=== PATIENT | female | born 1955 | race Caucasian/White ===

== ENCOUNTER 2021-11-01 14:48 | Inpatient (IN) | payer MEDICARE, BC ==
[~2021-11-01] VITALS: Ht 154.9 cm; Wt 55.4 kg
[~2021-11-01 14:48] MED LIST: CALCIUM CHLORIDE 1,000 MG/10 ML DISP.SYRIN ONE; EPINEPHrine SYRINGE 1 MG/10 ML SYRINGE. ONE; SODIUM BICARB ADULT 8.4% 50 MEQ/50 ML DISP.SYRIN. ONE
[2021-11-01] MEDS ORDERED: IV NORMAL SALINE 1000ML BAG 1,000 ML IV ONE ×2 (15:15→17:45)
[2021-11-01 15:17] LABS: BASO % 0 % (0-3); EOS % 0 % (0-3); HEMATOCRIT 44.9 % (36.0-47.0); HEMOGLOBIN 14.2 g/dL (12.0-15.5); LYMPH # 0.3 x10^3/uL (1.0-4.8); LYMPH % 2 % (24-48); MEAN CORPUSCULAR HEMOGLOBIN 31 pg (25-35); MEAN CORPUSCULAR HGB CONC 32 g/dL (31-37); MEAN CORPUSCULAR VOLUME 99 fL (79-100); MONO # 0.5 x10^3/uL (0.0-1.1); MONO % 4 % (0-9); NEUT % 95 % (31-73); PLATELET COUNT 89 x10^3/uL (140-400); RED BLOOD COUNT 4.55 x10^6/uL (3.50-5.40); WHITE BLOOD COUNT 14.8 x10^3/uL (4.0-11.0)
[2021-11-01 15:28] LABS: PROTHROMBIN TIME PATIENT 14.8 SEC (11.7-14.0)
--- NOTE | 2021-11-01 15:29 | PHYS DOC ---
Past Medical History Additional Past Medical Histor: unable to obtain full history from patient Past Surgical History: Other Additional Past Surgical Histo: unable to obtain Adult General Chief Complaint Chief Complaint: SHORTNESS OF BREATH HPI HPI Patient is a 66 year old female presenting to the emergency department for evaluation of a fall that occurred 2 days ago and has been laying on the floor since that time and is now weak confused and unable to function. She is very thin and mottled with cold and pale extremities. Patient says that she hurts everywhere and one place does not hurt more than another. She is alert to person and place but does not know the date. She appears ill but nontoxic. Review of Systems Review of Systems Constitutional: Denies fever or chills [] Eyes: Denies change in visual acuity, redness, or eye pain [] HENT: Denies nasal congestion or sore throat [] Respiratory: Positive shortness of breath Cardiovascular: Positive chest GI: Positive abdominal pain. No nausea, vomiting, bloody stools or diarrhea [] : Denies dysuria or hematuria [] Musculoskeletal: Positive back and diffuse joint pain Integument: Denies rash or skin lesions [] Neurologic: Positive headache All other systems were reviewed and found to be within normal limits, except as documented in this note. Current Medications Current Medications Current Medications Medications (Trade) Dose Ordered Sig/[facility] Start Time Stop Time Status Last Admin Dose Admin Calcium Gluconate (Calcium Gluconate) 1,000 mg 1X ONCE 11/01/21 16:00 11/01/21 16:01 DC 11/01/21 16:35 1,000 MG Dextrose (Dextrose 50%-Water Syringe) 25 gm 1X ONCE 11/01/21 16:00 11/01/21 16:01 DC 11/01/21 16:50 25 GM Insulin Human Regular (HumuLIN R VIAL) 10 unit 1X ONCE 11/01/21 16:00 11/01/21 16:01 DC 11/01/21 16:40 10 UNIT Morphine Sulfate (Morphine Sulfate) 2 mg PRN Q2HR PRN 11/01/21 16:45 11/02/21 16:44 Ondansetron HCl (Zofran) 4 mg PRN Q8HRS PRN 11/01/21 16:45 11/02/21 16:44 Piperacillin Sod/ Tazobactam Sod 2.25 gm/Sodium Chloride 50 ml @ 100 mls/hr 1X ONCE 11/01/21 17:00 11/01/21 17:29 11/01/21 16:58 100 MLS/HR Piperacillin Sod/ Tazobactam Sod 3.375 gm/Sodium Chloride 50 ml @ 100 mls/hr 1X ONCE 11/01/21 16:45 11/01/21 17:14 UNV Sodium Bicarbonate (Sodium Bicarb Adult 8.4% Syr) 50 meq 1X ONCE 11/01/21 16:00 11/01/21 16:01 DC 11/01/21 16:35 50 MEQ Sodium Chloride 1,000 ml @ 1,000 mls/hr Q1H 11/01/21 16:00 11/01/21 16:59 DC 11/01/21 16:50 1,000 MLS/HR Allergies Allergies Allergies Coded Allergies Type Severity Reaction Last Updated Verified No Known Drug Allergies 11/01/21 No Physical Exam Physical Exam Constitutional: Ill and frail appearing female HENT: Normocephalic, atraumatic, bilateral external ears normal, oropharynx moist, no oral exudates, nose normal. [] Eyes: PERRLA, EOMI, conjunctiva normal, no discharge. [] Neck: Normal range of motion, no tenderness, supple, no stridor. [] Cardiovascular:Heart rate regular rhythm, no murmur [] Lungs & Thorax: Bilateral breath sounds clear to auscultation [] Abdomen: Positive diffuse abdominal tenderness to palpation with no rebound or guarding Skin: Cold and mottled extremities Back: No tenderness, no CVA tenderness. [] Extremities: Cyanosis to extremities Neurologic: Alert and oriented X 2, will follow commands and move all extremities Current Patient Data Vital Signs Vital Signs Date Time Temp Pulse Resp B/P (MAP) Pulse Ox O2 Delivery O2 Flow Rate FiO2 11/01/21 16:10 90 15 114/58 (76) 97 Room Air 11/01/21 14:48 96.6 96.6 Lab Values Laboratory Tests Test 11/01/21 15:00 11/01/21 15:45 White Blood Count 14.8 x10^3/uL (4.0-11.0) H Red Blood Count 4.55 x10^6/uL (3.50-5.40) Hemoglobin 14.2 g/dL (12.0-15.5) Hematocrit 44.9 % (36.0-47.0) Mean Corpuscular Volume 99 fL (79-100) Mean Corpuscular Hemoglobin 31 pg (25-35) Mean Corpuscular Hemoglobin Concent 32 g/dL (31-37) Red Cell Distribution Width 21.0 % (11.5-14.5) H Platelet Count 89 x10^3/uL (140-400) L Neutrophils (%) (Auto) 95 % (31-73) H Lymphocytes (%) (Auto) 2 % (24-48) L Monocytes (%) (Auto) 4 % (0-9) Eosinophils (%) (Auto) 0 % (0-3) Basophils (%) (Auto) 0 % (0-3) Neutrophils # (Auto) 14.0 x10^3/uL (1.8-7.7) H Lymphocytes # (Auto) 0.3 x10^3/uL (1.0-4.8) L Monocytes # (Auto) 0.5 x10^3/uL (0.0-1.1) Eosinophils # (Auto) 0.0 x10^3/uL (0.0-0.7) Basophils # (Auto) 0.0 x10^3/uL (0.0-0.2) Segmented Neutrophils % 62 % (35-66) Band Neutrophils % 28 % (0-9) H Lymphocytes % 4 % (24-48) L Monocytes % 5 % (0-10) Metamyelocytes % 1 % (0-0) H Platelet Estimate Decreased (ADEQUATE) Anisocytosis Mod Ac Cells Many Prothrombin Time 14.8 SEC (11.7-14.0) H Prothrombin Time INR 1.2 (0.8-1.1) H Activated Partial Thromboplast Time 23 SEC (24-38) L Sodium Level 139 mmol/L (136-145) Potassium Level 6.2 mmol/L (3.5-5.1) *H Chloride Level 103 mmol/L (98-107) Carbon Dioxide Level 14 mmol/L (21-32) L Anion Gap 22 (6-14) H Blood Urea Nitrogen 87 mg/dL (7-20) H Creatinine 2.5 mg/dL (0.6-1.0) H Estimated GFR (Cockcroft-Gault) 19.3 BUN/Creatinine Ratio 35 (6-20) H Glucose Level 106 mg/dL (70-99) H Lactic Acid Level 3.2 mmol/L (0.4-2.0) H Calcium Level 9.1 mg/dL (8.5-10.1) Total Bilirubin 3.1 mg/dL (0.2-1.0) H Aspartate Amino Transferase (AST) 45 U/L (15-37) H Alanine Aminotransferase (ALT) 49 U/L (14-59) Alkaline Phosphatase 265 U/L (46-116) H Ammonia < 10 mcmol/L (11-34) L Creatine Kinase 59 U/L (26-192) Troponin I High Sensitivity 110 ng/L (4-50) H VN-Fdf-L-Type Natriuretic Peptide > 91714 pg/mL (0-124) H Total Protein 5.7 g/dL (6.4-8.2) L Albumin 2.3 g/dL (3.4-5.0) L Albumin/Globulin Ratio 0.7 (1.0-1.7) L Lipase 255 U/L (73-393) Thyroid Stimulating Hormone (TSH) 4.552 uIU/mL (0.358-3.74) H Salicylates Level 7.0 mg/dL (2.8-20.0) Salicylate Last Dose Date Unknown Salicylate Last Dose Time Unknown Acetaminophen Level 7.3 mcg/ml (10-30) L Acetaminophen Last Dose Date Unknown Acetaminophen Last Dose Time Unknown Ethyl Alcohol Level < 10 mg/dL (0-10) Urine Collection Type U cath Urine Color (Auto) Dark yellow Urine Turbidity Hazy Urine pH (Auto) 5.0 (<5.0-8.0) Urine Specific [place] 1.027 (1.000-1.030) Urine Protein (Auto) 50 mg/dL (Negative) Urine Glucose (Auto)(UA) Negative mg/dL (Negative) Urine Ketones (Auto) Negative mg/dL (Negative) Urine Blood (Auto) Small (Negative) Urine Nitrite Negative (Negative) Urine Bilirubin (Auto) Small (Negative) Urine Urobilinogen (Auto) 4 mg/dL (Normal) Urine Leukocyte Esterase (Auto) Small (Negative) Urine RBC Occ /HPF (0-2) Urine WBC 1-4 /HPF (0-4) Urine Squamous Epithelial Cells Occ /LPF Urine Amorphous Sediment Present /HPF Urine Bacteria Few /HPF (0-FEW) Urine Hyaline Casts Few /HPF Urine Mucus Slight /LPF Urine Opiates Screen Pos (NEG) Urine Methadone Screen Neg (NEG) Urine Barbiturates Neg (NEG) Urine Phencyclidine Screen Neg (NEG) Urine Amphetamine/Methamphetamine Neg (NEG) Urine Benzodiazepines Screen Pos (NEG) Urine Cocaine Screen Neg (NEG) Urine Cannabinoids Screen Neg (NEG) Urine Ethyl Alcohol Neg (NEG) Influenza Type A Antigen Negative (NEGATIVE) Influenza Type B Antigen Negative (NEGATIVE) SARS-CoV-2 Antigen (Rapid) Negative (NEGATIVE) Laboratory Tests 11/01/21 15:00 Laboratory Tests 11/01/21 15:00 EKG EKG Sinus rhythm at 97 bpm with wandering baseline and large QRS complexes with peak T waves in V3. No ST elevation or depression. Radiology/Procedures Radiology/Procedures [] Course & Med Decision Making Course & Med Decision Making Patient is ill and will require full work-up and admission for further observation and treatment. Patient is in new onset renal failure from I presume with increased BUN and creatinine and she has hyperkalemic and has peaked T waves but her QRS is normal at this time. She is being given the hyperkalemia protocol. On CT imaging there is suspicion that she may have perforated viscus so I spoke to the general surgeon Dr. Cummings and he agreed to consult on patient. Antibiotics have been started. Patient's blood pressure is 90/60 with a MAP above 65 I will hold off on pressors at this time but she does have mottled cold extremities and will r equire intense resuscitation. Nephrology will be consulted. Any further blood thinners will be held at this time. She will be admitted to the ICU in critical condition. Dragon Disclaimer Dragon Disclaimer This electronic medical record was generated, in whole or in part, using a voice recognition dictation system. Departure Departure Impression: Primary Impression: Hyperkalemia Additional Impressions: Lactic acidosis Renal insufficiency Perforated viscus Leukocytosis Elevated bilirubin Disposition: ADMITTED INPATIENT Admitting Physician: RITA Condition: CRITICAL Problem Qualifiers CHLOÉ FREDERICK DO Nov 01, 2021 15:29
[2021-11-01 15:35] LABS: ACETAMIN 7.3 mcg/ml (10-30); ETHANOL < 10 mg/dL (0-10)
[2021-11-01 15:37] LABS: ALBUMIN 2.3 g/dL (3.4-5.0); ALBUMIN/GLOBULIN RATIO 0.7 (1.0-1.7); CALCIUM 9.1 mg/dL (8.5-10.1); CREATININE 2.5 mg/dL (0.6-1.0); GFR 19.3; TOTAL BILIRUBIN 3.1 mg/dL (0.2-1.0); TOTAL PROTEIN 5.7 g/dL (6.4-8.2)
[2021-11-01 15:43] LABS: POTASSIUM 6.2 mmol/L (3.5-5.1)
[2021-11-01] MEDS ORDERED: CALCIUM GLUCONATE 1,000 MG/10 ML VIAL. IVP ONE (16:00)
[2021-11-01] MEDS ORDERED: INSULIN REGULAR 100 UNIT/ML 3ML VIAL. IV ONE (16:00)
[2021-11-01] MEDS ORDERED: SODIUM BICARB ADULT 8.4% 50 MEQ/50 ML DISP.SYRIN. IV ONE ×3 (16:00→22:00)
[2021-11-01] MEDS ORDERED: DEXTROSE 50% 25 GM / 50ML DISP.SYRIN. IV ONE (16:00)
[2021-11-01] MEDS ORDERED: IV NORMAL SALINE 1000ML BAG 1,000 ML IV SCH (16:00)
[2021-11-01 16:07] LABS: BARBITURATES NEG (NEG); BENZODIAZEPINES POS (NEG); CANNABINOIDS NEG (NEG); COCAINE NEG (NEG); METHADONE NEG (NEG); OPIATES POS (NEG); PHENCYCLIDINE NEG (NEG)
[2021-11-01 16:10] LABS: AMPHETAMINE/METHAMPHETAMINE NEG (NEG)
--- NOTE | 2021-11-01 16:18 | RAD ---
Exam: CT head and cervical spine INDICATION: Fall, altered mental status TECHNIQUE: Sequential axial images through the head and cervical spine were obtained without the admi nistration of IV contrast. Exposure: One or more of the following in the visualized dose reduction techniques were utilized for this examination: 1. Automated exposure control 2. Adjustment of the MA and/or KV according to patient size 3. Use of iterative of reconstructive technique Comparisons: None FINDINGS: Head: No focal parenchymal lesion or hemorrhage is identified. There is no midline shift or sulcal effaceme nt. Mild patchy hypodensity in the periventricular white matter. No acute vascular territory infarction i s identified. Reagan-white distinction is preserved. The ventricular system is within normal limits without compression hydrocephalus. The basal cisterns are well maintained. The visualized portions of the paranasal sinuses and mastoid air cells are well-pneumatized. No acute fractures. Cervical spine: Reversal of normal cervical lordosis which may positional. Grade 1 anterolisthesis of C2 on C3 and C4 on C5. Fracture to the cervical spine is not identified. Multilevel spondylotic change in cervical spine with degenerative disc disease greatest at C3-C4, C5- C6 and C6-C7. Visualized paraspinal soft tissues are unremarkable. IMPRESSION: 1. No traumatic acute intracranial abnormality. Mild small vessel ischemic change, technically age i ndeterminate without recent prior imaging. 2. Negative CT C-spine for acute traumatic injury. Electronically signed by: Salvador Parks MD (11/01/2021 4:15 PM) [facility]
[2021-11-01 16:32] LABS: INFLUENZA A PATIENT NEGATIVE (NEGATIVE); INFLUENZA B PATIENT NEGATIVE (NEGATIVE)
[2021-11-01] MEDS ORDERED: MORPHINE SULFATE 2 MG/ML INJ. IVP PRN ×3 (16:45→18:00)
[2021-11-01] MEDS ORDERED: ONDANSETRON PF 4 MG/2 ML VIAL. IVP PRN (16:45)
[2021-11-01] MEDS ORDERED: PIPERACILLIN/TAZOBACTAM 3.375 GM in IV NORMAL SALINE 50ML 50 ML IV ONE (16:45)
[2021-11-01 16:46] LABS: % BANDS 28 % (0-9); % LYMPHS 4 % (24-48); % METAS 1 % (0-0); % MONOS 5 % (0-10); % SEGS 62 % (35-66); ANISOCYTOSIS MOD; BURR CELLS MANY; PLT ESTIMATE DECREASED (ADEQUATE)
[2021-11-01 16:51] LABS: AMORPHOUS SEDIMENT,UR PRESENT /HPF; BACTERIA,URINE FEW /HPF (0-FEW); RBC,URINE OCC /HPF (0-2)
[2021-11-01 16:52] LABS: HYALINE CASTS, URINE FEW /HPF
--- NOTE | 2021-11-01 16:59 | RAD ---
Exam: CT of chest, abdomen and pelvis without contrast INDICATION: Pain, altered mental status TECHNIQUE: Sequential axial images through the chest, abdomen and pelvis obtained without IV contrast . Sagittal and coronal reformatted images were reconstructed from the axial data and reviewed. Exposure: One or more of the following in the visualized dose reduction techniques were utilized for this examination: 1. Automated exposure control 2. Adjustment of the MA and/or KV according to patient size 3. Use of iterative of reconstructive technique Comparisons: None FINDINGS: Visualized portions of the thyroid are unremarkable. No enlarged mediastinal lymph nodes are identifi ed. Heart size is normal. No pericardial effusion. Moderate coronary calcifications. Thoracic aorta has a normal course and caliber. Pulmonary artery is not enlarged. Airways are patent. No consolidation or pneumothorax. 4 mm nodule left lower lobe series 2 image 33. No pleural effusion or thickening. Evaluation of solid organs is limited secondary to noncontrast technique. Liver, spleen, and adrenals are unremarkable. Gallbladder surgically absent. There is fluid surrounding the pancreas with a small amount of adjacent free air. No perinephric inflammation or hydronephrosis. No renal or ureteral calculi are identified. Bladder is decompressed not well evaluated. Uterus not enlarged. No abnormal adnexal mass. There is mild wall thickening at the transverse colon. Small amount of free fluid noted throughout th e abdomen particularly in the lesser sac. No obstruction. Abdominal aorta has normal course and caliber. No enlarged intra-abdominal lymph nodes are identified. No suspicious osseous lesions. Bilateral sacral insufficiency fractures are noted. [id number] IMPRESSION: 1. Free fluid and free air noted in the abdomen predominantly surrounding the pancreas and in the le sser sac. Differential diagnosis includes perforation. A definite perforation site is not identified however given distribution of findings suspect stomach or less likely at the splenic flexure of the c olon. Other differential considerations include a pancreatic process such as necrotizing pancreatitis or an infected peripancreatic fluid collection. Correlate with appropriate laboratory values. 2. Bilateral sacral insufficiency fractures. FOR INTERNAL CODING PURPOSES Critical result: Findings discussed with CHLOÉ FREDERICK DO at 11/01/2021 4:30 PM. RESULT CODE: (C) Electronically signed by: Salvador Parks MD (11/01/2021 4:56 PM) [facility]
[2021-11-01] MEDS ORDERED: PIPERACILLIN/TAZOBACTAM 2.25 GM in IV NORMAL SALINE 50ML 50 ML IV ONE (17:00)
[2021-11-01] MEDS ORDERED: ROCURONIUM 100 MG/10 ML VIAL. ONE (17:54)
[2021-11-01] MEDS ORDERED: fentaNYL PF VIAL 250 MCG/5 ML VIAL ONE (17:55)
[2021-11-01] MEDS ORDERED: ETOMIDATE 20 MG/10 ML VIAL. IV ONE (17:55)
[2021-11-01] MEDS ORDERED: PHENYLEPHRINE in 0.9% NACL PF 1 MG/10 ML SYRINGE. IV ONE ×2 (17:56→19:53)
[2021-11-01] MEDS ORDERED: IV DEXTROSE 5% 250 ML BAG. IV PRN (18:00)
[2021-11-01] MEDS ORDERED: DEXTROSE 50% 25 GM / 50ML DISP.SYRIN. IV PRN (18:00)
[2021-11-01] MEDS ORDERED: IV RINGERS,LACTATED 1000ML 1,000 ML IV SCH ×2 (18:00)
[2021-11-01] MEDS ORDERED: PROCHLORPERAZINE 10 MG/2 ML VIAL. IVP PRN ×2 (18:00)
[2021-11-01] MEDS ORDERED: HYDROmorphone 2 MG/ML INJ. IVP PRN ×2 (18:00)
[2021-11-01] MEDS ORDERED: fentaNYL PF VIAL 100 MCG/2 ML VIAL IVP PRN ×4 (18:00)
--- NOTE | 2021-11-01 18:02 | PDOC2 ---
CONSULT Date of Consult Date of Consult DATE: 11/01/21 TIME: 17:55 History of Present Illness Reason for Visit: The patient is a 66 year old female who was reportedly taken to the ER by ambulance. She states she fell at home and was unable to get up. She is a poor historian and has difficulty communicating. She does report having some abdominal pain, but is unable to provide further details. Past Medical History Past Medical History RA, tobacco use, remainder is unknown Past Surgical History Past Surgical History she states she had "surgery for RA" but is unable to provide details Social History 1 pack per day Lives: Alone Current Problem List Problem List Problems Medical Problems: (1) Elevated bilirubin Status: Acute (2) Hyperkalemia Status: Acute (3) Lactic acidosis Status: Acute (4) Leukocytosis Status: Acute (5) Perforated viscus Status: Acute (6) Renal insufficiency Status: Acute Current Medications Current Medications Current Medications Sodium Chloride 1,000 ml @ 1,000 mls/hr 1X ONCE IV Last administered on 11/01/21at 15:30; Start 11/01/21 at 15:15; Stop 11/01/21 at 16:14; Status DC Calcium Gluconate (Calcium Gluconate) 1,000 mg 1X ONCE IVP Last administered on 11/01/21at 16:35; Start 11/01/21 at 16:00; Stop 11/01/21 at 16:01; Status DC Sodium Bicarbonate (Sodium Bicarb Adult 8.4% Syr) 50 meq 1X ONCE IV Last administered on 11/01/21at 16:35; Start 11/01/21 at 16:00; Stop 11/01/21 at 16:01; Status DC Dextrose (Dextrose 50%-Water Syringe) 25 gm 1X ONCE IV Last administered on 11/01/21at 16:50; Start 11/01/21 at 16:00; Stop 11/01/21 at 16:01; Status DC Insulin Human Regular (HumuLIN R VIAL) 10 unit 1X ONCE IV Last administered on 11/01/21at 16:40; Start 11/01/21 at 16:00; Stop 11/01/21 at 16:01; Status DC Sodium Chloride 1,000 ml @ 1,000 mls/hr Q1H IV Last administered on 11/01/21at 16:50; Start 11/01/21 at 16:00; Stop 11/01/21 at 16:59; Status DC Piperacillin Sod/ Tazobactam Sod 3.375 gm/Sodium Chloride 50 ml @ 100 mls/hr 1X ONCE IV ; Start 11/01/21 at 16:45; Stop 11/01/21 at 17:14; Status UNV Piperacillin Sod/ Tazobactam Sod 2.25 gm/Sodium Chloride 50 ml @ 100 mls/hr 1X ONCE IV Last administered on 11/01/21at 16:58; Start 11/01/21 at 17:00; Stop 11/01/21 at 17:29; Status DC Ondansetron HCl (Zofran) 4 mg PRN Q8HRS PRN IVP NAUSEA/VOMITING; Start 11/01/21 at 16:45; Stop 11/02/21 at 16:44 Morphine Sulfate (Morphine Sulfate) 2 mg PRN Q2HR PRN IVP PAIN; Start 11/01/21 at 16:45; Stop 11/02/21 at 16:44 Sodium Chloride 1,000 ml @ 1,000 mls/hr 1X ONCE IV Last administered on 11/01/21at 17:48; Start 11/01/21 at 17:45; Stop 11/01/21 at 18:44 Allergies Allergies: Coded Allergies: No Known Drug Allergies (Unverified , 11/01/21) ROS Review of System poor historian, unable to obtain ROS Physical Exam General: Alert (lethargic, some confusion), Other (cachectic) HEENT: Atraumatic Lungs: Clear to auscultation Heart: Regular rate Abdomen: Soft (tender with palpation diffusely, peritoneal signs present) Extremities: Other (chronic changes of RA, marked ecchymosis both extremities) Vitals VITALS Vital Signs Date Time Temp Pulse Resp B/P (MAP) Pulse Ox O2 Delivery O2 Flow Rate FiO2 11/01/21 17:53 90 15 118/67 (84) 98 Room Air 11/01/21 14:48 96.6 96.6 Labs Labs Laboratory Tests Test 11/01/21 15:00 11/01/21 15:45 White Blood Count 14.8 x10^3/uL (4.0-11.0) Red Blood Count 4.55 x10^6/uL (3.50-5.40) Hemoglobin 14.2 g/dL (12.0-15.5) Hematocrit 44.9 % (36.0-47.0) Mean Corpuscular Volume 99 fL (79-100) Mean Corpuscular Hemoglobin 31 pg (25-35) Mean Corpuscular Hemoglobin Concent 32 g/dL (31-37) Red Cell Distribution Width 21.0 % (11.5-14.5) Platelet Count 89 x10^3/uL (140-400) Neutrophils (%) (Auto) 95 % (31-73) Lymphocytes (%) (Auto) 2 % (24-48) Monocytes (%) (Auto) 4 % (0-9) Eosinophils (%) (Auto) 0 % (0-3) Basophils (%) (Auto) 0 % (0-3) Neutrophils # (Auto) 14.0 x10^3/uL (1.8-7.7) Lymphocytes # (Auto) 0.3 x10^3/uL (1.0-4.8) Monocytes # (Auto) 0.5 x10^3/uL (0.0-1.1) Eosinophils # (Auto) 0.0 x10^3/uL (0.0-0.7) Basophils # (Auto) 0.0 x10^3/uL (0.0-0.2) Segmented Neutrophils % 62 % (35-66) Band Neutrophils % 28 % (0-9) Lymphocytes % 4 % (24-48) Monocytes % 5 % (0-10) Metamyelocytes % 1 % (0-0) Platelet Estimate Decreased (ADEQUATE) Anisocytosis Mod [place] Cells Many Prothrombin Time 14.8 SEC (11.7-14.0) Prothromb Time International Ratio 1.2 (0.8-1.1) Activated Partial Thromboplast Time 23 SEC (24-38) Sodium Level 139 mmol/L (136-145) Potassium Level 6.2 mmol/L (3.5-5.1) Chloride Level 103 mmol/L (98-107) Carbon Dioxide Level 14 mmol/L (21-32) Anion Gap 22 (6-14) Blood Urea Nitrogen 87 mg/dL (7-20) Creatinine 2.5 mg/dL (0.6-1.0) Estimated GFR (Cockcroft-Gault) 19.3 BUN/Creatinine Ratio 35 (6-20) Glucose Level 106 mg/dL (70-99) Lactic Acid Level 3.2 mmol/L (0.4-2.0) Calcium Level 9.1 mg/dL (8.5-10.1) Total Bilirubin 3.1 mg/dL (0.2-1.0) Aspartate Amino Transf (AST/SGOT) 45 U/L (15-37) Alanine Aminotransferase (ALT/SGPT) 49 U/L (14-59) Alkaline Phosphatase 265 U/L (46-116) Ammonia < 10 mcmol/L (11-34) Creatine Kinase 59 U/L (26-192) Troponin I High Sensitivity 110 ng/L (4-50) VU-Unv-B-Type Natriuretic Peptide > 17657 pg/mL (0-124) Total Protein 5.7 g/dL (6.4-8.2) Albumin 2.3 g/dL (3.4-5.0) Albumin/Globulin Ratio 0.7 (1.0-1.7) Lipase 255 U/L (73-393) Thyroid Stimulating Hormone (TSH) 4.552 uIU/mL (0.358-3.74) Salicylates Level 7.0 mg/dL (2.8-20.0) Salicylate Last Dose Date Unknown Salicylate Last Dose Time Unknown Acetaminophen Level 7.3 mcg/ml (10-30) Acetaminophen Last Dose Date Unknown Acetaminophen Last Dose Time Unknown Ethyl Alcohol Level < 10 mg/dL (0-10) Urine Collection Type U cath Urine Color (Auto) Dark yellow Urine Turbidity Hazy Urine pH (Auto) 5.0 (<5.0-8.0) Urine Specific [place] 1.027 (1.000-1.030) Urine Protein (Auto) 50 mg/dL (Negative) Urine Glucose (Auto)(UA) Negative mg/dL (Negative) Urine Ketones (Auto) Negative mg/dL (Negative) Urine Blood (Auto) Small (Negative) Urine Nitrite Negative (Negative) Urine Bilirubin (Auto) Small (Negative) Urine Urobilinogen (Auto) 4 mg/dL (Normal) Urine Leukocyte Esterase (Auto) Small (Negative) Urine RBC Occ /HPF (0-2) Urine WBC 1-4 /HPF (0-4) Urine Squamous Epithelial Cells Occ /LPF Urine Amorphous Sediment Present /HPF Urine Bacteria Few /HPF (0-FEW) Urine Hyaline Casts Few /HPF Urine Mucus Slight /LPF Urine Opiates Screen Pos (NEG) Urine Methadone Screen Neg (NEG) Urine Barbiturates Neg (NEG) Urine Phencyclidine Screen Neg (NEG) Urine Amphetamine/Methamphetamine Neg (NEG) Urine Benzodiazepines Screen Pos (NEG) Urine Cocaine Screen Neg (NEG) Urine Cannabinoids Screen Neg (NEG) Urine Ethyl Alcohol Neg (NEG) Influenza Type A Antigen Negative (NEGATIVE) Influenza Type B Antigen Negative (NEGATIVE) SARS-CoV-2 Antigen (Rapid) Negative (NEGATIVE) Laboratory Tests Test 11/01/21 15:00 11/01/21 15:45 White Blood Count 14.8 x10^3/uL (4.0-11.0) Red Blood Count 4.55 x10^6/uL (3.50-5.40) Hemoglobin 14.2 g/dL (12.0-15.5) Hematocrit 44.9 % (36.0-47.0) Mean Corpuscular Volume 99 fL (79-100) Mean Corpuscular Hemoglobin 31 pg (25-35) Mean Corpuscular Hemoglobin Concent 32 g/dL (31-37) Red Cell Distribution Width 21.0 % (11.5-14.5) Platelet Count 89 x10^3/uL (140-400) Neutrophils (%) (Auto) 95 % (31-73) Lymphocytes (%) (Auto) 2 % (24-48) Monocytes (%) (Auto) 4 % (0-9) Eosinophils (%) (Auto) 0 % (0-3) Basophils (%) (Auto) 0 % (0-3) Neutrophils # (Auto) 14.0 x10^3/uL (1.8-7.7) Lymphocytes # (Auto) 0.3 x10^3/uL (1.0-4.8) Monocytes # (Auto) 0.5 x10^3/uL (0.0-1.1) Eosinophils # (Auto) 0.0 x10^3/uL (0.0-0.7) Basophils # (Auto) 0.0 x10^3/uL (0.0-0.2) Segmented Neutrophils % 62 % (35-66) Band Neutrophils % 28 % (0-9) Lymphocytes % 4 % (24-48) Monocytes % 5 % (0-10) Metamyelocytes % 1 % (0-0) Platelet Estimate Decreased (ADEQUATE) Anisocytosis Mod Ac Cells Many Prothrombin Time 14.8 SEC (11.7-14.0) Prothromb Time International Ratio 1.2 (0.8-1.1) Activated Partial Thromboplast Time 23 SEC (24-38) Sodium Level 139 mmol/L (136-145) Potassium Level 6.2 mmol/L (3.5-5.1) Chloride Level 103 mmol/L (98-107) Carbon Dioxide Level 14 mmol/L (21-32) Anion Gap 22 (6-14) Blood Urea Nitrogen 87 mg/dL (7-20) Creatinine 2.5 mg/dL (0.6-1.0) Estimated GFR (Cockcroft-Gault) 19.3 BUN/Creatinine Ratio 35 (6-20) Glucose Level 106 mg/dL (70-99) Lactic Acid Level 3.2 mmol/L (0.4-2.0) Calcium Level 9.1 mg/dL (8.5-10.1) Total Bilirubin 3.1 mg/dL (0.2-1.0) Aspartate Amino Transf (AST/SGOT) 45 U/L (15-37) Alanine Aminotransferase (ALT/SGPT) 49 U/L (14-59) Alkaline Phosphatase 265 U/L (46-116) Ammonia < 10 mcmol/L (11-34) Creatine Kinase 59 U/L (26-192) Troponin I High Sensitivity 110 ng/L (4-50) ZU-Inq-I-Type Natriuretic Peptide > 49476 pg/mL (0-124) Total Protein 5.7 g/dL (6.4-8.2) Albumin 2.3 g/dL (3.4-5.0) Albumin/Globulin Ratio 0.7 (1.0-1.7) Lipase 255 U/L (73-393) Thyroid Stimulating Hormone (TSH) 4.552 uIU/mL (0.358-3.74) Salicylates Level 7.0 mg/dL (2.8-20.0) Salicylate Last Dose Date Unknown Salicylate Last Dose Time Unknown Acetaminophen Level 7.3 mcg/ml (10-30) Acetaminophen Last Dose Date Unknown Acetaminophen Last Dose Time Unknown Ethyl Alcohol Level < 10 mg/dL (0-10) Urine Collection Type U cath Urine Color (Auto) Dark yellow Urine Turbidity Hazy Urine pH (Auto) 5.0 (<5.0-8.0) Urine Specific [place] 1.027 (1.000-1.030) Urine Protein (Auto) 50 mg/dL (Negative) Urine Glucose (Auto)(UA) Negative mg/dL (Negative) Urine Ketones (Auto) Negative mg/dL (Negative) Urine Blood (Auto) Small (Negative) Urine Nitrite Negative (Negative) Urine Bilirubin (Auto) Small (Negative) Urine Urobilinogen (Auto) 4 mg/dL (Normal) Urine Leukocyte Esterase (Auto) Small (Negative) Urine RBC Occ /HPF (0-2) Urine WBC 1-4 /HPF (0-4) Urine Squamous Epithelial Cells Occ /LPF Urine Amorphous Sediment Present /HPF Urine Bacteria Few /HPF (0-FEW) Urine Hyaline Casts Few /HPF Urine Mucus Slight /LPF Urine Opiates Screen Pos (NEG) Urine Methadone Screen Neg (NEG) Urine Barbiturates Neg (NEG) Urine Phencyclidine Screen Neg (NEG) Urine Amphetamine/Methamphetamine Neg (NEG) Urine Benzodiazepines Screen Pos (NEG) Urine Cocaine Screen Neg (NEG) Urine Cannabinoids Screen Neg (NEG) Urine Ethyl Alcohol Neg (NEG) Influenza Type A Antigen Negative (NEGATIVE) Influenza Type B Antigen Negative (NEGATIVE) SARS-CoV-2 Antigen (Rapid) Negative (NEGATIVE) Assessment/Plan Assessment/Plan 66 year old female with abdominal pain, acute abdomen, marked metabolic abnormalities, cachectic; unfortunately the patient is a very poor operative candidate but appears to have an acute surgical abdomen. Case discussed with Ra hernandez, favor gastric perforation. Plan for X laparoscopy tonight to evaluate/treat. Prognosis is very poor with high chances of periopertive morbidity and mortality. MATTHEW VICK MD Nov 01, 2021 18:02
[2021-11-01] MEDS ORDERED: PIP/TAZO PER PHARMACY MC PRN (18:15)
[2021-11-01] MEDS ORDERED: ALBUMIN HUMAN 5% 500 ML IV ONE ×3 (18:20→20:00)
[2021-11-01] MEDS ORDERED: BUPIVACAINE-EPI 0.5% 30 ML VIAL KIT. ONE (18:25)
[2021-11-01 19:47] LABS: POTASSIUM 4.3 mmol/L (3.5-5.1)
[2021-11-01] MEDS ORDERED: SEVOFLURANE > 120 MINUTES. IH ONE (19:58)
--- NOTE | 2021-11-01 20:24 | PDOC4 ---
Operative Note Operative Note Operative Note: Preoperative Diagnosis: Perforated viscus with acute abdomen Postoperative Diagnosis: Perforated posterior gastric ulcer with abdominal sepsis Procedure: Exploratory laparoscopy, exploratory laparotomy, repair of posterior gastric ulcer, drainage of abdominal sepsis Surgeon: Emiliano Skip Loader: Ferdinand KEENE Anesthesia: General EBL: 50 mL Specimen: Cultures microbiology Findings: Suspected posterior gastric perforation, walled off with eroded segment of transverse mesocolon and widespread abdominal sepsis Drains: 19 Polish BRANDON drain to lesser sac Complications: None Indication: The patient is a 66-year-old female presented to the emergency department critically ill. Her evaluation included a CT scan which showed free air and fluid consistent with perforated viscus. Most likely source seems to be a posterior gastric ulcer. The plan is to proceed to the operating room for evaluation and treatment. The risks of surgery were discussed with patient which include bleeding, infection, pain, anesthetic risk, visceral injury, wound healing problems, potential need for additional surgery procedure. In addition the patient is very sick with multiple comorbidities and she represents a very high surgical risk. She understands and would like to proceed. Description: The patient was taken the operating room and placed supine on the operating table. General anesthesia was performed. The abdomen is prepped with ChloraPrep and draped in a standard surgical manner. A small infraumbilical incision was made the skin through which a Veress needle was inserted and a pneumoperitoneum was created. A visualized 5 mm trocar was inserted and the laparoscope introduced. Initial inspection showed marked abdominal sepsis with turbid fluid consistent with perforated viscus. There was a significant amount around the stomach and duodenum. Two additional 5 mm ports were inserted. We began suctioning some of the turbid fluid in the area of the stomach. Apart from some generalized inflammation we did not see a definite perforation site in the anterior stomach or duodenum. We elected to proceed with an open approach for further evaluation. A vertical midline incision was made in the skin which was carried below the umbilicus. Cautery dissection was carried down to the fascia. The fascia and peritoneum were then divided. The Omni retractor was used for the case to facilitate exposure. Along the inferior aspect of the omentum there was a marked amount of purulent fluid which was suctioned. In addition there appeared to be a hole in the proximal portion of the mesocolon extending toward the lesser sac. The lesser sac was opened using a LigaSure device. There was marked inflammatory lesions which were revealing an apparent abscess collection. Further inspection showed a focal area of darkening of a small portion of the posterior wall of the stomach. This corresponded to the eroded portion of the proximal mesocolon previous identified. The findings seem to suggest a perforation that had walled off of the posterior stomach. The contamination however had resulted in persistent abdominal sepsis. The focal area of the suspected ulcer was oversewn with 2-0 Vicryl stitches. An omental buttress was also performed with 2-0 Vicryl. The entire abdominal cavity was then irrigated with several liters of sterile saline. Inspection showed normal-appearing small and large bowel with apart from secondary inflammatory changes. A 19 Polish BRANDON drain was left in the lesser sac with an exit site in the left lateral port incision. This was secured to the skin with 2-0 silk. The fascia was then approximated with 1 PDS. A Debbie drain was left in subcutaneous space which exited inferiorly. The skin was then closed over the drain with 4-0 Monocryl. A sterile dressing was then applied. The patient was then sent to the intensive care unit in critical condition. At the end of the case all counts were correct. MATTHEW VICK MD Nov 01, 2021 20:23
[2021-11-01] MEDS ORDERED: IV DEXTROSE 5 %-0.45 % NACL 1,000 ML IV SCH (20:30)
[2021-11-01] MEDS ORDERED: PANTOPRAZOLE SODIUM IV DRIP 80 MG in IV NORMAL SALINE 100ML 100 ML IV ONE (20:30)
--- NOTE | 2021-11-01 20:40 | PDOC1 ---
History and Physical Date of Admission Date of Admission DATE: 11/01/21 TIME: 20:23 Source Source: Chart review, Patient History of Present Illness History of Present Illness Ms. Alvarado is a 66 year old female admit for acute abdomen, she came to the emergency department tonight, found down after a fall ,and now weak confused and unable to function. She is very frail and thin and mottled with extensive brusiing to her arms and legs. She was cold and pale in the ER,. Patient did say to me that "she hurts everywhere" but then falls back asleep in a few seconds. pain 8;10 she is oriented 3/3 when able to stay awake. She appears ill Past Medical History Cardiovascular: No pertinent hx Pulmonary: No pertinent hx GI: No pertinent hx Rheumatologic: No pertinent hx Past Surgical History Past Surgical History: No pertinent history Social History Smoke: 1 pack per day Drugs: None Current Problem List Problem List Problems Medical Problems: (1) Elevated bilirubin Status: Acute (2) Hyperkalemia Status: Acute (3) Lactic acidosis Status: Acute (4) Leukocytosis Status: Acute (5) Perforated viscus Status: Acute (6) Renal insufficiency Status: Acute Current Medications Current Medications Current Medications Sodium Chloride 1,000 ml @ 1,000 mls/hr 1X ONCE IV Last administered on 11/01/21at 15:30; Start 11/01/21 at 15:15; Stop 11/01/21 at 16:14; Status DC Calcium Gluconate (Calcium Gluconate) 1,000 mg 1X ONCE IVP Last administered on 11/01/21at 16:35; Start 11/01/21 at 16:00; Stop 11/01/21 at 16:01; Status DC Sodium Bicarbonate (Sodium Bicarb Adult 8.4% Syr) 50 meq 1X ONCE IV Last administered on 11/01/21at 16:35; Start 11/01/21 at 16:00; Stop 11/01/21 at 16:01; Status DC Dextrose (Dextrose 50%-Water Syringe) 25 gm 1X ONCE IV Last administered on 11/01/21at 16:50; Start 11/01/21 at 16:00; Stop 11/01/21 at 16:01; Status DC Insulin Human Regular (HumuLIN R VIAL) 10 unit 1X ONCE IV Last administered on 11/01/21at 16:40; Start 11/01/21 at 16:00; Stop 11/01/21 at 16:01; Status DC Sodium Chloride 1,000 ml @ 1,000 mls/hr Q1H IV Last administered on 11/01/21at 16:50; Start 11/01/21 at 16:00; Stop 11/01/21 at 16:59; Status DC Piperacillin Sod/ Tazobactam Sod 3.375 gm/Sodium Chloride 50 ml @ 100 mls/hr 1X ONCE IV ; Start 11/01/21 at 16:45; Stop 11/01/21 at 17:14; Status UNV Piperacillin Sod/ Tazobactam Sod 2.25 gm/Sodium Chloride 50 ml @ 100 mls/hr 1X ONCE IV Last administered on 11/01/21at 16:58; Start 11/01/21 at 17:00; Stop 11/01/21 at 17:29; Status DC Ondansetron HCl (Zofran) 4 mg PRN Q8HRS PRN IVP NAUSEA/VOMITING; Start 11/01/21 at 16:45; Stop 11/02/21 at 16:44 Morphine Sulfate (Morphine Sulfate) 2 mg PRN Q2HR PRN IVP PAIN; Start 11/01/21 at 16:45; Stop 11/02/21 at 16:44 Sodium Chloride 1,000 ml @ 1,000 mls/hr 1X ONCE IV Last administered on 11/01/21at 17:48; Start 11/01/21 at 17:45; Stop 11/01/21 at 18:44; Status DC Rocuronium [place] (Zemuron) 100 mg STK-MED ONCE .ROUTE ; Start 11/01/21 at 17:54; Stop 11/01/21 at 17:55; Status DC Fentanyl Citrate (Fentanyl 5ml Vial) 250 mcg STK-MED ONCE .ROUTE ; Start 11/01/21 at 17:55; Stop 11/01/21 at 17:55; Status DC Etomidate (Amidate) 20 mg STK-MED ONCE IV ; Start 11/01/21 at 17:55; Stop 11/01/21 at 17:56; Status DC Phenylephrine HCl (PHENYLEPHRINE in 0.9% NACL PF) 1 mg STK-MED ONCE IV ; Start 11/01/21 at 17:56; Stop 11/01/21 at 17:56; Status DC Fentanyl Citrate (Fentanyl 2ml Vial) 25 mcg PRN Q5MIN PRN IVP MILD PAIN 1-3; Start 11/01/21 at 18:00; Stop 11/02/21 at 17:59 Fentanyl Citrate (Fentanyl 2ml Vial) 50 mcg PRN Q5MIN PRN IVP MODERATE PAIN 4- 6; Start 11/01/21 at 18:00; Stop 11/02/21 at 17:59 Morphine Sulfate (Morphine Sulfate) 1 mg PRN Q10MIN PRN IVP SEVERE PAIN 7-10; Start 11/01/21 at 18:00; Stop 11/02/21 at 17:59 Ringer's Solution 1,000 ml @ 30 mls/hr Q24H IV ; Start 11/01/21 at 18:00; Stop 11/02/21 at 05:59 Hydromorphone HCl (Dilaudid) 0.5 mg PRN Q10MIN PRN IVP SEVERE PAIN 7-10, 2nd CHOICE; Start 11/01/21 at 18:00; Stop 11/02/21 at 17:59 Prochlorperazine Edisylate (Compazine) 5 mg PACU PRN PRN IVP NAUSEA, MRX1; Start 11/01/21 at 18:00; Stop 11/02/21 at 17:59 Fentanyl Citrate (Fentanyl 2ml Vial) 25 mcg PRN Q5MIN PRN IVP MILD PAIN 1-3; S tart 11/01/21 at 18:00; Stop 11/02/21 at 17:59; Status UNV Fentanyl Citrate (Fentanyl 2ml Vial) 50 mcg PRN Q5MIN PRN IVP MODERATE PAIN 4- 6; Start 11/01/21 at 18:00; Stop 11/02/21 at 17:59; Status UNV Morphine Sulfate (Morphine Sulfate) 1 mg PRN Q10MIN PRN IVP SEVERE PAIN 7-10; Start 11/01/21 at 18:00; Stop 11/02/21 at 17:59; Status UNV Ringer's Solution 1,000 ml @ 30 mls/hr Q24H IV ; Start 11/01/21 at 18:00; Stop 11/02/21 at 05:59; Status UNV Hydromorphone HCl (Dilaudid) 0.5 mg PRN Q10MIN PRN IVP SEVERE PAIN 7-10, 2nd CHOICE; Start 11/01/21 at 18:00; Stop 11/02/21 at 17:59; Status UNV Prochlorperazine Edisylate (Compazine) 5 mg PACU PRN PRN IVP NAUSEA, MRX1; Start 11/01/21 at 18:00; Stop 11/02/21 at 17:59; Status UNV Insulin Human Lispro (HumaLOG) 0-5 UNITS TIDWMEALS SQ ; Start 11/02/21 at 08:00 Dextrose (Dextrose 50%-Water Syringe) 12.5 gm PRN Q15MIN PRN IV SEE COMMENTS; Start 11/01/21 at 18:00 Dextrose (Iv Dextrose 5%) 250 ml PRN Q15MIN PRN IV SEE COMMENTS; Start 11/01/21 at 18:00 Piperacillin Sod/ Tazobactam Sod (Zosyn Per Pharmacy) 1 each PRN DAILY PRN MC SEE COMMENTS; Start 11/01/21 at 18:15 Piperacillin Sod/ Tazobactam Sod 2.25 gm/Sodium Chloride 50 ml @ 100 mls/hr Q8HRS IV ; Start 11/01/21 at 22:00 Albumin Human 500 ml @ As Directed STK-MED ONCE IV ; Start 11/01/21 at 18:20; Stop 11/01/21 at 18:21; Status DC Bupivacaine HCl/ Epinephrine Bitart (Sensorcain-Epi 0.5% Kit) 30 ml STK-MED ONCE .ROUTE ; Start 11/01/21 at 18:25; Stop 11/01/21 at 18:26; Status DC Albumin Human 500 ml @ As Directed STK-MED ONCE IV ; Start 11/01/21 at 18:30; Stop 11/01/21 at 18:31; Status DC Phenylephrine HCl (PHENYLEPHRINE in 0.9% NACL PF) 1 mg STK-MED ONCE IV ; Start 11/01/21 at 19:53; Stop 11/01/21 at 19:53; Status DC Sevoflurane (Ultane) 90 ml STK-MED ONCE IH ; Start 11/01/21 at 19:58; Stop 11/01/21 at 19:58; Status DC Albumin Human 500 ml @ As Directed STK-MED ONCE IV ; Start 11/01/21 at 20:00; Stop 11/01/21 at 20:00; Status DC Allergies Allergies: Coded Allergies: No Known Drug Allergies (Unverified , 11/01/21) ROS Review of System distress, and lethargy PSYCHOLOGICAL ROS: YES: Anxiety Physical Exam General: Alert, Cooperative, moderate distress, Other HEENT: PERRLA Lungs: Clear to auscultation Heart: S1S2, no gallops, no murmurs Abdomen: Normal bowel sounds, Soft Extremities: No cyanosis, No edema, Normal pulses Skin: No rashes Neuro: Normal speech, Normal tone Psych/Mental Status: Mood NL, Other Vitals Vitals Vital Signs Date Time Temp Pulse Resp B/P (MAP) Pulse Ox O2 Delivery O2 Flow Rate FiO2 11/01/21 17:53 90 15 118/67 (84) 98 Room Air 11/01/21 14:48 96.6 96.6 Labs Labs Laboratory Tests Test 11/01/21 15:00 11/01/21 15:45 11/01/21 19:30 White Blood Count 14.8 x10^3/uL (4.0-11.0) Red Blood Count 4.55 x10^6/uL (3.50-5.40) Hemoglobin 14.2 g/dL (12.0-15.5) Hematocrit 44.9 % (36.0-47.0) Mean Corpuscular Volume 99 fL (79-100) Mean Corpuscular Hemoglobin 31 pg (25-35) Mean Corpuscular Hemoglobin Concent 32 g/dL (31-37) Red Cell Distribution Width 21.0 % (11.5-14.5) Platelet Count 89 x10^3/uL (140-400) Neutrophils (%) (Auto) 95 % (31-73) Lymphocytes (%) (Auto) 2 % (24-48) Monocytes (%) (Auto) 4 % (0-9) Eosinophils (%) (Auto) 0 % (0-3) Basophils (%) (Auto) 0 % (0-3) Neutrophils # (Auto) 14.0 x10^3/uL (1.8-7.7) Lymphocytes # (Auto) 0.3 x10^3/uL (1.0-4.8) Monocytes # (Auto) 0.5 x10^3/uL (0.0-1.1) Eosinophils # (Auto) 0.0 x10^3/uL (0.0-0.7) Basophils # (Auto) 0.0 x10^3/uL (0.0-0.2) Segmented Neutrophils % 62 % (35-66) Band Neutrophils % 28 % (0-9) Lymphocytes % 4 % (24-48) Monocytes % 5 % (0-10) Metamyelocytes % 1 % (0-0) Platelet Estimate Decreased (ADEQUATE) Anisocytosis Mod Ac Cells Many Prothrombin Time 14.8 SEC (11.7-14.0) Prothromb Time International Ratio 1.2 (0.8-1.1) Activated Partial Thromboplast Time 23 SEC (24-38) Sodium Level 139 mmol/L (136-145) 143 mmol/L (136-145) Potassium Level 6.2 mmol/L (3.5-5.1) 4.3 mmol/L (3.5-5.1) Chloride Level 103 mmol/L (98-107) 112 mmol/L (98-107) Carbon Dioxide Level 14 mmol/L (21-32) 16 mmol/L (21-32) Anion Gap 22 (6-14) 15 (6-14) Blood Urea Nitrogen 87 mg/dL (7-20) 73 mg/dL (7-20) Creatinine 2.5 mg/dL (0.6-1.0) 2.0 mg/dL (0.6-1.0) Estimated GFR (Cockcroft-Gault) 19.3 25.0 BUN/Creatinine Ratio 35 (6-20) Glucose Level 106 mg/dL (70-99) 85 mg/dL (70-99) Lactic Acid Level 3.2 mmol/L (0.4-2.0) Calcium Level 9.1 mg/dL (8.5-10.1) 7.0 mg/dL (8.5-10.1) Total Bilirubin 3.1 mg/dL (0.2-1.0) Aspartate Amino Transf (AST/SGOT) 45 U/L (15-37) Alanine Aminotransferase (ALT/SGPT) 49 U/L (14-59) Alkaline Phosphatase 265 U/L (46-116) Ammonia < 10 mcmol/L (11-34) Creatine Kinase 59 U/L (26-192) Troponin I High Sensitivity 110 ng/L (4-50) RP-Mkk-L-Type Natriuretic Peptide > 85598 pg/mL (0-124) Total Protein 5.7 g/dL (6.4-8.2) Albumin 2.3 g/dL (3.4-5.0) Albumin/Globulin Ratio 0.7 (1.0-1.7) Lipase 255 U/L (73-393) Thyroid Stimulating Hormone (TSH) 4.552 uIU/mL (0.358-3.74) Salicylates Level 7.0 mg/dL (2.8-20.0) Salicylate Last Dose Date Unknown Salicylate Last Dose Time Unknown Acetaminophen Level 7.3 mcg/ml (10-30) Acetaminophen Last Dose Date Unknown Acetaminophen Last Dose Time Unknown Ethyl Alcohol Level < 10 mg/dL (0-10) Urine Collection Type U cath Urine Color (Auto) Dark yellow Urine Turbidity Hazy Urine pH (Auto) 5.0 (<5.0-8.0) Urine Specific [place] 1.027 (1.000-1.030) Urine Protein (Auto) 50 mg/dL (Negative) Urine Glucose (Auto)(UA) Negative mg/dL (Negative) Urine Ketones (Auto) Negative mg/dL (Negative) Urine Blood (Auto) Small (Negative) Urine Nitrite Negative (Negative) Urine Bilirubin (Auto) Small (Negative) Urine Urobilinogen (Auto) 4 mg/dL (Normal) Urine Leukocyte Esterase (Auto) Small (Negative) Urine RBC Occ /HPF (0-2) Urine WBC 1-4 /HPF (0-4) Urine Squamous Epithelial Cells Occ /LPF Urine Amorphous Sediment Present /HPF Urine Bacteria Few /HPF (0-FEW) Urine Hyaline Casts Few /HPF Urine Mucus Slight /LPF Urine Opiates Screen Pos (NEG) Urine Methadone Screen Neg (NEG) Urine Barbiturates Neg (NEG) Urine Phencyclidine Screen Neg (NEG) Urine Amphetamine/Methamphetamine Neg (NEG) Urine Benzodiazepines Screen Pos (NEG) Urine Cocaine Screen Neg (NEG) Urine Cannabinoids Screen Neg (NEG) Urine Ethyl Alcohol Neg (NEG) Influenza Type A Antigen Negative (NEGATIVE) Influenza Type B Antigen Negative (NEGATIVE) SARS-CoV-2 Antigen (Rapid) Negative (NEGATIVE) Laboratory Tests Test 11/01/21 15:00 11/01/21 15:45 11/01/21 19:30 White Blood Count 14.8 x10^3/uL (4.0-11.0) Red Blood Count 4.55 x10^6/uL (3.50-5.40) Hemoglobin 14.2 g/dL (12.0-15.5) Hematocrit 44.9 % (36.0-47.0) Mean Corpuscular Volume 99 fL (79-100) Mean Corpuscular Hemoglobin 31 pg (25-35) Mean Corpuscular Hemoglobin Concent 32 g/dL (31-37) Red Cell Distribution Width 21.0 % (11.5-14.5) Platelet Count 89 x10^3/uL (140-400) Neutrophils (%) (Auto) 95 % (31-73) Lymphocytes (%) (Auto) 2 % (24-48) Monocytes (%) (Auto) 4 % (0-9) Eosinophils (%) (Auto) 0 % (0-3) Basophils (%) (Auto) 0 % (0-3) Neutrophils # (Auto) 14.0 x10^3/uL (1.8-7.7) Lymphocytes # (Auto) 0.3 x10^3/uL (1.0-4.8) Monocytes # (Auto) 0.5 x10^3/uL (0.0-1.1) Eosinophils # (Auto) 0.0 x10^3/uL (0.0-0.7) Basophils # (Auto) 0.0 x10^3/uL (0.0-0.2) Segmented Neutrophils % 62 % (35-66) Band Neutrophils % 28 % (0-9) Lymphocytes % 4 % (24-48) Monocytes % 5 % (0-10) Metamyelocytes % 1 % (0-0) Platelet Estimate Decreased (ADEQUATE) Anisocytosis Mod [place] Cells Many Prothrombin Time 14.8 SEC (11.7-14.0) Prothromb Time International Ratio 1.2 (0.8-1.1) Activated Partial Thromboplast Time 23 SEC (24-38) Sodium Level 139 mmol/L (136-145) 143 mmol/L (136-145) Potassium Level 6.2 mmol/L (3.5-5.1) 4.3 mmol/L (3.5-5.1) Chloride Level 103 mmol/L (98-107) 112 mmol/L (98-107) Carbon Dioxide Level 14 mmol/L (21-32) 16 mmol/L (21-32) Anion Gap 22 (6-14) 15 (6-14) Blood Urea Nitrogen 87 mg/dL (7-20) 73 mg/dL (7-20) Creatinine 2.5 mg/dL (0.6-1.0) 2.0 mg/dL (0.6-1.0) Estimated GFR (Cockcroft-Gault) 19.3 25.0 BUN/Creatinine Ratio 35 (6-20) Glucose Level 106 mg/dL (70-99) 85 mg/dL (70-99) Lactic Acid Level 3.2 mmol/L (0.4-2.0) Calcium Level 9.1 mg/dL (8.5-10.1) 7.0 mg/dL (8.5-10.1) Total Bilirubin 3.1 mg/dL (0.2-1.0) Aspartate Amino Transf (AST/SGOT) 45 U/L (15-37) Alanine Aminotransferase (ALT/SGPT) 49 U/L (14-59) Alkaline Phosphatase 265 U/L (46-116) Ammonia < 10 mcmol/L (11-34) Creatine Kinase 59 U/L (26-192) Troponin I High Sensitivity 110 ng/L (4-50) ZH-Xsa-H-Type Natriuretic Peptide > 13421 pg/mL (0-124) Total Protein 5.7 g/dL (6.4-8.2) Albumin 2.3 g/dL (3.4-5.0) Albumin/Globulin Ratio 0.7 (1.0-1.7) Lipase 255 U/L (73-393) Thyroid Stimulating Hormone (TSH) 4.552 uIU/mL (0.358-3.74) Salicylates Level 7.0 mg/dL (2.8-20.0) Salicylate Last Dose Date Unknown Salicylate Last Dose Time Unknown Acetaminophen Level 7.3 mcg/ml (10-30) Acetaminophen Last Dose Date Unknown Acetaminophen Last Dose Time Unknown Ethyl Alcohol Level < 10 mg/dL (0-10) Urine Collection Type U cath Urine Color (Auto) Dark yellow Urine Turbidity Hazy Urine pH (Auto) 5.0 (<5.0-8.0) Urine Specific [place] 1.027 (1.000-1.030) Urine Protein (Auto) 50 mg/dL (Negative) Urine Glucose (Auto)(UA) Negative mg/dL (Negative) Urine Ketones (Auto) Negative mg/dL (Negative) Urine Blood (Auto) Small (Negative) Urine Nitrite Negative (Negative) Urine Bilirubin (Auto) Small (Negative) Urine Urobilinogen (Auto) 4 mg/dL (Normal) Urine Leukocyte Esterase (Auto) Small (Negative) Urine RBC Occ /HPF (0-2) Urine WBC 1-4 /HPF (0-4) Urine Squamous Epithelial Cells Occ /LPF Urine Amorphous Sediment Present /HPF Urine Bacteria Few /HPF (0-FEW) Urine Hyaline Casts Few /HPF Urine Mucus Slight /LPF Urine Opiates Screen Pos (NEG) Urine Methadone Screen Neg (NEG) Urine Barbiturates Neg (NEG) Urine Phencyclidine Screen Neg (NEG) Urine Amphetamine/Methamphetamine Neg (NEG) Urine Benzodiazepines Screen Pos (NEG) Urine Cocaine Screen Neg (NEG) Urine Cannabinoids Screen Neg (NEG) Urine Ethyl Alcohol Neg (NEG) Influenza Type A Antigen Negative (NEGATIVE) Influenza Type B Antigen Negative (NEGATIVE) SARS-CoV-2 Antigen (Rapid) Negative (NEGATIVE) VTE Prophylaxis Ordered VTE Prophylaxis Devices: No VTE Pharmacological Prophylaxi: Yes Assessment/Plan Assessment/Plan sepsis, severe sepsis with organ dysfunciton, acute metabolic encephalopathy acute abd pain perforated viscous, acute surgical abdomen, GEn surg to take to OR, Dr. Cummings, discussed risks pre-op acute renal failure, vasomotor nephropathy with uremia causing acute metabolic acidosis, hyperkelemia, severe malnutrition tobaccoism Zosyn, IV PPI, to ICU on vent pt seen pre-op in ER, post op in ICU, 41 min critical Justifications for Admission Other Justification LUIS KUMAR MD Nov 01, 2021 20:40
[2021-11-01 20:45] VITALS: BP 124/65
[2021-11-01 21:00] VITALS: BP 124/70
[2021-11-01] MEDS ORDERED: HEPARIN for SUB-Q USE 5,000 UNIT/ML VIAL. SQ SCH (21:00)
--- NOTE | 2021-11-01 21:14 | RAD ---
Exam: Chest one view. Abdomen one view INDICATION: Central line placement, NG tube placement TECHNIQUE: Frontal view chest and abdomen Comparisons: None FINDINGS: Right IJ catheter with tip at the SVC. Enteric tube traverses below the diaphragm with tip in left up per quadrant likely in the stomach. The cardiomediastinal silhouette and pulmonary vessels are within normal limits. Patchy bilateral airspace disease. No pleural effusion. Visualized upper abdomen is unremarkable. IMPRESSION: 1. Lines and tubes described above. 2. Hazy bibasilar airspace disease may relate to pulmonary edema Electronically signed by: Salvador Parks MD (11/01/2021 9:12 PM) [facility]
[2021-11-01 21:15] VITALS: BP 122/66
[2021-11-01 21:20] LABS: BASE EXCESS ABG -16 mmol/L (-3-3); HCO3 ABG 13 mmol/L (21-28); PCO2 ABG 43 mmHg (35-46); PO2 ABG 476 mmHg (65-108); SAT O2 ABG 99 % (92-99)
[2021-11-01 21:22] LABS: CORRECTED PCO2 ABG 35 mmHg; CORRECTED PH ABG 7.16; CORRECTED PO2 ABG 446 mmHg
[2021-11-01 21:24] LABS: FIO2 ABG 100
[2021-11-01 21:30] VITALS: BP 126/66
[2021-11-01 22:00] VITALS: BP 118/64
[2021-11-01] MEDS: IV RINGERS,LACTATED 1000ML 1,000 ML IV SCH (22:17)
[2021-11-01] MEDS: PIPERACILLIN/TAZOBACTAM 2.25 GM in IV NORMAL SALINE 50ML 50 ML IV SCH (22:46)
[2021-11-01 23:00] VITALS: BP 112/62
[2021-11-01] MEDS ORDERED: SODIUM BICARBONATE IV SCH (23:00)
[2021-11-01] MEDS ORDERED: DEXTROSE 5% IV SCH (23:00)
--- NOTE | 2021-11-01 23:00 | NUR ---
Patient admitted to ICU from OR. Placed on ICU monitors, CVP and arterial line hooked up by anesthesia-lines recalibrated and zeroed. OPERATIONS INTERN present. RT placed patient on vent. Noted to only have about 15cc of tea colored urine. Albumin running into patient, no fluids or sedation running upon admission. Patient is unresponsive. I spoke with son regarding medical history, completed admission to best of my ability. As of now he will be main contact Joni: [phone] Juany Louis about consult and low UO- orders received for LR at [address] Tipton regarding critical ABG and consult, new vent settings, and bicarb orders received. He agrees with both LR gtt and bicarb gtt running for patient.
[2021-11-02] VITALS (38 sets, daily range): BP systolic 80–117; BP diastolic 46–66
[2021-11-02] MEDS ORDERED: POLYVINYL ALCOHOL 1.4% OPHTH SOLUTION 15ML BOTTLE. OU PRN (03:00)
[2021-11-02] MEDS ORDERED: DEXMEDETOMIDINE 400 MCG in IV NORMAL SALINE 100ML 96 ML IV PRN (03:00)
[2021-11-02] MEDS ORDERED: IV NORMAL SALINE 500ML BAG 500 ML IV PRN (03:00)
[2021-11-02] MEDS ORDERED: ATROPINE 0.5 MG/5 ML DISP.SYRINGE. IV PRN (03:00)
[2021-11-02] MEDS ORDERED: MIDAZOLAM 100mg/100ml NS BAG 100 ML IV PRN (03:00)
[2021-11-02] MEDS ORDERED: PROPOFOL 100 ML IV PRN (03:00)
--- NOTE | 2021-11-02 04:19 | NUR ---
Upon 0400 assessment, patient now has cough/gag, opens eyes to pain, and is overbreathing vent. Light sedation started.
[2021-11-02] MEDS: NOREPINEPHRINE VIAL 8 MG in IV DEXTROSE 5% 250 ML IV PRN ×2 (05:23→21:35)
[2021-11-02 05:37] LABS: BASO % 0 % (0-3); EOS # 0.1 x10^3/uL (0.0-0.7); EOS % 1 % (0-3); HEMATOCRIT 32.5 % (36.0-47.0); HEMOGLOBIN 10.3 g/dL (12.0-15.5); LYMPH # 0.4 x10^3/uL (1.0-4.8); LYMPH % 3 % (24-48); MEAN CORPUSCULAR HEMOGLOBIN 31 pg (25-35); MEAN CORPUSCULAR HGB CONC 32 g/dL (31-37); MEAN CORPUSCULAR VOLUME 98 fL (79-100); MONO # 0.1 x10^3/uL (0.0-1.1); MONO % 1 % (0-9); NEUT # 10.6 x10^3/uL (1.8-7.7); NEUT % 96 % (31-73); PLATELET COUNT 75 x10^3/uL (140-400); RED BLOOD COUNT 3.31 x10^6/uL (3.50-5.40); RED CELL DISTRIBUTION WIDTH 20.3 % (11.5-14.5); WHITE BLOOD COUNT 11.1 x10^3/uL (4.0-11.0)
[2021-11-02 05:40] LABS: ALBUMIN 2.4 g/dL (3.4-5.0); ALBUMIN/GLOBULIN RATIO 1.3 (1.0-1.7); CALCIUM 7.2 mg/dL (8.5-10.1); POTASSIUM 3.8 mmol/L (3.5-5.1); TOTAL BILIRUBIN 2.3 mg/dL (0.2-1.0); TOTAL PROTEIN 4.3 g/dL (6.4-8.2)
[2021-11-02] MEDS: PIPERACILLIN/TAZOBACTAM 2.25 GM in IV NORMAL SALINE 50ML 50 ML IV SCH ×3 (05:53→21:34)
[2021-11-02] MEDS: IV RINGERS,LACTATED 1000ML 1,000 ML IV SCH (05:53)
--- NOTE | 2021-11-02 07:00 | NUR ---
Received patient without SCD sleeves for rest. 0900h-resumed SCDs.
--- NOTE | 2021-11-02 07:20 | NUR ---
Patient unstable, requiring rapid titration of levophed d/t sustained MAP <65 beginning at 0700. Starting rate at 0.14 mcg/kg/min and patient stabilized at 0720 with MAP 75 with levophed gtt currently infusing at 0.35 mcg/kg/min; the max rate during this time was 0.35 mcg/kg/min of medication administered during charting block which ended at [address] rhythm, HR 115, Spo2 100%
[2021-11-02 07:53] LABS: BASE EXCESS ABG -2 mmol/L (-3-3); HCO3 ABG 21 mmol/L (21-28); PCO2 ABG 28 mmHg (35-46); PO2 ABG 149 mmHg (65-108); SAT O2 ABG 99 % (92-99)
[2021-11-02] MEDS: INSULIN LISPRO 300 UNITS/3 ML VIAL. SQ SCH ×3 (08:00→17:00)
[2021-11-02 08:02] LABS: FIO2 ABG 50% VENT
[2021-11-02] MEDS ORDERED: IV RINGERS,LACTATED 500ML 500 ML IV ONE (09:00)
[2021-11-02] MEDS: HEPARIN for SUB-Q USE 5,000 UNIT/ML VIAL. SQ SCH ×2 (09:25→20:42)
[2021-11-02] MEDS ORDERED: TPN PER PHARMACY MC SCH (09:30)
[2021-11-02] MEDS ORDERED: RINGERS LACTATED IV ONE (09:30)
--- NOTE | 2021-11-02 09:46 | CONS ---
DATE OF CONSULTATION: 11/02/2021 PULMONAY CONSULTATION ATTENDING PHYSICIAN: Dr. Jackson. REASON FOR CONSULTATION: Respiratory failure, bowel perforation, severe metabolic acidosis. HISTORY OF PRESENT ILLNESS: The patient is a 66-year-old female who presented to the hospital with complaint of abdominal pain. She was very weak and fell and was confused. She was hurting all over her body. She underwent imaging study and I have reviewed the patient's CT chest. There was no parenchymal abnormalities. There was no pneumothorax. There was a 4 mm nodule in the left lower lobe. No pleural effusion seen. Her CT of the abdomen revealed free fluid and free air in the abdomen. It was surrounding the pancreas and in the lesser sac. Bowel perforation was suspected. Necrotizing pancreatitis was also suspected as well. The patient was seen by Dr. Cummings. General Surgery. She was taken to the operating room and underwent exploratory laparotomy with repair of posterior gastric ulcer and drainage of the abdominal sepsis. She was transferred to the ICU last night, I was called about a consultation with an abnormal arterial blood gases. The patient's pH was 7.10, pCO2 of 43, a pO2 of 476 on 100% FiO2, tidal volume of 400 and assist control of 12. I had increased the rate to 16 and increased tidal volume to 450. I have also given 2 amps of bicarb and placed her on a bicarb drip. This morning, arterial blood gases reveal a pH of 7.48, pCO2 of 28 and a pO2 of 149. The patient's serum chemistries reveal a bicarb up to 20. She has a BUN of 70 and a creatinine of 2.0. She is not making enough urine. The patient's calcium is 7.2. Albumin level is 2.4. Consultation is requested for further evaluation and management. She is hemodynamically stable and not requiring any pressors. Her chest x-ray post-intubation revealed hazy opacities, but no definite CHF. There is a skin fold on the left side and unlikely pneumothorax. PAST MEDICAL HISTORY: Essentially unremarkable without any chronic medical problems reported. PAST SURGICAL HISTORY: No prior surgery. SOCIAL HISTORY: Smoker, 1 pack per day. details not known. ALLERGIES: None to any medications. MEDICATIONS: Reviewed as listed in the [facility] including bicarb drip, Zosyn. SYSTEM REVIEW : Unable to obtain from the patient. PHYSICAL EXAMINATION: VITAL SIGNS: Reviewed. She is afebrile, blood pressure 93 systolic. Pulse ox is 100%. NECK: Supple. LUNGS: With diminished breath sounds bilaterally. CARDIOVASCULAR: With a regular rate and mild sinus tachycardia. ABDOMEN : Strapped and it is tender. EXTREMITIES: Cold, but no livedo reticularis. LABORATORY DATA: Reviewed. BUN 70, creatinine 2.0. Sodium 148, it is up from 143. INR is 1.2. White cell count 11.1, hemoglobin 10.3 and platelets are 75,000. IMPRESSION: 1. Acute respiratory failure secondary to perforated bowel from gastric ulcer perforation. She also has severe metabolic acidosis. 2. Perforated viscus. The source was gastric ulcer perforation. She also had evidence of abdominal sepsis/peritonitis. She is status post exploratory laparotomy and repair of the posterior gastric ulcer. 3. Severe metabolic acidosis secondary to perforation, currently improved with a bicarb drip. 4. Acute kidney injury. Likely secondary to hypovolemic shock. 5. Metabolic acidosis. Currently on bicarb drip. Sodium is slowly going up. Bicarb is improving. We will reduce the rate of the drip. 6. Thrombocytopenia, likely secondary to sepsis. We will monitor closely while on subcu heparin. 7. Abdominal sepsis/suspected peritonitis. Continue on broad-spectrum antibiotics. 8. Severe protein-calorie malnutrition. 9. Lactic acidosis secondary to bowel perforation. RECOMMENDATIONS: 1. Continue present assist control mode. I have reduced the rate, and tidal volume as well as the FiO2. 2. Follow ABGs and make necessary adjustments. 3. Continue to monitor platelet count closely. 4. Continue broad-spectrum antibiotics. 5. Start TPN. 6. Give another fluid resuscitation due to her decreasing urine output. We will give another liter of fluid bolus. 7. Reduce the bicarb drip to 50 mL an hour and monitor sodium closely. 8. Start TPN. 9. Discussed with RN and chart reviewed, imaging studies reviewed. Total critical care time 40 minutes. DUSTIN/JAKE DR: Milagros TID: [id number]
[2021-11-02] MEDS ORDERED: SODIUM BICARB ADULT 8.4% 50 MEQ/50 ML DISP.SYRIN. IV ONE (10:00)
[2021-11-02 10:08] LABS: MAGNESIUM 1.5 mg/dL (1.8-2.4); PHOSPHORUS 4.5 mg/dL (2.6-4.7)
--- NOTE | 2021-11-02 10:37 | PDOC2 ---
CONSULT Date of Consult Date of Consult DATE: 11/02/21 TIME: 10:35 Reason for Consult Reason for Consult: Renal insufficiency, hyperkalemia Referring Physician Referring Physician: Sherri Identification/Chief Complaint Chief Complaint Found down Source Source: Chart review History of Present Illness Reason for Visit: Patient is a 66-year-old female with past medical history as outlined below which includes history of a mitral clip, rheumatoid arthritis but no known history of chronic renal insufficiency according to her [id number] who was at bedside. It appears that she has had an extensive heart history and has been rehabilitating from the same after a stent at rehab facility and is currently getting home health care. She has been battling a stomach bug for the last few days and has had poor p.o. intake as a result of the same. She was found somewhat confused at presentation and had been complaining of hurting all over her body. She underwent CT scan of her abdomen pelvis on arrival here and was noted to have free air in the abdomen and is now status post exploratory laparotomy for the same. Preop differentials included bowel perforation and/or necrotizing pancreatitis. She has undergone repair of her posterior gastric ulcer with drainage of abdominal sepsis. And was transferred to the ICU last night postop. Her urine output was minimal and we were asked to direct IV fluids for her. ABGs were addressed by the critical care, underwriting account representative auto adjudication specialist. Past Medical History Past Medical History Longstanding history of rheumatoid arthritis treated with Remicade and steroids Cardiac arrhythmias which had initially merited " vest" order Mitral valve clip Possible COPD Coronary artery disease with stenting x2 Hypothyroidism Hypertension GERD Anxiety Cardiovascular: No pertinent hx Pulmonary: No pertinent hx GI: No pertinent hx Rheumatologic: No pertinent hx Past Surgical History Past Surgical History: No pertinent history Social History 1 pack per day Drugs: None Lives: Alone Current Problem List Problem List Problems Medical Problems: (1) Elevated bilirubin Status: Acute (2) Hyperkalemia Status: Acute (3) Lactic acidosis Status: Acute (4) Leukocytosis Status: Acute (5) Perforated viscus Status: Acute (6) Renal insufficiency Status: Acute Current Medications Current Medications Current Medications Sodium Chloride 1,000 ml @ 1,000 mls/hr 1X ONCE IV Last administered on 11/01/21at 15:30; Start 11/01/21 at 15:15; Stop 11/01/21 at 16:14; Status DC Calcium Gluconate (Calcium Gluconate) 1,000 mg 1X ONCE IVP Last administered on 11/01/21at 16:35; Start 11/01/21 at 16:00; Stop 11/01/21 at 16:01; Status DC Sodium Bicarbonate (Sodium Bicarb Adult 8.4% Syr) 50 meq 1X ONCE IV Last administered on 11/01/21at 16:35; Start 11/01/21 at 16:00; Stop 11/02/21 at 09:36; Status DC Dextrose (Dextrose 50%-Water Syringe) 25 gm 1X ONCE IV Last administered on 11/01/21at 16:50; Start 11/01/21 at 16:00; Stop 11/01/21 at 16:01; Status DC Insulin Human Regular (HumuLIN R VIAL) 10 unit 1X ONCE IV Last administered on 11/01/21at 16:40; Start 11/01/21 at 16:00; Stop 11/01/21 at 16:01; Status DC Sodium Chloride 1,000 ml @ 1,000 mls/hr Q1H IV Last administered on 11/01/21at 16:50; Start 11/01/21 at 16:00; Stop 11/01/21 at 16:59; Status DC Piperacillin Sod/ Tazobactam Sod 3.375 gm/Sodium Chloride 50 ml @ 100 mls/hr 1X ONCE IV ; Start 11/01/21 at 16:45; Stop 11/01/21 at 17:14; Status UNV Piperacillin Sod/ Tazobactam Sod 2.25 gm/Sodium Chloride 50 ml @ 100 mls/hr 1X ONCE IV Last administered on 11/01/21at 16:58; Start 11/01/21 at 17:00; Stop 11/01/21 at 17:29; Status DC Ondansetron HCl (Zofran) 4 mg PRN Q8HRS PRN IVP NAUSEA/VOMITING; Start 11/01/21 at 16:45; Stop 11/02/21 at 16:44 Morphine Sulfate (Morphine Sulfate) 2 mg PRN Q2HR PRN IVP PAIN; Start 11/01/21 at 16:45; Stop 11/02/21 at 03:15; Status DC Sodium Chloride 1,000 ml @ 1,000 mls/hr 1X ONCE IV Last administered on 11/01/21at 17:48; Start 11/01/21 at 17:45; Stop 11/01/21 at 18:44; Status DC Rocuronium [place] (Zemuron) 100 mg STK-MED ONCE .ROUTE ; Start 11/01/21 at 17:54; Stop 11/01/21 at 17:55; Status DC Fentanyl Citrate (Fentanyl 5ml Vial) 250 mcg STK-MED ONCE .ROUTE ; Start 11/01/21 at 17:55; Stop 11/01/21 at 17:55; Status DC Etomidate (Amidate) 20 mg STK-MED ONCE IV ; Start 11/01/21 at 17:55; Stop 11/01/21 at 17:56; Status DC Phenylephrine HCl (PHENYLEPHRINE in 0.9% NACL PF) 1 mg STK-MED ONCE IV ; Start 11/01/21 at 17:56; Stop 11/01/21 at 17:56; Status DC Fentanyl Citrate (Fentanyl 2ml Vial) 25 mcg PRN Q5MIN PRN IVP MILD PAIN 1-3; Start 11/01/21 at 18:00; Stop 11/02/21 at 03:15; Status DC Fentanyl Citrate (Fentanyl 2ml Vial) 50 mcg PRN Q5MIN PRN IVP MODERATE PAIN 4- 6; Start 11/01/21 at 18:00; Stop 11/02/21 at 03:15; Status DC Morphine Sulfate (Morphine Sulfate) 1 mg PRN Q10MIN PRN IVP SEVERE PAIN 7-10; Start 11/01/21 at 18:00; Stop 11/02/21 at 03:15; Status DC Ringer's Solution 1,000 ml @ 30 mls/hr Q24H IV ; Start 11/01/21 at 18:00; Stop 11/02/21 at 05:59; Status DC Hydromorphone HCl (Dilaudid) 0.5 mg PRN Q10MIN PRN IVP SEVERE PAIN 7-10, 2nd CHOICE; Start 11/01/21 at 18:00; Stop 11/02/21 at 03:15; Status DC Prochlorperazine Edisylate (Compazine) 5 mg PACU PRN PRN IVP NAUSEA, MRX1; Start 11/01/21 at 18:00; Stop 11/02/21 at 17:59 Fentanyl Citrate (Fentanyl 2ml Vial) 25 mcg PRN Q5MIN PRN IVP MILD PAIN 1-3; Start 11/01/21 at 18:00; Stop 11/02/21 at 17:59; Status UNV Fentanyl Citrate (Fentanyl 2ml Vial) 50 mcg PRN Q5MIN PRN IVP MODERATE PAIN 4- 6; Start 11/01/21 at 18:00; Stop 11/02/21 at 17:59; Status UNV Morphine Sulfate (Morphine Sulfate) 1 mg PRN Q10MIN PRN IVP SEVERE PAIN 7-10; Start 11/01/21 at 18:00; Stop 11/02/21 at 17:59; Status UNV Ringer's Solution 1,000 ml @ 30 mls/hr Q24H IV ; Start 11/01/21 at 18:00; Stop 11/02/21 at 05:59; Status UNV Hydromorphone HCl (Dilaudid) 0.5 mg PRN Q10MIN PRN IVP SEVERE PAIN 7-10, 2nd CHOICE; Start 11/01/21 at 18:00; Stop 11/02/21 at 17:59; Status UNV Prochlorperazine Edisylate (Compazine) 5 mg PACU PRN PRN IVP NAUSEA, MRX1; Start 11/01/21 at 18:00; Stop 11/02/21 at 17:59; Status UNV Insulin Human Lispro (HumaLOG) 0-5 UNITS TIDWMEALS SQ ; Start 11/02/21 at 08:00 Dextrose (Dextrose 50%-Water Syringe) 12.5 gm PRN Q15MIN PRN IV SEE COMMENTS; Start 11/01/21 at 18:00 Dextrose (Iv Dextrose 5%) 250 ml PRN Q15MIN PRN IV SEE COMMENTS; Start 11/01/21 at 18:00 Piperacillin Sod/ Tazobactam Sod (Zosyn Per Pharmacy) 1 each PRN DAILY PRN MC SEE COMMENTS; Start 11/01/21 at 18:15 Piperacillin Sod/ Tazobactam Sod 2.25 gm/Sodium Chloride 50 ml @ 100 mls/hr Q8HRS IV Last administered on 11/02/21at 05:53; Start 11/01/21 at 22:00 Albumin Human 500 ml @ As Directed STK-MED ONCE IV ; Start 11/01/21 at 18:20; Stop 11/01/21 at 18:21; Status DC Bupivacaine HCl/ Epinephrine Bitart (Sensorcain-Epi 0.5% Kit) 30 ml STK-MED ONCE .ROUTE ; Start 11/01/21 at 18:25; Stop 11/01/21 at 18:26; Status DC Albumin Human 500 ml @ As Directed STK-MED ONCE IV ; Start 11/01/21 at 18:30; Stop 11/01/21 at 18:31; Status DC Phenylephrine HCl (PHENYLEPHRINE in 0.9% NACL PF) 1 mg STK-MED ONCE IV ; Start 11/01/21 at 19:53; Stop 11/01/21 at 19:53; Status DC Sevoflurane (Ultane) 90 ml STK-MED ONCE IH ; Start 11/01/21 at 19:58; Stop 11/01/21 at 19:58; Status DC Albumin Human 500 ml @ As Directed STK-MED ONCE IV ; Start 11/01/21 at 20:00; Stop 11/01/21 at 20:00; Status DC Pantoprazole Sodium 80 mg/ Sodium Chloride 100 ml @ 10 mls/hr 1X ONCE IV Last administered on 11/01/21at 22:32; Start 11/01/21 at 20:30; Stop 11/02/21 at 06:29; Status DC Heparin Sodium (Porcine) (Heparin Sodium) 5,000 unit Q12HR SQ ; Start 11/01/21 at 21:00; Stop 11/01/21 at 20:40; Status DC Dextrose/Sodium Chloride 1,000 ml @ 100 mls/hr Q10H IV ; Start 11/01/21 at 20:30; Stop 11/02/21 at 05:51; Status DC Heparin Sodium (Porcine) (Heparin Sodium) 5,000 unit Q12HR SQ Last administered on 11/02/21at 09:25; Start 11/02/21 at 09:00 Ringer's Solution 1,000 ml @ 125 mls/hr Q8H IV Last administered on 11/02/21at 05:53; Start 11/01/21 at 21:15 Sodium Bicarbonate (Sodium Bicarb Adult 8.4% Syr) 50 meq 1X ONCE IV Last administered on 11/01/21at 22:18; Start 11/01/21 at 22:00; Stop 11/02/21 at 09:36; Status DC Sodium Bicarbonate (Sodium Bicarb Adult 8.4% Syr) 50 meq 1X ONCE IV Last administered on 11/01/21at 22:18; Start 11/01/21 at 22:00; Stop 11/02/21 at 09:36; Status DC Sodium Bicarbonate 150 meq/Dextrose 1,150 ml @ 50 mls/hr Q23H IV Last administered on 11/01/21at 22:19; Start 11/01/21 at 23:00 Fentanyl Citrate 30 ml @ 2.5 mls/hr CONT PRN IV SEE PROTOCOL Last administered on 11/02/21at 03:31; Start 11/02/21 at 03:00 Midazolam HCl 100 ml @ 1 mls/hr CONT PRN IV SEE PROTOCOL; Start 11/02/21 at 03:00 Propofol 100 ml @ 1.461 mls/ hr CONT PRN IV PER PROTOCOL; Start 11/02/21 at 03:00 Glycerin/ Hypromellose/ Polyethylene (Artificial Tears) 1 drop PRN Q1HR PRN OU DRY EYE; Start 11/02/21 at 03:00 Dexmedetomidine HCl 400 mcg/ Sodium Chloride 100 ml @ 2.435 mls/ hr CONT PRN IV PER PROTOCOL; Start 11/02/21 at 03:00 Sodium Chloride 500 ml @ 500 mls/hr 1X PRN PRN IV SEE COMMENTS; Start 11/02/21 at 03:00 Atropine Sulfate (ATROPINE 0.5mg SYRINGE) 0.5 mg PRN Q5MIN PRN IV SEE COMMENTS; Start 11/02/21 at 03:00 Norepinephrine Bitartrate 8 mg/ Dextrose 258 ml @ 9.423 mls/ hr CONT PRN IV PER PROTOCOL Last administered on 11/02/21at 05:23; Start 11/02/21 at 05:15 Ringer's Solution 500 ml @ 500 mls/hr 1X ONCE IV ; Start 11/02/21 at 09:00; Stop 11/02/21 at 09:21; Status DC Ringer's Solution 980 ml @ 980 mls/hr 1X ONCE IV Last administered on 11/02/21at 09:25; Start 11/02/21 at 09:30; Stop 11/02/21 at 10:29; Status DC Info (Tpn Per Pharmacy) 1 each CONT MC ; Start 11/02/21 at 09:30; Stop 11/02/21 at 09:45; Status DC Sodium Bicarbonate (Sodium Bicarb Adult 8.4% Syr) 150 meq 1X ONCE IV ; Start 11/02/21 at 10:00; Stop 11/02/21 at 10:01; Status Cancel Info (Tpn Per Pharmacy) 1 each PRN DAILY PRN MC SEE COMMENTS; Start 11/02/21 at 09:45 Allergies Allergies: Coded Allergies: adhesive tape (Verified Allergy, Intermediate, 11/02/21) ROS Review of System Unable to be obtained from the patient at this time due to sedated intubated state on the ventilator Physical Exam Physical Exam General Appearance: Sedated intubated on the ventilator in no visible distress at this time Eyes: Sclera anicteric conjunctiva Normal EN: No EN Drainage Mucous Memb. Moist, orally intubated Neck: no JVD no JVP Supple no palpable thyromegaly CVS: S1 S2 possible murmur No Gallop No Rub trace edema Resp: Few basal Rales no rhonchi no Acc. Muscle use GI: BS -ve NO Bruit Non Tender Non Distended : No palpable CVA tenderness; no suprapubic suprapubic Tenderness SKIN: Few visible bruises Breast Exam deferred Mu.Sk: Adequate passive ROM significant muscle Atrophy Heme: Unable to palpate Obvious LAD no palpable splenomegaly NEURO: Unable to assess while sedated intubated on the ventilator Psych: Unable to assess while sedated intubated on the ventilator but does have a history of anxiety Vital Signs Vital Signs Date Time Temp Pulse Resp B/P (MAP) Pulse Ox O2 Delivery O2 Flow Rate FiO2 11/02/21 10:00 113 18 101/57 100 Ventilator 11/02/21 08:00 97.7 97.7 Assessment & Plan Acute kidney injury: Baseline not known. Patient presented with a creatinine of 2.5 and is down to 2.0 today but not much in terms of urine output per se. Fluid boluses are being administered. Current FLuid and E-lyte status does not necessitate emergent need for Dialysis. Will re-evaluate for Dialysis in am. No obvious obstructive uropathy reported on CT scan of the abdomen Known history of CAD and mitral valve repair with a mitral clip: we will need an echocardiogram to guide fluid management. Hyperkalemia presentation now corrected Hypernatremia: Hypotonic IV fluids will be started Wide anion gap metabolic acidosis with mildly elevated lactate levels. IV fluids as ordered we will add bicarbonate Hypomagnesemia: Replace as ordered Possible sepsis from intra-abdominal source cannot be ruled out Perforated viscus status post posterior gastric ulcer repair Respiratory failure currently on the ventilator Discussed Plan of Care and prognosis etc. at length with family ([id number] at bedside). Labs Labs Laboratory Tests Test 11/01/21 15:00 11/01/21 15:45 11/01/21 19:30 11/01/21 21:19 White Blood Count 14.8 x10^3/uL (4.0-11.0) Red Blood Count 4.55 x10^6/uL (3.50-5.40) Hemoglobin 14.2 g/dL (12.0-15.5) Hematocrit 44.9 % (36.0-47.0) Mean Corpuscular Volume 99 fL (79-100) Mean Corpuscular Hemoglobin 31 pg (25-35) Mean Corpuscular Hemoglobin Concent 32 g/dL (31-37) Red Cell Distribution Width 21.0 % (11.5-14.5) Platelet Count 89 x10^3/uL (140-400) Neutrophils (%) (Auto) 95 % (31-73) Lymphocytes (%) (Auto) 2 % (24-48) Monocytes (%) (Auto) 4 % (0-9) Eosinophils (%) (Auto) 0 % (0-3) Basophils (%) (Auto) 0 % (0-3) Neutrophils # (Auto) 14.0 x10^3/uL (1.8-7.7) Lymphocytes # (Auto) 0.3 x10^3/uL (1.0-4.8) Monocytes # (Auto) 0.5 x10^3/uL (0.0-1.1) Eosinophils # (Auto) 0.0 x10^3/uL (0.0-0.7) Basophils # (Auto) 0.0 x10^3/uL (0.0-0.2) Segmented Neutrophils % 62 % (35-66) Band Neutrophils % 28 % (0-9) Lymphocytes % 4 % (24-48) Monocytes % 5 % (0-10) Metamyelocytes % 1 % (0-0) Platelet Estimate Decreased (ADEQUATE) Anisocytosis Mod [place] Cells Many Prothrombin Time 14.8 SEC (11.7-14.0) Prothromb Time International Ratio 1.2 (0.8-1.1) Activated Partial Thromboplast Time 23 SEC (24-38) Sodium Level 139 mmol/L (136-145) 143 mmol/L (136-145) Potassium Level 6.2 mmol/L (3.5-5.1) 4.3 mmol/L (3.5-5.1) Chloride Level 103 mmol/L (98-107) 112 mmol/L (98-107) Carbon Dioxide Level 14 mmol/L (21-32) 16 mmol/L (21-32) Anion Gap 22 (6-14) 15 (6-14) Blood Urea Nitrogen 87 mg/dL (7-20) 73 mg/dL (7-20) Creatinine 2.5 mg/dL (0.6-1.0) 2.0 mg/dL (0.6-1.0) Estimated GFR (Cockcroft-Gault) 19.3 25.0 BUN/Creatinine Ratio 35 (6-20) Glucose Level 106 mg/dL (70-99) 85 mg/dL (70-99) Lactic Acid Level 3.2 mmol/L (0.4-2.0) Calcium Level 9.1 mg/dL (8.5-10.1) 7.0 mg/dL (8.5-10.1) Total Bilirubin 3.1 mg/dL (0.2-1.0) Aspartate Amino Transf (AST/SGOT) 45 U/L (15-37) Alanine Aminotransferase (ALT/SGPT) 49 U/L (14-59) Alkaline Phosphatase 265 U/L (46-116) Ammonia < 10 mcmol/L (11-34) Creatine Kinase 59 U/L (26-192) Troponin I High Sensitivity 110 ng/L (4-50) OG-Zmo-P-Type Natriuretic Peptide > 23751 pg/mL (0-124) Total Protein 5.7 g/dL (6.4-8.2) Albumin 2.3 g/dL (3.4-5.0) Albumin/Globulin Ratio 0.7 (1.0-1.7) Lipase 255 U/L (73-393) Thyroid Stimulating Hormone (TSH) 4.552 uIU/mL (0.358-3.74) Salicylates Level 7.0 mg/dL (2.8-20.0) Salicylate Last Dose Date Unknown Salicylate Last Dose Time Unknown Acetaminophen Level 7.3 mcg/ml (10-30) Acetaminophen Last Dose Date Unknown Acetaminophen Last Dose Time Unknown Ethyl Alcohol Level < 10 mg/dL (0-10) Urine Collection Type U cath Urine Color (Auto) Dark yellow Urine Turbidity Hazy Urine pH (Auto) 5.0 (<5.0-8.0) Urine Specific [place] 1.027 (1.000-1.030) Urine Protein (Auto) 50 mg/dL (Negative) Urine Glucose (Auto)(UA) Negative mg/dL (Negative) Urine Ketones (Auto) Negative mg/dL (Negative) Urine Blood (Auto) Small (Negative) Urine Nitrite Negative (Negative) Urine Bilirubin (Auto) Small (Negative) Urine Urobilinogen (Auto) 4 mg/dL (Normal) Urine Leukocyte Esterase (Auto) Small (Negative) Urine RBC Occ /HPF (0-2) Urine WBC 1-4 /HPF (0-4) Urine Squamous Epithelial Cells Occ /LPF Urine Amorphous Sediment Present /HPF Urine Bacteria Few /HPF (0-FEW) Urine Hyaline Casts Few /HPF Urine Mucus Slight /LPF Urine Opiates Screen Pos (NEG) Urine Methadone Screen Neg (NEG) Urine Barbiturates Neg (NEG) Urine Phencyclidine Screen Neg (NEG) Urine Amphetamine/Methamphetamine Neg (NEG) Urine Benzodiazepines Screen Pos (NEG) Urine Cocaine Screen Neg (NEG) Urine Cannabinoids Screen Neg (NEG) Urine Ethyl Alcohol Neg (NEG) Influenza Type A Antigen Negative (NEGATIVE) Influenza Type B Antigen Negative (NEGATIVE) SARS-CoV-2 Antigen (Rapid) Negative (NEGATIVE) O2 Saturation 99 % (92-99) Arterial Blood pH 7.10 (7.35-7.45) Arterial Blood pH (Temp corrected) 7.16 Arterial Blood pCO2 at Patient Temp 43 mmHg (35-46) Arterial Blood pCO2 (Temp correct) 35 mmHg Arterial Blood pO2 at Patient Temp 476 mmHg (65-108) Arterial Blood pO2 (Temp corrected) 446 mmHg Arterial Blood HCO3 13 mmol/L (21-28) Arterial Blood Base Excess -16 mmol/L (-3-3) FiO2 100 Test 11/02/21 05:00 11/02/21 07:52 11/02/21 08:02 White Blood Count 11.1 x10^3/uL (4.0-11.0) Red Blood Count 3.31 x10^6/uL (3.50-5.40) Hemoglobin 10.3 g/dL (12.0-15.5) Hematocrit 32.5 % (36.0-47.0) Mean Corpuscular Volume 98 fL (79-100) Mean Corpuscular Hemoglobin 31 pg (25-35) Mean Corpuscular Hemoglobin Concent 32 g/dL (31-37) Red Cell Distribution Width 20.3 % (11.5-14.5) Platelet Count 75 x10^3/uL (140-400) Neutrophils (%) (Auto) 96 % (31-73) Lymphocytes (%) (Auto) 3 % (24-48) Monocytes (%) (Auto) 1 % (0-9) Eosinophils (%) (Auto) 1 % (0-3) Basophils (%) (Auto) 0 % (0-3) Neutrophils # (Auto) 10.6 x10^3/uL (1.8-7.7) Lymphocytes # (Auto) 0.4 x10^3/uL (1.0-4.8) Monocytes # (Auto) 0.1 x10^3/uL (0.0-1.1) Eosinophils # (Auto) 0.1 x10^3/uL (0.0-0.7) Basophils # (Auto) 0.0 x10^3/uL (0.0-0.2) Sodium Level 148 mmol/L (136-145) Potassium Level 3.8 mmol/L (3.5-5.1) Chloride Level 113 mmol/L (98-107) Carbon Dioxide Level 20 mmol/L (21-32) Anion Gap 15 (6-14) Blood Urea Nitrogen 70 mg/dL (7-20) Creatinine 2.0 mg/dL (0.6-1.0) Estimated GFR (Cockcroft-Gault) 25.0 BUN/Creatinine Ratio 35 (6-20) Glucose Level 93 mg/dL (70-99) Lactic Acid Level 4.1 mmol/L (0.4-2.0) Calcium Level 7.2 mg/dL (8.5-10.1) Phosphorus Level 4.5 mg/dL (2.6-4.7) Magnesium Level 1.5 mg/dL (1.8-2.4) Total Bilirubin 2.3 mg/dL (0.2-1.0) Aspartate Amino Transf (AST/SGOT) 58 U/L (15-37) Alanine Aminotransferase (ALT/SGPT) 28 U/L (14-59) Alkaline Phosphatase 167 U/L (46-116) Total Protein 4.3 g/dL (6.4-8.2) Albumin 2.4 g/dL (3.4-5.0) Albumin/Globulin Ratio 1.3 (1.0-1.7) O2 Saturation 99 % (92-99) Arterial Blood pH 7.48 (7.35-7.45) Arterial Blood pCO2 at Patient Temp 28 mmHg (35-46) Arterial Blood pO2 at Patient Temp 149 mmHg (65-108) Arterial Blood HCO3 21 mmol/L (21-28) Arterial Blood Base Excess -2 mmol/L (-3-3) FiO2 50% vent Glucose (Fingerstick) 100 mg/dL (70-99) Laboratory Tests Test 11/01/21 15:00 11/01/21 15:45 11/01/21 19:30 11/01/21 21:19 White Blood Count 14.8 x10^3/uL (4.0-11.0) Red Blood Count 4.55 x10^6/uL (3.50-5.40) Hemoglobin 14.2 g/dL (12.0-15.5) Hematocrit 44.9 % (36.0-47.0) Mean Corpuscular Volume 99 fL (79-100) Mean Corpuscular Hemoglobin 31 pg (25-35) Mean Corpuscular Hemoglobin Concent 32 g/dL (31-37) Red Cell Distribution Width 21.0 % (11.5-14.5) Platelet Count 89 x10^3/uL (140-400) Neutrophils (%) (Auto) 95 % (31-73) Lymphocytes (%) (Auto) 2 % (24-48) Monocytes (%) (Auto) 4 % (0-9) Eosinophils (%) (Auto) 0 % (0-3) Basophils (%) (Auto) 0 % (0-3) Neutrophils # (Auto) 14.0 x10^3/uL (1.8-7.7) Lymphocytes # (Auto) 0.3 x10^3/uL (1.0-4.8) Monocytes # (Auto) 0.5 x10^3/uL (0.0-1.1) Eosinophils # (Auto) 0.0 x10^3/uL (0.0-0.7) Basophils # (Auto) 0.0 x10^3/uL (0.0-0.2) Segmented Neutrophils % 62 % (35-66) Band Neutrophils % 28 % (0-9) Lymphocytes % 4 % (24-48) Monocytes % 5 % (0-10) Metamyelocytes % 1 % (0-0) Platelet Estimate Decreased (ADEQUATE) Anisocytosis Mod [place] Cells Many Prothrombin Time 14.8 SEC (11.7-14.0) Prothromb Time International Ratio 1.2 (0.8-1.1) Activated Partial Thromboplast Time 23 SEC (24-38) Sodium Level 139 mmol/L (136-145) 143 mmol/L (136-145) Potassium Level 6.2 mmol/L (3.5-5.1) 4.3 mmol/L (3.5-5.1) Chloride Level 103 mmol/L (98-107) 112 mmol/L (98-107) Carbon Dioxide Level 14 mmol/L (21-32) 16 mmol/L (21-32) Anion Gap 22 (6-14) 15 (6-14) Blood Urea Nitrogen 87 mg/dL (7-20) 73 mg/dL (7-20) Creatinine 2.5 mg/dL (0.6-1.0) 2.0 mg/dL (0.6-1.0) Estimated GFR (Cockcroft-Gault) 19.3 25.0 BUN/Creatinine Ratio 35 (6-20) Glucose Level 106 mg/dL (70-99) 85 mg/dL (70-99) Lactic Acid Level 3.2 mmol/L (0.4-2.0) Calcium Level 9.1 mg/dL (8.5-10.1) 7.0 mg/dL (8.5-10.1) Total Bilirubin 3.1 mg/dL (0.2-1.0) Aspartate Amino Transf (AST/SGOT) 45 U/L (15-37) Alanine Aminotransferase (ALT/SGPT) 49 U/L (14-59) Alkaline Phosphatase 265 U/L (46-116) Ammonia < 10 mcmol/L (11-34) Creatine Kinase 59 U/L (26-192) Troponin I High Sensitivity 110 ng/L (4-50) OD-Ian-L-Type Natriuretic Peptide > 59735 pg/mL (0-124) Total Protein 5.7 g/dL (6.4-8.2) Albumin 2.3 g/dL (3.4-5.0) Albumin/Globulin Ratio 0.7 (1.0-1.7) Lipase 255 U/L (73-393) Thyroid Stimulating Hormone (TSH) 4.552 uIU/mL (0.358-3.74) Salicylates Level 7.0 mg/dL (2.8-20.0) Salicylate Last Dose Date Unknown Salicylate Last Dose Time Unknown Acetaminophen Level 7.3 mcg/ml (10-30) Acetaminophen Last Dose Date Unknown Acetaminophen Last Dose Time Unknown Ethyl Alcohol Level < 10 mg/dL (0-10) Urine Collection Type U cath Urine Color (Auto) Dark yellow Urine Turbidity Hazy Urine pH (Auto) 5.0 (<5.0-8.0) Urine Specific [place] 1.027 (1.000-1.030) Urine Protein (Auto) 50 mg/dL (Negative) Urine Glucose (Auto)(UA) Negative mg/dL (Negative) Urine Ketones (Auto) Negative mg/dL (Negative) Urine Blood (Auto) Small (Negative) Urine Nitrite Negative (Negative) Urine Bilirubin (Auto) Small (Negative) Urine Urobilinogen (Auto) 4 mg/dL (Normal) Urine Leukocyte Esterase (Auto) Small (Negative) Urine RBC Occ /HPF (0-2) Urine WBC 1-4 /HPF (0-4) Urine Squamous Epithelial Cells Occ /LPF Urine Amorphous Sediment Present /HPF Urine Bacteria Few /HPF (0-FEW) Urine Hyaline Casts Few /HPF Urine Mucus Slight /LPF Urine Opiates Screen Pos (NEG) Urine Methadone Screen Neg (NEG) Urine Barbiturates Neg (NEG) Urine Phencyclidine Screen Neg (NEG) Urine Amphetamine/Methamphetamine Neg (NEG) Urine Benzodiazepines Screen Pos (NEG) Urine Cocaine Screen Neg (NEG) Urine Cannabinoids Screen Neg (NEG) Urine Ethyl Alcohol Neg (NEG) Influenza Type A Antigen Negative (NEGATIVE) Influenza Type B Antigen Negative (NEGATIVE) SARS-CoV-2 Antigen (Rapid) Negative (NEGATIVE) O2 Saturation 99 % (92-99) Arterial Blood pH 7.10 (7.35-7.45) Arterial Blood pH (Temp corrected) 7.16 Arterial Blood pCO2 at Patient Temp 43 mmHg (35-46) Arterial Blood pCO2 (Temp correct) 35 mmHg Arterial Blood pO2 at Patient Temp 476 mmHg (65-108) Arterial Blood pO2 (Temp corrected) 446 mmHg Arterial Blood HCO3 13 mmol/L (21-28) Arterial Blood Base Excess -16 mmol/L (-3-3) FiO2 100 Test 11/02/21 05:00 11/02/21 07:52 11/02/21 08:02 White Blood Count 11.1 x10^3/uL (4.0-11.0) Red Blood Count 3.31 x10^6/uL (3.50-5.40) Hemoglobin 10.3 g/dL (12.0-15.5) Hematocrit 32.5 % (36.0-47.0) Mean Corpuscular Volume 98 fL (79-100) Mean Corpuscular Hemoglobin 31 pg (25-35) Mean Corpuscular Hemoglobin Concent 32 g/dL (31-37) Red Cell Distribution Width 20.3 % (11.5-14.5) Platelet Count 75 x10^3/uL (140-400) Neutrophils (%) (Auto) 96 % (31-73) Lymphocytes (%) (Auto) 3 % (24-48) Monocytes (%) (Auto) 1 % (0-9) Eosinophils (%) (Auto) 1 % (0-3) Basophils (%) (Auto) 0 % (0-3) Neutrophils # (Auto) 10.6 x10^3/uL (1.8-7.7) Lymphocytes # (Auto) 0.4 x10^3/uL (1.0-4.8) Monocytes # (Auto) 0.1 x10^3/uL (0.0-1.1) Eosinophils # (Auto) 0.1 x10^3/uL (0.0-0.7) Basophils # (Auto) 0.0 x10^3/uL (0.0-0.2) Sodium Level 148 mmol/L (136-145) Potassium Level 3.8 mmol/L (3.5-5.1) Chloride Level 113 mmol/L (98-107) Carbon Dioxide Level 20 mmol/L (21-32) Anion Gap 15 (6-14) Blood Urea Nitrogen 70 mg/dL (7-20) Creatinine 2.0 mg/dL (0.6-1.0) Estimated GFR (Cockcroft-Gault) 25.0 BUN/Creatinine Ratio 35 (6-20) Glucose Level 93 mg/dL (70-99) Lactic Acid Level 4.1 mmol/L (0.4-2.0) Calcium Level 7.2 mg/dL (8.5-10.1) Phosphorus Level 4.5 mg/dL (2.6-4.7) Magnesium Level 1.5 mg/dL (1.8-2.4) Total Bilirubin 2.3 mg/dL (0.2-1.0) Aspartate Amino Transf (AST/SGOT) 58 U/L (15-37) Alanine Aminotransferase (ALT/SGPT) 28 U/L (14-59) Alkaline Phosphatase 167 U/L (46-116) Total Protein 4.3 g/dL (6.4-8.2) Albumin 2.4 g/dL (3.4-5.0) Albumin/Globulin Ratio 1.3 (1.0-1.7) O2 Saturation 99 % (92-99) Arterial Blood pH 7.48 (7.35-7.45) Arterial Blood pCO2 at Patient Temp 28 mmHg (35-46) Arterial Blood pO2 at Patient Temp 149 mmHg (65-108) Arterial Blood HCO3 21 mmol/L (21-28) Arterial Blood Base Excess -2 mmol/L (-3-3) FiO2 50% vent Glucose (Fingerstick) 100 mg/dL (70-99) Review All relevant outside records, renal labs, imaging studies, telemetry/EKG's were reviewed. Images Images CT scan of the abdomen No perinephric inflammation or hydronephrosis. No renal or ureteral calculi are identified. Bladder is decompressed not well evaluated. Uterus not enlarged. No abnormal adnexal mass. There is mild wall thickening at the transverse colon. Small amount of free fluid noted throughout the abdomen particularly in the lesser sac. No obstruction. Abdominal aorta has normal course and caliber. No enlarged intra-abdominal lymph nodes are identified. No suspicious osseous lesions. Bilateral sacral insufficiency fractures are noted. [id number] IMPRESSION: 1. Free fluid and free air noted in the abdomen predominantly surrounding the pancreas and in the lesser sac. Differential diagnosis includes perforation. A definite perforation site is not identified however given distribution of findings suspect stomach or less likely at the splenic flexure of the colon. Other differential considerations include a pancreatic process such as necrotizing pancreatitis or an infected peripancreatic fluid collection. Correlate with appropriate laboratory values. 2. Bilateral sacral insufficiency fractures. JOYA MOISE MD Nov 02, 2021 10:37
[2021-11-02] MEDS ORDERED: MAGNESIUM SULFATE 2GM 50 ML IV PRN (11:00)
--- NOTE | 2021-11-02 11:26 | PDOC ---
PROGRESS NOTES Date of Service DATE: 11/02/21 TIME: 11:25 Subjective Subjective intubated Objective Objective Vital Signs Date Time Temp Pulse Resp B/P (MAP) Pulse Ox O2 Delivery O2 Flow Rate FiO2 11/02/21 10:00 113 18 101/57 100 Ventilator 11/02/21 08:00 97.7 97.7 Intake and Output 11/02/21 07:00 Intake Total 5146 ml Output Total 455 ml Balance 4691 ml Intake IV Total 5146 ml Output Urine Total 170 ml Drainage Total 235 ml Estimated Blood Loss 50 ml Physical Exam Abdomen: Soft (BRANDON serous) Assessment Assessment Problems Medical Problems: (1) Elevated bilirubin Status: Acute (2) Hyperkalemia Status: Acute (3) Lactic acidosis Status: Acute (4) Leukocytosis Status: Acute (5) Perforated viscus Status: Acute (6) Renal insufficiency Status: Acute Plan Plan of Care supportive care, agree with starting TPN Comment Review of Relevant I have reviewed the following items tresa (where applicable) has been applied. Labs Laboratory Tests Test 11/01/21 15:00 11/01/21 15:45 11/01/21 19:30 11/01/21 21:19 White Blood Count 14.8 x10^3/uL (4.0-11.0) Red Blood Count 4.55 x10^6/uL (3.50-5.40) Hemoglobin 14.2 g/dL (12.0-15.5) Hematocrit 44.9 % (36.0-47.0) Mean Corpuscular Volume 99 fL (79-100) Mean Corpuscular Hemoglobin 31 pg (25-35) Mean Corpuscular Hemoglobin Concent 32 g/dL (31-37) Red Cell Distribution Width 21.0 % (11.5-14.5) Platelet Count 89 x10^3/uL (140-400) Neutrophils (%) (Auto) 95 % (31-73) Lymphocytes (%) (Auto) 2 % (24-48) Monocytes (%) (Auto) 4 % (0-9) Eosinophils (%) (Auto) 0 % (0-3) Basophils (%) (Auto) 0 % (0-3) Neutrophils # (Auto) 14.0 x10^3/uL (1.8-7.7) Lymphocytes # (Auto) 0.3 x10^3/uL (1.0-4.8) Monocytes # (Auto) 0.5 x10^3/uL (0.0-1.1) Eosinophils # (Auto) 0.0 x10^3/uL (0.0-0.7) Basophils # (Auto) 0.0 x10^3/uL (0.0-0.2) Segmented Neutrophils % 62 % (35-66) Band Neutrophils % 28 % (0-9) Lymphocytes % 4 % (24-48) Monocytes % 5 % (0-10) Metamyelocytes % 1 % (0-0) Platelet Estimate Decreased (ADEQUATE) Anisocytosis Mod [place] Cells Many Prothrombin Time 14.8 SEC (11.7-14.0) Prothromb Time International Ratio 1.2 (0.8-1.1) Activated Partial Thromboplast Time 23 SEC (24-38) Sodium Level 139 mmol/L (136-145) 143 mmol/L (136-145) Potassium Level 6.2 mmol/L (3.5-5.1) 4.3 mmol/L (3.5-5.1) Chloride Level 103 mmol/L (98-107) 112 mmol/L (98-107) Carbon Dioxide Level 14 mmol/L (21-32) 16 mmol/L (21-32) Anion Gap 22 (6-14) 15 (6-14) Blood Urea Nitrogen 87 mg/dL (7-20) 73 mg/dL (7-20) Creatinine 2.5 mg/dL (0.6-1.0) 2.0 mg/dL (0.6-1.0) Estimated GFR (Cockcroft-Gault) 19.3 25.0 BUN/Creatinine Ratio 35 (6-20) Glucose Level 106 mg/dL (70-99) 85 mg/dL (70-99) Lactic Acid Level 3.2 mmol/L (0.4-2.0) Calcium Level 9.1 mg/dL (8.5-10.1) 7.0 mg/dL (8.5-10.1) Total Bilirubin 3.1 mg/dL (0.2-1.0) Aspartate Amino Transf (AST/SGOT) 45 U/L (15-37) Alanine Aminotransferase (ALT/SGPT) 49 U/L (14-59) Alkaline Phosphatase 265 U/L (46-116) Ammonia < 10 mcmol/L (11-34) Creatine Kinase 59 U/L (26-192) Troponin I High Sensitivity 110 ng/L (4-50) DA-Hjw-X-Type Natriuretic Peptide > 23821 pg/mL (0-124) Total Protein 5.7 g/dL (6.4-8.2) Albumin 2.3 g/dL (3.4-5.0) Albumin/Globulin Ratio 0.7 (1.0-1.7) Lipase 255 U/L (73-393) Thyroid Stimulating Hormone (TSH) 4.552 uIU/mL (0.358-3.74) Salicylates Level 7.0 mg/dL (2.8-20.0) Salicylate Last Dose Date Unknown Salicylate Last Dose Time Unknown Acetaminophen Level 7.3 mcg/ml (10-30) Acetaminophen Last Dose Date Unknown Acetaminophen Last Dose Time Unknown Ethyl Alcohol Level < 10 mg/dL (0-10) Urine Collection Type U cath Urine Color (Auto) Dark yellow Urine Turbidity Hazy Urine pH (Auto) 5.0 (<5.0-8.0) Urine Specific [place] 1.027 (1.000-1.030) Urine Protein (Auto) 50 mg/dL (Negative) Urine Glucose (Auto)(UA) Negative mg/dL (Negative) Urine Ketones (Auto) Negative mg/dL (Negative) Urine Blood (Auto) Small (Negative) Urine Nitrite Negative (Negative) Urine Bilirubin (Auto) Small (Negative) Urine Urobilinogen (Auto) 4 mg/dL (Normal) Urine Leukocyte Esterase (Auto) Small (Negative) Urine RBC Occ /HPF (0-2) Urine WBC 1-4 /HPF (0-4) Urine Squamous Epithelial Cells Occ /LPF Urine Amorphous Sediment Present /HPF Urine Bacteria Few /HPF (0-FEW) Urine Hyaline Casts Few /HPF Urine Mucus Slight /LPF Urine Opiates Screen Pos (NEG) Urine Methadone Screen Neg (NEG) Urine Barbiturates Neg (NEG) Urine Phencyclidine Screen Neg (NEG) Urine Amphetamine/Methamphetamine Neg (NEG) Urine Benzodiazepines Screen Pos (NEG) Urine Cocaine Screen Neg (NEG) Urine Cannabinoids Screen Neg (NEG) Urine Ethyl Alcohol Neg (NEG) Influenza Type A Antigen Negative (NEGATIVE) Influenza Type B Antigen Negative (NEGATIVE) SARS-CoV-2 Antigen (Rapid) Negative (NEGATIVE) O2 Saturation 99 % (92-99) Arterial Blood pH 7.10 (7.35-7.45) Arterial Blood pH (Temp corrected) 7.16 Arterial Blood pCO2 at Patient Temp 43 mmHg (35-46) Arterial Blood pCO2 (Temp correct) 35 mmHg Arterial Blood pO2 at Patient Temp 476 mmHg (65-108) Arterial Blood pO2 (Temp corrected) 446 mmHg Arterial Blood HCO3 13 mmol/L (21-28) Arterial Blood Base Excess -16 mmol/L (-3-3) FiO2 100 Test 11/02/21 05:00 11/02/21 07:52 11/02/21 08:02 White Blood Count 11.1 x10^3/uL (4.0-11.0) Red Blood Count 3.31 x10^6/uL (3.50-5.40) Hemoglobin 10.3 g/dL (12.0-15.5) Hematocrit 32.5 % (36.0-47.0) Mean Corpuscular Volume 98 fL (79-100) Mean Corpuscular Hemoglobin 31 pg (25-35) Mean Corpuscular Hemoglobin Concent 32 g/dL (31-37) Red Cell Distribution Width 20.3 % (11.5-14.5) Platelet Count 75 x10^3/uL (140-400) Neutrophils (%) (Auto) 96 % (31-73) Lymphocytes (%) (Auto) 3 % (24-48) Monocytes (%) (Auto) 1 % (0-9) Eosinophils (%) (Auto) 1 % (0-3) Basophils (%) (Auto) 0 % (0-3) Neutrophils # (Auto) 10.6 x10^3/uL (1.8-7.7) Lymphocytes # (Auto) 0.4 x10^3/uL (1.0-4.8) Monocytes # (Auto) 0.1 x10^3/uL (0.0-1.1) Eosinophils # (Auto) 0.1 x10^3/uL (0.0-0.7) Basophils # (Auto) 0.0 x10^3/uL (0.0-0.2) Sodium Level 148 mmol/L (136-145) Potassium Level 3.8 mmol/L (3.5-5.1) Chloride Level 113 mmol/L (98-107) Carbon Dioxide Level 20 mmol/L (21-32) Anion Gap 15 (6-14) Blood Urea Nitrogen 70 mg/dL (7-20) Creatinine 2.0 mg/dL (0.6-1.0) Estimated GFR (Cockcroft-Gault) 25.0 BUN/Creatinine Ratio 35 (6-20) Glucose Level 93 mg/dL (70-99) Lactic Acid Level 4.1 mmol/L (0.4-2.0) Calcium Level 7.2 mg/dL (8.5-10.1) Phosphorus Level 4.5 mg/dL (2.6-4.7) Magnesium Level 1.5 mg/dL (1.8-2.4) Total Bilirubin 2.3 mg/dL (0.2-1.0) Aspartate Amino Transf (AST/SGOT) 58 U/L (15-37) Alanine Aminotransferase (ALT/SGPT) 28 U/L (14-59) Alkaline Phosphatase 167 U/L (46-116) Total Protein 4.3 g/dL (6.4-8.2) Albumin 2.4 g/dL (3.4-5.0) Albumin/Globulin Ratio 1.3 (1.0-1.7) O2 Saturation 99 % (92-99) Arterial Blood pH 7.48 (7.35-7.45) Arterial Blood pCO2 at Patient Temp 28 mmHg (35-46) Arterial Blood pO2 at Patient Temp 149 mmHg (65-108) Arterial Blood HCO3 21 mmol/L (21-28) Arterial Blood Base Excess -2 mmol/L (-3-3) FiO2 50% vent Glucose (Fingerstick) 100 mg/dL (70-99) Laboratory Tests Test 11/01/21 15:00 11/01/21 15:45 11/01/21 19:30 11/01/21 21:19 White Blood Count 14.8 x10^3/uL (4.0-11.0) Red Blood Count 4.55 x10^6/uL (3.50-5.40) Hemoglobin 14.2 g/dL (12.0-15.5) Hematocrit 44.9 % (36.0-47.0) Mean Corpuscular Volume 99 fL (79-100) Mean Corpuscular Hemoglobin 31 pg (25-35) Mean Corpuscular Hemoglobin Concent 32 g/dL (31-37) Red Cell Distribution Width 21.0 % (11.5-14.5) Platelet Count 89 x10^3/uL (140-400) Neutrophils (%) (Auto) 95 % (31-73) Lymphocytes (%) (Auto) 2 % (24-48) Monocytes (%) (Auto) 4 % (0-9) Eosinophils (%) (Auto) 0 % (0-3) Basophils (%) (Auto) 0 % (0-3) Neutrophils # (Auto) 14.0 x10^3/uL (1.8-7.7) Lymphocytes # (Auto) 0.3 x10^3/uL (1.0-4.8) Monocytes # (Auto) 0.5 x10^3/uL (0.0-1.1) Eosinophils # (Auto) 0.0 x10^3/uL (0.0-0.7) Basophils # (Auto) 0.0 x10^3/uL (0.0-0.2) Segmented Neutrophils % 62 % (35-66) Band Neutrophils % 28 % (0-9) Lymphocytes % 4 % (24-48) Monocytes % 5 % (0-10) Metamyelocytes % 1 % (0-0) Platelet Estimate Decreased (ADEQUATE) Anisocytosis Mod Ac Cells Many Prothrombin Time 14.8 SEC (11.7-14.0) Prothromb Time International Ratio 1.2 (0.8-1.1) Activated Partial Thromboplast Time 23 SEC (24-38) Sodium Level 139 mmol/L (136-145) 143 mmol/L (136-145) Potassium Level 6.2 mmol/L (3.5-5.1) 4.3 mmol/L (3.5-5.1) Chloride Level 103 mmol/L (98-107) 112 mmol/L (98-107) Carbon Dioxide Level 14 mmol/L (21-32) 16 mmol/L (21-32) Anion Gap 22 (6-14) 15 (6-14) Blood Urea Nitrogen 87 mg/dL (7-20) 73 mg/dL (7-20) Creatinine 2.5 mg/dL (0.6-1.0) 2.0 mg/dL (0.6-1.0) Estimated GFR (Cockcroft-Gault) 19.3 25.0 BUN/Creatinine Ratio 35 (6-20) Glucose Level 106 mg/dL (70-99) 85 mg/dL (70-99) Lactic Acid Level 3.2 mmol/L (0.4-2.0) Calcium Level 9.1 mg/dL (8.5-10.1) 7.0 mg/dL (8.5-10.1) Total Bilirubin 3.1 mg/dL (0.2-1.0) Aspartate Amino Transf (AST/SGOT) 45 U/L (15-37) Alanine Aminotransferase (ALT/SGPT) 49 U/L (14-59) Alkaline Phosphatase 265 U/L (46-116) Ammonia < 10 mcmol/L (11-34) Creatine Kinase 59 U/L (26-192) Troponin I High Sensitivity 110 ng/L (4-50) ON-Hkl-X-Type Natriuretic Peptide > 55381 pg/mL (0-124) Total Protein 5.7 g/dL (6.4-8.2) Albumin 2.3 g/dL (3.4-5.0) Albumin/Globulin Ratio 0.7 (1.0-1.7) Lipase 255 U/L (73-393) Thyroid Stimulating Hormone (TSH) 4.552 uIU/mL (0.358-3.74) Salicylates Level 7.0 mg/dL (2.8-20.0) Salicylate Last Dose Date Unknown Salicylate Last Dose Time Unknown Acetaminophen Level 7.3 mcg/ml (10-30) Acetaminophen Last Dose Date Unknown Acetaminophen Last Dose Time Unknown Ethyl Alcohol Level < 10 mg/dL (0-10) Urine Collection Type U cath Urine Color (Auto) Dark yellow Urine Turbidity Hazy Urine pH (Auto) 5.0 (<5.0-8.0) Urine Specific [place] 1.027 (1.000-1.030) Urine Protein (Auto) 50 mg/dL (Negative) Urine Glucose (Auto)(UA) Negative mg/dL (Negative) Urine Ketones (Auto) Negative mg/dL (Negative) Urine Blood (Auto) Small (Negative) Urine Nitrite Negative (Negative) Urine Bilirubin (Auto) Small (Negative) Urine Urobilinogen (Auto) 4 mg/dL (Normal) Urine Leukocyte Esterase (Auto) Small (Negative) Urine RBC Occ /HPF (0-2) Urine WBC 1-4 /HPF (0-4) Urine Squamous Epithelial Cells Occ /LPF Urine Amorphous Sediment Present /HPF Urine Bacteria Few /HPF (0-FEW) Urine Hyaline Casts Few /HPF Urine Mucus Slight /LPF Urine Opiates Screen Pos (NEG) Urine Methadone Screen Neg (NEG) Urine Barbiturates Neg (NEG) Urine Phencyclidine Screen Neg (NEG) Urine Amphetamine/Methamphetamine Neg (NEG) Urine Benzodiazepines Screen Pos (NEG) Urine Cocaine Screen Neg (NEG) Urine Cannabinoids Screen Neg (NEG) Urine Ethyl Alcohol Neg (NEG) Influenza Type A Antigen Negative (NEGATIVE) Influenza Type B Antigen Negative (NEGATIVE) SARS-CoV-2 Antigen (Rapid) Negative (NEGATIVE) O2 Saturation 99 % (92-99) Arterial Blood pH 7.10 (7.35-7.45) Arterial Blood pH (Temp corrected) 7.16 Arterial Blood pCO2 at Patient Temp 43 mmHg (35-46) Arterial Blood pCO2 (Temp correct) 35 mmHg Arterial Blood pO2 at Patient Temp 476 mmHg (65-108) Arterial Blood pO2 (Temp corrected) 446 mmHg Arterial Blood HCO3 13 mmol/L (21-28) Arterial Blood Base Excess -16 mmol/L (-3-3) FiO2 100 Test 11/02/21 05:00 11/02/21 07:52 11/02/21 08:02 White Blood Count 11.1 x10^3/uL (4.0-11.0) Red Blood Count 3.31 x10^6/uL (3.50-5.40) Hemoglobin 10.3 g/dL (12.0-15.5) Hematocrit 32.5 % (36.0-47.0) Mean Corpuscular Volume 98 fL (79-100) Mean Corpuscular Hemoglobin 31 pg (25-35) Mean Corpuscular Hemoglobin Concent 32 g/dL (31-37) Red Cell Distribution Width 20.3 % (11.5-14.5) Platelet Count 75 x10^3/uL (140-400) Neutrophils (%) (Auto) 96 % (31-73) Lymphocytes (%) (Auto) 3 % (24-48) Monocytes (%) (Auto) 1 % (0-9) Eosinophils (%) (Auto) 1 % (0-3) Basophils (%) (Auto) 0 % (0-3) Neutrophils # (Auto) 10.6 x10^3/uL (1.8-7.7) Lymphocytes # (Auto) 0.4 x10^3/uL (1.0-4.8) Monocytes # (Auto) 0.1 x10^3/uL (0.0-1.1) Eosinophils # (Auto) 0.1 x10^3/uL (0.0-0.7) Basophils # (Auto) 0.0 x10^3/uL (0.0-0.2) Sodium Level 148 mmol/L (136-145) Potassium Level 3.8 mmol/L (3.5-5.1) Chloride Level 113 mmol/L (98-107) Carbon Dioxide Level 20 mmol/L (21-32) Anion Gap 15 (6-14) Blood Urea Nitrogen 70 mg/dL (7-20) Creatinine 2.0 mg/dL (0.6-1.0) Estimated GFR (Cockcroft-Gault) 25.0 BUN/Creatinine Ratio 35 (6-20) Glucose Level 93 mg/dL (70-99) Lactic Acid Level 4.1 mmol/L (0.4-2.0) Calcium Level 7.2 mg/dL (8.5-10.1) Phosphorus Level 4.5 mg/dL (2.6-4.7) Magnesium Level 1.5 mg/dL (1.8-2.4) Total Bilirubin 2.3 mg/dL (0.2-1.0) Aspartate Amino Transf (AST/SGOT) 58 U/L (15-37) Alanine Aminotransferase (ALT/SGPT) 28 U/L (14-59) Alkaline Phosphatase 167 U/L (46-116) Total Protein 4.3 g/dL (6.4-8.2) Albumin 2.4 g/dL (3.4-5.0) Albumin/Globulin Ratio 1.3 (1.0-1.7) O2 Saturation 99 % (92-99) Arterial Blood pH 7.48 (7.35-7.45) Arterial Blood pCO2 at Patient Temp 28 mmHg (35-46) Arterial Blood pO2 at Patient Temp 149 mmHg (65-108) Arterial Blood HCO3 21 mmol/L (21-28) Arterial Blood Base Excess -2 mmol/L (-3-3) FiO2 50% vent Glucose (Fingerstick) 100 mg/dL (70-99) Medications Current Medications Sodium Chloride 1,000 ml @ 1,000 mls/hr 1X ONCE IV Last administered on 11/01/21at 15:30; Start 11/01/21 at 15:15; Stop 11/01/21 at 16:14; Status DC Calcium Gluconate (Calcium Gluconate) 1,000 mg 1X ONCE IVP Last administered on 11/01/21at 16:35; Start 11/01/21 at 16:00; Stop 11/01/21 at 16:01; Status DC Sodium Bicarbonate (Sodium Bicarb Adult 8.4% Syr) 50 meq 1X ONCE IV Last administered on 11/01/21at 16:35; Start 11/01/21 at 16:00; Stop 11/02/21 at 09:36; Status DC Dextrose (Dextrose 50%-Water Syringe) 25 gm 1X ONCE IV Last administered on 11/01/21at 16:50; Start 11/01/21 at 16:00; Stop 11/01/21 at 16:01; Status DC Insulin Human Regular (HumuLIN R VIAL) 10 unit 1X ONCE IV Last administered on 11/01/21at 16:40; Start 11/01/21 at 16:00; Stop 11/01/21 at 16:01; Status DC Sodium Chloride 1,000 ml @ 1,000 mls/hr Q1H IV Last administered on 11/01/21at 16:50; Start 11/01/21 at 16:00; Stop 11/01/21 at 16:59; Status DC Piperacillin Sod/ Tazobactam Sod 3.375 gm/Sodium Chloride 50 ml @ 100 mls/hr 1X ONCE IV ; Start 11/01/21 at 16:45; Stop 11/01/21 at 17:14; Status UNV Piperacillin Sod/ Tazobactam Sod 2.25 gm/Sodium Chloride 50 ml @ 100 mls/hr 1X ONCE IV Last administered on 11/01/21at 16:58; Start 11/01/21 at 17:00; Stop 11/01/21 at 17:29; Status DC Ondansetron HCl (Zofran) 4 mg PRN Q8HRS PRN IVP NAUSEA/VOMITING; Start 11/01/21 at 16:45; Stop 11/02/21 at 16:44 Morphine Sulfate (Morphine Sulfate) 2 mg PRN Q2HR PRN IVP PAIN; Start 11/01/21 at 16:45; Stop 11/02/21 at 03:15; Status DC Sodium Chloride 1,000 ml @ 1,000 mls/hr 1X ONCE IV Last administered on 11/01/21at 17:48; Start 11/01/21 at 17:45; Stop 11/01/21 at 18:44; Status DC Rocuronium [place] (Zemuron) 100 mg STK-MED ONCE .ROUTE ; Start 11/01/21 at 17:54; Stop 11/01/21 at 17:55; Status DC Fentanyl Citrate (Fentanyl 5ml Vial) 250 mcg STK-MED ONCE .ROUTE ; Start 11/01/21 at 17:55; Stop 11/01/21 at 17:55; Status DC Etomidate (Amidate) 20 mg STK-MED ONCE IV ; Start 11/01/21 at 17:55; Stop 11/01/21 at 17:56; Status DC Phenylephrine HCl (PHENYLEPHRINE in 0.9% NACL PF) 1 mg STK-MED ONCE IV ; Start 11/01/21 at 17:56; Stop 11/01/21 at 17:56; Status DC Fentanyl Citrate (Fentanyl 2ml Vial) 25 mcg PRN Q5MIN PRN IVP MILD PAIN 1-3; Start 11/01/21 at 18:00; Stop 11/02/21 at 03:15; Status DC Fentanyl Citrate (Fentanyl 2ml Vial) 50 mcg PRN Q5MIN PRN IVP MODERATE PAIN 4- 6; Start 11/01/21 at 18:00; Stop 11/02/21 at 03:15; Status DC Morphine Sulfate (Morphine Sulfate) 1 mg PRN Q10MIN PRN IVP SEVERE PAIN 7-10; Start 11/01/21 at 18:00; Stop 11/02/21 at 03:15; Status DC Ringer's Solution 1,000 ml @ 30 mls/hr Q24H IV ; Start 11/01/21 at 18:00; Stop 11/02/21 at 05:59; Status DC Hydromorphone HCl (Dilaudid) 0.5 mg PRN Q10MIN PRN IVP SEVERE PAIN 7-10, 2nd CHOICE; Start 11/01/21 at 18:00; Stop 11/02/21 at 03:15; Status DC Prochlorperazine Edisylate (Compazine) 5 mg PACU PRN PRN IVP NAUSEA, MRX1; Start 11/01/21 at 18:00; Stop 11/02/21 at 17:59 Fentanyl Citrate (Fentanyl 2ml Vial) 25 mcg PRN Q5MIN PRN IVP MILD PAIN 1-3; Start 11/01/21 at 18:00; Stop 11/02/21 at 17:59; Status UNV Fentanyl Citrate (Fentanyl 2ml Vial) 50 mcg PRN Q5MIN PRN IVP MODERATE PAIN 4- 6; Start 11/01/21 at 18:00; Stop 11/02/21 at 17:59; Status UNV Morphine Sulfate (Morphine Sulfate) 1 mg PRN Q10MIN PRN IVP SEVERE PAIN 7-10; Start 11/01/21 at 18:00; Stop 11/02/21 at 17:59; Status UNV Ringer's Solution 1,000 ml @ 30 mls/hr Q24H IV ; Start 11/01/21 at 18:00; Stop 11/02/21 at 05:59; Status UNV Hydromorphone HCl (Dilaudid) 0.5 mg PRN Q10MIN PRN IVP SEVERE PAIN 7-10, 2nd CHOICE; Start 11/01/21 at 18:00; Stop 11/02/21 at 17:59; Status UNV Prochlorperazine Edisylate (Compazine) 5 mg PACU PRN PRN IVP NAUSEA, MRX1; Start 11/01/21 at 18:00; Stop 11/02/21 at 17:59; Status UNV Insulin Human Lispro (HumaLOG) 0-5 UNITS TIDWMEALS SQ ; Start 11/02/21 at 08:00 Dextrose (Dextrose 50%-Water Syringe) 12.5 gm PRN Q15MIN PRN IV SEE COMMENTS; Start 11/01/21 at 18:00 Dextrose (Iv Dextrose 5%) 250 ml PRN Q15MIN PRN IV SEE COMMENTS; Start 11/01/21 at 18:00 Piperacillin Sod/ Tazobactam Sod (Zosyn Per Pharmacy) 1 each PRN DAILY PRN MC SEE COMMENTS; Start 11/01/21 at 18:15 Piperacillin Sod/ Tazobactam Sod 2.25 gm/Sodium Chloride 50 ml @ 100 mls/hr Q8HRS IV Last administered on 11/02/21at 05:53; Start 11/01/21 at 22:00 Albumin Human 500 ml @ As Directed STK-MED ONCE IV ; Start 11/01/21 at 18:20; Stop 11/01/21 at 18:21; Status DC Bupivacaine HCl/ Epinephrine Bitart (Sensorcain-Epi 0.5% Kit) 30 ml STK-MED ONCE .ROUTE ; Start 11/01/21 at 18:25; Stop 11/01/21 at 18:26; Status DC Albumin Human 500 ml @ As Directed STK-MED ONCE IV ; Start 11/01/21 at 18:30; Stop 11/01/21 at 18:31; Status DC Phenylephrine HCl (PHENYLEPHRINE in 0.9% NACL PF) 1 mg STK-MED ONCE IV ; Start 11/01/21 at 19:53; Stop 11/01/21 at 19:53; Status DC Sevoflurane (Ultane) 90 ml STK-MED ONCE IH ; Start 11/01/21 at 19:58; Stop 11/01/21 at 19:58; Status DC Albumin Human 500 ml @ As Directed STK-MED ONCE IV ; Start 11/01/21 at 20:00; Stop 11/01/21 at 20:00; Status DC Pantoprazole Sodium 80 mg/ Sodium Chloride 100 ml @ 10 mls/hr 1X ONCE IV Last administered on 11/01/21at 22:32; Start 11/01/21 at 20:30; Stop 11/02/21 at 06:29; Status DC Heparin Sodium (Porcine) (Heparin Sodium) 5,000 unit Q12HR SQ ; Start 11/01/21 at 21:00; Stop 11/01/21 at 20:40; Status DC Dextrose/Sodium Chloride 1,000 ml @ 100 mls/hr Q10H IV ; Start 11/01/21 at 20:30; Stop 11/02/21 at 05:51; Status DC Heparin Sodium (Porcine) (Heparin Sodium) 5,000 unit Q12HR SQ Last administered on 11/02/21at 09:25; Start 11/02/21 at 09:00 Ringer's Solution 1,000 ml @ 125 mls/hr Q8H IV Last administered on 11/02/21at 05:53; Start 11/01/21 at 21:15; Stop 11/02/21 at 10:57; Status DC Sodium Bicarbonate (Sodium Bicarb Adult 8.4% Syr) 50 meq 1X ONCE IV Last administered on 11/01/21at 22:18; Start 11/01/21 at 22:00; Stop 11/02/21 at 09:36; Status DC Sodium Bicarbonate (Sodium Bicarb Adult 8.4% Syr) 50 meq 1X ONCE IV Last administered on 11/01/21at 22:18; Start 11/01/21 at 22:00; Stop 11/02/21 at 09:36; Status DC Sodium Bicarbonate 150 meq/Dextrose 1,150 ml @ 50 mls/hr Q23H IV Last administered on 11/01/21at 22:19; Start 11/01/21 at 23:00; Stop 11/02/21 at 10:57; Status DC Fentanyl Citrate 30 ml @ 2.5 mls/hr CONT PRN IV SEE PROTOCOL Last administered on 11/02/21at 03:31; Start 11/02/21 at 03:00 Midazolam HCl 100 ml @ 1 mls/hr CONT PRN IV SEE PROTOCOL; Start 11/02/21 at 03:00 Propofol 100 ml @ 1.461 mls/ hr CONT PRN IV PER PROTOCOL; Start 11/02/21 at 03:00 Glycerin/ Hypromellose/ Polyethylene (Artificial Tears) 1 drop PRN Q1HR PRN OU DRY EYE; Start 11/02/21 at 03:00 Dexmedetomidine HCl 400 mcg/ Sodium Chloride 100 ml @ 2.435 mls/ hr CONT PRN IV PER PROTOCOL; Start 11/02/21 at 03:00 Sodium Chloride 500 ml @ 500 mls/hr 1X PRN PRN IV SEE COMMENTS; Start 11/02/21 at 03:00 Atropine Sulfate (ATROPINE 0.5mg SYRINGE) 0.5 mg PRN Q5MIN PRN IV SEE COMMENTS; Start 11/02/21 at 03:00 Norepinephrine Bitartrate 8 mg/ Dextrose 258 ml @ 9.423 mls/ hr CONT PRN IV PER PROTOCOL Last administered on 11/02/21at 05:23; Start 11/02/21 at 05:15 Ringer's Solution 500 ml @ 500 mls/hr 1X ONCE IV ; Start 11/02/21 at 09:00; Stop 11/02/21 at 09:21; Status DC Ringer's Solution 980 ml @ 980 mls/hr 1X ONCE IV Last administered on 11/02/21at 09:25; Start 11/02/21 at 09:30; Stop 11/02/21 at 10:29; Status DC Info (Tpn Per Pharmacy) 1 each CONT MC ; Start 11/02/21 at 09:30; Stop 11/02/21 at 09:45; Status DC Sodium Bicarbonate (Sodium Bicarb Adult 8.4% Syr) 150 meq 1X ONCE IV ; Start 11/02/21 at 10:00; Stop 11/02/21 at 10:01; Status Cancel Info (Tpn Per Pharmacy) 1 each PRN DAILY PRN MC SEE COMMENTS; Start 11/02/21 at 09:45 Sodium Bicarbonate 75 meq/Dextrose 1,075 ml @ 100 mls/hr [id number] IV ; Start 11/02/21 at 11:00 Magnesium Sulfate 50 ml @ 25 mls/hr PRN DAILY PRN IV for Mag < 1.7 on am labs; Start 11/02/21 at 11:00 Vitals/I & O Vital Sign - Last 24 Hours 11/01/21 11/01/21 11/01/21 11/01/21 14:48 16:10 17:53 20:33 Temp 96.6 96.6 Pulse 96 90 90 Resp 17 15 15 B/P (MAP) 102/56 (71) 114/58 (76) 118/67 (84) Pulse Ox 97 97 98 O2 Delivery Room Air Room Air Room Air Mechanical Ventilator 11/01/21 11/01/21 11/01/21 11/01/21 20:33 20:35 20:45 20:45 Temp 92.0 92.0 90.0 92.0 92.0 90.0 Pulse 93 90 88 Resp 12 12 14 B/P (MAP) 119/65 125/71 124/65 (84) 102/62 110/64 Pulse Ox 100 100 100 O2 Delivery Ventilator Ventilator Ventilator Ventilator 11/01/21 11/01/21 11/01/21 11/01/21 21:00 21:00 21:00 21:00 Temp 93.0 93.0 Pulse 91 Resp 12 B/P (MAP) 124/70 112/72 Pulse Ox 100 O2 Delivery Ventilator Mechanical Ventilator Mechanical Ventilator 11/01/21 11/01/21 11/01/21 11/01/21 21:00 21:15 21:30 22:00 Temp 94.8 94.8 Pulse 90 96 98 104 Resp 14 14 16 16 B/P (MAP) 124/70 (88) 122/66 (84) 126/66 (86) 118/64 (82) Pulse Ox 100 100 100 100 O2 Delivery Ventilator Ventilator Ventilator Ventilator 11/01/21 11/01/21 11/02/21 11/02/21 22:00 23:00 00:00 00:00 Temp 99.0 99.0 Pulse 114 112 Resp 16 16 B/P (MAP) 112/62 (79) 107/63 (78) Pulse Ox 100 100 100 O2 Delivery Ventilator Ventilator Ventilator Mechanical Ventilator 11/02/21 11/02/21 11/02/21 11/02/21 00:00 00:00 01:00 01:58 Pulse 110 B/P (MAP) 106/60 (75) Pulse Ox 100 100 100 O2 Delivery Ventilator Ventilator Ventilator 11/02/21 11/02/21 11/02/21 11/02/21 02:00 03:00 04:00 04:00 Temp 98.8 98.8 Pulse 105 106 109 Resp 16 16 16 B/P (MAP) 98/60 (73) 94/58 (70) 92/62 Pulse Ox 97 97 100 O2 Delivery Ventilator Ventilator Ventilator Mechanical Ventilator 11/02/21 11/02/21 11/02/21 11/02/21 04:00 05:00 05:00 05:30 Pulse 114 115 Resp 16 19 B/P (MAP) 89/60 84/58 Pulse Ox 96 97 100 O2 Delivery Ventilator Ventilator Ventilator 11/02/21 11/02/21 11/02/21 11/02/21 05:45 06:00 06:15 06:30 Pulse 116 114 Resp 20 20 B/P (MAP) 90/61 84/58 86/58 86/52 Pulse Ox 100 100 O2 Delivery Ventilator Ventilator 11/02/21 11/02/21 11/02/21 11/02/21 06:45 07:00 07:15 07:47 B/P (MAP) 89/49 80/50 96/59 Pulse Ox 97 O2 Delivery Ventilator 11/02/21 11/02/21 11/02/21 11/02/21 08:00 08:00 08:00 09:00 Temp 97.7 97.7 Pulse 115 115 114 Resp 21 19 B/P (MAP) 93/57 93/57 (69) 98/55 Pulse Ox 100 100 O2 Delivery Mechanical Ventilator Ventilator Ventilator 11/02/21 11/02/21 09:28 10:00 Pulse 113 Resp 18 B/P (MAP) 101/57 Pulse Ox 97 100 O2 Delivery Ventilator Ventilator Intake and Output 11/01/21 11/01/21 11/02/21 15:00 23:00 07:00 Intake Total 3500 ml 1646 ml Output Total 235 ml 220 ml Balance 3265 ml 1426 ml Justifications for Admission Other Justification MATTHEW VICK MD Nov 02, 2021 11:26
--- NOTE | 2021-11-02 11:28 | PDOC ---
[employer] PROGRESS NOTE Date of Service DOS: DATE: 11/02/21 TIME: 11:24 Chief Complaint Chief Complaint acute abdomen, severe sepsis, septic shock perforated gastric ulcer with peritoniti POD #1, gastric surg severe malnutrition Longstanding history of rheumatoid arthritis treated with Remicade and steroids Cardiac arrhythmias Hx s/p Mitral valve clip tobacco abuse disorder, Coronary artery disease with stenting x2 Hypothyroidism Hypertension GERD Anxiety History of Present Illness History of Present Illness cont care in ICU discussed with family, [id number] here today Dr. ridley following, surg wetn well yesterday, now will need TPN, try to restart Plavix, low dose steroid to go 3x for now Vitals/I&O Vitals/I&O: Vital Signs Date Time Temp Pulse Resp B/P (MAP) Pulse Ox O2 Delivery O2 Flow Rate FiO2 11/02/21 10:00 113 18 101/57 100 Ventilator 11/02/21 08:00 97.7 97.7 I & O 11/01/21 11/01/21 11/02/21 15:00 23:00 07:00 Intake Total 3500 ml 1646 ml Output Total 235 ml 220 ml Balance 3265 ml 1426 ml Physical Exam General: Alert, Cooperative, moderate distress, Other Heart: Regular rate Lungs: Other (vent, end wheeze, no rhonchi) Abdomen: Normal bowel sounds, Soft Extremities: No cyanosis, No edema, Normal pulses Skin: No rashes Labs Labs: Laboratory Tests Test 11/01/21 15:00 11/01/21 15:45 11/01/21 19:30 11/01/21 21:19 White Blood Count 14.8 x10^3/uL (4.0-11.0) Red Blood Count 4.55 x10^6/uL (3.50-5.40) Hemoglobin 14.2 g/dL (12.0-15.5) Hematocrit 44.9 % (36.0-47.0) Mean Corpuscular Volume 99 fL (79-100) Mean Corpuscular Hemoglobin 31 pg (25-35) Mean Corpuscular Hemoglobin Concent 32 g/dL (31-37) Red Cell Distribution Width 21.0 % (11.5-14.5) Platelet Count 89 x10^3/uL (140-400) Neutrophils (%) (Auto) 95 % (31-73) Lymphocytes (%) (Auto) 2 % (24-48) Monocytes (%) (Auto) 4 % (0-9) Eosinophils (%) (Auto) 0 % (0-3) Basophils (%) (Auto) 0 % (0-3) Neutrophils # (Auto) 14.0 x10^3/uL (1.8-7.7) Lymphocytes # (Auto) 0.3 x10^3/uL (1.0-4.8) Monocytes # (Auto) 0.5 x10^3/uL (0.0-1.1) Eosinophils # (Auto) 0.0 x10^3/uL (0.0-0.7) Basophils # (Auto) 0.0 x10^3/uL (0.0-0.2) Segmented Neutrophils % 62 % (35-66) Band Neutrophils % 28 % (0-9) Lymphocytes % 4 % (24-48) Monocytes % 5 % (0-10) Metamyelocytes % 1 % (0-0) Platelet Estimate Decreased (ADEQUATE) Anisocytosis Mod Safety [place] Cells Many Prothrombin Time 14.8 SEC (11.7-14.0) Prothromb Time International Ratio 1.2 (0.8-1.1) Activated Partial Thromboplast Time 23 SEC (24-38) Sodium Level 139 mmol/L (136-145) 143 mmol/L (136-145) Potassium Level 6.2 mmol/L (3.5-5.1) 4.3 mmol/L (3.5-5.1) Chloride Level 103 mmol/L (98-107) 112 mmol/L (98-107) Carbon Dioxide Level 14 mmol/L (21-32) 16 mmol/L (21-32) Anion Gap 22 (6-14) 15 (6-14) Blood Urea Nitrogen 87 mg/dL (7-20) 73 mg/dL (7-20) Creatinine 2.5 mg/dL (0.6-1.0) 2.0 mg/dL (0.6-1.0) Estimated GFR (Cockcroft-Gault) 19.3 25.0 BUN/Creatinine Ratio 35 (6-20) Glucose Level 106 mg/dL (70-99) 85 mg/dL (70-99) Lactic Acid Level 3.2 mmol/L (0.4-2.0) Calcium Level 9.1 mg/dL (8.5-10.1) 7.0 mg/dL (8.5-10.1) Total Bilirubin 3.1 mg/dL (0.2-1.0) Aspartate Amino Transf (AST/SGOT) 45 U/L (15-37) Alanine Aminotransferase (ALT/SGPT) 49 U/L (14-59) Alkaline Phosphatase 265 U/L (46-116) Ammonia < 10 mcmol/L (11-34) Creatine Kinase 59 U/L (26-192) Troponin I High Sensitivity 110 ng/L (4-50) LK-Fha-G-Type Natriuretic Peptide > 48709 pg/mL (0-124) Total Protein 5.7 g/dL (6.4-8.2) Albumin 2.3 g/dL (3.4-5.0) Albumin/Globulin Ratio 0.7 (1.0-1.7) Lipase 255 U/L (73-393) Thyroid Stimulating Hormone (TSH) 4.552 uIU/mL (0.358-3.74) Salicylates Level 7.0 mg/dL (2.8-20.0) Salicylate Last Dose Date Unknown Salicylate Last Dose Time Unknown Acetaminophen Level 7.3 mcg/ml (10-30) Acetaminophen Last Dose Date Unknown Acetaminophen Last Dose Time Unknown Ethyl Alcohol Level < 10 mg/dL (0-10) Urine Collection Type U cath Urine Color (Auto) Dark yellow Urine Turbidity Hazy Urine pH (Auto) 5.0 (<5.0-8.0) Urine Specific [place] 1.027 (1.000-1.030) Urine Protein (Auto) 50 mg/dL (Negative) Urine Glucose (Auto)(UA) Negative mg/dL (Negative) Urine Ketones (Auto) Negative mg/dL (Negative) Urine Blood (Auto) Small (Negative) Urine Nitrite Negative (Negative) Urine Bilirubin (Auto) Small (Negative) Urine Urobilinogen (Auto) 4 mg/dL (Normal) Urine Leukocyte Esterase (Auto) Small (Negative) Urine RBC Occ /HPF (0-2) Urine WBC 1-4 /HPF (0-4) Urine Squamous Epithelial Cells Occ /LPF Urine Amorphous Sediment Present /HPF Urine Bacteria Few /HPF (0-FEW) Urine Hyaline Casts Few /HPF Urine Mucus Slight /LPF Urine Opiates Screen Pos (NEG) Urine Methadone Screen Neg (NEG) Urine Barbiturates Neg (NEG) Urine Phencyclidine Screen Neg (NEG) Urine Amphetamine/Methamphetamine Neg (NEG) Urine Benzodiazepines Screen Pos (NEG) Urine Cocaine Screen Neg (NEG) Urine Cannabinoids Screen Neg (NEG) Urine Ethyl Alcohol Neg (NEG) Influenza Type A Antigen Negative (NEGATIVE) Influenza Type B Antigen Negative (NEGATIVE) SARS-CoV-2 Antigen (Rapid) Negative (NEGATIVE) O2 Saturation 99 % (92-99) Arterial Blood pH 7.10 (7.35-7.45) Arterial Blood pH (Temp corrected) 7.16 Arterial Blood pCO2 at Patient Temp 43 mmHg (35-46) Arterial Blood pCO2 (Temp correct) 35 mmHg Arterial Blood pO2 at Patient Temp 476 mmHg (65-108) Arterial Blood pO2 (Temp corrected) 446 mmHg Arterial Blood HCO3 13 mmol/L (21-28) Arterial Blood Base Excess -16 mmol/L (-3-3) FiO2 100 Test 11/02/21 05:00 11/02/21 07:52 11/02/21 08:02 White Blood Count 11.1 x10^3/uL (4.0-11.0) Red Blood Count 3.31 x10^6/uL (3.50-5.40) Hemoglobin 10.3 g/dL (12.0-15.5) Hematocrit 32.5 % (36.0-47.0) Mean Corpuscular Volume 98 fL (79-100) Mean Corpuscular Hemoglobin 31 pg (25-35) Mean Corpuscular Hemoglobin Concent 32 g/dL (31-37) Red Cell Distribution Width 20.3 % (11.5-14.5) Platelet Count 75 x10^3/uL (140-400) Neutrophils (%) (Auto) 96 % (31-73) Lymphocytes (%) (Auto) 3 % (24-48) Monocytes (%) (Auto) 1 % (0-9) Eosinophils (%) (Auto) 1 % (0-3) Basophils (%) (Auto) 0 % (0-3) Neutrophils # (Auto) 10.6 x10^3/uL (1.8-7.7) Lymphocytes # (Auto) 0.4 x10^3/uL (1.0-4.8) Monocytes # (Auto) 0.1 x10^3/uL (0.0-1.1) Eosinophils # (Auto) 0.1 x10^3/uL (0.0-0.7) Basophils # (Auto) 0.0 x10^3/uL (0.0-0.2) Sodium Level 148 mmol/L (136-145) Potassium Level 3.8 mmol/L (3.5-5.1) Chloride Level 113 mmol/L (98-107) Carbon Dioxide Level 20 mmol/L (21-32) Anion Gap 15 (6-14) Blood Urea Nitrogen 70 mg/dL (7-20) Creatinine 2.0 mg/dL (0.6-1.0) Estimated GFR (Cockcroft-Gault) 25.0 BUN/Creatinine Ratio 35 (6-20) Glucose Level 93 mg/dL (70-99) Lactic Acid Level 4.1 mmol/L (0.4-2.0) Calcium Level 7.2 mg/dL (8.5-10.1) Phosphorus Level 4.5 mg/dL (2.6-4.7) Magnesium Level 1.5 mg/dL (1.8-2.4) Total Bilirubin 2.3 mg/dL (0.2-1.0) Aspartate Amino Transf (AST/SGOT) 58 U/L (15-37) Alanine Aminotransferase (ALT/SGPT) 28 U/L (14-59) Alkaline Phosphatase 167 U/L (46-116) Total Protein 4.3 g/dL (6.4-8.2) Albumin 2.4 g/dL (3.4-5.0) Albumin/Globulin Ratio 1.3 (1.0-1.7) O2 Saturation 99 % (92-99) Arterial Blood pH 7.48 (7.35-7.45) Arterial Blood pCO2 at Patient Temp 28 mmHg (35-46) Arterial Blood pO2 at Patient Temp 149 mmHg (65-108) Arterial Blood HCO3 21 mmol/L (21-28) Arterial Blood Base Excess -2 mmol/L (-3-3) FiO2 50% vent Glucose (Fingerstick) 100 mg/dL (70-99) Assessment and Plan Assessmemt and Plan Problems Medical Problems: (1) Elevated bilirubin Status: Acute (2) Hyperkalemia Status: Acute (3) Lactic acidosis Status: Acute (4) Leukocytosis Status: Acute (5) Perforated viscus Status: Acute (6) Renal insufficiency Status: Acute Comment Review of Relevant I have reviewed the following items tresa (where applicable) has been applied. Medications: Current Medications Medications (Trade) Dose Ordered Sig/Tiarra Route PRN Reason Start Time Stop Time Status Last Admin Dose Admin Sodium Chloride 1,000 ml @ 1,000 mls/hr 1X ONCE IV 11/01/21 15:15 11/01/21 16:14 DC 11/01/21 15:30 Calcium Gluconate (Calcium Gluconate) 1,000 mg 1X ONCE IVP 11/01/21 16:00 11/01/21 16:01 DC 11/01/21 16:35 Sodium Bicarbonate (Sodium Bicarb Adult 8.4% Syr) 50 meq 1X ONCE IV 11/01/21 16:00 11/02/21 09:36 DC 11/01/21 16:35 Dextrose (Dextrose 50%-Water Syringe) 25 gm 1X ONCE IV 11/01/21 16:00 11/01/21 16:01 DC 11/01/21 16:50 Insulin Human Regular (HumuLIN R VIAL) 10 unit 1X ONCE IV 11/01/21 16:00 11/01/21 16:01 DC 11/01/21 16:40 Sodium Chloride 1,000 ml @ 1,000 mls/hr Q1H IV 11/01/21 16:00 11/01/21 16:59 DC 11/01/21 16:50 Piperacillin Sod/ Tazobactam Sod 2.25 gm/Sodium Chloride 50 ml @ 100 mls/hr 1X ONCE IV 11/01/21 17:00 11/01/21 17:29 DC 11/01/21 16:58 Sodium Chloride 1,000 ml @ 1,000 mls/hr 1X ONCE IV 11/01/21 17:45 11/01/21 18:44 DC 11/01/21 17:48 Piperacillin Sod/ Tazobactam Sod 2.25 gm/Sodium Chloride 50 ml @ 100 mls/hr Q8HRS IV 11/01/21 22:00 11/02/21 05:53 Pantoprazole Sodium 80 mg/ Sodium Chloride 100 ml @ 10 mls/hr 1X ONCE IV 11/01/21 20:30 11/02/21 06:29 DC 11/01/21 22:32 Heparin Sodium (Porcine) (Heparin Sodium) 5,000 unit Q12HR SQ 11/02/21 09:00 11/02/21 09:25 Ringer's Solution 1,000 ml @ 125 mls/hr Q8H IV 11/01/21 21:15 11/02/21 10:57 DC 11/02/21 05:53 Sodium Bicarbonate (Sodium Bicarb Adult 8.4% Syr) 50 meq 1X ONCE IV 11/01/21 22:00 11/02/21 09:36 DC 11/01/21 22:18 Sodium Bicarbonate (Sodium Bicarb Adult 8.4% Syr) 50 meq 1X ONCE IV 11/01/21 22:00 11/02/21 09:36 DC 11/01/21 22:18 Sodium Bicarbonate 150 meq/Dextrose 1,150 ml @ 50 mls/hr Q23H IV 11/01/21 23:00 11/02/21 10:57 DC 11/01/21 22:19 Fentanyl Citrate 30 ml @ 2.5 mls/hr CONT PRN IV SEE PROTOCOL 11/02/21 03:00 11/02/21 03:31 Norepinephrine Bitartrate 8 mg/ Dextrose 258 ml @ 9.423 mls/ hr CONT PRN IV PER PROTOCOL 11/02/21 05:15 11/02/21 05:23 Ringer's Solution 980 ml @ 980 mls/hr 1X ONCE IV 11/02/21 09:30 11/02/21 10:29 DC 11/02/21 09:25 Justifications for Admission Other Justification LUIS KUMAR MD Nov 02, 2021 11:28
[2021-11-02] MEDS: SODIUM BICARBONATE IV SCH ×2 (11:33→22:14)
[2021-11-02] MEDS: DEXTROSE 5% IV SCH ×2 (11:33→22:14)
[2021-11-02] MEDS: TPN PER PHARMACY MC PRN (11:42)
[2021-11-02] MEDS ORDERED: HYDROCORTISONE SOD SUCC/PF 100 MG/2 ML VIAL. IVP ONE (12:00)
[2021-11-02] MEDS ORDERED: CYANOCOBALAMIN (VITAMIN B-12) 1,000 MCG/ML VIAL. IM ONE (13:00)
[2021-11-02] MEDS: CLOPIDOGREL BISULFATE 75 MG TABLET PO SCH (13:00)
[2021-11-02] MEDS ORDERED: MAGNESIUM SULFATE 1GM 100 ML IV ONE (13:00)
[2021-11-02] MEDS ORDERED: TRAM50TA PO (14:00)
[2021-11-02] MEDS ORDERED: METO-239 PO (14:00)
[2021-11-02] MEDS ORDERED: FURO-68 PO (14:00)
[2021-11-02] MEDS ORDERED: PANT20TA2 PO (14:00)
[2021-11-02] MEDS ORDERED: HYDR-2763 PO (14:00)
[2021-11-02] MEDS ORDERED: LEVO125T5 PO (14:00)
[2021-11-02] MEDS ORDERED: PRED20TA PO (14:00)
[2021-11-02] MEDS ORDERED: SERT50TA PO (14:00)
[2021-11-02] MEDS ORDERED: FLUC100T6 PO (14:00)
[2021-11-02] MEDS ORDERED: SPIR25TA5 PO (14:00)
[2021-11-02] MEDS ORDERED: MELO15TA23 PO (14:00)
[2021-11-02] MEDS ORDERED: CLOP75TA PO (14:00)
[2021-11-02] MEDS ORDERED: POTA10TA12 PO (14:00)
--- NOTE | 2021-11-02 14:20 | CONS ---
DATE OF CONSULTATION: 11/02/2021 REASON FOR CONSULTATION: Hypotension within the setting of cardiovascular comorbidities. HISTORY OF PRESENT ILLNESS: The patient is a 66-year-old woman who comes into the hospital in the setting of an acute abdomen. She had a perforated mesocolon and she was emergently taken to the operating room and underwent high risk surgery. She is currently recovering in the ICU on multiple medications including vasopressors. The patient's history actually dates back to 03/2021 when she underwent PCI for an ST-elevation NH to the right coronary artery. She also had an occluded circumflex. She had 2 stents placed to the RCA at that time. On echocardiogram, she was found to have severe mitral regurgitation and due to decompensation, worsening cardiogenic shock, she ultimately was transferred to [facility] where she underwent MitraClip placement. Her followup echo revealed a [id number] residual mitral regurgitation and she was noted to have further ischemic cardiomyopathy with an ejection fraction of 45%. As expected, she has some incidental atrial fibrillation and was on amiodarone therapy. She was discharged with clopidogrel and developed a GI bleed and readmitted in April. Ultimately anticoagulation was discontinued, but she was remained on Plavix and aspirin. She also had anemia recently and received IV iron. She established care in the Clinic with Dr. Joseph in June and due to concerns for residual mitral regurgitation, she underwent a repeat echocardiogram. Her EF was noted to be 35% with well-seated clips and there was severe residual regurgitation from both orifices. The mean gradient across the lesions were 5 mmHg. There was also a large PFO present with left to right shunting. She had mild to moderate tricuspid regurgitation with a pulmonary artery systolic pressure of 55. She was then referred to the [facility] in 08/2021 for further evaluation and treatment. At that time, after initial evaluation, she was felt to be relatively asymptomatic with very high risk for complications with surgery; therefore, it was felt that she would be best treated with conservative management. Because she was frail and unable to tolerate surgery, she was felt to be best treated with medical therapy and nutritional stabilization prior to considering mitral valve replacement in the future. PAST MEDICAL HISTORY: 1. Hypertension. 2. Coronary artery disease, status post PCI to the RCA. 3. Dyslipidemia. 4. Rheumatoid arthritis. 5. Hypothyroidism. SOCIAL HISTORY: The patient has a long-term tobacco abuse history. REVIEW OF SYSTEMS: Unable to be obtained at this time due to the patient's ventilated status. PRIOR CARDIOVASCULAR MEDICATIONS: As follows: 1. Aspirin 81 mg daily. 2. Plavix 75 mg daily. 3. Atorvastatin 40 mg daily. 4. Lasix 20 mg daily. 5. Toprol-XL 25 mg daily. 6. Potassium 10 mEq daily. 7. Spironolactone 25 mg daily. PHYSICAL EXAMINATION: VITAL SIGNS: Afebrile, heart rate 118, blood pressure 102/58, 100% on ventilation. GENERAL: She is sedated, but minimally responsive to verbal stimuli. HEAD AND NECK: Unremarkable. SKIN: Demonstrates multiple bruising on her upper extremities: HEART: Demonstrates a normal rate and rhythm with 3/6 systolic murmur consistent with mitral regurgitation. ABDOMEN: Soft, but unable to elicit any tenderness given the patient is sedated. NEUROLOGIC: No obvious focal deficits and the patient is moving all extremities. DIAGNOSTIC STUDIES: Creatinine 2.0. Lactate of 4.1. BNP greater than 35,000. IMPRESSION: 1. Acute septic shock in the setting of perforated colon. 2. History of ischemic cardiomyopathy, status post percutaneous coronary intervention to the right coronary artery and 2 MitraClips for severe mitral regurgitation with residual severe mitral regurgitation. 3. Hypertension. 4. Rheumatoid arthritis. 5. Dyslipidemia. RECOMMENDATIONS: 1. At this present time, we will continue supportive care from a cardiovascular status. She will continue her Levophed therapy. Await recovery of her septic shock. 2. The patient does have a large PFO with left to right shunting and this did not cause any significant hypoxia or other issues. She will be monitored for any further cardiovascular compromise. Poor candidate for any aggressive cardiovascular intervention at this time. Supportive care for now. 3. From an antiplatelet and anticoagulant standpoint if her hemoglobin is stable, we will continue her home Plavix regimen and monitor if this is okay per the surgical service. Of note, her platelets are 75 and we will keep a close eye on this over the next 24 hours. Thank you for this consultation. Critical care time greater than 35 minutes. DEEPALI/LILI DR: Elenita TID: [id number]
[2021-11-02] MEDS: HYDROCORTISONE SOD SUCC/PF 100 MG/2 ML VIAL. IVP SCH (20:41)
[2021-11-02] MEDS ORDERED: TOTAL PARENTERAL NUTRITION IV SCH (22:00)
[2021-11-02] MEDS ORDERED: DEXTROSE 70% IV SCH (22:00)
[2021-11-02] MEDS ORDERED: AMINO ACID IV SCH (22:00)
[2021-11-02] MEDS ORDERED: [UNRECOGNIZED DRUG - OTHER] IV SCH (22:00)
[2021-11-03] VITALS (32 sets, daily range): BP systolic 93–119; BP diastolic 53–68
[2021-11-03] MEDS: INSULIN LISPRO 300 UNITS/3 ML VIAL. SQ SCH ×4 (00:03→23:50)
[2021-11-03 05:49] LABS: ALBUMIN 1.5 g/dL (3.4-5.0); CALCIUM 7.2 mg/dL (8.5-10.1); CREATININE 1.7 mg/dL (0.6-1.0); GFR 30.2; MAGNESIUM 1.7 mg/dL (1.8-2.4); PHOSPHORUS 3.1 mg/dL (2.6-4.7); POTASSIUM 3.1 mmol/L (3.5-5.1)
[2021-11-03] MEDS: PIPERACILLIN/TAZOBACTAM 2.25 GM in IV NORMAL SALINE 50ML 50 ML IV SCH ×3 (06:05→22:14)
[2021-11-03 07:33] LABS: BASE EXCESS ABG 2 mmol/L (-3-3); HCO3 ABG 25 mmol/L (21-28); PCO2 ABG 37 mmHg (35-46); PO2 ABG 147 mmHg (65-108); SAT O2 ABG 98 % (92-99)
[2021-11-03 07:36] LABS: FIO2 ABG 40% VENT
--- NOTE | 2021-11-03 09:00 | NUR ---
Received patient without SCD sleeves for rest. 0920h-resumed SCDs.
--- NOTE | 2021-11-03 09:31 | PDOC ---
PULMONARY PROGRESS NOTES DATE: 11/03/21 TIME: 09:29 Subjective INTUBATED/SEDATED FOLLOWS SOME COMMANDS Vitals Vital Signs Date Time Temp Pulse Resp B/P (MAP) Pulse Ox O2 Delivery O2 Flow Rate FiO2 11/03/21 09:24 100 Ventilator 11/03/21 08:00 87 93/53 (66) 11/03/21 08:00 98.1 19 98.1 General: No acute distress Lungs: Clear, Other (vent, end wheeze, no rhonchi) Cardiovascular: S1 Abdomen: Soft, Other (tender) Extremities: Other (mild edema, toes purple, warm) Skin: Warm Labs Laboratory Tests Test 11/01/21 15:00 11/01/21 15:45 11/01/21 19:30 11/01/21 21:19 White Blood Count 14.8 x10^3/uL (4.0-11.0) Red Blood Count 4.55 x10^6/uL (3.50-5.40) Hemoglobin 14.2 g/dL (12.0-15.5) Hematocrit 44.9 % (36.0-47.0) Mean Corpuscular Volume 99 fL (79-100) Mean Corpuscular Hemoglobin 31 pg (25-35) Mean Corpuscular Hemoglobin Concent 32 g/dL (31-37) Red Cell Distribution Width 21.0 % (11.5-14.5) Platelet Count 89 x10^3/uL (140-400) Neutrophils (%) (Auto) 95 % (31-73) Lymphocytes (%) (Auto) 2 % (24-48) Monocytes (%) (Auto) 4 % (0-9) Eosinophils (%) (Auto) 0 % (0-3) Basophils (%) (Auto) 0 % (0-3) Neutrophils # (Auto) 14.0 x10^3/uL (1.8-7.7) Lymphocytes # (Auto) 0.3 x10^3/uL (1.0-4.8) Monocytes # (Auto) 0.5 x10^3/uL (0.0-1.1) Eosinophils # (Auto) 0.0 x10^3/uL (0.0-0.7) Basophils # (Auto) 0.0 x10^3/uL (0.0-0.2) Segmented Neutrophils % 62 % (35-66) Band Neutrophils % 28 % (0-9) Lymphocytes % 4 % (24-48) Monocytes % 5 % (0-10) Metamyelocytes % 1 % (0-0) Platelet Estimate Decreased (ADEQUATE) Anisocytosis Mod Buchanan Cells Many Prothrombin Time 14.8 SEC (11.7-14.0) Prothromb Time International Ratio 1.2 (0.8-1.1) Activated Partial Thromboplast Time 23 SEC (24-38) Sodium Level 139 mmol/L (136-145) 143 mmol/L (136-145) Potassium Level 6.2 mmol/L (3.5-5.1) 4.3 mmol/L (3.5-5.1) Chloride Level 103 mmol/L (98-107) 112 mmol/L (98-107) Carbon Dioxide Level 14 mmol/L (21-32) 16 mmol/L (21-32) Anion Gap 22 (6-14) 15 (6-14) Blood Urea Nitrogen 87 mg/dL (7-20) 73 mg/dL (7-20) Creatinine 2.5 mg/dL (0.6-1.0) 2.0 mg/dL (0.6-1.0) Estimated GFR (Cockcroft-Gault) 19.3 25.0 BUN/Creatinine Ratio 35 (6-20) Glucose Level 106 mg/dL (70-99) 85 mg/dL (70-99) Lactic Acid Level 3.2 mmol/L (0.4-2.0) Calcium Level 9.1 mg/dL (8.5-10.1) 7.0 mg/dL (8.5-10.1) Total Bilirubin 3.1 mg/dL (0.2-1.0) Aspartate Amino Transf (AST/SGOT) 45 U/L (15-37) Alanine Aminotransferase (ALT/SGPT) 49 U/L (14-59) Alkaline Phosphatase 265 U/L (46-116) Ammonia < 10 mcmol/L (11-34) Creatine Kinase 59 U/L (26-192) Troponin I High Sensitivity 110 ng/L (4-50) OH-Dsl-A-Type Natriuretic Peptide > 27781 pg/mL (0-124) Total Protein 5.7 g/dL (6.4-8.2) Albumin 2.3 g/dL (3.4-5.0) Albumin/Globulin Ratio 0.7 (1.0-1.7) Lipase 255 U/L (73-393) Thyroid Stimulating Hormone (TSH) 4.552 uIU/mL (0.358-3.74) Salicylates Level 7.0 mg/dL (2.8-20.0) Salicylate Last Dose Date Unknown Salicylate Last Dose Time Unknown Acetaminophen Level 7.3 mcg/ml (10-30) Acetaminophen Last Dose Date Unknown Acetaminophen Last Dose Time Unknown Ethyl Alcohol Level < 10 mg/dL (0-10) Urine Collection Type U cath Urine Color (Auto) Dark yellow Urine Turbidity Hazy Urine pH (Auto) 5.0 (<5.0-8.0) Urine Specific [place] 1.027 (1.000-1.030) Urine Protein (Auto) 50 mg/dL (Negative) Urine Glucose (Auto)(UA) Negative mg/dL (Negative) Urine Ketones (Auto) Negative mg/dL (Negative) Urine Blood (Auto) Small (Negative) Urine Nitrite Negative (Negative) Urine Bilirubin (Auto) Small (Negative) Urine Urobilinogen (Auto) 4 mg/dL (Normal) Urine Leukocyte Esterase (Auto) Small (Negative) Urine RBC Occ /HPF (0-2) Urine WBC 1-4 /HPF (0-4) Urine Squamous Epithelial Cells Occ /LPF Urine Amorphous Sediment Present /HPF Urine Bacteria Few /HPF (0-FEW) Urine Hyaline Casts Few /HPF Urine Mucus Slight /LPF Urine Opiates Screen Pos (NEG) Urine Methadone Screen Neg (NEG) Urine Barbiturates Neg (NEG) Urine Phencyclidine Screen Neg (NEG) Urine Amphetamine/Methamphetamine Neg (NEG) Urine Benzodiazepines Screen Pos (NEG) Urine Cocaine Screen Neg (NEG) Urine Cannabinoids Screen Neg (NEG) Urine Ethyl Alcohol Neg (NEG) Coronavirus (COVID-19)(PCR) Not detected (NOT DETECTD) Influenza Type A Antigen Negative (NEGATIVE) Influenza Type B Antigen Negative (NEGATIVE) SARS-CoV-2 Antigen (Rapid) Negative (NEGATIVE) O2 Saturation 99 % (92-99) Arterial Blood pH 7.10 (7.35-7.45) Arterial Blood pH (Temp corrected) 7.16 Arterial Blood pCO2 at Patient Temp 43 mmHg (35-46) Arterial Blood pCO2 (Temp correct) 35 mmHg Arterial Blood pO2 at Patient Temp 476 mmHg (65-108) Arterial Blood pO2 (Temp corrected) 446 mmHg Arterial Blood HCO3 13 mmol/L (21-28) Arterial Blood Base Excess -16 mmol/L (-3-3) FiO2 100 Test 11/02/21 05:00 11/02/21 07:52 11/02/21 08:02 11/02/21 12:07 White Blood Count 11.1 x10^3/uL (4.0-11.0) Red Blood Count 3.31 x10^6/uL (3.50-5.40) Hemoglobin 10.3 g/dL (12.0-15.5) Hematocrit 32.5 % (36.0-47.0) Mean Corpuscular Volume 98 fL (79-100) Mean Corpuscular Hemoglobin 31 pg (25-35) Mean Corpuscular Hemoglobin Concent 32 g/dL (31-37) Red Cell Distribution Width 20.3 % (11.5-14.5) Platelet Count 75 x10^3/uL (140-400) Neutrophils (%) (Auto) 96 % (31-73) Lymphocytes (%) (Auto) 3 % (24-48) Monocytes (%) (Auto) 1 % (0-9) Eosinophils (%) (Auto) 1 % (0-3) Basophils (%) (Auto) 0 % (0-3) Neutrophils # (Auto) 10.6 x10^3/uL (1.8-7.7) Lymphocytes # (Auto) 0.4 x10^3/uL (1.0-4.8) Monocytes # (Auto) 0.1 x10^3/uL (0.0-1.1) Eosinophils # (Auto) 0.1 x10^3/uL (0.0-0.7) Basophils # (Auto) 0.0 x10^3/uL (0.0-0.2) Sodium Level 148 mmol/L (136-145) Potassium Level 3.8 mmol/L (3.5-5.1) Chloride Level 113 mmol/L (98-107) Carbon Dioxide Level 20 mmol/L (21-32) Anion Gap 15 (6-14) Blood Urea Nitrogen 70 mg/dL (7-20) Creatinine 2.0 mg/dL (0.6-1.0) Estimated GFR (Cockcroft-Gault) 25.0 BUN/Creatinine Ratio 35 (6-20) Glucose Level 93 mg/dL (70-99) Lactic Acid Level 4.1 mmol/L (0.4-2.0) Calcium Level 7.2 mg/dL (8.5-10.1) Phosphorus Level 4.5 mg/dL (2.6-4.7) Magnesium Level 1.5 mg/dL (1.8-2.4) Total Bilirubin 2.3 mg/dL (0.2-1.0) Aspartate Amino Transf (AST/SGOT) 58 U/L (15-37) Alanine Aminotransferase (ALT/SGPT) 28 U/L (14-59) Alkaline Phosphatase 167 U/L (46-116) Total Protein 4.3 g/dL (6.4-8.2) Albumin 2.4 g/dL (3.4-5.0) Albumin/Globulin Ratio 1.3 (1.0-1.7) O2 Saturation 99 % (92-99) Arterial Blood pH 7.48 (7.35-7.45) Arterial Blood pCO2 at Patient Temp 28 mmHg (35-46) Arterial Blood pO2 at Patient Temp 149 mmHg (65-108) Arterial Blood HCO3 21 mmol/L (21-28) Arterial Blood Base Excess -2 mmol/L (-3-3) FiO2 50% vent Glucose (Fingerstick) 100 mg/dL (70-99) 102 mg/dL (70-99) Test 11/02/21 17:19 11/03/21 00:00 11/03/21 05:20 11/03/21 07:32 Glucose (Fingerstick) 176 mg/dL (70-99) 303 mg/dL (70-99) Hemoglobin 9.3 g/dL (12.0-15.5) Sodium Level 139 mmol/L (136-145) Potassium Level 3.1 mmol/L (3.5-5.1) Chloride Level 104 mmol/L (98-107) Carbon Dioxide Level 23 mmol/L (21-32) Anion Gap 12 (6-14) Blood Urea Nitrogen 56 mg/dL (7-20) Creatinine 1.7 mg/dL (0.6-1.0) Estimated GFR (Cockcroft-Gault) 30.2 Glucose Level 385 mg/dL (70-99) Calcium Level 7.2 mg/dL (8.5-10.1) Phosphorus Level 3.1 mg/dL (2.6-4.7) Magnesium Level 1.7 mg/dL (1.8-2.4) Albumin 1.5 g/dL (3.4-5.0) Triglycerides Level 148 mg/dL (0-150) O2 Saturation 98 % (92-99) Arterial Blood pH 7.45 (7.35-7.45) Arterial Blood pCO2 at Patient Temp 37 mmHg (35-46) Arterial Blood pO2 at Patient Temp 147 mmHg (65-108) Arterial Blood HCO3 25 mmol/L (21-28) Arterial Blood Base Excess 2 mmol/L (-3-3) FiO2 40% vent Laboratory Tests Test 11/02/21 12:07 11/02/21 17:19 11/03/21 00:00 11/03/21 05:20 Glucose (Fingerstick) 102 mg/dL (70-99) 176 mg/dL (70-99) 303 mg/dL (70-99) Hemoglobin 9.3 g/dL (12.0-15.5) Sodium Level 139 mmol/L (136-145) Potassium Level 3.1 mmol/L (3.5-5.1) Chloride Level 104 mmol/L (98-107) Carbon Dioxide Level 23 mmol/L (21-32) Anion Gap 12 (6-14) Blood Urea Nitrogen 56 mg/dL (7-20) Creatinine 1.7 mg/dL (0.6-1.0) Estimated GFR (Cockcroft-Gault) 30.2 Glucose Level 385 mg/dL (70-99) Calcium Level 7.2 mg/dL (8.5-10.1) Phosphorus Level 3.1 mg/dL (2.6-4.7) Magnesium Level 1.7 mg/dL (1.8-2.4) Albumin 1.5 g/dL (3.4-5.0) Triglycerides Level 148 mg/dL (0-150) Test 11/03/21 07:32 O2 Saturation 98 % (92-99) Arterial Blood pH 7.45 (7.35-7.45) Arterial Blood pCO2 at Patient Temp 37 mmHg (35-46) Arterial Blood pO2 at Patient Temp 147 mmHg (65-108) Arterial Blood HCO3 25 mmol/L (21-28) Arterial Blood Base Excess 2 mmol/L (-3-3) FiO2 40% vent Medications Active Scripts Medications Dose Route/Sig Max Daily Dose Days Date Category Spironolactone 25 Mg Tablet 0.5 Tab PO [id number] 11/02/21 Reported Metoprolol Succinate ( Xl ) (Metoprolol Succinate) 25 Mg Tab.er.24h 0.5 Tab PO DAILY 11/02/21 Reported Zoloft (Sertraline Hcl) 50 Mg Tablet 50 Mg PO DAILY 11/02/21 Reported Levothyroxine Sodium 125 Mcg Tablet 125 Mcg PO DAILYAC 11/02/21 Reported Prednisone 20 Mg Tablet 20 Mg PO DAILY 11/02/21 Reported Protonix (Pantoprazole Sodium) 20 Mg Tablet.dr 40 Mg PO DAILY 11/02/21 Reported Lasix (Furosemide) 40 Mg Tablet 40 Mg PO DAILY 11/02/21 Reported Clopidogrel (Clopidogrel Bisulfate) 75 Mg Tablet 75 Mg PO DAILY 11/02/21 Reported Tramadol Hcl 50 Mg Tablet 50 Mg PO Q6HRS PRN 11/02/21 Reported Fluconazole 100 Mg Tablet 100 Mg PO DAILY 11/02/21 Reported Klor-Con 10 (Potassium Chloride) 10 Meq Tablet.er 10 Meq PO DAILY 11/02/21 Reported Hydrocodone-Acetamin 7.5-325 (Hydrocodone/Acetaminophen) 1 Each Tablet 1 Each PO Q6HRS PRN 11/02/21 Reported Meloxicam 15 Mg Tablet 15 Mg PO DAILY 11/02/21 Reported Impression . 1. Acute respiratory failure secondary to perforated bowel from gastric ulcer perforation. She also has severe metabolic acidosis. 2. Perforated viscus. The source was gastric ulcer perforation. She also had evidence of abdominal sepsis/peritonitis. She is status post exploratory laparotomy and repair of the posterior gastric ulcer. 3. Severe metabolic acidosis secondary to perforation, currently improved with a bicarb drip. 4. Acute kidney injury. Likely secondary to hypovolemic shock. 5. Metabolic acidosis. Currently on bicarb drip. Sodium is slowly going up. Bicarb is improving. We will reduce the rate of the drip. 6. Thrombocytopenia, likely secondary to sepsis. We will monitor closely while on subcu heparin. 7. Abdominal sepsis/suspected peritonitis. Continue on broad-spectrum antibiotics. 8. Severe protein-calorie malnutrition. 9. Lactic acidosis secondary to bowel perforation. 10. purple toes, warm Plan . 1. Continue present assist control mode. dc sedation. once awake, CPAP trial 2. Follow ABGs and make necessary adjustments. 3. Continue to monitor platelet count closely. 4. Continue broad-spectrum antibiotics. 5. TPN. 6. vascular surgery consult 7. dc bicarb drip 8. prn fentanyl 9. Discussed with TANJA thomas later today KOMAL TUCKER MD Nov 03, 2021 09:31
--- NOTE | 2021-11-03 09:36 | PDOC ---
CARDIOLOGY PROGRESS NOTE SUBJECTIVE: No acute events overnight. Patient is now off pressors. She is responding to verbal stimuli and painful stimuli. Moving all extremities. OBJECTIVE: Vital Signs/I&O: Vital Signs Date Time Temp Pulse Resp B/P (MAP) Pulse Ox O2 Delivery O2 Flow Rate FiO2 11/03/21 09:24 100 Ventilator 11/03/21 08:00 87 93/53 (66) 11/03/21 08:00 98.1 19 98.1 I & O 11/02/21 11/02/21 11/03/21 15:00 23:00 07:00 Intake Total 1800 ml 2899.2 ml 2125 ml Output Total 180 ml 745 ml 740 ml Balance 1620 ml 2154.2 ml 1385 ml Objective: GEN.: No apparent distress. Easily woken up. HEENT: Head is normocephalic, atraumatic NECK: Supple. LUNGS: Clear to auscultation. HEART: Irr irr. Soft 3/6 systolic murmur consistent with MR. ABDOMEN: Mildly rigid. No rebound. EXTREMITIES: Without any cyanosis. She has bluish discoloration of the left greater than right toes. NEUROLOGIC: Sedated. PSYCHIATRIC: Sedated. SKIN: Multiple bruising. CURRENT MEDICATIONS: Clopidogrel DIAGNOSTIC TESTING: Labs pending this morning. Labs: Laboratory Tests 11/03/21 05:20 Laboratory Tests Test 11/02/21 12:07 11/02/21 17:19 11/03/21 00:00 11/03/21 05:20 Glucose (Fingerstick) 102 mg/dL (70-99) H 176 mg/dL (70-99) H 303 mg/dL (70-99) H Hemoglobin 9.3 g/dL (12.0-15.5) L Sodium Level 139 mmol/L (136-145) Potassium Level 3.1 mmol/L (3.5-5.1) L Chloride Level 104 mmol/L (98-107) Carbon Dioxide Level 23 mmol/L (21-32) Anion Gap 12 (6-14) Blood Urea Nitrogen 56 mg/dL (7-20) H Creatinine 1.7 mg/dL (0.6-1.0) H Estimated GFR (Cockcroft-Gault) 30.2 Glucose Level 385 mg/dL (70-99) H Calcium Level 7.2 mg/dL (8.5-10.1) L Phosphorus Level 3.1 mg/dL (2.6-4.7) Albumin 1.5 g/dL (3.4-5.0) L Test 11/03/21 07:32 O2 Saturation 98 % (92-99) Arterial Blood pH 7.45 (7.35-7.45) Arterial Blood pCO2 at Patient Temp 37 mmHg (35-46) Arterial Blood pO2 at Patient Temp 147 mmHg (65-108) H Arterial Blood HCO3 25 mmol/L (21-28) Arterial Blood Base Excess 2 mmol/L (-3-3) FiO2 40% vent ASSESSMENT: 1. Acute septic shock related to colonic perforation - improving. Off pressors. 2. 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 3. Hx of severe MR and prior mitraclip placement 4. Hx of HTN 5. Hx of RA 6. SEBAS due to above. 7. PFO with left to right shunting. 8. Hypoxic resp failure due to above. PLAN: 1. Currently patient is off pressors. This is reassuring. We will continue to monitor for any cardiovascular compromise. Will consider medication changes for HF based on recovery over the next 24 hours. 2. Check bilateral arterial doppler studies - suspect this is related to vasopressor use but will rule out occult arterial insufficiency. 3. May consider heparin or argatroban depending on status of surgical wound/plts and arterial doppler studies. Rooke boots to both feet. Consider vascular surger y consultation. 4. We will repeat an echocardiogram to rule out any cardiac source. Supportive care. Justicifation of Admission Dx: Justifications for Admission: Justification of Admission Dx: N/A LUIS GRISSOM MD Nov 03, 2021 09:36
[2021-11-03] MEDS: TPN PER PHARMACY MC PRN (09:38)
--- NOTE | 2021-11-03 09:39 | NUR ---
Pharmacy TPN Dosing Note S: SHELLY FIGUEROA is a 66 year old F Currently receiving Central Continuous TPN started 11/02/21 B:Pertinent PMH: bowel perforation Height: 5 feet, 1 inches Weight: 50.6 kg Current diet: LABS: Sodium: 139 Potassium: 3.1 Chloride: 104 Calcium: 7.2 Corrected Calcium: 9.20 Magnesium: 1.7 CO2: 23 SCr: 1.7 Glucose: 385 Albumin: 1.5 AST: 58 ALT: 28 TPN FORMULA: TPN TYPE: Central Continuous AMINO ACIDS: 60 gm DEXTROSE: 195 gm LIPIDS: 20 gm SODIUM CHLORIDE: 60 mEq SODIUM ACETATE: mEq SODIUM PHOSPHATE: mmol POTASSIUM CHLORIDE: mEq POTASSIUM ACETATE: 50 mEq POTASSIUM PHOSPHATE: 13.6 mmol MAGNESIUM: 15 mEq CALCIUM: mEq INSULIN: units MULTIPLE VITAMIN: 10 ml TRACE ELEMENTS: 1ml ml(s) TPN PLAN: Increase K, Nacl, Mg. R: Continue TPN as ordered Will monitor electrolytes, glucose, and tolerance to TPN. MORRO SLOAN, [facility], 11/03/21 [id number]
[2021-11-03] MEDS: HEPARIN for SUB-Q USE 5,000 UNIT/ML VIAL. SQ SCH ×2 (09:45→20:45)
[2021-11-03] MEDS: CLOPIDOGREL BISULFATE 75 MG TABLET PO SCH (09:46)
[2021-11-03] MEDS: HYDROCORTISONE SOD SUCC/PF 100 MG/2 ML VIAL. IVP SCH ×2 (09:46→20:43)
[2021-11-03] MEDS: POTASSIUM CHLORIDE 20MEQ 100 ML IV SCH ×2 (10:03→11:36)
[2021-11-03 11:38] LABS: BASE EXCESS ABG 3 mmol/L (-3-3); HCO3 ABG 27 mmol/L (21-28); PCO2 ABG 37 mmHg (35-46); PO2 ABG 149 mmHg (65-108); SAT O2 ABG 98 % (92-99)
[2021-11-03 11:41] LABS: FIO2 ABG 40%
[2021-11-03] MEDS ORDERED: INSULIN LISPRO 300 UNITS/3 ML VIAL. SQ ONE (12:15)
[2021-11-03] MEDS ORDERED: DEXTROSE 50% 25 GM / 50ML DISP.SYRIN. IV PRN (12:15)
[2021-11-03] MEDS ORDERED: IV DEXTROSE 5% 250 ML BAG. IV PRN (12:15)
[2021-11-03] MEDS: INSULIN GLARGINE SYRINGE. SQ SCH (12:30)
--- NOTE | 2021-11-03 12:33 | PDOC ---
DATE OF SERVICE: DOS: DATE: 11/03/21 TIME: 12:28 SUBJECTIVE ROS Follow-up for acute kidney injury Patient remains sedated intubated on the ventilator, weaning trials ongoing at this time OBJECTIVE Vital Signs Vital Signs Date Time Temp Pulse Resp B/P (MAP) Pulse Ox O2 Delivery O2 Flow Rate FiO2 11/03/21 11:50 Mechanical Ventilator 11/03/21 11:31 100 11/03/21 11:00 89 17 106/62 11/03/21 08:00 98.1 98.1 I & 0 Intake and Output 11/03/21 07:00 Intake Total 6824.2 ml Output Total 1665 ml Balance 5159.2 ml Intake IV Total 6824.2 ml Output Urine Total 1290 ml Gastric Drainage Total 300 ml Drainage Total 75 ml PHYSICAL EXAM Physical Exam General Appearance: Sedated intubated on the ventilator in no visible distress at this time Eyes: Sclera anicteric conjunctiva Normal EN: No EN Drainage Mucous Memb. Moist, orally intubated Neck: no JVD + JVP Supple no palpable thyromegaly CVS: S1 S2 possible murmur No Gallop No Rub trace edema Resp: Few basal Rales no rhonchi no Acc. Muscle use GI: BS -ve NO Bruit + Tender + Distended, tympanic : No palpable CVA tenderness; no suprapubic suprapubic Tenderness SKIN: Few visible bruises Breast Exam deferred Mu.Sk: Adequate passive ROM significant muscle Atrophy Heme: Unable to palpate Obvious LAD no palpable splenomegaly NEURO: Unable to assess while sedated intubated on the ventilator Psych: Unable to assess while sedated intubated on the ventilator but does have a history of anxiety Assessment & Plan Acute kidney injury: Baseline not known. Creatinine better with fluid resuscitation. Urine output has picked up also Known history of CAD and mitral valve repair with a mitral clip: Echocardiogram currently being done. Cardiology on board Hypernatremia: Proved with hypotonic IV fluids, watch for recurrence on TPN Wide anion gap metabolic acidosis: Now resolved Hypomagnesemia: Replace as ordered Severe hypoalbuminemia: Patient currently on TPN. Phosphorus is adequate. IV albumin can be ordered Low potassium: Replace as ordered Possible sepsis from intra-abdominal source cannot be ruled out Perforated viscus status post posterior gastric ulcer repair Respiratory failure currently on the ventilator Discussed Plan of Care and prognosis etc. at length with family ([id number] at bedside). COMMENT/RELEVANT DATA Meds Current Medications Medications (Trade) Dose Ordered Sig/Tiarra Start Time Stop Time Status Last Admin Dose Admin Albumin Human 500 ml @ As Directed STK-MED ONCE 11/01/21 20:00 11/01/21 20:00 DC Atropine Sulfate (ATROPINE 0.5mg SYRINGE) 0.5 mg PRN Q5MIN PRN 11/02/21 03:00 Bupivacaine HCl/ Epinephrine Bitart (Sensorcain-Epi 0.5% Kit) 30 ml STK-MED ONCE 11/01/21 18:25 11/01/21 18:26 DC Calcium Gluconate (Calcium Gluconate) 1,000 mg 1X ONCE 11/01/21 16:00 11/01/21 16:01 DC 11/01/21 16:35 1,000 MG Clopidogrel Bisulfate (Plavix) 75 mg DAILYWBKFT 11/02/21 13:00 11/03/21 09:46 75 MG Cyanocobalamin (Vitamin B-12 Inj) 1,000 mcg 1X ONCE 11/02/21 13:00 11/02/21 13:01 DC 11/02/21 13:14 1,000 MCG Dexmedetomidine HCl 400 mcg/ Sodium Chloride 100 ml @ 2.435 mls/ hr CONT PRN 11/02/21 03:00 Dextrose (Dextrose 50%-Water Syringe) 12.5 gm PRN Q15MIN PRN 11/03/21 12:15 Dextrose (Iv Dextrose 5%) 250 ml PRN Q15MIN PRN 11/03/21 12:15 Dextrose/Sodium Chloride 1,000 ml @ 100 mls/hr Q10H 11/01/21 20:30 11/02/21 05:51 DC Etomidate (Amidate) 20 mg STK-MED ONCE 11/01/21 17:55 11/01/21 17:56 DC Fentanyl Citrate 30 ml @ 2.5 mls/hr CONT PRN 11/02/21 03:00 11/03/21 00:03 1.25 MLS/HR Fentanyl Citrate (Fentanyl 2ml Vial) 50 mcg PRN Q5MIN PRN 11/01/21 18:00 11/02/21 17:59 UNV Fentanyl Citrate (Fentanyl 5ml Vial) 250 mcg STK-MED ONCE 11/01/21 17:55 11/01/21 17:55 DC Glycerin/ Hypromellose/ Polyethylene (Artificial Tears) 1 drop PRN Q1HR PRN 11/02/21 03:00 Heparin Sodium (Porcine) (Heparin Sodium) 5,000 unit Q12HR 11/02/21 09:00 11/03/21 09:45 5,000 UNIT Hydrocortisone Sodium Succinate (Solu-CORTEF) 100 mg 1X ONCE 11/02/21 12:00 11/02/21 12:01 DC 11/02/21 12:05 100 MG Hydromorphone HCl (Dilaudid) 0.5 mg PRN Q10MIN PRN 11/01/21 18:00 11/02/21 17:59 UNV Info (Tpn Per Pharmacy) 1 each PRN DAILY PRN 11/02/21 09:45 11/03/21 09:38 1 EACH Insulin Glargine (Lantus Syringe) 12 unit DAILY 11/03/21 12:15 Insulin Human Lispro (HumaLOG) 8 units 1X ONCE 11/03/21 12:15 11/03/21 12:16 DC Insulin Human Regular (HumuLIN R VIAL) 10 unit 1X ONCE 11/01/21 16:00 11/01/21 16:01 DC 11/01/21 16:40 10 UNIT Magnesium Sulfate 50 ml @ 25 mls/hr PRN DAILY PRN 11/02/21 11:00 Magnesium Sulfate/ Dextrose 100 ml @ 100 mls/hr 1X ONCE 11/02/21 13:00 11/02/21 13:59 DC 11/02/21 13:14 100 MLS/HR Midazolam HCl 100 ml @ 1 mls/hr CONT PRN 11/02/21 03:00 Morphine Sulfate (Morphine Sulfate) 1 mg PRN Q10MIN PRN 11/01/21 18:00 11/02/21 17:59 UNV Norepinephrine Bitartrate 8 mg/ Dextrose 258 ml @ 9.423 mls/ hr CONT PRN 11/02/21 05:15 11/02/21 21:35 21.674 MLS/HR Ondansetron HCl (Zofran) 4 mg PRN Q8HRS PRN 11/01/21 16:45 11/02/21 16:44 DC Pantoprazole Sodium 80 mg/ Sodium Chloride 100 ml @ 10 mls/hr 1X ONCE 11/01/21 20:30 11/02/21 06:29 DC 11/01/21 22:32 10 MLS/HR Phenylephrine HCl (PHENYLEPHRINE in 0.9% NACL PF) 1 mg STK-MED ONCE 11/01/21 19:53 11/01/21 19:53 DC Piperacillin Sod/ Tazobactam Sod (Zosyn Per Pharmacy) 1 each PRN DAILY PRN 11/01/21 18:15 Piperacillin Sod/ Tazobactam Sod 2.25 gm/Sodium Chloride 50 ml @ 100 mls/hr Q8HRS 11/01/21 22:00 11/03/21 06:05 100 MLS/HR Piperacillin Sod/ Tazobactam Sod 3.375 gm/Sodium Chloride 50 ml @ 100 mls/hr 1X ONCE 11/01/21 16:45 11/01/21 17:14 UNV Potassium Chloride/Water 100 ml @ 100 mls/hr Q1H 11/03/21 10:00 11/03/21 11:59 DC 11/03/21 11:36 100 MLS/HR Potassium Acetate 40 meq/Magnesium Sulfate 10 meq/ Multivitamins 10 ml/Zinc/Copper/ Manganese/ Selenium 1 ml/ Total Parenteral Nutrition/Amino Acids/Dextrose/ Fat Emulsion Intravenous 1,512 ml @ 63 mls/hr TPN CONT 11/02/21 22:00 11/03/21 21:59 11/02/21 21:34 63 MLS/HR Prochlorperazine Edisylate (Compazine) 5 mg PACU PRN PRN 11/01/21 18:00 11/02/21 17:59 UNV Propofol 100 ml @ 1.461 mls/ hr CONT PRN 11/02/21 03:00 Ringer's Solution 980 ml @ 980 mls/hr 1X ONCE 11/02/21 09:30 11/02/21 10:29 DC 11/02/21 09:25 980 MLS/HR Rocuronium [place] (Zemuron) 100 mg STK-MED ONCE 11/01/21 17:54 11/01/21 17:55 DC Sevoflurane (Ultane) 90 ml STK-MED ONCE 11/01/21 19:58 11/01/21 19:58 DC Sodium Bicarbonate 150 meq/Dextrose 1,150 ml @ 50 mls/hr Q23H 11/01/21 23:00 11/02/21 10:57 DC 11/01/21 22:19 100 MLS/HR Sodium Bicarbonate 75 meq/Dextrose 1,075 ml @ 100 mls/hr [id number] 11/02/21 11:00 11/03/21 09:35 DC 11/02/21 22:14 100 MLS/HR Sodium Bicarbonate (Sodium Bicarb Adult 8.4% Syr) 150 meq 1X ONCE 11/02/21 10:00 11/02/21 10:01 Cancel Sodium Chloride 60 meq/Potassium Acetate 50 meq/ Potassium Phosphate 13.6 mmol/Magnesium Sulfate 15 meq/ Multivitamins 10 ml/Zinc/Copper/ Manganese/ Selenium 1 ml/ Total Parenteral Nutrition/Amino Acids/Dextrose/ Fat Emulsion Intravenous 1,512 ml @ 63 mls/hr TPN CONT 11/03/21 22:00 11/04/21 21:59 Lab Laboratory Tests Test 11/02/21 17:19 11/03/21 00:00 11/03/21 05:20 11/03/21 07:32 Glucose (Fingerstick) 176 mg/dL (70-99) 303 mg/dL (70-99) Hemoglobin 9.3 g/dL (12.0-15.5) Sodium Level 139 mmol/L (136-145) Potassium Level 3.1 mmol/L (3.5-5.1) Chloride Level 104 mmol/L (98-107) Carbon Dioxide Level 23 mmol/L (21-32) Anion Gap 12 (6-14) Blood Urea Nitrogen 56 mg/dL (7-20) Creatinine 1.7 mg/dL (0.6-1.0) Estimated GFR (Cockcroft-Gault) 30.2 Glucose Level 385 mg/dL (70-99) Calcium Level 7.2 mg/dL (8.5-10.1) Phosphorus Level 3.1 mg/dL (2.6-4.7) Magnesium Level 1.7 mg/dL (1.8-2.4) Albumin 1.5 g/dL (3.4-5.0) Triglycerides Level 148 mg/dL (0-150) O2 Saturation 98 % (92-99) Arterial Blood pH 7.45 (7.35-7.45) Arterial Blood pCO2 at Patient Temp 37 mmHg (35-46) Arterial Blood pO2 at Patient Temp 147 mmHg (65-108) Arterial Blood HCO3 25 mmol/L (21-28) Arterial Blood Base Excess 2 mmol/L (-3-3) FiO2 40% vent Test 11/03/21 11:37 11/03/21 11:39 O2 Saturation 98 % (92-99) Arterial Blood pH 7.48 (7.35-7.45) Arterial Blood pCO2 at Patient Temp 37 mmHg (35-46) Arterial Blood pO2 at Patient Temp 149 mmHg (65-108) Arterial Blood HCO3 27 mmol/L (21-28) Arterial Blood Base Excess 3 mmol/L (-3-3) FiO2 40% Glucose (Fingerstick) 372 mg/dL (70-99) Results All relevant outside records, renal labs, imaging studies, telemetry/EKG's were reviewed. Justicifation of Admission Dx: Justifications for Admission: Justification of Admission Dx: N/A JOYA MOISE MD Nov 03, 2021 12:33
[2021-11-03] MEDS ORDERED: POTASSIUM CHLORIDE 20MEQ 100 ML IV PRN (12:45)
--- NOTE | 2021-11-03 12:58 | NUR ---
1100h- patient awake, follows command, nods head. CPAP trial started by RT, son at bedside. US of both lower extremities being done. Dr. Dinh Mata informed of consult, told to update her of the US result once in. 1140h- patient still tolerating CPAP trial, US still at bedside. ABG done by RT on duty 1200h- Dr. Tipton informed of ABG result by RT, Dr. Tipton called and ordered to extubate patient, O2 support nasal cannula to maintain O2 >96%. Rt informed. 1230h- son Eleno informed thru phone sofia will go ahead with extubation which he agreed, and to call him back 30mins prior extubation. Echocardiogram being done from 1225h.
[2021-11-03] MEDS ORDERED: MAGNESIUM SULFATE 1GM 100 ML IV ONE (13:00)
--- NOTE | 2021-11-03 13:11 | PDOC ---
PROGRESS NOTES Date of Service DATE: 11/03/21 TIME: 13:10 Subjective Subjective remains intubated, working toward extubation Objective Objective Vital Signs Date Time Temp Pulse Resp B/P (MAP) Pulse Ox O2 Delivery O2 Flow Rate FiO2 11/03/21 11:50 Mechanical Ventilator 11/03/21 11:31 100 11/03/21 11:00 89 17 106/62 11/03/21 08:00 98.1 98.1 l Intake and Output 11/03/21 07:00 Intake Total 6824.2 ml Output Total 1665 ml Balance 5159.2 ml Intake IV Total 6824.2 ml Output Urine Total 1290 ml Gastric Drainage Total 300 ml Drainage Total 75 ml Physical Exam Abdomen: Other (drain with serous output) Assessment Assessment Problems Medical Problems: (1) Elevated bilirubin Status: Acute (2) Hyperkalemia Status: Acute (3) Lactic acidosis Status: Acute (4) Leukocytosis Status: Acute (5) Perforated viscus Status: Acute (6) Renal insufficiency Status: Acute Plan Plan of Care supportive tx Comment Review of Relevant I have reviewed the following items tresa (where applicable) has been applied. Labs Laboratory Tests Test 11/01/21 15:00 11/01/21 15:45 11/01/21 19:30 11/01/21 21:19 White Blood Count 14.8 x10^3/uL (4.0-11.0) Red Blood Count 4.55 x10^6/uL (3.50-5.40) Hemoglobin 14.2 g/dL (12.0-15.5) Hematocrit 44.9 % (36.0-47.0) Mean Corpuscular Volume 99 fL (79-100) Mean Corpuscular Hemoglobin 31 pg (25-35) Mean Corpuscular Hemoglobin Concent 32 g/dL (31-37) Red Cell Distribution Width 21.0 % (11.5-14.5) Platelet Count 89 x10^3/uL (140-400) Neutrophils (%) (Auto) 95 % (31-73) Lymphocytes (%) (Auto) 2 % (24-48) Monocytes (%) (Auto) 4 % (0-9) Eosinophils (%) (Auto) 0 % (0-3) Basophils (%) (Auto) 0 % (0-3) Neutrophils # (Auto) 14.0 x10^3/uL (1.8-7.7) Lymphocytes # (Auto) 0.3 x10^3/uL (1.0-4.8) Monocytes # (Auto) 0.5 x10^3/uL (0.0-1.1) Eosinophils # (Auto) 0.0 x10^3/uL (0.0-0.7) Basophils # (Auto) 0.0 x10^3/uL (0.0-0.2) Segmented Neutrophils % 62 % (35-66) Band Neutrophils % 28 % (0-9) Lymphocytes % 4 % (24-48) Monocytes % 5 % (0-10) Metamyelocytes % 1 % (0-0) Platelet Estimate Decreased (ADEQUATE) Anisocytosis Mod [place] Cells Many Prothrombin Time 14.8 SEC (11.7-14.0) Prothromb Time International Ratio 1.2 (0.8-1.1) Activated Partial Thromboplast Time 23 SEC (24-38) Sodium Level 139 mmol/L (136-145) 143 mmol/L (136-145) Potassium Level 6.2 mmol/L (3.5-5.1) 4.3 mmol/L (3.5-5.1) Chloride Level 103 mmol/L (98-107) 112 mmol/L (98-107) Carbon Dioxide Level 14 mmol/L (21-32) 16 mmol/L (21-32) Anion Gap 22 (6-14) 15 (6-14) Blood Urea Nitrogen 87 mg/dL (7-20) 73 mg/dL (7-20) Creatinine 2.5 mg/dL (0.6-1.0) 2.0 mg/dL (0.6-1.0) Estimated GFR (Cockcroft-Gault) 19.3 25.0 BUN/Creatinine Ratio 35 (6-20) Glucose Level 106 mg/dL (70-99) 85 mg/dL (70-99) Lactic Acid Level 3.2 mmol/L (0.4-2.0) Calcium Level 9.1 mg/dL (8.5-10.1) 7.0 mg/dL (8.5-10.1) Total Bilirubin 3.1 mg/dL (0.2-1.0) Aspartate Amino Transf (AST/SGOT) 45 U/L (15-37) Alanine Aminotransferase (ALT/SGPT) 49 U/L (14-59) Alkaline Phosphatase 265 U/L (46-116) Ammonia < 10 mcmol/L (11-34) Creatine Kinase 59 U/L (26-192) Troponin I High Sensitivity 110 ng/L (4-50) LI-Dbe-V-Type Natriuretic Peptide > 81059 pg/mL (0-124) Total Protein 5.7 g/dL (6.4-8.2) Albumin 2.3 g/dL (3.4-5.0) Albumin/Globulin Ratio 0.7 (1.0-1.7) Lipase 255 U/L (73-393) Thyroid Stimulating Hormone (TSH) 4.552 uIU/mL (0.358-3.74) Salicylates Level 7.0 mg/dL (2.8-20.0) Salicylate Last Dose Date Unknown Salicylate Last Dose Time Unknown Acetaminophen Level 7.3 mcg/ml (10-30) Acetaminophen Last Dose Date Unknown Acetaminophen Last Dose Time Unknown Ethyl Alcohol Level < 10 mg/dL (0-10) Urine Collection Type U cath Urine Color (Auto) Dark yellow Urine Turbidity Hazy Urine pH (Auto) 5.0 (<5.0-8.0) Urine Specific [place] 1.027 (1.000-1.030) Urine Protein (Auto) 50 mg/dL (Negative) Urine Glucose (Auto)(UA) Negative mg/dL (Negative) Urine Ketones (Auto) Negative mg/dL (Negative) Urine Blood (Auto) Small (Negative) Urine Nitrite Negative (Negative) Urine Bilirubin (Auto) Small (Negative) Urine Urobilinogen (Auto) 4 mg/dL (Normal) Urine Leukocyte Esterase (Auto) Small (Negative) Urine RBC Occ /HPF (0-2) Urine WBC 1-4 /HPF (0-4) Urine Squamous Epithelial Cells Occ /LPF Urine Amorphous Sediment Present /HPF Urine Bacteria Few /HPF (0-FEW) Urine Hyaline Casts Few /HPF Urine Mucus Slight /LPF Urine Opiates Screen Pos (NEG) Urine Methadone Screen Neg (NEG) Urine Barbiturates Neg (NEG) Urine Phencyclidine Screen Neg (NEG) Urine Amphetamine/Methamphetamine Neg (NEG) Urine Benzodiazepines Screen Pos (NEG) Urine Cocaine Screen Neg (NEG) Urine Cannabinoids Screen Neg (NEG) Urine Ethyl Alcohol Neg (NEG) Coronavirus (COVID-19)(PCR) Not detected (NOT DETECTD) Influenza Type A Antigen Negative (NEGATIVE) Influenza Type B Antigen Negative (NEGATIVE) SARS-CoV-2 Antigen (Rapid) Negative (NEGATIVE) O2 Saturation 99 % (92-99) Arterial Blood pH 7.10 (7.35-7.45) Arterial Blood pH (Temp corrected) 7.16 Arterial Blood pCO2 at Patient Temp 43 mmHg (35-46) Arterial Blood pCO2 (Temp correct) 35 mmHg Arterial Blood pO2 at Patient Temp 476 mmHg (65-108) Arterial Blood pO2 (Temp corrected) 446 mmHg Arterial Blood HCO3 13 mmol/L (21-28) Arterial Blood Base Excess -16 mmol/L (-3-3) FiO2 100 Test 11/02/21 05:00 11/02/21 07:52 11/02/21 08:02 11/02/21 12:07 White Blood Count 11.1 x10^3/uL (4.0-11.0) Red Blood Count 3.31 x10^6/uL (3.50-5.40) Hemoglobin 10.3 g/dL (12.0-15.5) Hematocrit 32.5 % (36.0-47.0) Mean Corpuscular Volume 98 fL (79-100) Mean Corpuscular Hemoglobin 31 pg (25-35) Mean Corpuscular Hemoglobin Concent 32 g/dL (31-37) Red Cell Distribution Width 20.3 % (11.5-14.5) Platelet Count 75 x10^3/uL (140-400) Neutrophils (%) (Auto) 96 % (31-73) Lymphocytes (%) (Auto) 3 % (24-48) Monocytes (%) (Auto) 1 % (0-9) Eosinophils (%) (Auto) 1 % (0-3) Basophils (%) (Auto) 0 % (0-3) Neutrophils # (Auto) 10.6 x10^3/uL (1.8-7.7) Lymphocytes # (Auto) 0.4 x10^3/uL (1.0-4.8) Monocytes # (Auto) 0.1 x10^3/uL (0.0-1.1) Eosinophils # (Auto) 0.1 x10^3/uL (0.0-0.7) Basophils # (Auto) 0.0 x10^3/uL (0.0-0.2) Sodium Level 148 mmol/L (136-145) Potassium Level 3.8 mmol/L (3.5-5.1) Chloride Level 113 mmol/L (98-107) Carbon Dioxide Level 20 mmol/L (21-32) Anion Gap 15 (6-14) Blood Urea Nitrogen 70 mg/dL (7-20) Creatinine 2.0 mg/dL (0.6-1.0) Estimated GFR (Cockcroft-Gault) 25.0 BUN/Creatinine Ratio 35 (6-20) Glucose Level 93 mg/dL (70-99) Lactic Acid Level 4.1 mmol/L (0.4-2.0) Calcium Level 7.2 mg/dL (8.5-10.1) Phosphorus Level 4.5 mg/dL (2.6-4.7) Magnesium Level 1.5 mg/dL (1.8-2.4) Total Bilirubin 2.3 mg/dL (0.2-1.0) Aspartate Amino Transf (AST/SGOT) 58 U/L (15-37) Alanine Aminotransferase (ALT/SGPT) 28 U/L (14-59) Alkaline Phosphatase 167 U/L (46-116) Total Protein 4.3 g/dL (6.4-8.2) Albumin 2.4 g/dL (3.4-5.0) Albumin/Globulin Ratio 1.3 (1.0-1.7) O2 Saturation 99 % (92-99) Arterial Blood pH 7.48 (7.35-7.45) Arterial Blood pCO2 at Patient Temp 28 mmHg (35-46) Arterial Blood pO2 at Patient Temp 149 mmHg (65-108) Arterial Blood HCO3 21 mmol/L (21-28) Arterial Blood Base Excess -2 mmol/L (-3-3) FiO2 50% vent Glucose (Fingerstick) 100 mg/dL (70-99) 102 mg/dL (70-99) Test 11/02/21 17:19 11/03/21 00:00 11/03/21 05:20 11/03/21 07:32 Glucose (Fingerstick) 176 mg/dL (70-99) 303 mg/dL (70-99) Hemoglobin 9.3 g/dL (12.0-15.5) Sodium Level 139 mmol/L (136-145) Potassium Level 3.1 mmol/L (3.5-5.1) Chloride Level 104 mmol/L (98-107) Carbon Dioxide Level 23 mmol/L (21-32) Anion Gap 12 (6-14) Blood Urea Nitrogen 56 mg/dL (7-20) Creatinine 1.7 mg/dL (0.6-1.0) Estimated GFR (Cockcroft-Gault) 30.2 Glucose Level 385 mg/dL (70-99) Calcium Level 7.2 mg/dL (8.5-10.1) Phosphorus Level 3.1 mg/dL (2.6-4.7) Magnesium Level 1.7 mg/dL (1.8-2.4) Albumin 1.5 g/dL (3.4-5.0) Triglycerides Level 148 mg/dL (0-150) O2 Saturation 98 % (92-99) Arterial Blood pH 7.45 (7.35-7.45) Arterial Blood pCO2 at Patient Temp 37 mmHg (35-46) Arterial Blood pO2 at Patient Temp 147 mmHg (65-108) Arterial Blood HCO3 25 mmol/L (21-28) Arterial Blood Base Excess 2 mmol/L (-3-3) FiO2 40% vent Test 11/03/21 11:37 11/03/21 11:39 O2 Saturation 98 % (92-99) Arterial Blood pH 7.48 (7.35-7.45) Arterial Blood pCO2 at Patient Temp 37 mmHg (35-46) Arterial Blood pO2 at Patient Temp 149 mmHg (65-108) Arterial Blood HCO3 27 mmol/L (21-28) Arterial Blood Base Excess 3 mmol/L (-3-3) FiO2 40% Glucose (Fingerstick) 372 mg/dL (70-99) Laboratory Tests Test 11/02/21 17:19 11/03/21 00:00 11/03/21 05:20 11/03/21 07:32 Glucose (Fingerstick) 176 mg/dL (70-99) 303 mg/dL (70-99) Hemoglobin 9.3 g/dL (12.0-15.5) Sodium Level 139 mmol/L (136-145) Potassium Level 3.1 mmol/L (3.5-5.1) Chloride Level 104 mmol/L (98-107) Carbon Dioxide Level 23 mmol/L (21-32) Anion Gap 12 (6-14) Blood Urea Nitrogen 56 mg/dL (7-20) Creatinine 1.7 mg/dL (0.6-1.0) Estimated GFR (Cockcroft-Gault) 30.2 Glucose Level 385 mg/dL (70-99) Calcium Level 7.2 mg/dL (8.5-10.1) Phosphorus Level 3.1 mg/dL (2.6-4.7) Magnesium Level 1.7 mg/dL (1.8-2.4) Albumin 1.5 g/dL (3.4-5.0) Triglycerides Level 148 mg/dL (0-150) O2 Saturation 98 % (92-99) Arterial Blood pH 7.45 (7.35-7.45) Arterial Blood pCO2 at Patient Temp 37 mmHg (35-46) Arterial Blood pO2 at Patient Temp 147 mmHg (65-108) Arterial Blood HCO3 25 mmol/L (21-28) Arterial Blood Base Excess 2 mmol/L (-3-3) FiO2 40% vent Test 11/03/21 11:37 11/03/21 11:39 O2 Saturation 98 % (92-99) Arterial Blood pH 7.48 (7.35-7.45) Arterial Blood pCO2 at Patient Temp 37 mmHg (35-46) Arterial Blood pO2 at Patient Temp 149 mmHg (65-108) Arterial Blood HCO3 27 mmol/L (21-28) Arterial Blood Base Excess 3 mmol/L (-3-3) FiO2 40% Glucose (Fingerstick) 372 mg/dL (70-99) Microbiology 11/01/21 Gram Stain - Final, Resulted 11/01/21 Aerobic and Anaerobic Culture, Resulted Pending 11/01/21 Blood Culture - Preliminary, Resulted NO GROWTH AFTER 1 DAY Medications Current Medications Sodium Chloride 1,000 ml @ 1,000 mls/hr 1X ONCE IV Last administered on 11/01/21at 15:30; Start 11/01/21 at 15:15; Stop 11/01/21 at 16:14; Status DC Calcium Gluconate (Calcium Gluconate) 1,000 mg 1X ONCE IVP Last administered on 11/01/21at 16:35; Start 11/01/21 at 16:00; Stop 11/01/21 at 16:01; Status DC Sodium Bicarbonate (Sodium Bicarb Adult 8.4% Syr) 50 meq 1X ONCE IV Last ad ministered on 11/01/21at 16:35; Start 11/01/21 at 16:00; Stop 11/02/21 at 09:36; Status DC Dextrose (Dextrose 50%-Water Syringe) 25 gm 1X ONCE IV Last administered on 11/01/21at 16:50; Start 11/01/21 at 16:00; Stop 11/01/21 at 16:01; Status DC Insulin Human Regular (HumuLIN R VIAL) 10 unit 1X ONCE IV Last administered on 11/01/21at 16:40; Start 11/01/21 at 16:00; Stop 11/01/21 at 16:01; Status DC Sodium Chloride 1,000 ml @ 1,000 mls/hr Q1H IV Last administered on 11/01/21at 16:50; Start 11/01/21 at 16:00; Stop 11/01/21 at 16:59; Status DC Piperacillin Sod/ Tazobactam Sod 3.375 gm/Sodium Chloride 50 ml @ 100 mls/hr 1X ONCE IV ; Start 11/01/21 at 16:45; Stop 11/01/21 at 17:14; Status UNV Piperacillin Sod/ Tazobactam Sod 2.25 gm/Sodium Chloride 50 ml @ 100 mls/hr 1X ONCE IV Last administered on 11/01/21at 16:58; Start 11/01/21 at 17:00; Stop 11/01/21 at 17:29; Status DC Ondansetron HCl (Zofran) 4 mg PRN Q8HRS PRN IVP NAUSEA/VOMITING; Start 11/01/21 at 16:45; Stop 11/02/21 at 16:44; Status DC Morphine Sulfate (Morphine Sulfate) 2 mg PRN Q2HR PRN IVP PAIN; Start 11/01/21 at 16:45; Stop 11/02/21 at 03:15; Status DC Sodium Chloride 1,000 ml @ 1,000 mls/hr 1X ONCE IV Last administered on 11/01/21at 17:48; Start 11/01/21 at 17:45; Stop 11/01/21 at 18:44; Status DC Rocuronium Calcium (Zemuron) 100 mg STK-MED ONCE .ROUTE ; Start 11/01/21 at 17:54; Stop 11/01/21 at 17:55; Status DC Fentanyl Citrate (Fentanyl 5ml Vial) 250 mcg STK-MED ONCE .ROUTE ; Start 11/01/21 at 17:55; Stop 11/01/21 at 17:55; Status DC Etomidate (Amidate) 20 mg STK-MED ONCE IV ; Start 11/01/21 at 17:55; Stop 11/01/21 at 17:56; Status DC Phenylephrine HCl (PHENYLEPHRINE in 0.9% NACL PF) 1 mg STK-MED ONCE IV ; Start 11/01/21 at 17:56; Stop 11/01/21 at 17:56; Status DC Fentanyl Citrate (Fentanyl 2ml Vial) 25 mcg PRN Q5MIN PRN IVP MILD PAIN 1-3; Start 11/01/21 at 18:00; Stop 11/02/21 at 03:15; Status DC Fentanyl Citrate (Fentanyl 2ml Vial) 50 mcg PRN Q5MIN PRN IVP MODERATE PAIN 4- 6; Start 11/01/21 at 18:00; Stop 11/02/21 at 03:15; Status DC Morphine Sulfate (Morphine Sulfate) 1 mg PRN Q10MIN PRN IVP SEVERE PAIN 7-10; Start 11/01/21 at 18:00; Stop 11/02/21 at 03:15; Status DC Ringer's Solution 1,000 ml @ 30 mls/hr Q24H IV ; Start 11/01/21 at 18:00; Stop 11/02/21 at 05:59; Status DC Hydromorphone HCl (Dilaudid) 0.5 mg PRN Q10MIN PRN IVP SEVERE PAIN 7-10, 2nd CHOICE; Start 11/01/21 at 18:00; Stop 11/02/21 at 03:15; Status DC Prochlorperazine Edisylate (Compazine) 5 mg PACU PRN PRN IVP NAUSEA, MRX1; Start 11/01/21 at 18:00; Stop 11/02/21 at 17:59; Status DC Fentanyl Citrate (Fentanyl 2ml Vial) 25 mcg PRN Q5MIN PRN IVP MILD PAIN 1-3; Start 11/01/21 at 18:00; Stop 11/02/21 at 17:59; Status UNV Fentanyl Citrate (Fentanyl 2ml Vial) 50 mcg PRN Q5MIN PRN IVP MODERATE PAIN 4- 6; Start 11/01/21 at 18:00; Stop 11/02/21 at 17:59; Status UNV Morphine Sulfate (Morphine Sulfate) 1 mg PRN Q10MIN PRN IVP SEVERE PAIN 7-10; Start 11/01/21 at 18:00; Stop 11/02/21 at 17:59; Status UNV Ringer's Solution 1,000 ml @ 30 mls/hr Q24H IV ; Start 11/01/21 at 18:00; Stop 11/02/21 at 05:59; Status UNV Hydromorphone HCl (Dilaudid) 0.5 mg PRN Q10MIN PRN IVP SEVERE PAIN 7-10, 2nd C HOICE; Start 11/01/21 at 18:00; Stop 11/02/21 at 17:59; Status UNV Prochlorperazine Edisylate (Compazine) 5 mg PACU PRN PRN IVP NAUSEA, MRX1; Start 11/01/21 at 18:00; Stop 11/02/21 at 17:59; Status UNV Insulin Human Lispro (HumaLOG) 0-5 UNITS TIDWMEALS SQ ; Start 11/02/21 at 08:00; Stop 11/02/21 at 21:44; Status DC Dextrose (Dextrose 50%-Water Syringe) 12.5 gm PRN Q15MIN PRN IV SEE COMMENTS; Start 11/01/21 at 18:00 Dextrose (Iv Dextrose 5%) 250 ml PRN Q15MIN PRN IV SEE COMMENTS; Start 11/01/21 at 18:00 Piperacillin Sod/ Tazobactam Sod (Zosyn Per Pharmacy) 1 each PRN DAILY PRN MC SEE COMMENTS; Start 11/01/21 at 18:15 Piperacillin Sod/ Tazobactam Sod 2.25 gm/Sodium Chloride 50 ml @ 100 mls/hr Q8HRS IV Last administered on 11/03/21at 06:05; Start 11/01/21 at 22:00 Albumin Human 500 ml @ As Directed STK-MED ONCE IV ; Start 11/01/21 at 18:20; Stop 11/01/21 at 18:21; Status DC Bupivacaine HCl/ Epinephrine Bitart (Sensorcain-Epi 0.5% Kit) 30 ml STK-MED ONCE .ROUTE ; Start 11/01/21 at 18:25; Stop 11/01/21 at 18:26; Status DC Albumin Human 500 ml @ As Directed STK-MED ONCE IV ; Start 11/01/21 at 18:30; Stop 11/01/21 at 18:31; Status DC Phenylephrine HCl (PHENYLEPHRINE in 0.9% NACL PF) 1 mg STK-MED ONCE IV ; Start 11/01/21 at 19:53; Stop 11/01/21 at 19:53; Status DC Sevoflurane (Ultane) 90 ml STK-MED ONCE IH ; Start 11/01/21 at 19:58; Stop 11/01/21 at 19:58; Status DC Albumin Human 500 ml @ As Directed STK-MED ONCE IV ; Start 11/01/21 at 20:00; Stop 11/01/21 at 20:00; Status DC Pantoprazole Sodium 80 mg/ Sodium Chloride 100 ml @ 10 mls/hr 1X ONCE IV Last administered on 11/01/21at 22:32; Start 11/01/21 at 20:30; Stop 11/02/21 at 06:29; Status DC Heparin Sodium (Porcine) (Heparin Sodium) 5,000 unit Q12HR SQ ; Start 11/01/21 at 21:00; Stop 11/01/21 at 20:40; Status DC Dextrose/Sodium Chloride 1,000 ml @ 100 mls/hr Q10H IV ; Start 11/01/21 at 20:30; Stop 11/02/21 at 05:51; Status DC Heparin Sodium (Porcine) (Heparin Sodium) 5,000 unit Q12HR SQ Last administered on 11/03/21at 09:45; Start 11/02/21 at 09:00 Ringer's Solution 1,000 ml @ 125 mls/hr Q8H IV Last administered on 11/02/21at 05:53; Start 11/01/21 at 21:15; Stop 11/02/21 at 10:57; Status DC Sodium Bicarbonate (Sodium Bicarb Adult 8.4% Syr) 50 meq 1X ONCE IV Last administered on 11/01/21at 22:18; Start 11/01/21 at 22:00; Stop 11/02/21 at 09:36; Status DC Sodium Bicarbonate (Sodium Bicarb Adult 8.4% Syr) 50 meq 1X ONCE IV Last administered on 11/01/21at 22:18; Start 11/01/21 at 22:00; Stop 11/02/21 at 09:36; Status DC Sodium Bicarbonate 150 meq/Dextrose 1,150 ml @ 50 mls/hr Q23H IV Last administered on 11/01/21at 22:19; Start 11/01/21 at 23:00; Stop 11/02/21 at 10:57; Status DC Fentanyl Citrate 30 ml @ 2.5 mls/hr CONT PRN IV SEE PROTOCOL Last administered on 11/03/21at 00:03; Start 11/02/21 at 03:00 Midazolam HCl 100 ml @ 1 mls/hr CONT PRN IV SEE PROTOCOL; Start 11/02/21 at 03:00 Propofol 100 ml @ 1.461 mls/ hr CONT PRN IV PER PROTOCOL; Start 11/02/21 at 03:00 Glycerin/ Hypromellose/ Polyethylene (Artificial Tears) 1 drop PRN Q1HR PRN OU DRY EYE; Start 11/02/21 at 03:00 Dexmedetomidine HCl 400 mcg/ Sodium Chloride 100 ml @ 2.435 mls/ hr CONT PRN IV PER PROTOCOL; Start 11/02/21 at 03:00 Sodium Chloride 500 ml @ 500 mls/hr 1X PRN PRN IV SEE COMMENTS; Start 11/02/21 at 03:00 Atropine Sulfate (ATROPINE 0.5mg SYRINGE) 0.5 mg PRN Q5MIN PRN IV SEE COMMENTS; Start 11/02/21 at 03:00 Norepinephrine Bitartrate 8 mg/ Dextrose 258 ml @ 9.423 mls/ hr CONT PRN IV PER PROTOCOL Last administered on 11/02/21at 21:35; Start 11/02/21 at 05:15 Ringer's Solution 500 ml @ 500 mls/hr 1X ONCE IV ; Start 11/02/21 at 09:00; Stop 11/02/21 at 09:21; Status DC Ringer's Solution 980 ml @ 980 mls/hr 1X ONCE IV Last administered on 11/02/21at 09:25; Start 11/02/21 at 09:30; Stop 11/02/21 at 10:29; Status DC Info (Tpn Per Pharmacy) 1 each CONT MC ; Start 11/02/21 at 09:30; Stop 11/02/21 at 09:45; Status DC Sodium Bicarbonate (Sodium Bicarb Adult 8.4% Syr) 150 meq 1X ONCE IV ; Start 11/02/21 at 10:00; Stop 11/02/21 at 10:01; Status Cancel Info (Tpn Per Pharmacy) 1 each PRN DAILY PRN MC SEE COMMENTS Last administered on 11/03/21at 09:38; Start 11/02/21 at 09:45 Sodium Bicarbonate 75 meq/Dextrose 1,075 ml @ 100 mls/hr [id number] IV Last administered on 11/02/21at 22:14; Start 11/02/21 at 11:00; Stop 11/03/21 at 09:35; Status DC Magnesium Sulfate 50 ml @ 25 mls/hr PRN DAILY PRN IV for Mag < 1.7 on am labs; Start 11/02/21 at 11:00 Hydrocortisone Sodium Succinate (Solu-CORTEF) 100 mg Q12HR IVP Last administered on 11/03/21at 09:46; Start 11/02/21 at 21:00 Hydrocortisone Sodium Succinate (Solu-CORTEF) 100 mg 1X ONCE IVP Last administered on 11/02/21at 12:05; Start 11/02/21 at 12:00; Stop 11/02/21 at 12:01; Status DC Clopidogrel Bisulfate (Plavix) 75 mg DAILYWBKFT PO Last administered on 11/03/21at 09:46; Start 11/02/21 at 13:00 Cyanocobalamin (Vitamin B-12 Inj) 1,000 mcg 1X ONCE IM Last administered on 11/02/21at 13:14; Start 11/02/21 at 13:00; Stop 11/02/21 at 13:01; Status DC Magnesium Sulfate/ Dextrose 100 ml @ 100 mls/hr 1X ONCE IV Last administered on 11/02/21at 13:14; Start 11/02/21 at 13:00; Stop 11/02/21 at 13:59; Status DC Potassium Acetate 40 meq/Magnesium Sulfate 10 meq/ Multivitamins 10 ml/Zinc/Copper/ Manganese/ Selenium 1 ml/ Total Parenteral Nutrition/Amino Acids/Dextrose/ Fat Emulsion Intravenous 1,512 ml @ 63 mls/hr TPN CONT IV Last administered on 11/02/21at 21:34; Start 11/02/21 at 22:00; Stop 11/03/21 at 21:59 Insulin Human Lispro (HumaLOG) 0-5 UNITS Q6HRS SQ Last administered on 11/03/21at 06:06; Start 11/03/21 at 00:00; Stop 11/03/21 at 12:07; Status DC Sodium Chloride 60 meq/Potassium Acetate 50 meq/ Potassium Phosphate 13.6 mmol/Magnesium Sulfate 15 meq/ Multivitamins 10 ml/Zinc/Copper/ Manganese/ Selenium 1 ml/ Total Parenteral Nutrition/Amino Acids/Dextrose/ Fat Emulsion Intravenous 1,512 ml @ 63 mls/hr TPN CONT IV ; Start 11/03/21 at 22:00; Stop 11/04/21 at 21:59 Potassium Chloride/Water 100 ml @ 100 mls/hr Q1H IV Last administered on 11/03/21at 11:36; Start 11/03/21 at 10:00; Stop 11/03/21 at 11:59; Status DC Insulin Glargine (Lantus Syringe) 12 unit DAILY SQ Last administered on 11/03/21at 12:30; Start 11/03/21 at 12:15 Insulin Human Lispro (HumaLOG) 0-7 UNITS Q6HRS SQ ; Start 11/03/21 at 18:00 Dextrose (Dextrose 50%-Water Syringe) 12.5 gm PRN Q15MIN PRN IV SEE COMMENTS; Start 11/03/21 at 12:15 Dextrose (Iv Dextrose 5%) 250 ml PRN Q15MIN PRN IV SEE COMMENTS; Start 11/03/21 at 12:15 Insulin Human Lispro (HumaLOG) 8 units 1X ONCE SQ Last administered on 11/03/21at 12:29; Start 11/03/21 at 12:15; Stop 11/03/21 at 12:16; Status DC Albumin Human 100 ml @ 100 mls/hr TID IV ; Start 11/03/21 at 14:00; Stop 11/05/21 at 09:59 Potassium Chloride/Water 100 ml @ 50 mls/hr PRN Q6HRS PRN IV For K < 3.7; Start 11/03/21 at 12:45 Potassium Chloride/Water 100 ml @ 50 mls/hr PRN Q2HR PRN IV total of 40mEq for K < 3.5; Start 11/03/21 at 12:45 Magnesium Sulfate/ Dextrose 100 ml @ 100 mls/hr 1X ONCE IV ; Start 11/03/21 at 13:00; Stop 11/03/21 at 13:59 Sodium Chloride 1,000 ml @ 75 mls/hr [id number] IV ; Start 11/03/21 at 13:15; Status UNV Active Scripts Active Reported Spironolactone 25 Mg Tablet 0.5 Tab PO [id number] Metoprolol Succinate ( Xl ) (Metoprolol Succinate) 25 Mg Tab.er.24h 0.5 Tab PO DAILY Zoloft (Sertraline Hcl) 50 Mg Tablet 50 Mg PO DAILY Levothyroxine Sodium 125 Mcg Tablet 125 Mcg PO DAILYAC Prednisone 20 Mg Tablet 20 Mg PO DAILY Protonix (Pantoprazole Sodium) 20 Mg Tablet.dr 40 Mg PO DAILY Lasix (Furosemide) 40 Mg Tablet 40 Mg PO DAILY Clopidogrel (Clopidogrel Bisulfate) 75 Mg Tablet 75 Mg PO DAILY Tramadol Hcl 50 Mg Tablet 50 Mg PO Q6HRS PRN Fluconazole 100 Mg Tablet 100 Mg PO DAILY Klor-Con 10 (Potassium Chloride) 10 Meq Tablet.er 10 Meq PO DAILY Hydrocodone-Acetamin 7.5-325 (Hydrocodone/Acetaminophen) 1 Each Tablet 1 Each PO Q6HRS PRN Meloxicam 15 Mg Tablet 15 Mg PO DAILY Vitals/I & O Vital Sign - Last 24 Hours 11/02/21 11/02/21 11/02/21 11/02/21 13:36 14:00 15:00 15:41 Pulse 116 115 Resp 24 22 B/P (MAP) 99/60 100/58 Pulse Ox 97 100 100 100 O2 Delivery Ventilator Ventilator Ventilator Ventilator 11/02/21 11/02/21 11/02/21 11/02/21 16:00 16:00 16:00 17:00 Temp 97.8 97.8 Pulse 114 114 115 Resp 21 22 B/P (MAP) 97/58 97/57 (70) 106/64 Pulse Ox 100 100 O2 Delivery Mechanical Ventilator Ventilator Ventilator 11/02/21 11/02/21 11/02/21 11/02/21 18:00 19:00 19:30 19:45 Pulse 116 111 Resp 23 23 B/P (MAP) 108/64 102/62 110/66 Pulse Ox 100 98 O2 Delivery Ventilator Ventilator Mechanical Ventilator 3/2611/02/21 11/02/21 11/02/21 19:54 20:00 20:00 20:30 Temp 98.3 98.3 Pulse 110 Resp 21 B/P (MAP) 114/66 102/60 Pulse Ox 100 99 O2 Delivery Ventilator Ventilator 11/02/21 11/02/21 11/02/21 11/02/21 20:45 21:00 22:00 22:00 Pulse 110 106 Resp 23 20 B/P (MAP) 106/58 111/64 117/66 Pulse Ox 100 100 100 O2 Delivery Ventilator Ventilator Ventilator 11/02/21 11/02/21 11/02/21 11/02/21 22:30 22:45 22:45 23:00 Pulse 102 Resp 24 B/P (MAP) 106/58 116/64 112/62 110/62 Pulse Ox 100 O2 Delivery Ventilator 11/02/21 11/03/21 11/03/21 11/03/21 23:45 00:00 00:00 00:00 B/P (MAP) 110/58 Pulse Ox 100 O2 Delivery Mechanical Ventilator Ventilator 11/03/21 11/03/21 11/03/21 11/03/21 00:01 00:15 01:00 01:15 Temp 98.3 98.3 Pulse 91 98 Resp 20 23 B/P (MAP) 106/54 108/53 119/62 113/62 Pulse Ox 100 100 O2 Delivery Ventilator Ventilator 11/03/21 11/03/21 11/03/21 11/03/21 01:45 02:00 02:30 02:45 Pulse 92 Resp 23 B/P (MAP) 104/56 105/57 104/56 102/56 Pulse Ox 100 O2 Delivery Ventilator 11/03/21 11/03/21 11/03/21 11/03/21 03:00 03:30 03:42 04:00 Pulse 92 Resp 23 B/P (MAP) 105/57 Pulse Ox 100 100 O2 Delivery Ventilator Mechanical Ventilator Ventilator 11/03/21 11/03/21 11/03/21 11/03/21 04:00 05:00 05:00 05:15 Temp 98.8 98.8 Pulse 89 92 Resp 23 23 B/P (MAP) 101/59 102/58 100/58 Pulse Ox 100 100 100 O2 Delivery Ventilator Ventilator Ventilator 11/03/21 11/03/21 11/03/2122 06:00 07:00 07:28 08:00 Temp 98.1 98.1 Pulse 91 86 88 Resp 23 18 19 B/P (MAP) 96/57 94/54 95/54 Pulse Ox 100 100 100 100 O2 Delivery Ventilator Ventilator Ventilator Ventilator 11/03/21 11/03/21 11/03/21 11/03/21 08:00 08:44 09:00 09:20 Pulse 87 95 89 Resp 19 B/P (MAP) 93/53 (66) 101/56 103/58 Pulse Ox 100 O2 Delivery Mechanical Ventilator Ventilator 11/03/21 11/03/21 11/03/21 11/03/21 09:24 10:00 11:00 11:02 Pulse 89 89 Resp 18 17 B/P (MAP) 106/58 106/62 Pulse Ox 100 100 100 100 O2 Delivery Ventilator Ventilator Ventilator Ventilator 11/03/21 11/03/21 11/03/21 11/03/21 11:12 11:21 11:31 11:50 Pulse Ox 100 100 100 O2 Delivery Ventilator Ventilator Ventilator Mechanical Ventilator Intake and Output 11/02/21 11/02/21 11/03/21 15:00 23:00 07:00 Intake Total 1800 ml 2899.2 ml 2125 ml Output Total 180 ml 745 ml 740 ml Balance 1620 ml 2154.2 ml 1385 ml Justifications for Admission Other Justification MATTHEW VICK MD Nov 03, 2021 13:11
--- NOTE | 2021-11-03 13:14 | PDOC ---
[facility] [facility] PROGRESS NOTE Date of Service DOS: DATE: 11/03/21 TIME: 13:13 Chief Complaint Chief Complaint acute abdomen, severe sepsis, septic shock perforated gastric ulcer with peritoniti POD #2, gastric surg severe malnutrition Longstanding history of rheumatoid arthritis treated with Remicade and steroids Cardiac arrhythmias Hx s/p Mitral valve clip tobacco abuse disorder, Coronary artery disease with stenting x2 Hypothyroidism Hypertension GERD Anxiety History of Present Illness History of Present Illness 11/03, cont care in ICU discussed with family, son here todya consult ID to follow, peritonitis, PPI gtt Vitals/I&O Vitals/I&O: Vital Signs Date Time Temp Pulse Resp B/P (MAP) Pulse Ox O2 Delivery O2 Flow Rate FiO2 11/03/21 11:50 Mechanical Ventilator 11/03/21 11:31 100 11/03/21 11:00 89 17 106/62 11/03/21 08:00 98.1 98.1 I & O 11/02/21 11/02/21 11/03/21 15:00 23:00 07:00 Intake Total 1800 ml 2899.2 ml 2125 ml Output Total 180 ml 745 ml 740 ml Balance 1620 ml 2154.2 ml 1385 ml Physical Exam General: Alert, Cooperative, moderate distress, Other Heart: Regular rate Lungs: Clear, Other (vent, end wheeze, no rhonchi) Abdomen: Other (drain with serous output) Extremities: No cyanosis, No edema, Normal pulses Skin: No rashes Labs Labs: Laboratory Tests Test 11/02/21 17:19 11/03/21 00:00 11/03/21 05:20 11/03/21 07:32 Glucose (Fingerstick) 176 mg/dL (70-99) 303 mg/dL (70-99) Hemoglobin 9.3 g/dL (12.0-15.5) Sodium Level 139 mmol/L (136-145) Potassium Level 3.1 mmol/L (3.5-5.1) Chloride Level 104 mmol/L (98-107) Carbon Dioxide Level 23 mmol/L (21-32) Anion Gap 12 (6-14) Blood Urea Nitrogen 56 mg/dL (7-20) Creatinine 1.7 mg/dL (0.6-1.0) Estimated GFR (Cockcroft-Gault) 30.2 Glucose Level 385 mg/dL (70-99) Calcium Level 7.2 mg/dL (8.5-10.1) Phosphorus Level 3.1 mg/dL (2.6-4.7) Magnesium Level 1.7 mg/dL (1.8-2.4) Albumin 1.5 g/dL (3.4-5.0) Triglycerides Level 148 mg/dL (0-150) O2 Saturation 98 % (92-99) Arterial Blood pH 7.45 (7.35-7.45) Arterial Blood pCO2 at Patient Temp 37 mmHg (35-46) Arterial Blood pO2 at Patient Temp 147 mmHg (65-108) Arterial Blood HCO3 25 mmol/L (21-28) Arterial Blood Base Excess 2 mmol/L (-3-3) FiO2 40% vent Test 11/03/21 11:37 11/03/21 11:39 11/03/21 13:12 O2 Saturation 98 % (92-99) Arterial Blood pH 7.48 (7.35-7.45) Arterial Blood pCO2 at Patient Temp 37 mmHg (35-46) Arterial Blood pO2 at Patient Temp 149 mmHg (65-108) Arterial Blood HCO3 27 mmol/L (21-28) Arterial Blood Base Excess 3 mmol/L (-3-3) FiO2 40% Glucose (Fingerstick) 372 mg/dL (70-99) 354 mg/dL (70-99) Assessment and Plan Assessmemt and Plan Problems Medical Problems: (1) Elevated bilirubin Status: Acute (2) Hyperkalemia Status: Acute (3) Lactic acidosis Status: Acute (4) Leukocytosis Status: Acute (5) Perforated viscus Status: Acute (6) Renal insufficiency Status: Acute Comment Review of Relevant I have reviewed the following items tresa (where applicable) has been applied. Medications: Current Medications Medications (Trade) Dose Ordered Sig/Tiarra Route PRN Reason Start Time Stop Time Status Last Admin Dose Admin Hydrocortisone Sodium Succinate (Solu-CORTEF) 100 mg Q12HR IVP 11/02/21 21:00 11/03/21 09:46 Potassium Acetate 40 meq/Magnesium Sulfate 10 meq/ Multivitamins 10 ml/Zinc/Copper/ Manganese/ Selenium 1 ml/ Total Parenteral Nutrition/Amino Acids/Dextrose/ Fat Emulsion Intravenous 1,512 ml @ 63 mls/hr TPN CONT IV 11/02/21 22:00 11/03/21 21:59 11/02/21 21:34 Insulin Human Lispro (HumaLOG) 0-5 UNITS Q6HRS SQ 11/03/21 00:00 11/03/21 12:07 DC 11/03/21 06:06 Potassium Chloride/Water 100 ml @ 100 mls/hr Q1H IV 11/03/21 10:00 11/03/21 11:59 DC 11/03/21 11:36 Insulin Glargine (Lantus Syringe) 12 unit DAILY SQ 11/03/21 12:15 11/03/21 12:30 Insulin Human Lispro (HumaLOG) 8 units 1X ONCE SQ 11/03/21 12:15 11/03/21 12:16 DC 11/03/21 12:29 Justifications for Admission Other Justification LUIS KUMAR MD Nov 03, 2021 13:14
--- NOTE | 2021-11-03 13:20 | NUR ---
Called son Eleno at around 1300h reinformed that patient is for extubation, he agreed. RT Kari informed. GI and nephro doctors also aware for extubation. No objection. 1320h-Boosted patient, placed on high back rest, deep breathing exercise instructed. Kari,RT extubated patient hooked to nasal cannula at 3lpm, will watch out for desaturation/respiratory distress. 1350h- sons came saw patient extubated, updated of present status. Applied Rooke boots on both legs as ordered. 1500h Dr. Tao updated thru phone that according to Gloria complaints coordinator, she submitted the images to Cardio doctor (who ordered the extremity ultrasound) and told that it was not stat. It was also sent to radiologist but it's unlikely to be read until tomorrow according to her. Dr. Tao wants stat reading. Alistair RN (charge nurse) informed, will coordinate.
[2021-11-03] MEDS: IV NORMAL SALINE 1000ML BAG 1,000 ML IV SCH (13:27)
[2021-11-03] MEDS: PANTOPRAZOLE SODIUM IV DRIP 80 MG in IV NORMAL SALINE 100ML 100 ML IV SCH ×2 (14:09→22:43)
[2021-11-03] MEDS: ALBUMIN HUMAN 25% 100 ML IV SCH ×2 (14:15→20:43)
--- NOTE | 2021-11-03 15:36 | RAD ---
Bilateral lower extremity arterial Doppler dated 11/03/2021 COMPARISON: None INDICATION: Limb ischemia. FINDINGS: Grayscale, color-flow and spectral waveform analysis was performed. There is diffuse atherosclerotic plaquing. On the right, there is triphasic waveforms of the common femoral artery and superficial fem oral artery. There is also triphasic flow within the proximal posterior tibial artery and peroneal ar john with biphasic flow in the distal posterior tibial artery. Mild velocity elevation of the proxima l superficial femoral artery with peak systolic velocity of 197 cm/S. On the left, there is triphasic flow within the common femoral artery and superficial femoral artery and popliteal artery. Biphasic flow in the peroneal artery, anterior tibial artery and posterior tibi al artery. No focal velocity elevation to suggest stenosis. IMPRESSION: 1. Mild diffuse plaque with no evidence of hemodynamically significant stenosis. 2. There is mild velocity elevation of the proximal superficial femoral artery on the right which cou ld relate to a mild to moderate grade narrowing. Electronically signed by: Harvinder Marie MD (11/03/2021 3:34 PM) [id number]
--- NOTE | 2021-11-03 15:39 | CONS ---
DATE OF CONSULTATION: 11/03/2021 DATE OF CONSULTATION: 11/03/2021 REQUESTING PHYSICIAN: Dr. Jackson REASON FOR CONSULTATION: Perforated gastric ulcer. HISTORY OF PRESENT ILLNESS: This is a 66-year-old female who has multiple medical problems who was found down in her house as son is at the bedside. Son has talked to her 2 days before and she does have supposedly PT, OT and the wound care nurse visiting, but she was found down, had abdominal pain, very weak, confused. The patient was found to have a bowel perforation and she was taken to the OR and found to have a gastric perforation walled off with eroded segment of the transverse mesocolon and widespread abdominal sepsis. The patient had a repair of the gastric ulcer done and drainage of the abdominal sepsis. The patient since then is intubated on a ventilator. Her blood pressure was low that has improved now, the patient is able to nod appropriately. No nausea, vomiting, diarrhea noted, no fever noted. The patient had a 14,000 white count, elevated BUN and creatinine and is on Zosyn. PAST MEDICAL HISTORY: Positive for the patient had extensive recent history last year had a myocardial infarction with CODA rupture. The patient ended up with mitral valve clip. The patient was in the hospital and rehabbed for almost 2 to 2-1/2 months, sustained a large to sacrococcygeal decubitus, which she has had wound VAC for a long time and she was slowly getting better with that and wounds, one of them completely healed and another one is significantly improved. The patient also has severe rheumatoid arthritis. She is on prednisone. She had been on TNF blockers in the past before the myocardial infarction. Since then, she has not been on. The patient also has hypertension, hyperlipidemia, and hypothyroidism. SOCIAL HISTORY: Positive for smoking. No alcohol use or drug use. ALLERGIES: No known drug allergies. CURRENT MEDICATIONS: Reviewed. REVIEW OF SYSTEMS: As in HPI. All other systems reviewed are negative. PHYSICAL EXAMINATION: GENERAL: Arousable on the ventilator female, not in distress. VITAL SIGNS: Temperature 98.1, pulse 88, respirations 19, blood pressure 95/54. HEENT: Both pupils are round and reacting. No conjunctival lesion. Mouth cannot be visualized. Orally intubated. NECK: Supple, no JVP, no lymphadenopathy. LUNGS: Clear. HEART: S1, S2, regular. ABDOMEN: Post-surgical dressing not opened. No distention, no tenderness. EXTREMITIES: No edema, cyanosis. The patient has multiple areas of bruising all over and subcutaneous hemorrhage all over the body, upper and lower as well as she has necrotic cyanotic toes much more so on the left than right. Dorsalis pedis is weak palpable. Sacrococcygeal wound is much smaller and appears that it is healing well. NEUROLOGIC: The patient is sedated on ventilator, but does appear to follow the command. LABORATORY DATA: White count is down to 11,000, platelets are 75,000. BUN and creatinine is 56 and 1.7. Lactic acid was 4.1 when she came in, urinalysis unremarkable. COVID negative, influenza negative. Culture from the abdominal fluid is showing gram-positive cocci and gram-positive edith and gram-negative edith. DIAGNOSTIC DATA: Chest x-ray seen. Abdominal CT reviewed. IMPRESSION: 1. Perforated gastric ulcer, status post exploratory laparotomy and repair with abdominal sepsis, status post incision and drainage. 2. Sepsis with hypotension, lactic acidosis, which has improved. 3. Respiratory failure. 4. Rheumatoid arthritis. 5. Mitral valve clipping done a few months ago. 6. Sacrococcygeal decubitus. 7. Renal insufficiency. 8. Cyanotic toes, more so on the left than right, probably embolic in origin. RECOMMENDATIONS: Continue Zosyn. Continue supportive care. Discussed in detail with the patient's son. Thank you very much, Dr. Jackson, for giving me opportunity to participate in this patient's care. ERNA/CAT EARLY: ANNA/nadine TID: [id number]
--- NOTE | 2021-11-03 16:00 | NUR ---
Dr. Tao updated thru phone of extremity arterial study, ordered for Artur soto, told her she's on it already. She said she'll come see patient beatriz.
[2021-11-03] MEDS ORDERED: TOTAL PARENTERAL NUTRITION IV SCH (22:00)
[2021-11-03] MEDS ORDERED: DEXTROSE 70% IV SCH (22:00)
[2021-11-03] MEDS ORDERED: AMINO ACID IV SCH (22:00)
[2021-11-03] MEDS ORDERED: [UNRECOGNIZED DRUG - OTHER] IV SCH (22:00)
[2021-11-04] VITALS (22 sets, daily range): BP systolic 106–133; BP diastolic 62–78
[2021-11-04] MEDS: POTASSIUM CHLORIDE 20MEQ 100 ML IV PRN ×2 (01:49→03:57)
[2021-11-04] MEDS: IV NORMAL SALINE 1000ML BAG 1,000 ML IV SCH ×2 (02:35→20:53)
[2021-11-04] MEDS: fentaNYL PF VIAL 100 MCG/2 ML VIAL IVP PRN ×7 (05:17→23:09)
[2021-11-04] MEDS: PIPERACILLIN/TAZOBACTAM 2.25 GM in IV NORMAL SALINE 50ML 50 ML IV SCH ×3 (06:15→22:15)
[2021-11-04] MEDS: INSULIN LISPRO 300 UNITS/3 ML VIAL. SQ SCH ×3 (06:16→18:04)
[2021-11-04 06:39] LABS: ALBUMIN 2.2 g/dL (3.4-5.0); CALCIUM 8.3 mg/dL (8.5-10.1); CREATININE 1.1 mg/dL (0.6-1.0); GFR 49.8; PHOSPHORUS 2.1 mg/dL (2.6-4.7); POTASSIUM 5.4 mmol/L (3.5-5.1)
[2021-11-04] MEDS: CLOPIDOGREL BISULFATE 75 MG TABLET PO SCH (08:25)
[2021-11-04] MEDS: HYDROCORTISONE SOD SUCC/PF 100 MG/2 ML VIAL. IVP SCH ×2 (08:26→20:54)
[2021-11-04] MEDS: ALBUMIN HUMAN 25% 100 ML IV SCH ×3 (08:28→20:53)
[2021-11-04] MEDS: HEPARIN for SUB-Q USE 5,000 UNIT/ML VIAL. SQ SCH (08:29)
--- NOTE | 2021-11-04 09:03 | PDOC ---
SURGICAL PROGRESS NOTE DATE: 11/04/21 TIME: 09:02 Subjective extubated opens eyes Vital Signs Vital Signs Date Time Temp Pulse Resp B/P (MAP) Pulse Ox O2 Delivery O2 Flow Rate FiO2 11/04/21 08:27 92 High Flow Nasal Cannula 3.0 11/04/21 07:00 96 114/66 11/04/21 04:00 97.0 97.0 I&O Intake and Output 11/04/21 07:00 Intake Total 1816.5 ml Output Total 1128 ml Balance 688.5 ml Intake IV Total 1816.5 ml Output Urine Total 928 ml Gastric Drainage Total 125 ml Drainage Total 75 ml General: Cooperative Abdomen: Soft, Other (drain cloudy serous) Labs Laboratory Tests Test 11/02/21 12:07 11/02/21 17:19 11/03/21 00:00 11/03/21 05:20 Glucose (Fingerstick) 102 mg/dL (70-99) 176 mg/dL (70-99) 303 mg/dL (70-99) Hemoglobin 9.3 g/dL (12.0-15.5) Sodium Level 139 mmol/L (136-145) Potassium Level 3.1 mmol/L (3.5-5.1) Chloride Level 104 mmol/L (98-107) Carbon Dioxide Level 23 mmol/L (21-32) Anion Gap 12 (6-14) Blood Urea Nitrogen 56 mg/dL (7-20) Creatinine 1.7 mg/dL (0.6-1.0) Estimated GFR (Cockcroft-Gault) 30.2 Glucose Level 385 mg/dL (70-99) Calcium Level 7.2 mg/dL (8.5-10.1) Phosphorus Level 3.1 mg/dL (2.6-4.7) Magnesium Level 1.7 mg/dL (1.8-2.4) Albumin 1.5 g/dL (3.4-5.0) Triglycerides Level 148 mg/dL (0-150) Test 11/03/21 07:32 11/03/21 11:37 11/03/21 11:39 11/03/21 13:12 O2 Saturation 98 % (92-99) 98 % (92-99) Arterial Blood pH 7.45 (7.35-7.45) 7.48 (7.35-7.45) Arterial Blood pCO2 at Patient Temp 37 mmHg (35-46) 37 mmHg (35-46) Arterial Blood pO2 at Patient Temp 147 mmHg (65-108) 149 mmHg (65-108) Arterial Blood HCO3 25 mmol/L (21-28) 27 mmol/L (21-28) Arterial Blood Base Excess 2 mmol/L (-3-3) 3 mmol/L (-3-3) FiO2 40% vent 40% Glucose (Fingerstick) 372 mg/dL (70-99) 354 mg/dL (70-99) Test 11/03/21 18:05 11/03/21 18:12 11/03/21 23:48 11/04/21 01:00 Potassium Level 3.5 mmol/L (3.5-5.1) 3.3 mmol/L (3.5-5.1) Glucose (Fingerstick) 291 mg/dL (70-99) 238 mg/dL (70-99) Test 11/04/21 05:50 11/04/21 06:00 11/04/21 06:09 Sodium Level 137 mmol/L (136-145) Potassium Level 5.4 mmol/L (3.5-5.1) Chloride Level 106 mmol/L (98-107) Carbon Dioxide Level 22 mmol/L (21-32) Anion Gap 9 (6-14) Blood Urea Nitrogen 55 mg/dL (7-20) Creatinine 1.1 mg/dL (0.6-1.0) Estimated GFR (Cockcroft-Gault) 49.8 Glucose Level 216 mg/dL (70-99) Calcium Level 8.3 mg/dL (8.5-10.1) Phosphorus Level 2.1 mg/dL (2.6-4.7) Albumin 2.2 g/dL (3.4-5.0) Magnesium Level 2.3 mg/dL (1.8-2.4) Glucose (Fingerstick) 212 mg/dL (70-99) Laboratory Tests Test 11/03/21 11:37 11/03/21 11:39 11/03/21 13:12 11/03/21 18:05 O2 Saturation 98 % (92-99) Arterial Blood pH 7.48 (7.35-7.45) Arterial Blood pCO2 at Patient Temp 37 mmHg (35-46) Arterial Blood pO2 at Patient Temp 149 mmHg (65-108) Arterial Blood HCO3 27 mmol/L (21-28) Arterial Blood Base Excess 3 mmol/L (-3-3) FiO2 40% Glucose (Fingerstick) 372 mg/dL (70-99) 354 mg/dL (70-99) Potassium Level 3.5 mmol/L (3.5-5.1) Test 11/03/21 18:12 11/03/21 23:48 11/04/21 01:00 11/04/21 05:50 Glucose (Fingerstick) 291 mg/dL (70-99) 238 mg/dL (70-99) Potassium Level 3.3 mmol/L (3.5-5.1) 5.4 mmol/L (3.5-5.1) Sodium Level 137 mmol/L (136-145) Chloride Level 106 mmol/L (98-107) Carbon Dioxide Level 22 mmol/L (21-32) Anion Gap 9 (6-14) Blood Urea Nitrogen 55 mg/dL (7-20) Creatinine 1.1 mg/dL (0.6-1.0) Estimated GFR (Cockcroft-Gault) 49.8 Glucose Level 216 mg/dL (70-99) Calcium Level 8.3 mg/dL (8.5-10.1) Phosphorus Level 2.1 mg/dL (2.6-4.7) Albumin 2.2 g/dL (3.4-5.0) Test 11/04/21 06:00 11/04/21 06:09 Magnesium Level 2.3 mg/dL (1.8-2.4) Glucose (Fingerstick) 212 mg/dL (70-99) Problem List Problems Medical Problems: (1) Elevated bilirubin Status: Acute (2) Hyperkalemia Status: Acute (3) Lactic acidosis Status: Acute (4) Leukocytosis Status: Acute (5) Perforated viscus Status: Acute (6) Renal insufficiency Status: Acute Assessment/Plan supportive care Justicifation of Admission Dx: Justifications for Admission: Justification of Admission Dx: N/A ARTURO VALDES APRN Nov 04, 2021 09:03
[2021-11-04] MEDS: PANTOPRAZOLE SODIUM IV DRIP 80 MG in IV NORMAL SALINE 100ML 100 ML IV SCH ×2 (09:09→20:54)
[2021-11-04] MEDS: INSULIN GLARGINE SYRINGE. SQ SCH (09:18)
--- NOTE | 2021-11-04 10:11 | PDOC2 ---
CONSULT Date of Consult Date of Consult DATE: 11/04/21 TIME: 10:02 Reason for Consult Reason for Consult: Ischemic toes History of Present Illness Reason for Visit: The patient is a 66-year-old female who underwent explorative laparotomy with repair of a perforated gastric ulcer and drainage of an abdominal abscess by general surgery on November 01, 2021. She required high-dose pressor medication fo r hypotension with sepsis. Her blood pressure has improved and today she is off pressors. It was noted that her toes developed darkening worse on the left foot compared to the right foot. She underwent arterial duplex scan yesterday which showed atherosclerotic disease however no areas of significant stenosis or occlusion. She reports no significant pain in her legs or feet. She is a very frail lady with extensive bruising throughout her body. Past Medical History Cardiovascular: No pertinent hx Pulmonary: No pertinent hx GI: No pertinent hx Rheumatologic: No pertinent hx Past Surgical History Past Surgical History: No pertinent history Social History 1 pack per day Drugs: None Lives: Alone Current Problem List Problem List Problems Medical Problems: (1) Elevated bilirubin Status: Acute (2) Hyperkalemia Status: Acute (3) Lactic acidosis Status: Acute (4) Leukocytosis Status: Acute (5) Perforated viscus Status: Acute (6) Renal insufficiency Status: Acute Current Medications Current Medications Current Medications Sodium Chloride 1,000 ml @ 1,000 mls/hr 1X ONCE IV Last administered on 11/01/21at 15:30; Start 11/01/21 at 15:15; Stop 11/01/21 at 16:14; Status DC Calcium Gluconate (Calcium Gluconate) 1,000 mg 1X ONCE IVP Last administered on 11/01/21at 16:35; Start 11/01/21 at 16:00; Stop 11/01/21 at 16:01; Status DC Sodium Bicarbonate (Sodium Bicarb Adult 8.4% Syr) 50 meq 1X ONCE IV Last administered on 11/01/21at 16:35; Start 11/01/21 at 16:00; Stop 11/02/21 at 09:36; Status DC Dextrose (Dextrose 50%-Water Syringe) 25 gm 1X ONCE IV Last administered on 11/01/21at 16:50; Start 11/01/21 at 16:00; Stop 11/01/21 at 16:01; Status DC Insulin Human Regular (HumuLIN R VIAL) 10 unit 1X ONCE IV Last administered on 11/01/21at 16:40; Start 11/01/21 at 16:00; Stop 11/01/21 at 16:01; Status DC Sodium Chloride 1,000 ml @ 1,000 mls/hr Q1H IV Last administered on 11/01/21at 16:50; Start 11/01/21 at 16:00; Stop 11/01/21 at 16:59; Status DC Piperacillin Sod/ Tazobactam Sod 3.375 gm/Sodium Chloride 50 ml @ 100 mls/hr 1X ONCE IV ; Start 11/01/21 at 16:45; Stop 11/01/21 at 17:14; Status UNV Piperacillin Sod/ Tazobactam Sod 2.25 gm/Sodium Chloride 50 ml @ 100 mls/hr 1X ONCE IV Last administered on 11/01/21at 16:58; Start 11/01/21 at 17:00; Stop 11/01/21 at 17:29; Status DC Ondansetron HCl (Zofran) 4 mg PRN Q8HRS PRN IVP NAUSEA/VOMITING; Start 11/01/21 at 16:45; Stop 11/02/21 at 16:44; Status DC Morphine Sulfate (Morphine Sulfate) 2 mg PRN Q2HR PRN IVP PAIN; Start 11/01/21 at 16:45; Stop 11/02/21 at 03:15; Status DC Sodium Chloride 1,000 ml @ 1,000 mls/hr 1X ONCE IV Last administered on 11/01/21at 17:48; Start 11/01/21 at 17:45; Stop 11/01/21 at 18:44; Status DC Rocuronium [place] (Zemuron) 100 mg STK-MED ONCE .ROUTE ; Start 11/01/21 at 17:54; Stop 11/01/21 at 17:55; Status DC Fentanyl Citrate (Fentanyl 5ml Vial) 250 mcg STK-MED ONCE .ROUTE ; Start 11/01/21 at 17:55; Stop 11/01/21 at 17:55; Status DC Etomidate (Amidate) 20 mg STK-MED ONCE IV ; Start 11/01/21 at 17:55; Stop 11/01/21 at 17:56; Status DC Phenylephrine HCl (PHENYLEPHRINE in 0.9% NACL PF) 1 mg STK-MED ONCE IV ; Start 11/01/21 at 17:56; Stop 11/01/21 at 17:56; Status DC Fentanyl Citrate (Fentanyl 2ml Vial) 25 mcg PRN Q5MIN PRN IVP MILD PAIN 1-3; Start 11/01/21 at 18:00; Stop 11/02/21 at 03:15; Status DC Fentanyl Citrate (Fentanyl 2ml Vial) 50 mcg PRN Q5MIN PRN IVP MODERATE PAIN 4- 6; Start 11/01/21 at 18:00; Stop 11/02/21 at 03:15; Status DC Morphine Sulfate (Morphine Sulfate) 1 mg PRN Q10MIN PRN IVP SEVERE PAIN 7-10; Start 11/01/21 at 18:00; Stop 11/02/21 at 03:15; Status DC Ringer's Solution 1,000 ml @ 30 mls/hr Q24H IV ; Start 11/01/21 at 18:00; Stop 11/02/21 at 05:59; Status DC Hydromorphone HCl (Dilaudid) 0.5 mg PRN Q10MIN PRN IVP SEVERE PAIN 7-10, 2nd CHOICE; Start 11/01/21 at 18:00; Stop 11/02/21 at 03:15; Status DC Prochlorperazine Edisylate (Compazine) 5 mg PACU PRN PRN IVP NAUSEA, MRX1; Start 11/01/21 at 18:00; Stop 11/02/21 at 17:59; Status DC Fentanyl Citrate (Fentanyl 2ml Vial) 25 mcg PRN Q5MIN PRN IVP MILD PAIN 1-3; Start 11/01/21 at 18:00; Stop 11/02/21 at 17:59; Status UNV Fentanyl Citrate (Fentanyl 2ml Vial) 50 mcg PRN Q5MIN PRN IVP MODERATE PAIN 4- 6; Start 11/01/21 at 18:00; Stop 11/02/21 at 17:59; Status UNV Morphine Sulfate (Morphine Sulfate) 1 mg PRN Q10MIN PRN IVP SEVERE PAIN 7-10; Start 11/01/21 at 18:00; Stop 11/02/21 at 17:59; Status UNV Ringer's Solution 1,000 ml @ 30 mls/hr Q24H IV ; Start 11/01/21 at 18:00; Stop 11/02/21 at 05:59; Status UNV Hydromorphone HCl (Dilaudid) 0.5 mg PRN Q10MIN PRN IVP SEVERE PAIN 7-10, 2nd CHOICE; Start 11/01/21 at 18:00; Stop 11/02/21 at 17:59; Status UNV Prochlorperazine Edisylate (Compazine) 5 mg PACU PRN PRN IVP NAUSEA, MRX1; Start 11/01/21 at 18:00; Stop 11/02/21 at 17:59; Status UNV Insulin Human Lispro (HumaLOG) 0-5 UNITS TIDWMEALS SQ ; Start 11/02/21 at 08:00; Stop 11/02/21 at 21:44; Status DC Dextrose (Dextrose 50%-Water Syringe) 12.5 gm PRN Q15MIN PRN IV SEE COMMENTS; Start 11/01/21 at 18:00; Stop 11/03/21 at 14:24; Status DC Dextrose (Iv Dextrose 5%) 250 ml PRN Q15MIN PRN IV SEE COMMENTS; Start 11/01/21 at 18:00 Piperacillin Sod/ Tazobactam Sod (Zosyn Per Pharmacy) 1 each PRN DAILY PRN MC SEE COMMENTS; Start 11/01/21 at 18:15 Piperacillin Sod/ Tazobactam Sod 2.25 gm/Sodium Chloride 50 ml @ 100 mls/hr Q8HRS IV Last administered on 11/04/21at 06:15; Start 11/01/21 at 22:00 Albumin Human 500 ml @ As Directed STK-MED ONCE IV ; Start 11/01/21 at 18:20; Stop 11/01/21 at 18:21; Status DC Bupivacaine HCl/ Epinephrine Bitart (Sensorcain-Epi 0.5% Kit) 30 ml STK-MED ONCE .ROUTE ; Start 11/01/21 at 18:25; Stop 11/01/21 at 18:26; Status DC Albumin Human 500 ml @ As Directed STK-MED ONCE IV ; Start 11/01/21 at 18:30; Stop 11/01/21 at 18:31; Status DC Phenylephrine HCl (PHENYLEPHRINE in 0.9% NACL PF) 1 mg STK-MED ONCE IV ; Start 11/01/21 at 19:53; Stop 11/01/21 at 19:53; Status DC Sevoflurane (Ultane) 90 ml STK-MED ONCE IH ; Start 11/01/21 at 19:58; Stop 11/01/21 at 19:58; Status DC Albumin Human 500 ml @ As Directed STK-MED ONCE IV ; Start 11/01/21 at 20:00; Stop 11/01/21 at 20:00; Status DC Pantoprazole Sodium 80 mg/ Sodium Chloride 100 ml @ 10 mls/hr 1X ONCE IV Last administered on 11/01/21at 22:32; Start 11/01/21 at 20:30; Stop 11/02/21 at 06:29; Status DC Heparin Sodium (Porcine) (Heparin Sodium) 5,000 unit Q12HR SQ ; Start 11/01/21 at 21:00; Stop 11/01/21 at 20:40; Status DC Dextrose/Sodium Chloride 1,000 ml @ 100 mls/hr Q10H IV ; Start 11/01/21 at 20:30; Stop 11/02/21 at 05:51; Status DC Heparin Sodium (Porcine) (Heparin Sodium) 5,000 unit Q12HR SQ Last administered on 11/04/21at 08:29; Start 11/02/21 at 09:00 Ringer's Solution 1,000 ml @ 125 mls/hr Q8H IV Last administered on 11/02/21at 05:53; Start 11/01/21 at 21:15; Stop 11/02/21 at 10:57; Status DC Sodium Bicarbonate (Sodium Bicarb Adult 8.4% Syr) 50 meq 1X ONCE IV Last administered on 11/01/21at 22:18; Start 11/01/21 at 22:00; Stop 11/02/21 at 09:36; Status DC Sodium Bicarbonate (Sodium Bicarb Adult 8.4% Syr) 50 meq 1X ONCE IV Last administered on 11/01/21at 22:18; Start 11/01/21 at 22:00; Stop 11/02/21 at 09:36; Status DC Sodium Bicarbonate 150 meq/Dextrose 1,150 ml @ 50 mls/hr Q23H IV Last administered on 11/01/21at 22:19; Start 11/01/21 at 23:00; Stop 11/02/21 at 10:57; Status DC Fentanyl Citrate 30 ml @ 2.5 mls/hr CONT PRN IV SEE PROTOCOL Last administered on 11/03/21at 00:03; Start 11/02/21 at 03:00 Midazolam HCl 100 ml @ 1 mls/hr CONT PRN IV SEE PROTOCOL; Start 11/02/21 at 03:00 Propofol 100 ml @ 1.461 mls/ hr CONT PRN IV PER PROTOCOL; Start 11/02/21 at 03:00 Glycerin/ Hypromellose/ Polyethylene (Artificial Tears) 1 drop PRN Q1HR PRN OU DRY EYE; Start 11/02/21 at 03:00 Dexmedetomidine HCl 400 mcg/ Sodium Chloride 100 ml @ 2.435 mls/ hr CONT PRN IV PER PROTOCOL; Start 11/02/21 at 03:00 Sodium Chloride 500 ml @ 500 mls/hr 1X PRN PRN IV SEE COMMENTS; Start 11/02/21 at 03:00 Atropine Sulfate (ATROPINE 0.5mg SYRINGE) 0.5 mg PRN Q5MIN PRN IV SEE COMMENTS; Start 11/02/21 at 03:00 Norepinephrine Bitartrate 8 mg/ Dextrose 258 ml @ 9.423 mls/ hr CONT PRN IV PER PROTOCOL Last administered on 11/02/21at 21:35; Start 11/02/21 at 05:15 Ringer's Solution 500 ml @ 500 mls/hr 1X ONCE IV ; Start 11/02/21 at 09:00; Stop 11/02/21 at 09:21; Status DC Ringer's Solution 980 ml @ 980 mls/hr 1X ONCE IV Last administered on 11/02/21at 09:25; Start 11/02/21 at 09:30; Stop 11/02/21 at 10:29; Status DC Info (Tpn Per Pharmacy) 1 each CONT MC ; Start 11/02/21 at 09:30; Stop 11/02/21 at 09:45; Status DC Sodium Bicarbonate (Sodium Bicarb Adult 8.4% Syr) 150 meq 1X ONCE IV ; Start 11/02/21 at 10:00; Stop 11/02/21 at 10:01; Status Cancel Info (Tpn Per Pharmacy) 1 each PRN DAILY PRN MC SEE COMMENTS Last administered on 11/03/21at 09:38; Start 11/02/21 at 09:45 Sodium Bicarbonate 75 meq/Dextrose 1,075 ml @ 100 mls/hr [id number] IV Last administered on 11/02/21at 22:14; Start 11/02/21 at 11:00; Stop 11/03/21 at 09:35; Status DC Magnesium Sulfate 50 ml @ 25 mls/hr PRN DAILY PRN IV for Mag < 1.7 on am labs; Start 11/02/21 at 11:00 Hydrocortisone Sodium Succinate (Solu-CORTEF) 100 mg Q12HR IVP Last administered on 11/04/21at 08:26; Start 11/02/21 at 21:00 Hydrocortisone Sodium Succinate (Solu-CORTEF) 100 mg 1X ONCE IVP Last administered on 11/02/21at 12:05; Start 11/02/21 at 12:00; Stop 11/02/21 at 12:0 1; Status DC Clopidogrel Bisulfate (Plavix) 75 mg [id number] PO Last administered on 11/04/21at 08:25; Start 11/02/21 at 13:00 Cyanocobalamin (Vitamin B-12 Inj) 1,000 mcg 1X ONCE IM Last administered on 11/02/21at 13:14; Start 11/02/21 at 13:00; Stop 11/02/21 at 13:01; Status DC Magnesium Sulfate/ Dextrose 100 ml @ 100 mls/hr 1X ONCE IV Last administered on 11/02/21at 13:14; Start 11/02/21 at 13:00; Stop 11/02/21 at 13:59; Status DC Potassium Acetate 40 meq/Magnesium Sulfate 10 meq/ Multivitamins 10 m l/Zinc/Copper/ Manganese/ Selenium 1 ml/ Total Parenteral Nutrition/Amino Acids/Dextrose/ Fat Emulsion Intravenous 1,512 ml @ 63 mls/hr TPN CONT IV Last administered on 11/02/21at 21:34; Start 11/02/21 at 22:00; Stop 11/03/21 at 21:59; Status DC Insulin Human Lispro (HumaLOG) 0-5 UNITS Q6HRS SQ Last administered on 11/03/21at 06:06; Start 11/03/21 at 00:00; Stop 11/03/21 at 12:07; Status DC Sodium Chloride 60 meq/Potassium Acetate 50 meq/ Potassium Phosphate 13.6 mmol/Magnesium Sulfate 15 meq/ Multivitamins 10 ml/Zinc/Copper/ Manganese/ Selenium 1 ml/ Total Parenteral Nutrition/Amino Acids/Dextrose/ Fat Emulsion Intravenous 1,512 ml @ 63 mls/hr TPN CONT IV Last administered on 11/03/21at 22:14; Start 11/03/21 at 22:00; Stop 11/04/21 at 21:59 Potassium Chloride/Water 100 ml @ 100 mls/hr Q1H IV Last administered on 11/03/21at 11:36; Start 11/03/21 at 10:00; Stop 11/03/21 at 11:59; Status DC Insulin Glargine (Lantus Syringe) 12 unit DAILY SQ Last administered on 11/04/21at 09:18; Start 11/03/21 at 12:15 Insulin Human Lispro (HumaLOG) 0-7 UNITS Q6HRS SQ Last administered on 11/04/21at 06:16; Start 11/03/21 at 18:00 Dextrose (Dextrose 50%-Water Syringe) 12.5 gm PRN Q15MIN PRN IV SEE COMMENTS; Start 11/03/21 at 12:15 Dextrose (Iv Dextrose 5%) 250 ml PRN Q15MIN PRN IV SEE COMMENTS; Start 11/03/21 at 12:15 Insulin Human Lispro (HumaLOG) 8 units 1X ONCE SQ Last administered on at 12:29; Start 11/03/21 at 12:15; Stop 11/03/21 at 12:16; Status DC Albumin Human 100 ml @ 100 mls/hr TID IV Last administered on 11/04/21at 08:28; Start 11/03/21 at 14:00; Stop 11/05/21 at 09:59 Potassium Chloride/Water 100 ml @ 50 mls/hr PRN Q6HRS PRN IV For K < 3.7; Start 11/03/21 at 12:45 Potassium Chloride/Water 100 ml @ 50 mls/hr PRN Q2HR PRN IV total of 40mEq for K < 3.5 Last administered on 11/04/21at 03:57; Start 11/03/21 at 12:45 Magnesium Sulfate/ Dextrose 100 ml @ 100 mls/hr 1X ONCE IV Last administered on 11/03/21at 13:25; Start 11/03/21 at 13:00; Stop 11/03/21 at 13:59; Status DC Sodium Chloride 1,000 ml @ 75 mls/hr [id number] IV Last administered on 11/04/21at 02:35; Start 11/03/21 at 13:15 Pantoprazole Sodium 80 mg/ Sodium Chloride 100 ml @ 10 mls/hr Q10H IV Last administered on 11/04/21at 09:09; Start 11/03/21 at 14:00; Stop 11/06/21 at 13:59 Fentanyl Citrate (Fentanyl 2ml Vial) 25 mcg PRN Q2HR PRN IVP SEVERE PAIN 7-10 Last administered on 11/04/21at 08:27; Start 11/04/21 at 05:15 Active Scripts Active Reported Spironolactone 25 Mg Tablet 0.5 Tab PO [id number] Metoprolol Succinate ( Xl ) (Metoprolol Succinate) 25 Mg Tab.er.24h 0.5 Tab PO DAILY Zoloft (Sertraline Hcl) 50 Mg Tablet 50 Mg PO DAILY Levothyroxine Sodium 125 Mcg Tablet 125 Mcg PO DAILYAC Prednisone 20 Mg Tablet 20 Mg PO DAILY Protonix (Pantoprazole Sodium) 20 Mg Tablet.dr 40 Mg PO DAILY Lasix (Furosemide) 40 Mg Tablet 40 Mg PO DAILY Clopidogrel (Clopidogrel Bisulfate) 75 Mg Tablet 75 Mg PO DAILY Tramadol Hcl 50 Mg Tablet 50 Mg PO Q6HRS PRN Fluconazole 100 Mg Tablet 100 Mg PO DAILY Klor-Con 10 (Potassium Chloride) 10 Meq Tablet.er 10 Meq PO DAILY Hydrocodone-Acetamin 7.5-325 (Hydrocodone/Acetaminophen) 1 Each Tablet 1 Each PO Q6HRS PRN Meloxicam 15 Mg Tablet 15 Mg PO DAILY Allergies Allergies: Coded Allergies: adhesive tape (Verified Allergy, Intermediate, 11/02/21) Physical Exam Physical Exam Awake and alert, abdomen is soft, surgical scars and drains in place Bilateral lower extremities are warm, she is very thin and frail with extensive ecchymoses throughout her legs and arms. Her left foot has mild swelling, the left first, fourth and fifth toes have demarcating black early gangrenous changes. There is no erythema, no drainage and no other areas of tissue breakdown on her proximal foot. Her right foot is pink with very small petechial skin changes on the dorsal aspect of the second and third toes. No other areas of tissue breakdown on the proximal foot. She has intact motor and sensory function in her feet. On vascular examination she has strong dopplerable dorsalis pedis and posterior tibial signals in her right foot, her left foot has a palpable dorsalis pedis pulse with strong dopplerable flow at this location and no dopplerable flow at the posterior tibial location. Neurologic exam she is awake and alert, moving all 4 extremities with good strength, normal speech, no gross neurologic deficit Vitals VITALS Vital Signs Date Time Temp Pulse Resp B/P (MAP) Pulse Ox O2 Delivery O2 Flow Rate FiO2 11/04/21 08:57 20 90 High Flow Nasal Cannula 3.0 11/04/21 07:00 96 114/66 11/04/21 04:00 97.0 97.0 Labs Labs Laboratory Tests Test 11/02/21 12:07 11/02/21 17:19 11/03/21 00:00 11/03/21 05:20 Glucose (Fingerstick) 102 mg/dL (70-99) 176 mg/dL (70-99) 303 mg/dL (70-99) Hemoglobin 9.3 g/dL (12.0-15.5) Sodium Level 139 mmol/L (136-145) Potassium Level 3.1 mmol/L (3.5-5.1) Chloride Level 104 mmol/L (98-107) Carbon Dioxide Level 23 mmol/L (21-32) Anion Gap 12 (6-14) Blood Urea Nitrogen 56 mg/dL (7-20) Creatinine 1.7 mg/dL (0.6-1.0) Estimated GFR (Cockcroft-Gault) 30.2 Glucose Level 385 mg/dL (70-99) Calcium Level 7.2 mg/dL (8.5-10.1) Phosphorus Level 3.1 mg/dL (2.6-4.7) Magnesium Level 1.7 mg/dL (1.8-2.4) Albumin 1.5 g/dL (3.4-5.0) Triglycerides Level 148 mg/dL (0-150) Test 11/03/21 07:32 11/03/21 11:37 11/03/21 11:39 11/03/21 13:12 O2 Saturation 98 % (92-99) 98 % (92-99) Arterial Blood pH 7.45 (7.35-7.45) 7.48 (7.35-7.45) Arterial Blood pCO2 at Patient Temp 37 mmHg (35-46) 37 mmHg (35-46) Arterial Blood pO2 at Patient Temp 147 mmHg (65-108) 149 mmHg (65-108) Arterial Blood HCO3 25 mmol/L (21-28) 27 mmol/L (21-28) Arterial Blood Base Excess 2 mmol/L (-3-3) 3 mmol/L (-3-3) FiO2 40% vent 40% Glucose (Fingerstick) 372 mg/dL (70-99) 354 mg/dL (70-99) Test 11/03/21 18:05 11/03/21 18:12 11/03/21 23:48 11/04/21 01:00 Potassium Level 3.5 mmol/L (3.5-5.1) 3.3 mmol/L (3.5-5.1) Glucose (Fingerstick) 291 mg/dL (70-99) 238 mg/dL (70-99) Test 11/04/21 05:50 11/04/21 06:00 11/04/21 06:09 Sodium Level 137 mmol/L (136-145) Potassium Level 5.4 mmol/L (3.5-5.1) Chloride Level 106 mmol/L (98-107) Carbon Dioxide Level 22 mmol/L (21-32) Anion Gap 9 (6-14) Blood Urea Nitrogen 55 mg/dL (7-20) Creatinine 1.1 mg/dL (0.6-1.0) Estimated GFR (Cockcroft-Gault) 49.8 Glucose Level 216 mg/dL (70-99) Calcium Level 8.3 mg/dL (8.5-10.1) Phosphorus Level 2.1 mg/dL (2.6-4.7) Albumin 2.2 g/dL (3.4-5.0) Magnesium Level 2.3 mg/dL (1.8-2.4) Glucose (Fingerstick) 212 mg/dL (70-99) Laboratory Tests Test 11/03/21 11:37 11/03/21 11:39 11/03/21 13:12 11/03/21 18:05 O2 Saturation 98 % (92-99) Arterial Blood pH 7.48 (7.35-7.45) Arterial Blood pCO2 at Patient Temp 37 mmHg (35-46) Arterial Blood pO2 at Patient Temp 149 mmHg (65-108) Arterial Blood HCO3 27 mmol/L (21-28) Arterial Blood Base Excess 3 mmol/L (-3-3) FiO2 40% Glucose (Fingerstick) 372 mg/dL (70-99) 354 mg/dL (70-99) Potassium Level 3.5 mmol/L (3.5-5.1) Test 11/03/21 18:12 11/03/21 23:48 11/04/21 01:00 11/04/21 05:50 Glucose (Fingerstick) 291 mg/dL (70-99) 238 mg/dL (70-99) Potassium Level 3.3 mmol/L (3.5-5.1) 5.4 mmol/L (3.5-5.1) Sodium Level 137 mmol/L (136-145) Chloride Level 106 mmol/L (98-107) Carbon Dioxide Level 22 mmol/L (21-32) Anion Gap 9 (6-14) Blood Urea Nitrogen 55 mg/dL (7-20) Creatinine 1.1 mg/dL (0.6-1.0) Estimated GFR (Cockcroft-Gault) 49.8 Glucose Level 216 mg/dL (70-99) Calcium Level 8.3 mg/dL (8.5-10.1) Phosphorus Level 2.1 mg/dL (2.6-4.7) Albumin 2.2 g/dL (3.4-5.0) Test 11/04/21 06:00 11/04/21 06:09 Magnesium Level 2.3 mg/dL (1.8-2.4) Glucose (Fingerstick) 212 mg/dL (70-99) Assessment/Plan Assessment/Plan 66-year-old female who recently underwent explorative laparotomy with repair of a perforated gastric ulcer and drainage of an abdominal abscess. She was on high-dose pressor medication for hypotension related to sepsis. During this time she developed ischemic changes to her toes. She is now off pressor medication. Arterial duplex scan of the bilateral lower extremity shows atherosclerotic disease without significant stenosis or occlusion. She has good dopplerable flow within her right and left foot. She does have demarcating early gangrene of the left first, fourth and fifth toes and small petechial skin changes on the right second and third toe. No vascular intervention is needed for her circulation. She likely will need left foot toe amputations however I would let this fully demarcate to see which areas heal in which become full gangrene. We will continue to monitor. No need for full anticoagulation since this was related to pressor medication and she has no occlusive disease in her legs. Recommend Rooke boots to the right and left foot. MARINA FERMIN MD Nov 04, 2021 10:11
--- NOTE | 2021-11-04 10:38 | PDOC ---
DATE OF SERVICE DATE: 11/04/21 TIME: 10:30 SUBJECTIVE ROS c/o PAIN IN HER ABDOMEN - GS following OBJECTIVE Vital Signs Vital Signs Date Time Temp Pulse Resp B/P (MAP) Pulse Ox O2 Delivery O2 Flow Rate FiO2 11/04/21 08:57 20 90 High Flow Nasal Cannula 3.0 11/04/21 07:00 96 114/66 11/04/21 04:00 97.0 97.0 I & 0 Intake and Output 11/04/21 07:00 Intake Total 1816.5 ml Output Total 1128 ml Balance 688.5 ml Intake IV Total 1816.5 ml Output Urine Total 928 ml Gastric Drainage Total 125 ml Drainage Total 75 ml PHYSICAL EXAM Physical Exam General Appearance: Sedated intubated on the ventilator in no visible distress at this time Eyes: Sclera anicteric conjunctiva Normal EN: No EN Drainage Mucous Memb. Moist, orally intubated Neck: no JVD + JVP Supple no palpable thyromegaly CVS: S1 S2 possible murmur No Gallop No Rub trace edema Resp: Few basal Rales no rhonchi no Acc. Muscle use GI: BS -ve NO Bruit + Tender + Distended, tympanic : No palpable CVA tenderness; no suprapubic suprapubic Tenderness SKIN: Few visible bruises Breast Exam deferred Mu.Sk: Adequate passive ROM significant muscle Atrophy Heme: Unable to palpate Obvious LAD no palpable splenomegaly NEURO: Unable to assess while sedated intubated on the ventilator Psych: Unable to assess while sedated intubated on the ventilator but does have a history of anxiety DIAGNOSIS/ASSESSMENT Assessment & Plan Acute kidney injury: Baseline not known. Creatinine trending down with IVF , Non Oliguric. Supportive care, maintain Fluid balance, avoid nephrotoxins . Dw Nursing Known history of CAD and mitral valve repair with a mitral clip: Echocardiogram currently being done. Cardiology on board Hypernatremia:resolved hypotonic IV fluids, watch for recurrence on TPN HyperKalemia- Mild, Recd IV KCL 11/03for HypoKalemia . Adjust K in TPN . Monitor Anion gap metabolic acidosis: Now resolved Acute Resp Failure- Extubated now Hypomagnesemia: Normal today Severe hypoalbuminemia: Patient currently on TPN. Phosphorus is adequate. IV albumin can be ordered Perforated viscus underwent explorative laparotomy with repair of a perforated gastric ulcer and drainage of an abdominal abscess by general surgery on November 01, 2021. COMMENT/RELEVANT DATA Meds Current Medications Medications (Trade) Dose Ordered Sig/Tiarra Start Time Stop Time Status Last Admin Dose Admin Albumin Human 100 ml @ 100 mls/hr TID 11/03/21 14:00 11/05/21 09:59 11/04/21 08:28 100 MLS/HR Atropine Sulfate (ATROPINE 0.5mg SYRINGE) 0.5 mg PRN Q5MIN PRN 11/02/21 03:00 Bupivacaine HCl/ Epinephrine Bitart (Sensorcain-Epi 0.5% Kit) 30 ml STK-MED ONCE 11/01/21 18:25 11/01/21 18:26 DC Calcium Gluconate (Calcium Gluconate) 1,000 mg 1X ONCE 11/01/21 16:00 11/01/21 16:01 DC 11/01/21 16:35 1,000 MG Clopidogrel Bisulfate (Plavix) 75 mg DAILYWBKFT 11/02/21 13:00 11/04/21 08:25 75 MG Cyanocobalamin (Vitamin B-12 Inj) 1,000 mcg 1X ONCE 11/02/21 13:00 11/02/21 13:01 DC 11/02/21 13:14 1,000 MCG Dexmedetomidine HCl 400 mcg/ Sodium Chloride 100 ml @ 2.435 mls/ hr CONT PRN 11/02/21 03:00 Dextrose (Dextrose 50%-Water Syringe) 12.5 gm PRN Q15MIN PRN 11/03/21 12:15 Dextrose (Iv Dextrose 5%) 250 ml PRN Q15MIN PRN 11/03/21 12:15 Dextrose/Sodium Chloride 1,000 ml @ 100 mls/hr Q10H 11/01/21 20:30 11/02/21 05:51 DC Etomidate (Amidate) 20 mg STK-MED ONCE 11/01/21 17:55 11/01/21 17:56 DC Fentanyl Citrate (Fentanyl 2ml Vial) 25 mcg PRN Q2HR PRN 11/04/21 05:15 11/04/21 08:27 25 MCG Fentanyl Citrate (Fentanyl 5ml Vial) 250 mcg STK-MED ONCE 11/01/21 17:55 11/01/21 17:55 DC Glycerin/ Hypromellose/ Polyethylene (Artificial Tears) 1 drop PRN Q1HR PRN 11/02/21 03:00 Heparin Sodium (Porcine) (Heparin Sodium) 5,000 unit Q12HR 11/02/21 09:00 11/04/21 08:29 5,000 UNIT Hydrocortisone Sodium Succinate (Solu-CORTEF) 100 mg 1X ONCE 11/02/21 12:00 11/02/21 12:01 DC 11/02/21 12:05 100 MG Hydromorphone HCl (Dilaudid) 0.5 mg PRN Q10MIN PRN 11/01/21 18:00 11/02/21 17:59 UNV Info (Tpn Per Pharmacy) 1 each PRN DAILY PRN 11/02/21 09:45 11/03/21 09:38 1 EACH Insulin Glargine (Lantus Syringe) 12 unit DAILY 11/03/21 12:15 11/04/21 09:18 12 UNIT Insulin Human Lispro (HumaLOG) 8 units 1X ONCE 11/03/21 12:15 11/03/21 12:16 DC 11/03/21 12:29 8 UNITS Insulin Human Regular (HumuLIN R VIAL) 10 unit 1X ONCE 11/01/21 16:00 11/01/21 16:01 DC 11/01/21 16:40 10 UNIT Magnesium Sulfate 50 ml @ 25 mls/hr PRN DAILY PRN 11/02/21 11:00 Magnesium Sulfate/ Dextrose 100 ml @ 100 mls/hr 1X ONCE 11/03/21 13:00 11/03/21 13:59 DC 11/03/21 13:25 100 MLS/HR Midazolam HCl 100 ml @ 1 mls/hr CONT PRN 11/02/21 03:00 Morphine Sulfate (Morphine Sulfate) 1 mg PRN Q10MIN PRN 11/01/21 18:00 11/02/21 17:59 UNV Norepinephrine Bitartrate 8 mg/ Dextrose 258 ml @ 9.423 mls/ hr CONT PRN 11/02/21 05:15 11/02/21 21:35 21.674 MLS/HR Ondansetron HCl (Zofran) 4 mg PRN Q8HRS PRN 11/01/21 16:45 11/02/21 16:44 DC Pantoprazole Sodium 80 mg/ Sodium Chloride 100 ml @ 10 mls/hr Q10H 11/03/21 14:00 11/06/21 13:59 11/04/21 09:09 10 MLS/HR Phenylephrine HCl (PHENYLEPHRINE in 0.9% NACL PF) 1 mg STK-MED ONCE 11/01/21 19:53 11/01/21 19:53 DC Piperacillin Sod/ Tazobactam Sod (Zosyn Per Pharmacy) 1 each PRN DAILY PRN 11/01/21 18:15 Piperacillin Sod/ Tazobactam Sod 2.25 gm/Sodium Chloride 50 ml @ 100 mls/hr Q8HRS 11/01/21 22:00 11/04/21 06:15 100 MLS/HR Piperacillin Sod/ Tazobactam Sod 3.375 gm/Sodium Chloride 50 ml @ 100 mls/hr 1X ONCE 11/01/21 16:45 11/01/21 17:14 UNV Potassium Chloride/Water 100 ml @ 50 mls/hr PRN Q2HR PRN 11/03/21 12:45 11/04/21 03:57 50 MLS/HR Potassium Acetate 40 meq/Magnesium Sulfate 10 meq/ Multivitamins 10 ml/Zinc/Copper/ Manganese/ Selenium 1 ml/ Total Parenteral Nutrition/Amino Acids/Dextrose/ Fat Emulsion Intravenous 1,512 ml @ 63 mls/hr TPN CONT 11/02/21 22:00 11/03/21 21:59 DC 11/02/21 21:34 63 MLS/HR Prochlorperazine Edisylate (Compazine) 5 mg PACU PRN PRN 11/01/21 18:00 11/02/21 17:59 UNV Propofol 100 ml @ 1.461 mls/ hr CONT PRN 11/02/21 03:00 Ringer's Solution 980 ml @ 980 mls/hr 1X ONCE 11/02/21 09:30 11/02/21 10:29 DC 11/02/21 09:25 980 MLS/HR Rocuronium [place] (Zemuron) 100 mg STK-MED ONCE 11/01/21 17:54 11/01/21 17:55 DC Sevoflurane (Ultane) 90 ml STK-MED ONCE 11/01/21 19:58 11/01/21 19:58 DC Sodium Bicarbonate 150 meq/Dextrose 1,150 ml @ 50 mls/hr Q23H 11/01/21 23:00 11/02/21 10:57 DC 11/01/21 22:19 100 MLS/HR Sodium Bicarbonate 75 meq/Dextrose 1,075 ml @ 100 mls/hr [id number] 11/02/21 11:00 11/03/21 09:35 DC 11/02/21 22:14 100 MLS/HR Sodium Bicarbonate (Sodium Bicarb Adult 8.4% Syr) 150 meq 1X ONCE 11/02/21 10:00 11/02/21 10:01 Cancel Sodium Chloride 1,000 ml @ 75 mls/hr [id number] 11/03/21 13:15 11/04/21 02:35 75 MLS/HR Sodium Chloride 60 meq/Potassium Acetate 50 meq/ Potassium Phosphate 13.6 mmol/Magnesium Sulfate 15 meq/ Multivitamins 10 ml/Zinc/Copper/ Manganese/ Selenium 1 ml/ Total Parenteral Nutrition/Amino Acids/Dextrose/ Fat Emulsion Intravenous 1,512 ml @ 63 mls/hr TPN CONT 11/03/21 22:00 11/04/21 21:59 11/03/21 22:14 63 MLS/HR Lab Laboratory Tests Test 11/03/21 11:37 11/03/21 11:39 11/03/21 13:12 11/03/21 18:05 O2 Saturation 98 % (92-99) Arterial Blood pH 7.48 (7.35-7.45) Arterial Blood pCO2 at Patient Temp 37 mmHg (35-46) Arterial Blood pO2 at Patient Temp 149 mmHg (65-108) Arterial Blood HCO3 27 mmol/L (21-28) Arterial Blood Base Excess 3 mmol/L (-3-3) FiO2 40% Glucose (Fingerstick) 372 mg/dL (70-99) 354 mg/dL (70-99) Potassium Level 3.5 mmol/L (3.5-5.1) Test 11/03/21 18:12 11/03/21 23:48 11/04/21 01:00 11/04/21 05:50 Glucose (Fingerstick) 291 mg/dL (70-99) 238 mg/dL (70-99) Potassium Level 3.3 mmol/L (3.5-5.1) 5.4 mmol/L (3.5-5.1) Sodium Level 137 mmol/L (136-145) Chloride Level 106 mmol/L (98-107) Carbon Dioxide Level 22 mmol/L (21-32) Anion Gap 9 (6-14) Blood Urea Nitrogen 55 mg/dL (7-20) Creatinine 1.1 mg/dL (0.6-1.0) Estimated GFR (Cockcroft-Gault) 49.8 Glucose Level 216 mg/dL (70-99) Calcium Level 8.3 mg/dL (8.5-10.1) Phosphorus Level 2.1 mg/dL (2.6-4.7) Albumin 2.2 g/dL (3.4-5.0) Test 11/04/21 06:00 11/04/21 06:09 Magnesium Level 2.3 mg/dL (1.8-2.4) Glucose (Fingerstick) 212 mg/dL (70-99) Results All relevant outside records, renal labs, imaging studies, telemetry/EKG's were reviewed. Justicifation of Admission Dx: Justifications for Admission: Justification of Admission Dx: N/A MILAGROS AKBAR MD Nov 04, 2021 10:38
--- NOTE | 2021-11-04 10:55 | PDOC ---
ARYAN MORENO [facility] RO[facility] 11/04/21 1055: CARDIO Progress Notes Date and Time Date of Service 11/04/21 Time of Evaluation 1050 Subjective Subjective: No Chest Pain, No shortness of breath Vitals Vitals Vital Signs Date Time Temp Pulse Resp B/P (MAP) Pulse Ox O2 Delivery O2 Flow Rate FiO2 11/04/21 10:32 18 91 High Flow Nasal Cannula 3.0 11/04/21 07:00 96 114/66 11/04/21 04:00 97.0 97.0 Weight Weight [ ] Input and Output Intake and Output Intake and Output 11/04/21 07:00 Intake Total 1816.5 ml Output Total 1128 ml Balance 688.5 ml Intake IV Total 1816.5 ml Output Urine Total 928 ml Gastric Drainage Total 125 ml Drainage Total 75 ml Laboratory Labs Laboratory Tests Test 11/03/21 11:37 11/03/21 11:39 11/03/21 13:12 11/03/21 18:05 O2 Saturation 98 % (92-99) Arterial Blood pH 7.48 (7.35-7.45) Arterial Blood pCO2 at Patient Temp 37 mmHg (35-46) Arterial Blood pO2 at Patient Temp 149 mmHg (65-108) Arterial Blood HCO3 27 mmol/L (21-28) Arterial Blood Base Excess 3 mmol/L (-3-3) FiO2 40% Glucose (Fingerstick) 372 mg/dL (70-99) 354 mg/dL (70-99) Potassium Level 3.5 mmol/L (3.5-5.1) Test 11/03/21 18:12 11/03/21 23:48 11/04/21 01:00 11/04/21 05:50 Glucose (Fingerstick) 291 mg/dL (70-99) 238 mg/dL (70-99) Potassium Level 3.3 mmol/L (3.5-5.1) 5.4 mmol/L (3.5-5.1) Sodium Level 137 mmol/L (136-145) Chloride Level 106 mmol/L (98-107) Carbon Dioxide Level 22 mmol/L (21-32) Anion Gap 9 (6-14) Blood Urea Nitrogen 55 mg/dL (7-20) Creatinine 1.1 mg/dL (0.6-1.0) Estimated GFR (Cockcroft-Gault) 49.8 Glucose Level 216 mg/dL (70-99) Calcium Level 8.3 mg/dL (8.5-10.1) Phosphorus Level 2.1 mg/dL (2.6-4.7) Albumin 2.2 g/dL (3.4-5.0) Test 11/04/21 06:00 11/04/21 06:09 Magnesium Level 2.3 mg/dL (1.8-2.4) Glucose (Fingerstick) 212 mg/dL (70-99) Microbiology Micro Microbiology 11/01/21 Gram Stain - Final, Resulted 11/01/21 Aerobic and Anaerobic Culture - Preliminary, Resulted Escherichia Coli Enterococcus Faecalis 11/01/21 Urine Culture - Final, Complete Escherichia Coli Proteus Mirabilis 11/01/21 Blood Culture - Preliminary, Resulted NO GROWTH AFTER 2 DAYS Physical Exam HEENT: Neck Supple W Full Motion Chest: Symmetric LUNGS: Other (diminished bases) Heart: RRR Extremities: No Edema, Other (siffuse ecchymosis, bluish discoloration of the left first, fourth and fifth toes, bilateral LE warm to touch ) Neurology: alert, oriented, follow commands Assessment Assessment 1. Acute septic shock related to a perforated gastric ulcer; s/p repair and drainage of an abdominal abscess 11/01. improving. 2. 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 3. Hx of severe MR and prior mitraclip placement 4. Hx of HTN; off pressor support. BP adequate 5. Acute respiratory failure due to above; s/p extubation 6. SEBAS, hyperkalemia; Cr improved. remains with hyperkalemia 7. PFO with left to right shunting. 8. Thrombocytopenia 9. PAD; left foot toes with ischemic changes. Arterial duplex without evidence of hemodynamically significant stenosis 10. Hx of RA Recommendations Ongoing support Echo pending Monitor PLTs Resume HF optimization therapy when able Justicifation of Admission Dx: Justifications for Admission: Justification of Admission Dx: N/A LUIS GRISSOM MD 11/04/21 1639: CARDIO Progress Notes Plan Plan Patient seen and examined. Agree with above nurse practitioner note. Patient has been extubated. Case discussed with vascular surgery. Continue supportive care. ARYAN MORENO APRN Nov 04, 2021 10:55 LUIS GRISSOM MD Nov 04, 2021 16:39
--- NOTE | 2021-11-04 11:09 | PDOC ---
PULMONARY PROGRESS NOTES DATE: 11/04/21 TIME: 11:06 Subjective Patient extubated 11/03/2021. Currently on nasal cannula Denies any shortness of breath. Vitals Vital Signs Date Time Temp Pulse Resp B/P (MAP) Pulse Ox O2 Delivery O2 Flow Rate FiO2 11/04/21 10:32 18 91 High Flow Nasal Cannula 3.0 11/04/21 09:00 98 116/66 11/04/21 08:00 97.1 97.1 General: Alert, No acute distress Lungs: Clear Cardiovascular: S1 Abdomen: Soft, Other (tender) Extremities: Other (mild edema, toes purple, warm) Skin: Warm Labs Laboratory Tests Test 11/02/21 12:07 11/02/21 17:19 11/03/21 00:00 11/03/21 05:20 Glucose (Fingerstick) 102 mg/dL (70-99) 176 mg/dL (70-99) 303 mg/dL (70-99) Hemoglobin 9.3 g/dL (12.0-15.5) Sodium Level 139 mmol/L (136-145) Potassium Level 3.1 mmol/L (3.5-5.1) Chloride Level 104 mmol/L (98-107) Carbon Dioxide Level 23 mmol/L (21-32) Anion Gap 12 (6-14) Blood Urea Nitrogen 56 mg/dL (7-20) Creatinine 1.7 mg/dL (0.6-1.0) Estimated GFR (Cockcroft-Gault) 30.2 Glucose Level 385 mg/dL (70-99) Calcium Level 7.2 mg/dL (8.5-10.1) Phosphorus Level 3.1 mg/dL (2.6-4.7) Magnesium Level 1.7 mg/dL (1.8-2.4) Albumin 1.5 g/dL (3.4-5.0) Triglycerides Level 148 mg/dL (0-150) Test 11/03/21 07:32 11/03/21 11:37 11/03/21 11:39 11/03/21 13:12 O2 Saturation 98 % (92-99) 98 % (92-99) Arterial Blood pH 7.45 (7.35-7.45) 7.48 (7.35-7.45) Arterial Blood pCO2 at Patient Temp 37 mmHg (35-46) 37 mmHg (35-46) Arterial Blood pO2 at Patient Temp 147 mmHg (65-108) 149 mmHg (65-108) Arterial Blood HCO3 25 mmol/L (21-28) 27 mmol/L (21-28) Arterial Blood Base Excess 2 mmol/L (-3-3) 3 mmol/L (-3-3) FiO2 40% vent 40% Glucose (Fingerstick) 372 mg/dL (70-99) 354 mg/dL (70-99) Test 11/03/21 18:05 11/03/21 18:12 11/03/21 23:48 11/04/21 01:00 Potassium Level 3.5 mmol/L (3.5-5.1) 3.3 mmol/L (3.5-5.1) Glucose (Fingerstick) 291 mg/dL (70-99) 238 mg/dL (70-99) Test 11/04/21 05:50 11/04/21 06:00 11/04/21 06:09 Sodium Level 137 mmol/L (136-145) Potassium Level 5.4 mmol/L (3.5-5.1) Chloride Level 106 mmol/L (98-107) Carbon Dioxide Level 22 mmol/L (21-32) Anion Gap 9 (6-14) Blood Urea Nitrogen 55 mg/dL (7-20) Creatinine 1.1 mg/dL (0.6-1.0) Estimated GFR (Cockcroft-Gault) 49.8 Glucose Level 216 mg/dL (70-99) Calcium Level 8.3 mg/dL (8.5-10.1) Phosphorus Level 2.1 mg/dL (2.6-4.7) Albumin 2.2 g/dL (3.4-5.0) Magnesium Level 2.3 mg/dL (1.8-2.4) Glucose (Fingerstick) 212 mg/dL (70-99) Laboratory Tests Test 11/03/21 11:37 11/03/21 11:39 11/03/21 13:12 11/03/21 18:05 O2 Saturation 98 % (92-99) Arterial Blood pH 7.48 (7.35-7.45) Arterial Blood pCO2 at Patient Temp 37 mmHg (35-46) Arterial Blood pO2 at Patient Temp 149 mmHg (65-108) Arterial Blood HCO3 27 mmol/L (21-28) Arterial Blood Base Excess 3 mmol/L (-3-3) FiO2 40% Glucose (Fingerstick) 372 mg/dL (70-99) 354 mg/dL (70-99) Potassium Level 3.5 mmol/L (3.5-5.1) Test 11/03/21 18:12 11/03/21 23:48 11/04/21 01:00 11/04/21 05:50 Glucose (Fingerstick) 291 mg/dL (70-99) 238 mg/dL (70-99) Potassium Level 3.3 mmol/L (3.5-5.1) 5.4 mmol/L (3.5-5.1) Sodium Level 137 mmol/L (136-145) Chloride Level 106 mmol/L (98-107) Carbon Dioxide Level 22 mmol/L (21-32) Anion Gap 9 (6-14) Blood Urea Nitrogen 55 mg/dL (7-20) Creatinine 1.1 mg/dL (0.6-1.0) Estimated GFR (Cockcroft-Gault) 49.8 Glucose Level 216 mg/dL (70-99) Calcium Level 8.3 mg/dL (8.5-10.1) Phosphorus Level 2.1 mg/dL (2.6-4.7) Albumin 2.2 g/dL (3.4-5.0) Test 11/04/21 06:00 11/04/21 06:09 Magnesium Level 2.3 mg/dL (1.8-2.4) Glucose (Fingerstick) 212 mg/dL (70-99) Medications Active Scripts Medications Dose Route/Sig Max Daily Dose Days Date Category Spironolactone 25 Mg Tablet 0.5 Tab PO DAILYWBKFT 11/02/21 Reported Metoprolol Succinate ( Xl ) (Metoprolol Succinate) 25 Mg Tab.er.24h 0.5 Tab PO DAILY 11/02/21 Reported Zoloft (Sertraline Hcl) 50 Mg Tablet 50 Mg PO DAILY 11/02/21 Reported Levothyroxine Sodium 125 Mcg Tablet 125 Mcg PO DAILYAC 11/02/21 Reported Prednisone 20 Mg Tablet 20 Mg PO DAILY 11/02/21 Reported Protonix (Pantoprazole Sodium) 20 Mg Tablet.dr 40 Mg PO DAILY 11/02/21 Reported Lasix (Furosemide) 40 Mg Tablet 40 Mg PO DAILY 11/02/21 Reported Clopidogrel (Clopidogrel Bisulfate) 75 Mg Tablet 75 Mg PO DAILY 11/02/21 Reported Tramadol Hcl 50 Mg Tablet 50 Mg PO Q6HRS PRN 11/02/21 Reported Fluconazole 100 Mg Tablet 100 Mg PO DAILY 11/02/21 Reported Klor-Con 10 (Potassium Chloride) 10 Meq Tablet.er 10 Meq PO DAILY 11/02/21 Reported Hydrocodone-Acetamin 7.5-325 (Hydrocodone/Acetaminophen) 1 Each Tablet 1 Each PO Q6HRS PRN 11/02/21 Reported Meloxicam 15 Mg Tablet 15 Mg PO DAILY 11/02/21 Reported Impression . 1. Acute respiratory failure secondary to perforated bowel from gastric ulcer perforation. She also has severe metabolic acidosis. Currently extubated and clinically much improved. 2. Perforated viscus. The source was gastric ulcer perforation. She also had evidence of abdominal sepsis/peritonitis. She is status post exploratory laparotomy and repair of the posterior gastric ulcer. 3. Severe metabolic acidosis secondary to perforation, currently improved with a bicarb drip. Off the bicarb drip now. 4. Acute kidney injury. Likely secondary to hypovolemic shock. Improved with fluids 5. Metabolic acidosis. 6. Thrombocytopenia, likely secondary to sepsis. We will monitor closely while on subcu heparin. 7. Abdominal sepsis/suspected peritonitis. Continue on broad-spectrum antibiotics. 8. Severe protein-calorie malnutrition. 9. Lactic acidosis secondary to bowel perforation. 10. purple toes, warm. Seen by vascular surgery. Doppler negative for any stenosis. Plan . 1. Continue present nasal cannula. 2. Follow-up chest x-ray as needed. 3. Continue to monitor platelet count closely. 4. Continue broad-spectrum antibiotics. 5. TPN. 6. vascular surgery consult appreciated. Follow their recommendations. 7. Off the bicarb drip. Renal function improving along with improvement in metabolic acidosis. 8. prn fentanyl 9. Discussed with KOMAL LOPEZ MD Nov 04, 2021 11:09
--- NOTE | 2021-11-04 11:10 | PDOC ---
Infectious Disease Note Subjective Subjective pt is extubated, awake, says feeling better ROS ROS no n/v/d/sob/fever Vital Sign Vital Signs Vital Signs Date Time Temp Pulse Resp B/P (MAP) Pulse Ox O2 Delivery O2 Flow Rate FiO2 11/04/21 10:32 18 91 High Flow Nasal Cannula 3.0 11/04/21 09:00 98 116/66 11/04/21 08:00 97.1 97.1 Physical Exam PHYSICAL EXAM GENERAL: Arousable on the ventilator female, not in distress. VITAL SIGNS: stable HEENT: Both pupils are round and reacting. No conjunctival lesion. Mouth cannot be visualized. Orally intubated. NECK: Supple, no JVP, no lymphadenopathy. LUNGS: Clear. HEART: S1, S2, regular. ABDOMEN: Post-surgical dressing not opened. No distention, no tenderness. EXTREMITIES: No edema, cyanosis. The patient has multiple areas of bruising all over and subcutaneous hemorrhage all over the body, upper and lower as well as she has necrotic cyanotic toes much more so on the left than right. Dorsalis pedis is weak palpable. Sacrococcygeal wound is much smaller and appears that it is healing well. NEUROLOGIC: The patient is sedated on ventilator, but does appear to follow the command. Labs Lab Laboratory Tests Test 11/03/21 11:37 11/03/21 11:39 11/03/21 13:12 11/03/21 18:05 O2 Saturation 98 % (92-99) Arterial Blood pH 7.48 (7.35-7.45) Arterial Blood pCO2 at Patient Temp 37 mmHg (35-46) Arterial Blood pO2 at Patient Temp 149 mmHg (65-108) Arterial Blood HCO3 27 mmol/L (21-28) Arterial Blood Base Excess 3 mmol/L (-3-3) FiO2 40% Glucose (Fingerstick) 372 mg/dL (70-99) 354 mg/dL (70-99) Potassium Level 3.5 mmol/L (3.5-5.1) Test 11/03/21 18:12 11/03/21 23:48 11/04/21 01:00 11/04/21 05:50 Glucose (Fingerstick) 291 mg/dL (70-99) 238 mg/dL (70-99) Potassium Level 3.3 mmol/L (3.5-5.1) 5.4 mmol/L (3.5-5.1) Sodium Level 137 mmol/L (136-145) Chloride Level 106 mmol/L (98-107) Carbon Dioxide Level 22 mmol/L (21-32) Anion Gap 9 (6-14) Blood Urea Nitrogen 55 mg/dL (7-20) Creatinine 1.1 mg/dL (0.6-1.0) Estimated GFR (Cockcroft-Gault) 49.8 Glucose Level 216 mg/dL (70-99) Calcium Level 8.3 mg/dL (8.5-10.1) Phosphorus Level 2.1 mg/dL (2.6-4.7) Albumin 2.2 g/dL (3.4-5.0) Test 11/04/21 06:00 11/04/21 06:09 Magnesium Level 2.3 mg/dL (1.8-2.4) Glucose (Fingerstick) 212 mg/dL (70-99) Micro Microbiology 11/01/21 Gram Stain - Final, Resulted 11/01/21 Aerobic and Anaerobic Culture - Preliminary, Resulted Escherichia Coli Enterococcus Faecalis 11/01/21 Urine Culture - Final, Complete Escherichia Coli Proteus Mirabilis 11/01/21 Blood Culture - Preliminary, Resulted NO GROWTH AFTER 2 DAYS Objective Assessment IMPRESSION: 1. Perforated gastric ulcer, status post exploratory laparotomy and repair with abdominal sepsis, status post incision and drainage. 2. Sepsis with hypotension, lactic acidosis, which has improved. 3. Respiratory failure. 4. Rheumatoid arthritis. 5. Mitral valve clipping done a few months ago. 6. Sacrococcygeal decubitus. 7. Renal insufficiency. 8. Cyanotic toes, more so on the left than right, probably embolic in origin. Plan Plan of Care cont antibiotics cont supportive care ISIDORO MOISE MD Nov 04, 2021 11:10
[2021-11-04] MEDS: TPN PER PHARMACY MC PRN (11:33)
--- NOTE | 2021-11-04 11:43 | NUR ---
Pharmacy TPN Dosing Note S: SHELLY FIGUEROA is a 66 year old F Currently receiving Central Continuous TPN started 11/02/21 B:Pertinent PMH: bowel perforation Height: 5 feet, 1 inches Weight: 53.7 kg Current diet: NPO LABS: Sodium: 137 Potassium: 5.4 Chloride: 106 Calcium: 8.3 Corrected Calcium: 9.74 Magnesium: 2.3 CO2: 22 SCr: 1.1 Glucose: 212-372 Albumin: 2.2 AST: 58 (11/02/21) ALT: 28 (11/02/21) TPN FORMULA: TPN TYPE: Central Continuous AMINO ACIDS: 60 gm DEXTROSE: 195 gm LIPIDS: 20 gm SODIUM CHLORIDE: 60 mEq SODIUM ACETATE: - mEq SODIUM PHOSPHATE: 15 mmol POTASSIUM CHLORIDE: - mEq POTASSIUM ACETATE: - mEq POTASSIUM PHOSPHATE: - mmol MAGNESIUM: 10 mEq CALCIUM: - mEq INSULIN: - units MULTIPLE VITAMIN: 10 ml TRACE ELEMENTS: 1ml ml(s) TPN PLAN: -Continue macros per wrister recommendation -Potassium increased from 3.3 to 5.4. Nephrology aware. 40 mEq IV KCl given outside of TPN yesterday in addition to about 30 mEq increase of potassium in TPN. Additionally, TANJA Turner noted patient to have decreased UOP this AM. Will remove potassium acetate and change from KPhos to NaPhos in TPN at this time. -Phos decreased to 2.1. Will give 1x dose 15 mmol of NaPhos outside of TPN and will increase NaPhos slightly due to decrease in phos from 3.1 to 2.1. -Additionally, Mag increased from 1.7 to 2.3 so will decrease Mag slightly. -Phos, Renal Panel and Mag ordered for 11/05/21 R: Continue TPN with removal of potassium acetate and change from KPhos to NaPhos. Will slightly increase NaPhos and slightly decrease Mag in TPN as well at this time. Will monitor electrolytes, glucose, and tolerance to TPN. MANDA NERI, [facility], 11/04/21 [id number]
--- NOTE | 2021-11-04 13:11 | PDOC ---
[employer] PROGRESS NOTE Date of Service DOS: DATE: 11/04/21 TIME: 13:05 Chief Complaint Chief Complaint acute abdomen, severe sepsis, septic shock perforated gastric ulcer with peritoniti POD #2, gastric surg severe malnutrition Longstanding history of rheumatoid arthritis treated with Remicade and steroids Cardiac arrhythmias Hx s/p Mitral valve clip tobacco abuse disorder, Coronary artery disease with stenting x2 Hypothyroidism Hypertension GERD Anxiety History of Present Illness History of Present Illness 11/04: Patient seen in ICU. States she is resting comfortably, with no complaints of abdominal pain or bilateral feet pain. She continues on TPN, s/p perforated bowel. Answered son's questions regarding further ICU criteria. Currently off pressors. Potassium is elevated today. This should be addressed in TPN feeds, per nephrology's notes. Continue Protonix drip, continue Zosyn. 11/03, cont care in ICU discussed with family, son here marialuisa consult ID to follow, peritonitis, PPI gtt Vitals/I&O Vitals/I&O: Vital Signs Date Time Temp Pulse Resp B/P (MAP) Pulse Ox O2 Delivery O2 Flow Rate FiO2 11/04/21 12:35 16 92 High Flow Nasal Cannula 4.0 11/04/21 12:00 96.5 94 116/64 96.5 I & O0 11/03/21 11/03/21 11/04/21 15:00 23:00 07:00 Intake Total 606.9 ml 1209.6 ml Output Total 350 ml 400 ml 378 ml Balance 256.9 ml 809.6 ml -378 ml Physical Exam Physical Exam: GENERAL: Arousable on the ventilator female, not in distress. VITAL SIGNS: stable HEENT: Both pupils are round and reacting. No conjunctival lesion. Mouth cannot be visualized. Orally intubated. NECK: Supple, no JVP, no lymphadenopathy. LUNGS: Clear. HEART: S1, S2, regular. ABDOMEN: Post-surgical dressing not opened. No distention, no tenderness. EXTREMITIES: No edema, cyanosis. The patient has multiple areas of bruising all over and subcutaneous hemorrhage all over the body, upper and lower as well as she has necrotic cyanotic toes much more so on the left than right. Dorsalis pedis is weak palpable. Sacrococcygeal wound is much smaller and appears that it is healing well. NEUROLOGIC: The patient is sedated on ventilator, but does appear to follow the command. General: Alert, Cooperative Heart: Regular rate Lungs: Clear Abdomen: Soft, Other (drain cloudy serous) Extremities: No cyanosis, No edema, Normal pulses Skin: No rashes Labs Labs: Laboratory Tests Test 11/03/21 13:12 11/03/21 18:05 11/03/21 18:12 11/03/21 23:48 Glucose (Fingerstick) 354 mg/dL (70-99) 291 mg/dL (70-99) 238 mg/dL (70-99) Potassium Level 3.5 mmol/L (3.5-5.1) Test 11/04/21 01:00 11/04/21 05:50 11/04/21 06:00 11/04/21 06:09 Potassium Level 3.3 mmol/L (3.5-5.1) 5.4 mmol/L (3.5-5.1) Sodium Level 137 mmol/L (136-145) Chloride Level 106 mmol/L (98-107) Carbon Dioxide Level 22 mmol/L (21-32) Anion Gap 9 (6-14) Blood Urea Nitrogen 55 mg/dL (7-20) Creatinine 1.1 mg/dL (0.6-1.0) Estimated GFR (Cockcroft-Gault) 49.8 Glucose Level 216 mg/dL (70-99) Calcium Level 8.3 mg/dL (8.5-10.1) Phosphorus Level 2.1 mg/dL (2.6-4.7) Albumin 2.2 g/dL (3.4-5.0) Magnesium Level 2.3 mg/dL (1.8-2.4) Glucose (Fingerstick) 212 mg/dL (70-99) Test 11/04/21 12:15 Glucose (Fingerstick) 220 mg/dL (70-99) Assessment and Plan Assessmemt and Plan Problems Medical Problems: (1) Elevated bilirubin Status: Acute (2) Hyperkalemia Status: Acute (3) Lactic acidosis Status: Acute (4) Leukocytosis Status: Acute (5) Perforated viscus Status: Acute (6) Renal insufficiency Status: Acute Comment Review of Relevant I have reviewed the following items tresa (where applicable) has been applied. Medications: Current Medications Medications (Trade) Dose Ordered Sig/Tiarra Route PRN Reason Start Time Stop Time Status Last Admin Dose Admin Sodium Chloride 60 meq/Potassium Acetate 50 meq/ Potassium Phosphate 13.6 mmol/Magnesium Sulfate 15 meq/ Multivitamins 10 ml/Zinc/Copper/ Manganese/ Selenium 1 ml/ Total Parenteral Nutrition/Amino Acids/Dextrose/ Fat Emulsion Intravenous 1,512 ml @ 63 mls/hr TPN CONT IV 11/03/21 22:00 11/04/21 21:59 11/03/21 22:14 Insulin Human Lispro (HumaLOG) 0-7 UNITS Q6HRS SQ 11/03/21 18:00 11/04/21 12:32 Albumin Human 100 ml @ 100 mls/hr TID IV 11/03/21 14:00 11/05/21 09:59 11/04/21 08:28 Sodium Chloride 1,000 ml @ 75 mls/hr [id number] IV 11/03/21 13:15 11/04/21 02:35 Pantoprazole Sodium 80 mg/ Sodium Chloride 100 ml @ 10 mls/hr Q10H IV 11/03/21 14:00 11/06/21 13:59 11/04/21 09:09 Fentanyl Citrate (Fentanyl 2ml Vial) 25 mcg PRN Q2HR PRN IVP SEVERE PAIN 7-10 11/04/21 05:15 11/04/21 12:35 Justifications for Admission Other Justification CLARISSA HEMPHILL MD Nov 04, 2021 13:11
[2021-11-04] MEDS ORDERED: SODIUM PHOSPHATE 15 MMOL in IV NORMAL SALINE 100ML 100 ML IV ONE (14:00)
[2021-11-04 15:12] LABS: BASO % 0 % (0-3); EOS % 0 % (0-3); HEMATOCRIT 26.9 % (36.0-47.0); HEMOGLOBIN 8.6 g/dL (12.0-15.5); LYMPH # 0.4 x10^3/uL (1.0-4.8); LYMPH % 3 % (24-48); MEAN CORPUSCULAR HEMOGLOBIN 31 pg (25-35); MEAN CORPUSCULAR HGB CONC 32 g/dL (31-37); MEAN CORPUSCULAR VOLUME 97 fL (79-100); MONO # 0.4 x10^3/uL (0.0-1.1); MONO % 4 % (0-9); NEUT # 11.2 x10^3/uL (1.8-7.7); NEUT % 93 % (31-73); RED BLOOD COUNT 2.78 x10^6/uL (3.50-5.40); RED CELL DISTRIBUTION WIDTH 19.2 % (11.5-14.5)
[2021-11-04 15:36] LABS: PLATELET COUNT 15 x10^3/uL (140-400)
--- NOTE | 2021-11-04 16:27 | NUR ---
SS following for discharge planning. SS reviewed pt chart and discussed with pt RN. Pt is from home alone. Pt was extubated on 11/03/2021 and is currently requiring oxygen at four liters nasal canula. NPO. Pt on TPN and IV Zosyn. IV Fentanyl. PT/OT/ST when medically appropriate to participate. Pt's daughter requesting DPOA paperwork. Per RN, pt confused and not appropriate to discuss DPOA. Not ready. SS will continue to follow for discharge planning.
[2021-11-04] MEDS ORDERED: ARGATROBAN PER PHARMACY. MC PRN (19:15)
[2021-11-04] MEDS ORDERED: ARGATROBAN 50 MG in IV NORMAL SALINE 50ML 50 ML IV PRN (19:15)
[2021-11-04] MEDS ORDERED: TOTAL PARENTERAL NUTRITION IV SCH (22:00)
[2021-11-04] MEDS ORDERED: DEXTROSE 70% IV SCH (22:00)
[2021-11-04] MEDS ORDERED: AMINO ACID IV SCH (22:00)
[2021-11-04] MEDS ORDERED: [UNRECOGNIZED DRUG - OTHER] IV SCH (22:00)
[2021-11-04 23:13] LABS: D-DIMER 12.98 ug/mlFEU (0.00-0.50)
[2021-11-05] VITALS (9 sets, daily range): BP systolic 100–122; BP diastolic 64–74
[2021-11-05] MEDS: INSULIN LISPRO 300 UNITS/3 ML VIAL. SQ SCH ×4 (00:42→18:14)
[2021-11-05 01:09] LABS: HEMOGLOBIN A1C 5.2 % (4.8-5.6)
[2021-11-05] MEDS: PIPERACILLIN/TAZOBACTAM 2.25 GM in IV NORMAL SALINE 50ML 50 ML IV SCH (05:54)
[2021-11-05 06:00] LABS: BASO # 0.3 x10^3/uL (0.0-0.2); BASO % 2 % (0-3); EOS % 0 % (0-3); HEMATOCRIT 26.4 % (36.0-47.0); HEMOGLOBIN 8.3 g/dL (12.0-15.5); LYMPH # 0.6 x10^3/uL (1.0-4.8); LYMPH % 4 % (24-48); MEAN CORPUSCULAR HEMOGLOBIN 31 pg (25-35); MEAN CORPUSCULAR HGB CONC 32 g/dL (31-37); MEAN CORPUSCULAR VOLUME 99 fL (79-100); MONO # 0.5 x10^3/uL (0.0-1.1); MONO % 3 % (0-9); NEUT # 14.6 x10^3/uL (1.8-7.7); NEUT % 91 % (31-73); PLATELET COUNT 41 x10^3/uL (140-400); RED BLOOD COUNT 2.67 x10^6/uL (3.50-5.40); RED CELL DISTRIBUTION WIDTH 20.2 % (11.5-14.5); WHITE BLOOD COUNT 16.1 x10^3/uL (4.0-11.0)
[2021-11-05] MEDS: PANTOPRAZOLE SODIUM IV DRIP 80 MG in IV NORMAL SALINE 100ML 100 ML IV SCH (07:32)
[2021-11-05 08:44] LABS: BASE EXCESS ABG -4 mmol/L (-3-3); HCO3 ABG 20 mmol/L (21-28); PCO2 ABG 29 mmHg (35-46); PO2 ABG 93 mmHg (65-108); SAT O2 ABG 96 % (92-99)
[2021-11-05 08:47] LABS: FIO2 ABG 60
--- NOTE | 2021-11-05 08:52 | RAD ---
EXAMINATION: Chest radiograph. VIEWS: Single AP view the chest COMPARISON: Chest radiograph from 11/01/2021 INDICATION:66 years, Female, dyspnea. FINDINGS: Right IJ central venous line terminates within the SVC. Enteric tube terminates below the pelvic diap hragm with the tip and side-port are within the gastric body. Near complete obscuration of the cardiac silhouette. Lungs are mildly hypoinflated. There is developm ent of scattered and confluent bilateral opacities with near complete opacification of the left lung. There is slight deviation of the trachea to the left suggesting left lung volume loss. No pneumothor ax. No acute osseous finding. IMPRESSION: 1. Lines and tubes as above. 2. Development of scattered and confluent bilateral airspace disease. Left lung opacification may rep resent atelectasis with a component possibly representing infiltrate and/or moderate pleural effusion . Additional evaluation with bronchoscopy to evaluate for a mucous plug is recommended. Electronically signed by: Moises Lemus DO (11/05/2021 8:49 AM) [id number]
[2021-11-05] MEDS: ALBUMIN HUMAN 25% 100 ML IV SCH (09:08)
[2021-11-05] MEDS: HYDROCORTISONE SOD SUCC/PF 100 MG/2 ML VIAL. IVP SCH (09:08)
[2021-11-05] MEDS: INSULIN GLARGINE SYRINGE. SQ SCH (09:13)
[2021-11-05] MEDS ORDERED: SODIUM BICARB ADULT 8.4% 50 MEQ/50 ML DISP.SYRIN. IV ONE (09:30)
[2021-11-05 09:40] LABS: ALBUMIN 2.8 g/dL (3.4-5.0); CALCIUM 8.4 mg/dL (8.5-10.1); CREATININE 1.2 mg/dL (0.6-1.0); GFR 45.1; POTASSIUM 4.3 mmol/L (3.5-5.1)
--- NOTE | 2021-11-05 09:40 | PDOC ---
DATE OF SERVICE DATE: 11/05/21 TIME: 09:39 SUBJECTIVE ROS Patient extubated 11/03/2021. Developed hypoxia and tachypnea overnight and requiring BiPAP. OBJECTIVE Vital Signs Vital Signs Date Time Temp Pulse Resp B/P (MAP) Pulse Ox O2 Delivery O2 Flow Rate FiO2 11/05/21 08:29 100 BiPAP/CPAP 11/05/21 04:00 96.9 78 34 110/66 (81) 96.9 11/05/21 03:00 12.0 I & 0 Intake and Output 11/05/21 07:00 Intake Total 5689 ml Output Total 439 ml Balance 5250 ml Intake IV Total 5589 ml Blood Product 100 ml Other 0 ml Output Urine Total 269 ml Gastric Drainage Total 100 ml Drainage Total 70 ml PHYSICAL EXAM Physical Exam GENERAL: in Mild distress , lethargic VHEENT: Both pupils are round and reacting. No conjunctival lesion. NECK: Supple, no JVP, LUNGS: Decreased at bases HEART: S1, S2, regular. ABDOMEN: Post-surgical dressing No distention, EXTREMITIES: No edema, cyanosis. multiple areas of bruising all over and subcutaneous hemorrhage all over the body, upper and lower as well as she has necrotic cyanotic toes much more so on the left than right. NEUROLOGIC: Lethargic Retana + DIAGNOSIS/ASSESSMENT Assessment & Plan Acute kidney injury: Baseline not known. Creatinine trending down , Non Oliguric. Supportive care, maintain Fluid balance, avoid nephrotoxins . Dw Nursing Sepsis with hypotension, lactic acidosis, BCx positive Hypernatremia:resolved hypotonic IV fluids, watch for recurrence on TPN HyperKalemia- 2/2 IV KCL 11/03for HypoKalemia and K in TPN. Adjusted K in TPN , K normal today Anion gap metabolic acidosis: resolved; mildly low again today Acute Resp Failure- Extubated now; Worsening Overnight CxR REPORTED - Development of scattered and confluent bilateral airspace disease. Left lung opacification may represent atelectasis with a component possibly representing infiltrate and/or moderate pleural effusion. Additional evaluation with bronchoscopy to evaluate for a mucous plug is recommended. In Pulm's Opinion 2/2 Vol Overload (Pt not on any IVF only TPN) , Trial of Lasix x1 monitor UOP and renal function Hypomagnesemia: Normal today Severe hypoalbuminemia: Patient currently on TPN. Perforated viscus underwent explorative laparotomy with repair of a perforated gastric ulcer and drainage of an abdominal abscess by general surgery on November 01, 2021. Known history of CAD and mitral valve repair with a mitral clip: Echocardiogram currently being done. Cardiology on board COMMENT/RELEVANT DATA Meds Current Medications Medications (Trade) Dose Ordered Sig/Tiarra Start Time Stop Time Status Last Admin Dose Admin Albumin Human 100 ml @ 100 mls/hr TID 11/03/21 14:00 11/05/21 09:59 11/05/21 09:08 100 MLS/HR Argatroban (Argatroban Per Pharmacy) 1 each PRN DAILY PRN 11/04/21 19:15 11/04/21 19:23 1 EACH Argatroban 50 mg/ Sodium Chloride 50 ml @ 1.611 mls/ hr CONT PRN 11/04/21 19:15 11/04/21 20:57 1.611 MLS/HR Atropine Sulfate (ATROPINE 0.5mg SYRINGE) 0.5 mg PRN Q5MIN PRN 11/02/21 03:00 Bupivacaine HCl/ Epinephrine Bitart (Sensorcain-Epi 0.5% Kit) 30 ml STK-MED ONCE 11/01/21 18:25 11/01/21 18:26 DC Calcium Gluconate (Calcium Gluconate) 1,000 mg 1X ONCE 11/01/21 16:00 11/01/21 16:01 DC 11/01/21 16:35 1,000 MG Clopidogrel Bisulfate (Plavix) 75 mg [id number] 11/02/21 13:00 11/04/21 18:51 DC 11/04/21 08:25 75 MG Cyanocobalamin (Vitamin B-12 Inj) 1,000 mcg 1X ONCE 11/02/21 13:00 11/02/21 13:01 DC 11/02/21 13:14 1,000 MCG Dexmedetomidine HCl 400 mcg/ Sodium Chloride 100 ml @ 2.435 mls/ hr CONT PRN 11/02/21 03:00 Dextrose (Dextrose 50%-Water Syringe) 12.5 gm PRN Q15MIN PRN 11/03/21 12:15 Dextrose (Iv Dextrose 5%) 250 ml PRN Q15MIN PRN 11/03/21 12:15 Dextrose/Sodium Chloride 1,000 ml @ 100 mls/hr Q10H 11/01/21 20:30 11/02/21 05:51 DC Etomidate (Amidate) 20 mg STK-MED ONCE 11/01/21 17:55 11/01/21 17:56 DC Fentanyl Citrate (Fentanyl 2ml Vial) 25 mcg PRN Q2HR PRN 11/04/21 05:15 11/04/21 23:09 25 MCG Fentanyl Citrate (Fentanyl 5ml Vial) 250 mcg STK-MED ONCE 11/01/21 17:55 11/01/21 17:55 DC Glycerin/ Hypromellose/ Polyethylene (Artificial Tears) 1 drop PRN Q1HR PRN 11/02/21 03:00 Heparin Sodium (Porcine) (Heparin Sodium) 5,000 unit Q12HR 11/02/21 09:00 11/04/21 18:18 DC 11/04/21 08:29 5,000 UNIT Hydrocortisone Sodium Succinate (Solu-CORTEF) 100 mg 1X ONCE 11/02/21 12:00 11/02/21 12:01 DC 11/02/21 12:05 100 MG Hydromorphone HCl (Dilaudid) 0.5 mg PRN Q10MIN PRN 11/01/21 18:00 11/02/21 17:59 UNV Info (Tpn Per Pharmacy) 1 each PRN DAILY PRN 11/02/21 09:45 11/04/21 11:33 1 EACH Insulin Glargine (Lantus Syringe) 12 unit DAILY 11/03/21 12:15 11/05/21 09:13 12 UNIT Insulin Human Lispro (HumaLOG) 8 units 1X ONCE 11/03/21 12:15 11/03/21 12:16 DC 11/03/21 12:29 8 UNITS Insulin Human Regular (HumuLIN R VIAL) 10 unit 1X ONCE 11/01/21 16:00 11/01/21 16:01 DC 11/01/21 16:40 10 UNIT Magnesium Sulfate 50 ml @ 25 mls/hr PRN DAILY PRN 11/02/21 11:00 Magnesium Sulfate/ Dextrose 100 ml @ 100 mls/hr 1X ONCE 11/03/21 13:00 11/03/21 13:59 DC 11/03/21 13:25 100 MLS/HR Midazolam HCl 100 ml @ 1 mls/hr CONT PRN 11/02/21 03:00 Morphine Sulfate (Morphine Sulfate) 1 mg PRN Q10MIN PRN 11/01/21 18:00 11/02/21 17:59 UNV Norepinephrine Bitartrate 8 mg/ Dextrose 258 ml @ 9.423 mls/ hr CONT PRN 11/02/21 05:15 11/02/21 21:35 21.674 MLS/HR Ondansetron HCl (Zofran) 4 mg PRN Q8HRS PRN 11/01/21 16:45 11/02/21 16:44 DC Pantoprazole Sodium 80 mg/ Sodium Chloride 100 ml @ 10 mls/hr Q10H 11/03/21 14:00 11/06/21 13:59 11/05/21 07:32 10 MLS/HR Phenylephrine HCl (PHENYLEPHRINE in 0.9% NACL PF) 1 mg STK-MED ONCE 11/01/21 19:53 11/01/21 19:53 DC Piperacillin Sod/ Tazobactam Sod (Zosyn Per Pharmacy) 1 each PRN DAILY PRN 11/01/21 18:15 Piperacillin Sod/ Tazobactam Sod 2.25 gm/Sodium Chloride 50 ml @ 100 mls/hr Q8HRS 11/01/21 22:00 11/05/21 08:14 DC 11/05/21 05:54 100 MLS/HR Piperacillin Sod/ Tazobactam Sod 3.375 gm/Sodium Chloride 50 ml @ 100 mls/hr Q6HRS 11/05/21 12:00 Potassium Chloride/Water 100 ml @ 50 mls/hr PRN Q2HR PRN 11/03/21 12:45 11/04/21 03:57 50 MLS/HR Potassium Acetate 40 meq/Magnesium Sulfate 10 meq/ Multivitamins 10 ml/Zinc/Copper/ Manganese/ Selenium 1 ml/ Total Parenteral Nutrition/Amino Acids/Dextrose/ Fat Emulsion Intravenous 1,512 ml @ 63 mls/hr TPN CONT 11/02/21 22:00 11/03/21 21:59 DC 11/02/21 21:34 63 MLS/HR Prochlorperazine Edisylate (Compazine) 5 mg PACU PRN PRN 11/01/21 18:00 11/02/21 17:59 UNV Propofol 100 ml @ 1.461 mls/ hr CONT PRN 11/02/21 03:00 Ringer's Solution 980 ml @ 980 mls/hr 1X ONCE 11/02/21 09:30 11/02/21 10:29 DC 11/02/21 09:25 980 MLS/HR Rocuronium [place] (Zemuron) 100 mg STK-MED ONCE 11/01/21 17:54 11/01/21 17:55 DC Sevoflurane (Ultane) 90 ml STK-MED ONCE 11/01/21 19:58 11/01/21 19:58 DC Sodium Bicarbonate 150 meq/Dextrose 1,150 ml @ 50 mls/hr Q23H 11/01/21 23:00 11/02/21 10:57 DC 11/01/21 22:19 100 MLS/HR Sodium Bicarbonate 75 meq/Dextrose 1,075 ml @ 100 mls/hr [id number] 11/02/21 11:00 11/03/21 09:35 DC 11/02/21 22:14 100 MLS/HR Sodium Bicarbonate (Sodium Bicarb Adult 8.4% Syr) 50 meq 1X ONCE 11/05/21 09:30 11/05/21 09:31 DC Sodium Chloride 60 meq/Potassium Acetate 50 meq/ Potassium Phosphate 13.6 mmol/Magnesium Sulfate 15 meq/ Multivitamins 10 ml/Zinc/Copper/ Manganese/ Selenium 1 ml/ Total Parenteral Nutrition/Amino Acids/Dextrose/ Fat Emulsion Intravenous 1,512 ml @ 63 mls/hr TPN CONT 11/03/21 22:00 11/04/21 21:59 DC 11/03/21 22:14 63 MLS/HR Sodium Chloride 60 meq/Sodium Phosphate 15 mmol/ Magnesium Sulfate 10 meq/ Multivitamins 10 ml/Zinc/Copper/ Manganese/ Selenium 1 ml/ Total Parenteral Nutrition/Amino Acids/Dextrose/ Fat Emulsion Intravenous 1,512 ml @ 63 mls/hr TPN CONT 11/04/21 22:00 11/05/21 21:59 11/04/21 22:15 63 MLS/HR Sodium Phosphate 15 mmol/Sodium Chloride 105 ml @ 105 mls/hr 1X ONCE 11/04/21 14:00 11/04/21 14:59 DC 11/04/21 15:27 105 MLS/HR Lab Laboratory Tests Test 11/04/21 12:15 11/04/21 14:50 11/04/21 18:01 11/04/21 22:30 Glucose (Fingerstick) 220 mg/dL (70-99) 212 mg/dL (70-99) White Blood Count 12.0 x10^3/uL (4.0-11.0) Red Blood Count 2.78 x10^6/uL (3.50-5.40) Hemoglobin 8.6 g/dL (12.0-15.5) Hematocrit 26.9 % (36.0-47.0) Mean Corpuscular Volume 97 fL (79-100) Mean Corpuscular Hemoglobin 31 pg (25-35) Mean Corpuscular Hemoglobin Concent 32 g/dL (31-37) Red Cell Distribution Width 19.2 % (11.5-14.5) Platelet Count 15 x10^3/uL (140-400) Neutrophils (%) (Auto) 93 % (31-73) Lymphocytes (%) (Auto) 3 % (24-48) Monocytes (%) (Auto) 4 % (0-9) Eosinophils (%) (Auto) 0 % (0-3) Basophils (%) (Auto) 0 % (0-3) Neutrophils # (Auto) 11.2 x10^3/uL (1.8-7.7) Lymphocytes # (Auto) 0.4 x10^3/uL (1.0-4.8) Monocytes # (Auto) 0.4 x10^3/uL (0.0-1.1) Eosinophils # (Auto) 0.0 x10^3/uL (0.0-0.7) Basophils # (Auto) 0.0 x10^3/uL (0.0-0.2) Activated Partial Thromboplast Time 58 SEC (24-38) Fibrinogen 257 mg/dL (200-440) D-Dimer (Linda) 12.98 ug/mlFEU (0.00-0.50) Test 11/05/21 00:41 11/05/21 03:05 11/05/21 05:50 11/05/21 05:52 Glucose (Fingerstick) 205 mg/dL (70-99) 232 mg/dL (70-99) Activated Partial Thromboplast Time 83 SEC (24-38) White Blood Count 16.1 x10^3/uL (4.0-11.0) Red Blood Count 2.67 x10^6/uL (3.50-5.40) Hemoglobin 8.3 g/dL (12.0-15.5) Hematocrit 26.4 % (36.0-47.0) Mean Corpuscular Volume 99 fL (79-100) Mean Corpuscular Hemoglobin 31 pg (25-35) Mean Corpuscular Hemoglobin Concent 32 g/dL (31-37) Red Cell Distribution Width 20.2 % (11.5-14.5) Platelet Count 41 x10^3/uL (140-400) Neutrophils (%) (Auto) 91 % (31-73) Lymphocytes (%) (Auto) 4 % (24-48) Monocytes (%) (Auto) 3 % (0-9) Eosinophils (%) (Auto) 0 % (0-3) Basophils (%) (Auto) 2 % (0-3) Neutrophils # (Auto) 14.6 x10^3/uL (1.8-7.7) Lymphocytes # (Auto) 0.6 x10^3/uL (1.0-4.8) Monocytes # (Auto) 0.5 x10^3/uL (0.0-1.1) Eosinophils # (Auto) 0.0 x10^3/uL (0.0-0.7) Basophils # (Auto) 0.3 x10^3/uL (0.0-0.2) Magnesium Level 2.5 mg/dL (1.8-2.4) Test 11/05/21 08:00 11/05/21 09:00 O2 Saturation 96 % (92-99) Arterial Blood pH 7.45 (7.35-7.45) Arterial Blood pCO2 at Patient Temp 29 mmHg (35-46) Arterial Blood pO2 at Patient Temp 93 mmHg (65-108) Arterial Blood HCO3 20 mmol/L (21-28) Arterial Blood Base Excess -4 mmol/L (-3-3) FiO2 60 Activated Partial Thromboplast Time 84 SEC (24-38) Results All relevant outside records, renal labs, imaging studies, telemetry/EKG's were reviewed. Justicifation of Admission Dx: Justifications for Admission: Justification of Admission Dx: N/A MILAGROS AKBAR MD Nov 05, 2021 09:40
--- NOTE | 2021-11-05 09:57 | PDOC ---
PULMONARY PROGRESS NOTES DATE: 11/05/21 TIME: 09:50 Subjective Patient extubated 11/03/2021. Patient developed hypoxia and tachypnea overnight and requiring BiPAP. Chest x-ray is worsened with interstitial infiltrates on the right side and development of pleural effusion/atelectasis in the left lung. Remains weak and frail Vitals Vital Signs Date Time Temp Pulse Resp B/P (MAP) Pulse Ox O2 Delivery O2 Flow Rate FiO2 11/05/21 08:29 100 BiPAP/CPAP 11/05/21 04:00 96.9 78 34 110/66 (81) 96.9 11/05/21 03:00 12.0 General: Alert, Lethargic, Mild Distress Lungs: Clear Cardiovascular: S1 Abdomen: Soft, Other (tender) Extremities: Other (mild edema, toes purple, warm) Skin: Warm Labs Laboratory Tests Test 11/03/21 11:37 11/03/21 11:39 11/03/21 13:12 11/03/21 18:05 O2 Saturation 98 % (92-99) Arterial Blood pH 7.48 (7.35-7.45) Arterial Blood pCO2 at Patient Temp 37 mmHg (35-46) Arterial Blood pO2 at Patient Temp 149 mmHg (65-108) Arterial Blood HCO3 27 mmol/L (21-28) Arterial Blood Base Excess 3 mmol/L (-3-3) FiO2 40% Glucose (Fingerstick) 372 mg/dL (70-99) 354 mg/dL (70-99) Potassium Level 3.5 mmol/L (3.5-5.1) Test 11/03/21 18:12 11/03/21 23:48 11/04/21 01:00 11/04/21 05:50 Glucose (Fingerstick) 291 mg/dL (70-99) 238 mg/dL (70-99) Potassium Level 3.3 mmol/L (3.5-5.1) 5.4 mmol/L (3.5-5.1) Sodium Level 137 mmol/L (136-145) Chloride Level 106 mmol/L (98-107) Carbon Dioxide Level 22 mmol/L (21-32) Anion Gap 9 (6-14) Blood Urea Nitrogen 55 mg/dL (7-20) Creatinine 1.1 mg/dL (0.6-1.0) Estimated GFR (Cockcroft-Gault) 49.8 Glucose Level 216 mg/dL (70-99) Hemoglobin A1c 5.2 % (4.8-5.6) Calcium Level 8.3 mg/dL (8.5-10.1) Phosphorus Level 2.1 mg/dL (2.6-4.7) Albumin 2.2 g/dL (3.4-5.0) Test 11/04/21 06:00 11/04/21 06:09 11/04/21 12:15 11/04/21 14:50 Magnesium Level 2.3 mg/dL (1.8-2.4) Glucose (Fingerstick) 212 mg/dL (70-99) 220 mg/dL (70-99) White Blood Count 12.0 x10^3/uL (4.0-11.0) Red Blood Count 2.78 x10^6/uL (3.50-5.40) Hemoglobin 8.6 g/dL (12.0-15.5) Hematocrit 26.9 % (36.0-47.0) Mean Corpuscular Volume 97 fL (79-100) Mean Corpuscular Hemoglobin 31 pg (25-35) Mean Corpuscular Hemoglobin Concent 32 g/dL (31-37) Red Cell Distribution Width 19.2 % (11.5-14.5) Platelet Count 15 x10^3/uL (140-400) Neutrophils (%) (Auto) 93 % (31-73) Lymphocytes (%) (Auto) 3 % (24-48) Monocytes (%) (Auto) 4 % (0-9) Eosinophils (%) (Auto) 0 % (0-3) Basophils (%) (Auto) 0 % (0-3) Neutrophils # (Auto) 11.2 x10^3/uL (1.8-7.7) Lymphocytes # (Auto) 0.4 x10^3/uL (1.0-4.8) Monocytes # (Auto) 0.4 x10^3/uL (0.0-1.1) Eosinophils # (Auto) 0.0 x10^3/uL (0.0-0.7) Basophils # (Auto) 0.0 x10^3/uL (0.0-0.2) Test 11/04/21 18:01 11/04/21 22:30 11/05/21 00:41 11/05/21 03:05 Glucose (Fingerstick) 212 mg/dL (70-99) 205 mg/dL (70-99) Activated Partial Thromboplast Time 58 SEC (24-38) 83 SEC (24-38) Fibrinogen 257 mg/dL (200-440) D-Dimer (Linda) 12.98 ug/mlFEU (0.00-0.50) Test 11/05/21 05:50 11/05/21 05:52 11/05/21 08:00 11/05/21 09:00 White Blood Count 16.1 x10^3/uL (4.0-11.0) Red Blood Count 2.67 x10^6/uL (3.50-5.40) Hemoglobin 8.3 g/dL (12.0-15.5) Hematocrit 26.4 % (36.0-47.0) Mean Corpuscular Volume 99 fL (79-100) Mean Corpuscular Hemoglobin 31 pg (25-35) Mean Corpuscular Hemoglobin Concent 32 g/dL (31-37) Red Cell Distribution Width 20.2 % (11.5-14.5) Platelet Count 41 x10^3/uL (140-400) Neutrophils (%) (Auto) 91 % (31-73) Lymphocytes (%) (Auto) 4 % (24-48) Monocytes (%) (Auto) 3 % (0-9) Eosinophils (%) (Auto) 0 % (0-3) Basophils (%) (Auto) 2 % (0-3) Neutrophils # (Auto) 14.6 x10^3/uL (1.8-7.7) Lymphocytes # (Auto) 0.6 x10^3/uL (1.0-4.8) Monocytes # (Auto) 0.5 x10^3/uL (0.0-1.1) Eosinophils # (Auto) 0.0 x10^3/uL (0.0-0.7) Basophils # (Auto) 0.3 x10^3/uL (0.0-0.2) Magnesium Level 2.5 mg/dL (1.8-2.4) Glucose (Fingerstick) 232 mg/dL (70-99) O2 Saturation 96 % (92-99) Arterial Blood pH 7.45 (7.35-7.45) Arterial Blood pCO2 at Patient Temp 29 mmHg (35-46) Arterial Blood pO2 at Patient Temp 93 mmHg (65-108) Arterial Blood HCO3 20 mmol/L (21-28) Arterial Blood Base Excess -4 mmol/L (-3-3) FiO2 60 Activated Partial Thromboplast Time 84 SEC (24-38) Sodium Level 141 mmol/L (136-145) Potassium Level 4.3 mmol/L (3.5-5.1) Chloride Level 106 mmol/L (98-107) Carbon Dioxide Level 19 mmol/L (21-32) Anion Gap 16 (6-14) Blood Urea Nitrogen 68 mg/dL (7-20) Creatinine 1.2 mg/dL (0.6-1.0) Estimated GFR (Cockcroft-Gault) 45.1 Glucose Level 232 mg/dL (70-99) Calcium Level 8.4 mg/dL (8.5-10.1) Phosphorus Level 4.0 mg/dL (2.6-4.7) Albumin 2.8 g/dL (3.4-5.0) Laboratory Tests Test 11/04/21 12:15 11/04/21 14:50 11/04/21 18:01 11/04/21 22:30 Glucose (Fingerstick) 220 mg/dL (70-99) 212 mg/dL (70-99) White Blood Count 12.0 x10^3/uL (4.0-11.0) Red Blood Count 2.78 x10^6/uL (3.50-5.40) Hemoglobin 8.6 g/dL (12.0-15.5) Hematocrit 26.9 % (36.0-47.0) Mean Corpuscular Volume 97 fL (79-100) Mean Corpuscular Hemoglobin 31 pg (25-35) Mean Corpuscular Hemoglobin Concent 32 g/dL (31-37) Red Cell Distribution Width 19.2 % (11.5-14.5) Platelet Count 15 x10^3/uL (140-400) Neutrophils (%) (Auto) 93 % (31-73) Lymphocytes (%) (Auto) 3 % (24-48) Monocytes (%) (Auto) 4 % (0-9) Eosinophils (%) (Auto) 0 % (0-3) Basophils (%) (Auto) 0 % (0-3) Neutrophils # (Auto) 11.2 x10^3/uL (1.8-7.7) Lymphocytes # (Auto) 0.4 x10^3/uL (1.0-4.8) Monocytes # (Auto) 0.4 x10^3/uL (0.0-1.1) Eosinophils # (Auto) 0.0 x10^3/uL (0.0-0.7) Basophils # (Auto) 0.0 x10^3/uL (0.0-0.2) Activated Partial Thromboplast Time 58 SEC (24-38) Fibrinogen 257 mg/dL (200-440) D-Dimer (Linda) 12.98 ug/mlFEU (0.00-0.50) Test 11/05/21 00:41 11/05/21 03:05 11/05/21 05:50 11/05/21 05:52 Glucose (Fingerstick) 205 mg/dL (70-99) 232 mg/dL (70-99) Activated Partial Thromboplast Time 83 SEC (24-38) White Blood Count 16.1 x10^3/uL (4.0-11.0) Red Blood Count 2.67 x10^6/uL (3.50-5.40) Hemoglobin 8.3 g/dL (12.0-15.5) Hematocrit 26.4 % (36.0-47.0) Mean Corpuscular Volume 99 fL (79-100) Mean Corpuscular Hemoglobin 31 pg (25-35) Mean Corpuscular Hemoglobin Concent 32 g/dL (31-37) Red Cell Distribution Width 20.2 % (11.5-14.5) Platelet Count 41 x10^3/uL (140-400) Neutrophils (%) (Auto) 91 % (31-73) Lymphocytes (%) (Auto) 4 % (24-48) Monocytes (%) (Auto) 3 % (0-9) Eosinophils (%) (Auto) 0 % (0-3) Basophils (%) (Auto) 2 % (0-3) Neutrophils # (Auto) 14.6 x10^3/uL (1.8-7.7) Lymphocytes # (Auto) 0.6 x10^3/uL (1.0-4.8) Monocytes # (Auto) 0.5 x10^3/uL (0.0-1.1) Eosinophils # (Auto) 0.0 x10^3/uL (0.0-0.7) Basophils # (Auto) 0.3 x10^3/uL (0.0-0.2) Magnesium Level 2.5 mg/dL (1.8-2.4) Test 11/05/21 08:00 11/05/21 09:00 O2 Saturation 96 % (92-99) Arterial Blood pH 7.45 (7.35-7.45) Arterial Blood pCO2 at Patient Temp 29 mmHg (35-46) Arterial Blood pO2 at Patient Temp 93 mmHg (65-108) Arterial Blood HCO3 20 mmol/L (21-28) Arterial Blood Base Excess -4 mmol/L (-3-3) FiO2 60 Activated Partial Thromboplast Time 84 SEC (24-38) Sodium Level 141 mmol/L (136-145) Potassium Level 4.3 mmol/L (3.5-5.1) Chloride Level 106 mmol/L (98-107) Carbon Dioxide Level 19 mmol/L (21-32) Anion Gap 16 (6-14) Blood Urea Nitrogen 68 mg/dL (7-20) Creatinine 1.2 mg/dL (0.6-1.0) Estimated GFR (Cockcroft-Gault) 45.1 Glucose Level 232 mg/dL (70-99) Calcium Level 8.4 mg/dL (8.5-10.1) Phosphorus Level 4.0 mg/dL (2.6-4.7) Albumin 2.8 g/dL (3.4-5.0) Medications Active Scripts Medications Dose Route/Sig Max Daily Dose Days Date Category Spironolactone 25 Mg Tablet 0.5 Tab PO [id number] 11/02/21 Reported Metoprolol Succinate ( Xl ) (Metoprolol Succinate) 25 Mg Tab.er.24h 0.5 Tab PO DAILY 11/02/21 Reported Zoloft (Sertraline Hcl) 50 Mg Tablet 50 Mg PO DAILY 11/02/21 Reported Levothyroxine Sodium 125 Mcg Tablet 125 Mcg PO DAILYAC 11/02/21 Reported Prednisone 20 Mg Tablet 20 Mg PO DAILY 11/02/21 Reported Protonix (Pantoprazole Sodium) 20 Mg Tablet.dr 40 Mg PO DAILY 11/02/21 Reported Lasix (Furosemide) 40 Mg Tablet 40 Mg PO DAILY 11/02/21 Reported Clopidogrel (Clopidogrel Bisulfate) 75 Mg Tablet 75 Mg PO DAILY 11/02/21 Reported Tramadol Hcl 50 Mg Tablet 50 Mg PO Q6HRS PRN 11/02/21 Reported Fluconazole 100 Mg Tablet 100 Mg PO DAILY 11/02/21 Reported Klor-Con 10 (Potassium Chloride) 10 Meq Tablet.er 10 Meq PO DAILY 11/02/21 Reported Hydrocodone-Acetamin 7.5-325 (Hydrocodone/Acetaminophen) 1 Each Tablet 1 Each PO Q6HRS PRN 11/02/21 Reported Meloxicam 15 Mg Tablet 15 Mg PO DAILY 11/02/21 Reported Comments Chest x-ray reviewed 11/05/2021 New interstitial infiltrates in the right lung and moderate volume loss related to pleural effusion and atelectasis on the left lung Impression . 1. Acute respiratory failure secondary to perforated bowel from gastric ulcer perforation. She also had severe metabolic acidosis. Currently extubated . Back on BiPAP since last night. 2. Perforated viscus. The source was gastric ulcer perforation. She also had evidence of abdominal sepsis/peritonitis. She is status post exploratory laparotomy and repair of the posterior gastric ulcer. 3. Severe metabolic acidosis secondary to perforation, 4. Acute kidney injury. Likely secondary to hypovolemic shock. Improved with fluids. Now has pulmonary edema 5. Metabolic acidosis. 6. Thrombocytopenia, likely secondary to sepsis. We will monitor closely 7. Abdominal sepsis/suspected peritonitis. Continue on broad-spectrum antibiotics. 8. Severe protein-calorie malnutrition. 9. Lactic acidosis secondary to bowel perforation. 10. purple toes, warm. Seen by vascular surgery. Doppler negative for any stenosis. 11. Abnormal chest x-ray with development of interstitial edema and left-sided pleural effusion. Plan . 1. We will try off the BiPAP to see if she can tolerate nasal cannula. 2. Discussed with renal. Will give extra IV Lasix. Monitor renal function closely. 3. Continue to monitor platelet count closely. 4. Continue broad-spectrum antibiotics. 5. TPN. 6. vascular surgery consult appreciated. Follow their recommendations. 7. Once clinically improved, will do a noncontrast CT chest to better assess for effusion versus mucous plug on the left side. She may need thoracentesis. 8. prn fentanyl 9. Discussed with RN and renal. critical care time 30 minutes KOMAL TUCKER MD Nov 05, 2021 09:57
[2021-11-05] MEDS ORDERED: FUROSEMIDE 40 MG/4 ML VIAL. IVP ONE (10:00)
[2021-11-05 10:03] LABS: % BANDS 12 % (0-9); % EOS 1 % (0-5); % LYMPHS 5 % (24-48); % MONOS 1 % (0-10); % SEGS 81 % (35-66); NUCLEATED RBC 1
[2021-11-05 10:04] LABS: ANISOCYTOSIS SLIGHT; PLT ESTIMATE DECREASED (ADEQUATE)
--- NOTE | 2021-11-05 11:23 | PDOC ---
SURGICAL PROGRESS NOTE DATE: 11/05/21 TIME: 11:20 Subjective moans during exam family present pt asking for water Vital Signs Vital Signs Date Time Temp Pulse Resp B/P (MAP) Pulse Ox O2 Delivery O2 Flow Rate FiO2 11/05/21 08:29 100 BiPAP/CPAP 11/05/21 04:00 96.9 78 34 110/66 (81) 96.9 11/05/21 03:00 12.0 I&O Intake and Output 11/05/21 07:00 Intake Total 5689 ml Output Total 439 ml Balance 5250 ml Intake IV Total 5589 ml Blood Product 100 ml Other 0 ml Output Urine Total 269 ml Gastric Drainage Total 100 ml Drainage Total 70 ml PATIENT HAS A LINDSAY: Yes General: Other (moans, opens eyes, does not answer questions ) Lungs: Other (ng is bloody ) Abdomen: Soft, Other (drain is bloody drainage ) Labs Laboratory Tests Test 11/03/21 11:37 11/03/21 11:39 11/03/21 13:12 11/03/21 18:05 O2 Saturation 98 % (92-99) Arterial Blood pH 7.48 (7.35-7.45) Arterial Blood pCO2 at Patient Temp 37 mmHg (35-46) Arterial Blood pO2 at Patient Temp 149 mmHg (65-108) Arterial Blood HCO3 27 mmol/L (21-28) Arterial Blood Base Excess 3 mmol/L (-3-3) FiO2 40% Glucose (Fingerstick) 372 mg/dL (70-99) 354 mg/dL (70-99) Potassium Level 3.5 mmol/L (3.5-5.1) Test 11/03/21 18:12 11/03/21 23:48 11/04/21 01:00 11/04/21 05:50 Glucose (Fingerstick) 291 mg/dL (70-99) 238 mg/dL (70-99) Potassium Level 3.3 mmol/L (3.5-5.1) 5.4 mmol/L (3.5-5.1) Sodium Level 137 mmol/L (136-145) Chloride Level 106 mmol/L (98-107) Carbon Dioxide Level 22 mmol/L (21-32) Anion Gap 9 (6-14) Blood Urea Nitrogen 55 mg/dL (7-20) Creatinine 1.1 mg/dL (0.6-1.0) Estimated GFR (Cockcroft-Gault) 49.8 Glucose Level 216 mg/dL (70-99) Hemoglobin A1c 5.2 % (4.8-5.6) Calcium Level 8.3 mg/dL (8.5-10.1) Phosphorus Level 2.1 mg/dL (2.6-4.7) Albumin 2.2 g/dL (3.4-5.0) Test 11/04/21 06:00 11/04/21 06:09 11/04/21 12:15 11/04/21 14:50 Magnesium Level 2.3 mg/dL (1.8-2.4) Glucose (Fingerstick) 212 mg/dL (70-99) 220 mg/dL (70-99) White Blood Count 12.0 x10^3/uL (4.0-11.0) Red Blood Count 2.78 x10^6/uL (3.50-5.40) Hemoglobin 8.6 g/dL (12.0-15.5) Hematocrit 26.9 % (36.0-47.0) Mean Corpuscular Volume 97 fL (79-100) Mean Corpuscular Hemoglobin 31 pg (25-35) Mean Corpuscular Hemoglobin Concent 32 g/dL (31-37) Red Cell Distribution Width 19.2 % (11.5-14.5) Platelet Count 15 x10^3/uL (140-400) Neutrophils (%) (Auto) 93 % (31-73) Lymphocytes (%) (Auto) 3 % (24-48) Monocytes (%) (Auto) 4 % (0-9) Eosinophils (%) (Auto) 0 % (0-3) Basophils (%) (Auto) 0 % (0-3) Neutrophils # (Auto) 11.2 x10^3/uL (1.8-7.7) Lymphocytes # (Auto) 0.4 x10^3/uL (1.0-4.8) Monocytes # (Auto) 0.4 x10^3/uL (0.0-1.1) Eosinophils # (Auto) 0.0 x10^3/uL (0.0-0.7) Basophils # (Auto) 0.0 x10^3/uL (0.0-0.2) Test 11/04/21 18:01 11/04/21 22:30 11/05/21 00:41 11/05/21 03:05 Glucose (Fingerstick) 212 mg/dL (70-99) 205 mg/dL (70-99) Activated Partial Thromboplast Time 58 SEC (24-38) 83 SEC (24-38) Fibrinogen 257 mg/dL (200-440) D-Dimer (Linda) 12.98 ug/mlFEU (0.00-0.50) Test 11/05/21 05:50 11/05/21 05:52 11/05/21 08:00 11/05/21 09:00 White Blood Count 16.1 x10^3/uL (4.0-11.0) Red Blood Count 2.67 x10^6/uL (3.50-5.40) Hemoglobin 8.3 g/dL (12.0-15.5) Hematocrit 26.4 % (36.0-47.0) Mean Corpuscular Volume 99 fL (79-100) Mean Corpuscular Hemoglobin 31 pg (25-35) Mean Corpuscular Hemoglobin Concent 32 g/dL (31-37) Red Cell Distribution Width 20.2 % (11.5-14.5) Platelet Count 41 x10^3/uL (140-400) Neutrophils (%) (Auto) 91 % (31-73) Lymphocytes (%) (Auto) 4 % (24-48) Monocytes (%) (Auto) 3 % (0-9) Eosinophils (%) (Auto) 0 % (0-3) Basophils (%) (Auto) 2 % (0-3) Neutrophils # (Auto) 14.6 x10^3/uL (1.8-7.7) Lymphocytes # (Auto) 0.6 x10^3/uL (1.0-4.8) Monocytes # (Auto) 0.5 x10^3/uL (0.0-1.1) Eosinophils # (Auto) 0.0 x10^3/uL (0.0-0.7) Basophils # (Auto) 0.3 x10^3/uL (0.0-0.2) Segmented Neutrophils % 81 % (35-66) Band Neutrophils % 12 % (0-9) Lymphocytes % 5 % (24-48) Monocytes % 1 % (0-10) Eosinophils % 1 % (0-5) Nucleated Red Blood Cells 1 Platelet Estimate Decreased (ADEQUATE) Anisocytosis Slight Magnesium Level 2.5 mg/dL (1.8-2.4) Glucose (Fingerstick) 232 mg/dL (70-99) O2 Saturation 96 % (92-99) Arterial Blood pH 7.45 (7.35-7.45) Arterial Blood pCO2 at Patient Temp 29 mmHg (35-46) Arterial Blood pO2 at Patient Temp 93 mmHg (65-108) Arterial Blood HCO3 20 mmol/L (21-28) Arterial Blood Base Excess -4 mmol/L (-3-3) FiO2 60 Activated Partial Thromboplast Time 84 SEC (24-38) Sodium Level 141 mmol/L (136-145) Potassium Level 4.3 mmol/L (3.5-5.1) Chloride Level 106 mmol/L (98-107) Carbon Dioxide Level 19 mmol/L (21-32) Anion Gap 16 (6-14) Blood Urea Nitrogen 68 mg/dL (7-20) Creatinine 1.2 mg/dL (0.6-1.0) Estimated GFR (Cockcroft-Gault) 45.1 Glucose Level 232 mg/dL (70-99) Calcium Level 8.4 mg/dL (8.5-10.1) Phosphorus Level 4.0 mg/dL (2.6-4.7) Albumin 2.8 g/dL (3.4-5.0) Laboratory Tests Test 11/04/21 12:15 11/04/21 14:50 11/04/21 18:01 11/04/21 22:30 Glucose (Fingerstick) 220 mg/dL (70-99) 212 mg/dL (70-99) White Blood Count 12.0 x10^3/uL (4.0-11.0) Red Blood Count 2.78 x10^6/uL (3.50-5.40) Hemoglobin 8.6 g/dL (12.0-15.5) Hematocrit 26.9 % (36.0-47.0) Mean Corpuscular Volume 97 fL (79-100) Mean Corpuscular Hemoglobin 31 pg (25-35) Mean Corpuscular Hemoglobin Concent 32 g/dL (31-37) Red Cell Distribution Width 19.2 % (11.5-14.5) Platelet Count 15 x10^3/uL (140-400) Neutrophils (%) (Auto) 93 % (31-73) Lymphocytes (%) (Auto) 3 % (24-48) Monocytes (%) (Auto) 4 % (0-9) Eosinophils (%) (Auto) 0 % (0-3) Basophils (%) (Auto) 0 % (0-3) Neutrophils # (Auto) 11.2 x10^3/uL (1.8-7.7) Lymphocytes # (Auto) 0.4 x10^3/uL (1.0-4.8) Monocytes # (Auto) 0.4 x10^3/uL (0.0-1.1) Eosinophils # (Auto) 0.0 x10^3/uL (0.0-0.7) Basophils # (Auto) 0.0 x10^3/uL (0.0-0.2) Activated Partial Thromboplast Time 58 SEC (24-38) Fibrinogen 257 mg/dL (200-440) D-Dimer (Linda) 12.98 ug/mlFEU (0.00-0.50) Test 11/05/21 00:41 11/05/21 03:05 11/05/21 05:50 11/05/21 05:52 Glucose (Fingerstick) 205 mg/dL (70-99) 232 mg/dL (70-99) Activated Partial Thromboplast Time 83 SEC (24-38) White Blood Count 16.1 x10^3/uL (4.0-11.0) Red Blood Count 2.67 x10^6/uL (3.50-5.40) Hemoglobin 8.3 g/dL (12.0-15.5) Hematocrit 26.4 % (36.0-47.0) Mean Corpuscular Volume 99 fL (79-100) Mean Corpuscular Hemoglobin 31 pg (25-35) Mean Corpuscular Hemoglobin Concent 32 g/dL (31-37) Red Cell Distribution Width 20.2 % (11.5-14.5) Platelet Count 41 x10^3/uL (140-400) Neutrophils (%) (Auto) 91 % (31-73) Lymphocytes (%) (Auto) 4 % (24-48) Monocytes (%) (Auto) 3 % (0-9) Eosinophils (%) (Auto) 0 % (0-3) Basophils (%) (Auto) 2 % (0-3) Neutrophils # (Auto) 14.6 x10^3/uL (1.8-7.7) Lymphocytes # (Auto) 0.6 x10^3/uL (1.0-4.8) Monocytes # (Auto) 0.5 x10^3/uL (0.0-1.1) Eosinophils # (Auto) 0.0 x10^3/uL (0.0-0.7) Basophils # (Auto) 0.3 x10^3/uL (0.0-0.2) Segmented Neutrophils % 81 % (35-66) Band Neutrophils % 12 % (0-9) Lymphocytes % 5 % (24-48) Monocytes % 1 % (0-10) Eosinophils % 1 % (0-5) Nucleated Red Blood Cells 1 Platelet Estimate Decreased (ADEQUATE) Anisocytosis Slight Magnesium Level 2.5 mg/dL (1.8-2.4) Test 11/05/21 08:00 11/05/21 09:00 O2 Saturation 96 % (92-99) Arterial Blood pH 7.45 (7.35-7.45) Arterial Blood pCO2 at Patient Temp 29 mmHg (35-46) Arterial Blood pO2 at Patient Temp 93 mmHg (65-108) Arterial Blood HCO3 20 mmol/L (21-28) Arterial Blood Base Excess -4 mmol/L (-3-3) FiO2 60 Activated Partial Thromboplast Time 84 SEC (24-38) Sodium Level 141 mmol/L (136-145) Potassium Level 4.3 mmol/L (3.5-5.1) Chloride Level 106 mmol/L (98-107) Carbon Dioxide Level 19 mmol/L (21-32) Anion Gap 16 (6-14) Blood Urea Nitrogen 68 mg/dL (7-20) Creatinine 1.2 mg/dL (0.6-1.0) Estimated GFR (Cockcroft-Gault) 45.1 Glucose Level 232 mg/dL (70-99) Calcium Level 8.4 mg/dL (8.5-10.1) Phosphorus Level 4.0 mg/dL (2.6-4.7) Albumin 2.8 g/dL (3.4-5.0) Problem List Problems Medical Problems: (1) Elevated bilirubin Status: Acute (2) Hyperkalemia Status: Acute (3) Lactic acidosis Status: Acute (4) Leukocytosis Status: Acute (5) Perforated viscus Status: Acute (6) Renal insufficiency Status: Acute Assessment/Plan noted bloody drainage from ng and hill--she is on argatroban/hx of stents, plts yesterday was 15, today 40--very close monitoring with bleeding from drains Justicifation of Admission Dx: Justifications for Admission: Justification of Admission Dx: N/A ARTURO VALDES APRN Nov 05, 2021 11:23
--- NOTE | 2021-11-05 11:28 | PDOC ---
Infectious Disease Note Subjective Subjective pt is barely awake, lethargic ROS ROS no n/v/d/fever Vital Sign Vital Signs Vital Signs Date Time Temp Pulse Resp B/P (MAP) Pulse Ox O2 Delivery O2 Flow Rate FiO2 11/05/21 08:29 100 BiPAP/CPAP 11/05/21 04:00 96.9 78 34 110/66 (81) 96.9 11/05/21 03:00 12.0 Physical Exam PHYSICAL EXAM GENERAL: Arousable on the ventilator female, not in distress. VITAL SIGNS: stable HEENT: Both pupils are round and reacting. No conjunctival lesion. Mouth cannot be visualized. Orally intubated. NECK: Supple, no JVP, no lymphadenopathy. LUNGS: Clear. HEART: S1, S2, regular. ABDOMEN: Post-surgical dressing not opened. No distention, no tenderness. EXTREMITIES: No edema, cyanosis. The patient has multiple areas of bruising all over and subcutaneous hemorrhage all over the body, upper and lower as well as she has necrotic cyanotic toes much more so on the left than right. Dorsalis pedis is weak palpable. Sacrococcygeal wound is much smaller and appears that it is healing well. NEUROLOGIC: The patient is sedated on ventilator, but does appear to follow the command. Labs Lab Laboratory Tests Test 11/04/21 12:15 11/04/21 14:50 11/04/21 18:01 11/04/21 22:30 Glucose (Fingerstick) 220 mg/dL (70-99) 212 mg/dL (70-99) White Blood Count 12.0 x10^3/uL (4.0-11.0) Red Blood Count 2.78 x10^6/uL (3.50-5.40) Hemoglobin 8.6 g/dL (12.0-15.5) Hematocrit 26.9 % (36.0-47.0) Mean Corpuscular Volume 97 fL (79-100) Mean Corpuscular Hemoglobin 31 pg (25-35) Mean Corpuscular Hemoglobin Concent 32 g/dL (31-37) Red Cell Distribution Width 19.2 % (11.5-14.5) Platelet Count 15 x10^3/uL (140-400) Neutrophils (%) (Auto) 93 % (31-73) Lymphocytes (%) (Auto) 3 % (24-48) Monocytes (%) (Auto) 4 % (0-9) Eosinophils (%) (Auto) 0 % (0-3) Basophils (%) (Auto) 0 % (0-3) Neutrophils # (Auto) 11.2 x10^3/uL (1.8-7.7) Lymphocytes # (Auto) 0.4 x10^3/uL (1.0-4.8) Monocytes # (Auto) 0.4 x10^3/uL (0.0-1.1) Eosinophils # (Auto) 0.0 x10^3/uL (0.0-0.7) Basophils # (Auto) 0.0 x10^3/uL (0.0-0.2) Activated Partial Thromboplast Time 58 SEC (24-38) Fibrinogen 257 mg/dL (200-440) D-Dimer (Linda) 12.98 ug/mlFEU (0.00-0.50) Test 11/05/21 00:41 11/05/21 03:05 11/05/21 05:50 11/05/21 05:52 Glucose (Fingerstick) 205 mg/dL (70-99) 232 mg/dL (70-99) Activated Partial Thromboplast Time 83 SEC (24-38) White Blood Count 16.1 x10^3/uL (4.0-11.0) Red Blood Count 2.67 x10^6/uL (3.50-5.40) Hemoglobin 8.3 g/dL (12.0-15.5) Hematocrit 26.4 % (36.0-47.0) Mean Corpuscular Volume 99 fL (79-100) Mean Corpuscular Hemoglobin 31 pg (25-35) Mean Corpuscular Hemoglobin Concent 32 g/dL (31-37) Red Cell Distribution Width 20.2 % (11.5-14.5) Platelet Count 41 x10^3/uL (140-400) Neutrophils (%) (Auto) 91 % (31-73) Lymphocytes (%) (Auto) 4 % (24-48) Monocytes (%) (Auto) 3 % (0-9) Eosinophils (%) (Auto) 0 % (0-3) Basophils (%) (Auto) 2 % (0-3) Neutrophils # (Auto) 14.6 x10^3/uL (1.8-7.7) Lymphocytes # (Auto) 0.6 x10^3/uL (1.0-4.8) Monocytes # (Auto) 0.5 x10^3/uL (0.0-1.1) Eosinophils # (Auto) 0.0 x10^3/uL (0.0-0.7) Basophils # (Auto) 0.3 x10^3/uL (0.0-0.2) Segmented Neutrophils % 81 % (35-66) Band Neutrophils % 12 % (0-9) Lymphocytes % 5 % (24-48) Monocytes % 1 % (0-10) Eosinophils % 1 % (0-5) Nucleated Red Blood Cells 1 Platelet Estimate Decreased (ADEQUATE) Anisocytosis Slight Magnesium Level 2.5 mg/dL (1.8-2.4) Test 11/05/21 08:00 11/05/21 09:00 O2 Saturation 96 % (92-99) Arterial Blood pH 7.45 (7.35-7.45) Arterial Blood pCO2 at Patient Temp 29 mmHg (35-46) Arterial Blood pO2 at Patient Temp 93 mmHg (65-108) Arterial Blood HCO3 20 mmol/L (21-28) Arterial Blood Base Excess -4 mmol/L (-3-3) FiO2 60 Activated Partial Thromboplast Time 84 SEC (24-38) Sodium Level 141 mmol/L (136-145) Potassium Level 4.3 mmol/L (3.5-5.1) Chloride Level 106 mmol/L (98-107) Carbon Dioxide Level 19 mmol/L (21-32) Anion Gap 16 (6-14) Blood Urea Nitrogen 68 mg/dL (7-20) Creatinine 1.2 mg/dL (0.6-1.0) Estimated GFR (Cockcroft-Gault) 45.1 Glucose Level 232 mg/dL (70-99) Calcium Level 8.4 mg/dL (8.5-10.1) Phosphorus Level 4.0 mg/dL (2.6-4.7) Albumin 2.8 g/dL (3.4-5.0) Micro Microbiology 11/01/21 Gram Stain - Final, Resulted 11/01/21 Aerobic and Anaerobic Culture - Preliminary, Resulted Escherichia Coli Enterococcus Faecalis 11/01/21 Urine Culture - Final, Complete Escherichia Coli Proteus Mirabilis 11/01/21 Blood Culture - Preliminary, Resulted NO GROWTH AFTER 2 DAYS Objective Assessment IMPRESSION: 1. Perforated gastric ulcer, status post exploratory laparotomy and repair with abdominal sepsis, status post incision and drainage. 2. Sepsis with hypotension, lactic acidosis, which has improved. 3. Respiratory failure. 4. Rheumatoid arthritis. 5. Mitral valve clipping done a few months ago. 6. Sacrococcygeal decubitus. 7. Renal insufficiency. 8. Cyanotic toes, more so on the left than right, probably embolic in origin. Plan Plan of Care cont antibiotics cont supportive care ISIDORO MOISE MD Nov 05, 2021 11:28
--- NOTE | 2021-11-05 11:54 | PDOC ---
PROGRESS NOTES Date of Service DATE: 11/05/21 TIME: 11:46 Subjective Subjective Patient seen today in ICU for follow-up consultation for cyanotic toes. There are no new changes from a nursing standpoint. Patient reports she has pain to her right leg and her buttock area. She is off of pressors. 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 Objective Objective Vital Signs Date Time Temp Pulse Resp B/P (MAP) Pulse Ox O2 Delivery O2 Flow Rate FiO2 11/05/21 08:29 100 BiPAP/CPAP 11/05/21 04:00 96.9 78 34 110/66 (81) 96.9 11/05/21 03:00 12.0 Intake and Output 11/05/21 07:00 Intake Total 5689 ml Output Total 439 ml Balance 5250 ml Intake IV Total 5589 ml Blood Product 100 ml Other 0 ml Output Urine Total 269 ml Gastric Drainage Total 100 ml Drainage Total 70 ml Physical Exam Extremities: Other (Her hands are in mittens. Her feet are cool to the touch but does have a faintly palpable pedal pulse bilaterally. Her right toes are slightly cyanotic diffusely. Her left foot has beginning stages of necrosis to her first and fourth and fifth toes. The toes are soft with beginning delineation prior to the MTP joint. No erythema or signs of infection. There is no skin breakdown either feet. She has extensive bruising to her arms diffusely.) General: Alert Assessment Assessment Problems Medical Problems: (1) Elevated bilirubin Status: Acute (2) Hyperkalemia Status: Acute (3) Lactic acidosis Status: Acute (4) Leukocytosis Status: Acute (5) Perforated viscus Status: Acute (6) Renal insufficiency Status: Acute Plan Plan of Care 66-year-old female who recently underwent explorative laparotomy with repair of a perforated gastric ulcer and drainage of an abdominal abscess. She was on high-dose pressor medication for hypotension related to sepsis. During this time she developed ischemic changes to her toes. She is now off pressor medication. Arterial duplex scan of the bilateral lower extremity shows atherosclerotic disease without significant stenosis or occlusion. She has good dopplerable flow within her right and left foot. She does have demarcating early gangrene of the left first, fourth and fifth toes and small petechial skin changes on the right second and third toe. No vascular intervention is needed for her circulation. She likely will need left foot toe amputations, however Will continue to give more time to allow further recovery and demarcation between healthy and unhealthy tissue. No further vascular imaging or intervention indicated at this time. We will sign off and plan to see her in follow-up in 2-3 weeks. Please call with further questions or concerns while she is in the hospital. She is on argatroban for other reasons, not for her PAD, she has no occlusive disease in her legs. Recommend continued rooke boots bilaterally. Comment Review of Relevant I have reviewed the following items tresa (where applicable) has been applied. Labs Laboratory Tests Test 11/03/21 13:12 11/03/21 18:05 11/03/21 18:12 11/03/21 23:48 Glucose (Fingerstick) 354 mg/dL (70-99) 291 mg/dL (70-99) 238 mg/dL (70-99) Potassium Level 3.5 mmol/L (3.5-5.1) Test 11/04/21 01:00 11/04/21 05:50 11/04/21 06:00 11/04/21 06:09 Potassium Level 3.3 mmol/L (3.5-5.1) 5.4 mmol/L (3.5-5.1) Sodium Level 137 mmol/L (136-145) Chloride Level 106 mmol/L (98-107) Carbon Dioxide Level 22 mmol/L (21-32) Anion Gap 9 (6-14) Blood Urea Nitrogen 55 mg/dL (7-20) Creatinine 1.1 mg/dL (0.6-1.0) Estimated GFR (Cockcroft-Gault) 49.8 Glucose Level 216 mg/dL (70-99) Hemoglobin A1c 5.2 % (4.8-5.6) Calcium Level 8.3 mg/dL (8.5-10.1) Phosphorus Level 2.1 mg/dL (2.6-4.7) Albumin 2.2 g/dL (3.4-5.0) Magnesium Level 2.3 mg/dL (1.8-2.4) Glucose (Fingerstick) 212 mg/dL (70-99) Test 11/04/21 12:15 11/04/21 14:50 11/04/21 18:01 11/04/21 22:30 Glucose (Fingerstick) 220 mg/dL (70-99) 212 mg/dL (70-99) White Blood Count 12.0 x10^3/uL (4.0-11.0) Red Blood Count 2.78 x10^6/uL (3.50-5.40) Hemoglobin 8.6 g/dL (12.0-15.5) Hematocrit 26.9 % (36.0-47.0) Mean Corpuscular Volume 97 fL (79-100) Mean Corpuscular Hemoglobin 31 pg (25-35) Mean Corpuscular Hemoglobin Concent 32 g/dL (31-37) Red Cell Distribution Width 19.2 % (11.5-14.5) Platelet Count 15 x10^3/uL (140-400) Neutrophils (%) (Auto) 93 % (31-73) Lymphocytes (%) (Auto) 3 % (24-48) Monocytes (%) (Auto) 4 % (0-9) Eosinophils (%) (Auto) 0 % (0-3) Basophils (%) (Auto) 0 % (0-3) Neutrophils # (Auto) 11.2 x10^3/uL (1.8-7.7) Lymphocytes # (Auto) 0.4 x10^3/uL (1.0-4.8) Monocytes # (Auto) 0.4 x10^3/uL (0.0-1.1) Eosinophils # (Auto) 0.0 x10^3/uL (0.0-0.7) Basophils # (Auto) 0.0 x10^3/uL (0.0-0.2) Activated Partial Thromboplast Time 58 SEC (24-38) Fibrinogen 257 mg/dL (200-440) D-Dimer (Linda) 12.98 ug/mlFEU (0.00-0.50) Test 11/05/21 00:41 11/05/21 03:05 11/05/21 05:50 11/05/21 05:52 Glucose (Fingerstick) 205 mg/dL (70-99) 232 mg/dL (70-99) Activated Partial Thromboplast Time 83 SEC (24-38) White Blood Count 16.1 x10^3/uL (4.0-11.0) Red Blood Count 2.67 x10^6/uL (3.50-5.40) Hemoglobin 8.3 g/dL (12.0-15.5) Hematocrit 26.4 % (36.0-47.0) Mean Corpuscular Volume 99 fL (79-100) Mean Corpuscular Hemoglobin 31 pg (25-35) Mean Corpuscular Hemoglobin Concent 32 g/dL (31-37) Red Cell Distribution Width 20.2 % (11.5-14.5) Platelet Count 41 x10^3/uL (140-400) Neutrophils (%) (Auto) 91 % (31-73) Lymphocytes (%) (Auto) 4 % (24-48) Monocytes (%) (Auto) 3 % (0-9) Eosinophils (%) (Auto) 0 % (0-3) Basophils (%) (Auto) 2 % (0-3) Neutrophils # (Auto) 14.6 x10^3/uL (1.8-7.7) Lymphocytes # (Auto) 0.6 x10^3/uL (1.0-4.8) Monocytes # (Auto) 0.5 x10^3/uL (0.0-1.1) Eosinophils # (Auto) 0.0 x10^3/uL (0.0-0.7) Basophils # (Auto) 0.3 x10^3/uL (0.0-0.2) Segmented Neutrophils % 81 % (35-66) Band Neutrophils % 12 % (0-9) Lymphocytes % 5 % (24-48) Monocytes % 1 % (0-10) Eosinophils % 1 % (0-5) Nucleated Red Blood Cells 1 Platelet Estimate Decreased (ADEQUATE) Anisocytosis Slight Magnesium Level 2.5 mg/dL (1.8-2.4) Test 11/05/21 08:00 11/05/21 09:00 O2 Saturation 96 % (92-99) Arterial Blood pH 7.45 (7.35-7.45) Arterial Blood pCO2 at Patient Temp 29 mmHg (35-46) Arterial Blood pO2 at Patient Temp 93 mmHg (65-108) Arterial Blood HCO3 20 mmol/L (21-28) Arterial Blood Base Excess -4 mmol/L (-3-3) FiO2 60 Activated Partial Thromboplast Time 84 SEC (24-38) Sodium Level 141 mmol/L (136-145) Potassium Level 4.3 mmol/L (3.5-5.1) Chloride Level 106 mmol/L (98-107) Carbon Dioxide Level 19 mmol/L (21-32) Anion Gap 16 (6-14) Blood Urea Nitrogen 68 mg/dL (7-20) Creatinine 1.2 mg/dL (0.6-1.0) Estimated GFR (Cockcroft-Gault) 45.1 Glucose Level 232 mg/dL (70-99) Calcium Level 8.4 mg/dL (8.5-10.1) Phosphorus Level 4.0 mg/dL (2.6-4.7) Albumin 2.8 g/dL (3.4-5.0) Laboratory Tests Test 11/04/21 12:15 11/04/21 14:50 11/04/21 18:01 11/04/21 22:30 Glucose (Fingerstick) 220 mg/dL (70-99) 212 mg/dL (70-99) White Blood Count 12.0 x10^3/uL (4.0-11.0) Red Blood Count 2.78 x10^6/uL (3.50-5.40) Hemoglobin 8.6 g/dL (12.0-15.5) Hematocrit 26.9 % (36.0-47.0) Mean Corpuscular Volume 97 fL (79-100) Mean Corpuscular Hemoglobin 31 pg (25-35) Mean Corpuscular Hemoglobin Concent 32 g/dL (31-37) Red Cell Distribution Width 19.2 % (11.5-14.5) Platelet Count 15 x10^3/uL (140-400) Neutrophils (%) (Auto) 93 % (31-73) Lymphocytes (%) (Auto) 3 % (24-48) Monocytes (%) (Auto) 4 % (0-9) Eosinophils (%) (Auto) 0 % (0-3) Basophils (%) (Auto) 0 % (0-3) Neutrophils # (Auto) 11.2 x10^3/uL (1.8-7.7) Lymphocytes # (Auto) 0.4 x10^3/uL (1.0-4.8) Monocytes # (Auto) 0.4 x10^3/uL (0.0-1.1) Eosinophils # (Auto) 0.0 x10^3/uL (0.0-0.7) Basophils # (Auto) 0.0 x10^3/uL (0.0-0.2) Activated Partial Thromboplast Time 58 SEC (24-38) Fibrinogen 257 mg/dL (200-440) D-Dimer (Linda) 12.98 ug/mlFEU (0.00-0.50) Test 11/05/21 00:41 11/05/21 03:05 11/05/21 05:50 11/05/21 05:52 Glucose (Fingerstick) 205 mg/dL (70-99) 232 mg/dL (70-99) Activated Partial Thromboplast Time 83 SEC (24-38) White Blood Count 16.1 x10^3/uL (4.0-11.0) Red Blood Count 2.67 x10^6/uL (3.50-5.40) Hemoglobin 8.3 g/dL (12.0-15.5) Hematocrit 26.4 % (36.0-47.0) Mean Corpuscular Volume 99 fL (79-100) Mean Corpuscular Hemoglobin 31 pg (25-35) Mean Corpuscular Hemoglobin Concent 32 g/dL (31-37) Red Cell Distribution Width 20.2 % (11.5-14.5) Platelet Count 41 x10^3/uL (140-400) Neutrophils (%) (Auto) 91 % (31-73) Lymphocytes (%) (Auto) 4 % (24-48) Monocytes (%) (Auto) 3 % (0-9) Eosinophils (%) (Auto) 0 % (0-3) Basophils (%) (Auto) 2 % (0-3) Neutrophils # (Auto) 14.6 x10^3/uL (1.8-7.7) Lymphocytes # (Auto) 0.6 x10^3/uL (1.0-4.8) Monocytes # (Auto) 0.5 x10^3/uL (0.0-1.1) Eosinophils # (Auto) 0.0 x10^3/uL (0.0-0.7) Basophils # (Auto) 0.3 x10^3/uL (0.0-0.2) Segmented Neutrophils % 81 % (35-66) Band Neutrophils % 12 % (0-9) Lymphocytes % 5 % (24-48) Monocytes % 1 % (0-10) Eosinophils % 1 % (0-5) Nucleated Red Blood Cells 1 Platelet Estimate Decreased (ADEQUATE) Anisocytosis Slight Magnesium Level 2.5 mg/dL (1.8-2.4) Test 11/05/21 08:00 11/05/21 09:00 O2 Saturation 96 % (92-99) Arterial Blood pH 7.45 (7.35-7.45) Arterial Blood pCO2 at Patient Temp 29 mmHg (35-46) Arterial Blood pO2 at Patient Temp 93 mmHg (65-108) Arterial Blood HCO3 20 mmol/L (21-28) Arterial Blood Base Excess -4 mmol/L (-3-3) FiO2 60 Activated Partial Thromboplast Time 84 SEC (24-38) Sodium Level 141 mmol/L (136-145) Potassium Level 4.3 mmol/L (3.5-5.1) Chloride Level 106 mmol/L (98-107) Carbon Dioxide Level 19 mmol/L (21-32) Anion Gap 16 (6-14) Blood Urea Nitrogen 68 mg/dL (7-20) Creatinine 1.2 mg/dL (0.6-1.0) Estimated GFR (Cockcroft-Gault) 45.1 Glucose Level 232 mg/dL (70-99) Calcium Level 8.4 mg/dL (8.5-10.1) Phosphorus Level 4.0 mg/dL (2.6-4.7) Albumin 2.8 g/dL (3.4-5.0) Microbiology 11/01/21 Gram Stain - Final, Resulted 11/01/21 Aerobic and Anaerobic Culture - Preliminary, Resulted Escherichia Coli Enterococcus Faecalis Eikenella Corrodens Prevotella Buccae 11/01/21 Urine Culture - Final, Complete Escherichia Coli Proteus Mirabilis 11/01/21 Blood Culture - Preliminary, Resulted NO GROWTH AFTER 3 DAYS Medications Current Medications Sodium Chloride 1,000 ml @ 1,000 mls/hr 1X ONCE IV Last administered on 11/01/21at 15:30; Start 11/01/21 at 15:15; Stop 11/01/21 at 16:14; Status DC Calcium Gluconate (Calcium Gluconate) 1,000 mg 1X ONCE IVP Last administered on 11/01/21at 16:35; Start 11/01/21 at 16:00; Stop 11/01/21 at 16:01; Status DC Sodium Bicarbonate (Sodium Bicarb Adult 8.4% Syr) 50 meq 1X ONCE IV Last administered on 11/01/21at 16:35; Start 11/01/21 at 16:00; Stop 11/02/21 at 09:36; Status DC Dextrose (Dextrose 50%-Water Syringe) 25 gm 1X ONCE IV Last administered on 11/01/21at 16:50; Start 11/01/21 at 16:00; Stop 11/01/21 at 16:01; Status DC Insulin Human Regular (HumuLIN R VIAL) 10 unit 1X ONCE IV Last administered on 11/01/21at 16:40; Start 11/01/21 at 16:00; Stop 11/01/21 at 16:01; Status DC Sodium Chloride 1,000 ml @ 1,000 mls/hr Q1H IV Last administered on 11/01/21at 16:50; Start 11/01/21 at 16:00; Stop 11/01/21 at 16:59; Status DC Piperacillin Sod/ Tazobactam Sod 3.375 gm/Sodium Chloride 50 ml @ 100 mls/hr 1X ONCE IV ; Start 11/01/21 at 16:45; Stop 11/01/21 at 17:14; Status UNV Piperacillin Sod/ Tazobactam Sod 2.25 gm/Sodium Chloride 50 ml @ 100 mls/hr 1X ONCE IV Last administered on 11/01/21at 16:58; Start 11/01/21 at 17:00; Stop 11/01/21 at 17:29; Status DC Ondansetron HCl (Zofran) 4 mg PRN Q8HRS PRN IVP NAUSEA/VOMITING; Start 11/01/21 at 16:45; Stop 11/02/21 at 16:44; Status DC Morphine Sulfate (Morphine Sulfate) 2 mg PRN Q2HR PRN IVP PAIN; Start 11/01/21 at 16:45; Stop 11/02/21 at 03:15; Status DC Sodium Chloride 1,000 ml @ 1,000 mls/hr 1X ONCE IV Last administered on 11/01/21at 17:48; Start 11/01/21 at 17:45; Stop 11/01/21 at 18:44; Status DC Rocuronium [place] (Zemuron) 100 mg STK-MED ONCE .ROUTE ; Start 11/01/21 at 17:54; Stop 11/01/21 at 17:55; Status DC Fentanyl Citrate (Fentanyl 5ml Vial) 250 mcg STK-MED ONCE .ROUTE ; Start 11/01/21 at 17:55; Stop 11/01/21 at 17:55; Status DC Etomidate (Amidate) 20 mg STK-MED ONCE IV ; Start 11/01/21 at 17:55; Stop 11/01/21 at 17:56; Status DC Phenylephrine HCl (PHENYLEPHRINE in 0.9% NACL PF) 1 mg STK-MED ONCE IV ; Start 11/01/21 at 17:56; Stop 11/01/21 at 17:56; Status DC Fentanyl Citrate (Fentanyl 2ml Vial) 25 mcg PRN Q5MIN PRN IVP MILD PAIN 1-3; Start 11/01/21 at 18:00; Stop 11/02/21 at 03:15; Status DC Fentanyl Citrate (Fentanyl 2ml Vial) 50 mcg PRN Q5MIN PRN IVP MODERATE PAIN 4- 6; Start 11/01/21 at 18:00; Stop 11/02/21 at 03:15; Status DC Morphine Sulfate (Morphine Sulfate) 1 mg PRN Q10MIN PRN IVP SEVERE PAIN 7-10; Start 11/01/21 at 18:00; Stop 11/02/21 at 03:15; Status DC Ringer's Solution 1,000 ml @ 30 mls/hr Q24H IV ; Start 11/01/21 at 18:00; Stop 11/02/21 at 05:59; Status DC Hydromorphone HCl (Dilaudid) 0.5 mg PRN Q10MIN PRN IVP SEVERE PAIN 7-10, 2nd CHOICE; Start 11/01/21 at 18:00; Stop 11/02/21 at 03:15; Status DC Prochlorperazine Edisylate (Compazine) 5 mg PACU PRN PRN IVP NAUSEA, MRX1; Start 11/01/21 at 18:00; Stop 11/02/21 at 17:59; Status DC Fentanyl Citrate (Fentanyl 2ml Vial) 25 mcg PRN Q5MIN PRN IVP MILD PAIN 1-3; Start 11/01/21 at 18:00; Stop 11/02/21 at 17:59; Status UNV Fentanyl Citrate (Fentanyl 2ml Vial) 50 mcg PRN Q5MIN PRN IVP MODERATE PAIN 4- 6; Start 11/01/21 at 18:00; Stop 11/02/21 at 17:59; Status UNV Morphine Sulfate (Morphine Sulfate) 1 mg PRN Q10MIN PRN IVP SEVERE PAIN 7-10; Start 11/01/21 at 18:00; Stop 11/02/21 at 17:59; Status UNV Ringer's Solution 1,000 ml @ 30 mls/hr Q24H IV ; Start 11/01/21 at 18:00; Stop 11/02/21 at 05:59; Status UNV Hydromorphone HCl (Dilaudid) 0.5 mg PRN Q10MIN PRN IVP SEVERE PAIN 7-10, 2nd CHOICE; Start 11/01/21 at 18:00; Stop 11/02/21 at 17:59; Status UNV Prochlorperazine Edisylate (Compazine) 5 mg PACU PRN PRN IVP NAUSEA, MRX1; Start 11/01/21 at 18:00; Stop 11/02/21 at 17:59; Status UNV Insulin Human Lispro (HumaLOG) 0-5 UNITS TIDWMEALS SQ ; Start 11/02/21 at 08:00; Stop 11/02/21 at 21:44; Status DC Dextrose (Dextrose 50%-Water Syringe) 12.5 gm PRN Q15MIN PRN IV SEE COMMENTS; Start 11/01/21 at 18:00; Stop 11/03/21 at 14:24; Status DC Dextrose (Iv Dextrose 5%) 250 ml PRN Q15MIN PRN IV SEE COMMENTS; Start 11/01/21 at 18:00 Piperacillin Sod/ Tazobactam Sod (Zosyn Per Pharmacy) 1 each PRN DAILY PRN MC SEE COMMENTS; Start 11/01/21 at 18:15 Piperacillin Sod/ Tazobactam Sod 2.25 gm/Sodium Chloride 50 ml @ 100 mls/hr Q8HRS IV Last administered on 11/05/21at 05:54; Start 11/01/21 at 22:00; Stop 11/05/21 at 08:14; Status DC Albumin Human 500 ml @ As Directed STK-MED ONCE IV ; Start 11/01/21 at 18:20; Stop 11/01/21 at 18:21; Status DC Bupivacaine HCl/ Epinephrine Bitart (Sensorcain-Epi 0.5% Kit) 30 ml STK-MED ONCE .ROUTE ; Start 11/01/21 at 18:25; Stop 11/01/21 at 18:26; Status DC Albumin Human 500 ml @ As Directed STK-MED ONCE IV ; Start 11/01/21 at 18:30; Stop 11/01/21 at 18:31; Status DC Phenylephrine HCl (PHENYLEPHRINE in 0.9% NACL PF) 1 mg STK-MED ONCE IV ; Start 11/01/21 at 19:53; Stop 11/01/21 at 19:53; Status DC Sevoflurane (Ultane) 90 ml STK-MED ONCE IH ; Start 11/01/21 at 19:58; Stop 11/01/21 at 19:58; Status DC Albumin Human 500 ml @ As Directed STK-MED ONCE IV ; Start 11/01/21 at 20:00; Stop 11/01/21 at 20:00; Status DC Pantoprazole Sodium 80 mg/ Sodium Chloride 100 ml @ 10 mls/hr 1X ONCE IV Last administered on 11/01/21at 22:32; Start 11/01/21 at 20:30; Stop 11/02/21 at 06:29; Status DC Heparin Sodium (Porcine) (Heparin Sodium) 5,000 unit Q12HR SQ ; Start 11/01/21 at 21:00; Stop 11/01/21 at 20:40; Status DC Dextrose/Sodium Chloride 1,000 ml @ 100 mls/hr Q10H IV ; Start 11/01/21 at 20:30; Stop 11/02/21 at 05:51; Status DC Heparin Sodium (Porcine) (Heparin Sodium) 5,000 unit Q12HR SQ Last administered on 11/04/21at 08:29; Start 11/02/21 at 09:00; Stop 11/04/21 at 18:18; Status DC Ringer's Solution 1,000 ml @ 125 mls/hr Q8H IV Last administered on 11/02/21at 05:53; Start 11/01/21 at 21:15; Stop 11/02/21 at 10:57; Status DC Sodium Bicarbonate (Sodium Bicarb Adult 8.4% Syr) 50 meq 1X ONCE IV Last administered on 11/01/21at 22:18; Start 11/01/21 at 22:00; Stop 11/02/21 at 09:36; Status DC Sodium Bicarbonate (Sodium Bicarb Adult 8.4% Syr) 50 meq 1X ONCE IV Last administered on 11/01/21at 22:18; Start 11/01/21 at 22:00; Stop 11/02/21 at 09:36; Status DC Sodium Bicarbonate 150 meq/Dextrose 1,150 ml @ 50 mls/hr Q23H IV Last administered on 11/01/21at 22:19; Start 11/01/21 at 23:00; Stop 11/02/21 at 10:57; Status DC Fentanyl Citrate 30 ml @ 2.5 mls/hr CONT PRN IV SEE PROTOCOL Last administered on 11/03/21at 00:03; Start 11/02/21 at 03:00; Stop 11/05/21 at 00:10; Status DC Midazolam HCl 100 ml @ 1 mls/hr CONT PRN IV SEE PROTOCOL; Start 11/02/21 at 03:00 Propofol 100 ml @ 1.461 mls/ hr CONT PRN IV PER PROTOCOL; Start 11/02/21 at 03:00 Glycerin/ Hypromellose/ Polyethylene (Artificial Tears) 1 drop PRN Q1HR PRN OU DRY EYE; Start 11/02/21 at 03:00 Dexmedetomidine HCl 400 mcg/ Sodium Chloride 100 ml @ 2.435 mls/ hr CONT PRN IV PER PROTOCOL; Start 11/02/21 at 03:00 Sodium Chloride 500 ml @ 500 mls/hr 1X PRN PRN IV SEE COMMENTS; Start 11/02/21 at 03:00 Atropine Sulfate (ATROPINE 0.5mg SYRINGE) 0.5 mg PRN Q5MIN PRN IV SEE COMMENTS; Start 11/02/21 at 03:00 Norepinephrine Bitartrate 8 mg/ Dextrose 258 ml @ 9.423 mls/ hr CONT PRN IV PER PROTOCOL Last administered on 11/02/21at 21:35; Start 11/02/21 at 05:15 Ringer's Solution 500 ml @ 500 mls/hr 1X ONCE IV ; Start 11/02/21 at 09:00; Stop 11/02/21 at 09:21; Status DC Ringer's Solution 980 ml @ 980 mls/hr 1X ONCE IV Last administered on 11/02/21at 09:25; Start 11/02/21 at 09:30; Stop 11/02/21 at 10:29; Status DC Info (Tpn Per Pharmacy) 1 each CONT MC ; Start 11/02/21 at 09:30; Stop 11/02/21 at 09:45; Status DC Sodium Bicarbonate (Sodium Bicarb Adult 8.4% Syr) 150 meq 1X ONCE IV ; Start 11/02/21 at 10:00; Stop 11/02/21 at 10:01; Status Cancel Info (Tpn Per Pharmacy) 1 each PRN DAILY PRN MC SEE COMMENTS Last administered on 11/04/21at 11:33; Start 11/02/21 at 09:45 Sodium Bicarbonate 75 meq/Dextrose 1,075 ml @ 100 mls/hr [id number] IV Last administered on 11/02/21at 22:14; Start 11/02/21 at 11:00; Stop 11/03/21 at 09:35; Status DC Magnesium Sulfate 50 ml @ 25 mls/hr PRN DAILY PRN IV for Mag < 1.7 on am labs; Start 11/02/21 at 11:00 Hydrocortisone Sodium Succinate (Solu-CORTEF) 100 mg Q12HR IVP Last administered on 11/05/21at 09:08; Start 11/02/21 at 21:00; Stop 11/05/21 at 11:19; Status DC Hydrocortisone Sodium Succinate (Solu-CORTEF) 100 mg 1X ONCE IVP Last administered on 11/02/21at 12:05; Start 11/02/21 at 12:00; Stop 11/02/21 at 12:01; Status DC Clopidogrel Bisulfate (Plavix) 75 mg [id number] PO Last administered on 11/04/21at 08:25; Start 11/02/21 at 13:00; Stop 11/04/21 at 18:51; Status DC Cyanocobalamin (Vitamin B-12 Inj) 1,000 mcg 1X ONCE IM Last administered on 11/02/21at 13:14; Start 11/02/21 at 13:00; Stop 11/02/21 at 13:01; Status DC Magnesium Sulfate/ Dextrose 100 ml @ 100 mls/hr 1X ONCE IV Last administered on 11/02/21at 13:14; Start 11/02/21 at 13:00; Stop 11/02/21 at 13:59; Status DC Potassium Acetate 40 meq/Magnesium Sulfate 10 meq/ Multivitamins 10 ml/Zinc/Copper/ Manganese/ Selenium 1 ml/ Total Parenteral Nutrition/Amino Acids/Dextrose/ Fat Emulsion Intravenous 1,512 ml @ 63 mls/hr TPN CONT IV Last administered on 11/02/21at 21:34; Start 11/02/21 at 22:00; Stop 11/03/21 at 21:59; Status DC Insulin Human Lispro (HumaLOG) 0-5 UNITS Q6HRS SQ Last administered on 11/03/21at 06:06; Start 11/03/21 at 00:00; Stop 11/03/21 at 12:07; Status DC Sodium Chloride 60 meq/Potassium Acetate 50 meq/ Potassium Phosphate 13.6 mmol/Magnesium Sulfate 15 meq/ Multivitamins 10 ml/Zinc/Copper/ Manganese/ Selenium 1 ml/ Total Parenteral Nutrition/Amino Acids/Dextrose/ Fat Emulsion Intravenous 1,512 ml @ 63 mls/hr TPN CONT IV Last administered on 11/03/21at 22:14; Start 11/03/21 at 22:00; Stop 11/04/21 at 21:59; Status DC Potassium Chloride/Water 100 ml @ 100 mls/hr Q1H IV Last administered on 11/03/21at 11:36; Start 11/03/21 at 10:00; Stop 11/03/21 at 11:59; Status DC Insulin Glargine (Lantus Syringe) 12 unit DAILY SQ Last administered on 11/05/21at 09:13; Start 11/03/21 at 12:15 Insulin Human Lispro (HumaLOG) 0-7 UNITS Q6HRS SQ Last administered on 11/05/21at 05:53; Start 11/03/21 at 18:00 Dextrose (Dextrose 50%-Water Syringe) 12.5 gm PRN Q15MIN PRN IV SEE COMMENTS; Start 11/03/21 at 12:15 Dextrose (Iv Dextrose 5%) 250 ml PRN Q15MIN PRN IV SEE COMMENTS; Start 11/03/21 at 12:15 Insulin Human Lispro (HumaLOG) 8 units 1X ONCE SQ Last administered on 11/03/21at 12:29; Start 11/03/21 at 12:15; Stop 11/03/21 at 12:16; Status DC Albumin Human 100 ml @ 100 mls/hr TID IV Last administered on 11/05/21at 09:08; Start 11/03/21 at 14:00; Stop 11/05/21 at 09:59; Status DC Potassium Chloride/Water 100 ml @ 50 mls/hr PRN Q6HRS PRN IV For K < 3.7; Start 11/03/21 at 12:45 Potassium Chloride/Water 100 ml @ 50 mls/hr PRN Q2HR PRN IV total of 40mEq for K < 3.5 Last administered on 11/04/21at 03:57; Start 11/03/21 at 12:45 Magnesium Sulfate/ Dextrose 100 ml @ 100 mls/hr 1X ONCE IV Last administered on 11/03/21at 13:25; Start 11/03/21 at 13:00; Stop 11/03/21 at 13:59; Status DC Sodium Chloride 1,000 ml @ 75 mls/hr [id number] IV Last administered on 11/04/21at 20:53; Start 11/03/21 at 13:15 Pantoprazole Sodium 80 mg/ Sodium Chloride 100 ml @ 10 mls/hr Q10H IV Last administered on 11/05/21at 07:32; Start 11/03/21 at 14:00; Stop 11/06/21 at 13:59 Fentanyl Citrate (Fentanyl 2ml Vial) 25 mcg PRN Q2HR PRN IVP SEVERE PAIN 7-10 Last administered on 11/04/21at 23:09; Start 11/04/21 at 05:15 Sodium Phosphate 15 mmol/Sodium Chloride 105 ml @ 105 mls/hr 1X ONCE IV Last administered on 11/04/21at 15:27; Start 11/04/21 at 14:00; Stop 11/04/21 at 14:59; Status DC Sodium Chloride 60 meq/Sodium Phosphate 15 mmol/ Magnesium Sulfate 10 meq/ Multivitamins 10 ml/Zinc/Copper/ Manganese/ Selenium 1 ml/ Total Parenteral Nutrition/Amino Acids/Dextrose/ Fat Emulsion Intravenous 1,512 ml @ 63 mls/hr TPN CONT IV Last administered on 11/04/21at 22:15; Start 11/04/21 at 22:00; Stop 11/05/21 at 21:59 Argatroban (Argatroban Per Pharmacy) 1 each PRN DAILY PRN MC SEE COMMENTS Last administered on 11/04/21at 19:23; Start 11/04/21 at 19:15 Argatroban 50 mg/ Sodium Chloride 50 ml @ 1.611 mls/ hr CONT PRN IV PER PROTOCOL Last administered on 11/04/21at 20:57; Start 11/04/21 at 19:15 Piperacillin Sod/ Tazobactam Sod 3.375 gm/Sodium Chloride 50 ml @ 100 mls/hr Q6HRS IV ; Start 11/05/21 at 12:00 Sodium Bicarbonate (Sodium Bicarb Adult 8.4% Syr) 50 meq 1X ONCE IV Last administered on 11/05/21at 09:40; Start 11/05/21 at 09:30; Stop 11/05/21 at 09:31; Status DC Furosemide (Lasix) 40 mg 1X ONCE IVP Last administered on 11/05/21at 10:03; Start 11/05/21 at 10:00; Stop 11/05/21 at 10:01; Status DC Active Scripts Active Reported Spironolactone 25 Mg Tablet 0.5 Tab PO [id number] Metoprolol Succinate ( Xl ) (Metoprolol Succinate) 25 Mg Tab.er.24h 0.5 Tab PO DAILY Zoloft (Sertraline Hcl) 50 Mg Tablet 50 Mg PO DAILY Levothyroxine Sodium 125 Mcg Tablet 125 Mcg PO DAILYAC Prednisone 20 Mg Tablet 20 Mg PO DAILY Protonix (Pantoprazole Sodium) 20 Mg Tablet.dr 40 Mg PO DAILY Lasix (Furosemide) 40 Mg Tablet 40 Mg PO DAILY Clopidogrel (Clopidogrel Bisulfate) 75 Mg Tablet 75 Mg PO DAILY Tramadol Hcl 50 Mg Tablet 50 Mg PO Q6HRS PRN Fluconazole 100 Mg Tablet 100 Mg PO DAILY Klor-Con 10 (Potassium Chloride) 10 Meq Tablet.er 10 Meq PO DAILY Hydrocodone-Acetamin 7.5-325 (Hydrocodone/Acetaminophen) 1 Each Tablet 1 Each PO Q6HRS PRN Meloxicam 15 Mg Tablet 15 Mg PO DAILY Vitals/I & O Vital Sign - Last 24 Hours 11/04/21 11/04/21 11/04/21 11/04/21 12:00 12:00 12:00 12:35 Temp 96.5 96.5 Pulse 94 Resp 16 16 B/P (MAP) 116/64 Pulse Ox 91 92 O2 Delivery Nasal Cannula Nasal Cannula High Flow Nasal Cannula O2 Flow Rate 4.0 4.0 4.0 11/04/21 11/04/21 11/04/21 11/04/21 13:00 13:05 14:00 15:00 Pulse 100 98 88 Resp 16 18 16 16 B/P (MAP) 112/64 118/70 126/74 Pulse Ox 92 91 90 90 O2 Delivery Nasal Cannula High Flow Nasal Cannula Nasal Cannula Nasal Cannula O2 Flow Rate 4.0 3.0 4.0 4.0 11/04/21 11/04/21 11/04/21 11/04/21 15:20 15:50 16:00 16:00 Temp 96.5 96.5 Pulse 86 Resp 22 16 16 B/P (MAP) 112/68 Pulse Ox 90 91 92 O2 Delivery Nasal Cannula Nasal Cannula Nasal Cannula Nasal Cannula O2 Flow Rate 3.0 3.0 5.0 5.0 11/04/21 11/04/21 11/04/21 11/04/21 16:00 17:00 18:00 20:00 Pulse 90 88 Resp 16 16 B/P (MAP) 116/68 106/66 Pulse Ox 90 92 O2 Delivery Nasal Cannula Nasal Cannula Nasal Cannula O2 Flow Rate 5.0 5.0 6.0 11/04/21 11/04/21 11/04/21 11/04/21 20:00 20:00 20:55 21:25 Temp 96.6 96.6 Pulse 84 Resp 30 20 30 B/P (MAP) 114/72 (86) Pulse Ox 91 90 93 O2 Delivery Nasal Cannula Nasal Cannula Venturi Mask O2 Flow Rate 6.0 11/04/21 11/04/21 11/04/21 11/04/21 23:06 23:09 23:21 23:40 Temp 96.6 96.6 96.6 96.6 Pulse 81 94 Resp 34 31 30 31 B/P (MAP) 117/76 116/78 Pulse Ox 94 94 O2 Delivery Venturi Mask Venturi Mask O2 Flow Rate 15.0 15.0 11/05/21 11/05/21 11/05/21 11/05/21 00:00 00:00 03:00 04:00 Temp 96.7 96.7 Pulse 80 Resp 31 B/P (MAP) 120/74 (89) Pulse Ox 94 83 O2 Delivery Venturi Mask Venturi Mask O2 Flow Rate 12.0 11/05/21 11/05/21 11/05/21 11/05/21 04:00 04:00 05:30 08:29 Temp 96.9 96.9 Pulse 78 Resp 34 B/P (MAP) 110/66 (81) Pulse Ox 97 97 100 100 O2 Delivery BiPAP/CPAP BiPAP/CPAP BiPAP/CPAP BiPAP/CPAP Intake and Output 11/04/21 11/04/21 11/05/21 15:00 23:00 07:00 Intake Total 200 ml 3550 ml 1939 ml Output Total 126 ml 98 ml 215 ml Balance 74 ml 3452 ml 1724 ml Justifications for Admission Other Justification CHANA KEENAN Nov 05, 2021 11:54
--- NOTE | 2021-11-05 11:57 | PDOC ---
[employer] PROGRESS NOTE Date of Service DOS: DATE: 11/05/21 TIME: 11:52 Chief Complaint Chief Complaint acute abdomen, severe sepsis, septic shock perforated gastric ulcer with peritoniti POD #2, gastric surg severe malnutrition Longstanding history of rheumatoid arthritis treated with Remicade and steroids Cardiac arrhythmias Hx s/p Mitral valve clip tobacco abuse disorder, Coronary artery disease with stenting x2 Hypothyroidism Hypertension GERD Anxiety History of Present Illness History of Present Illness 11/05: Patient evaluated in ICU. No family at bedside to discuss goals of care and medical history. Patient appears to be more distress and pain today. Discussed with Dr. Louis her positive blood cultures. Platelet improved to 44; will continue argatroban and monitor for HIT antibodies. We will add Dilaudid for better pain management. 30 minutes critical care time spent reviewing may rts, reviewing labs, reviewing imaging, discussion with Dr. Louis, discussion with RN. 11/04: Patient seen in ICU. States she is resting comfortably, with no complaints of abdominal pain or bilateral feet pain. She continues on TPN, s/p perforated bowel. Answered son's questions regarding further ICU criteria. Currently off pressors. Potassium is elevated today. This should be addressed in TPN feeds, per nephrology's notes. Continue Protonix drip, continue Zosyn. 11/03, cont care in ICU discussed with family, son here marialuisa consult ID to follow, peritonitis, PPI gtt Vitals/I&O Vitals/I&O: Vital Signs Date Time Temp Pulse Resp B/P (MAP) Pulse Ox O2 Delivery O2 Flow Rate FiO2 11/05/21 08:29 100 BiPAP/CPAP 11/05/21 04:00 96.9 78 34 110/66 (81) 96.9 11/05/21 03:00 12.0 I & O 11/04/21 11/04/21 11/05/21 15:00 23:00 07:00 Intake Total 200 ml 3550 ml 1939 ml Output Total 126 ml 98 ml 215 ml Balance 74 ml 3452 ml 1724 ml Physical Exam Physical Exam: GENERAL: Moderate distress. VITAL SIGNS: stable HEENT: NG tube in place to suction, with dark green fluids. NECK: Supple, no JVP, no lymphadenopathy. LUNGS: Clear. HEART: S1, S2, regular. ABDOMEN: Post-surgical dressing not opened. No distention, no tenderness. EXTREMITIES: No edema, cyanosis. The patient has multiple areas of bruising all over and subcutaneous hemorrhage all over the body, upper and lower as well as she has necrotic cyanotic toes much more so on the left than right. Dorsalis pedis is weak palpable. Sacrococcygeal wound is much smaller and appears that it is healing well. NEUROLOGIC: Off vent, slow to respond to verbal commands. General: Other (moans, opens eyes, does not answer questions ) Heart: Regular rate Lungs: Clear Abdomen: Soft, Other (drain is bloody drainage ) Extremities: No cyanosis, No edema, Normal pulses Skin: No rashes Labs Labs: Laboratory Tests Test 11/04/21 12:15 11/04/21 14:50 11/04/21 18:01 11/04/21 22:30 Glucose (Fingerstick) 220 mg/dL (70-99) 212 mg/dL (70-99) White Blood Count 12.0 x10^3/uL (4.0-11.0) Red Blood Count 2.78 x10^6/uL (3.50-5.40) Hemoglobin 8.6 g/dL (12.0-15.5) Hematocrit 26.9 % (36.0-47.0) Mean Corpuscular Volume 97 fL (79-100) Mean Corpuscular Hemoglobin 31 pg (25-35) Mean Corpuscular Hemoglobin Concent 32 g/dL (31-37) Red Cell Distribution Width 19.2 % (11.5-14.5) Platelet Count 15 x10^3/uL (140-400) Neutrophils (%) (Auto) 93 % (31-73) Lymphocytes (%) (Auto) 3 % (24-48) Monocytes (%) (Auto) 4 % (0-9) Eosinophils (%) (Auto) 0 % (0-3) Basophils (%) (Auto) 0 % (0-3) Neutrophils # (Auto) 11.2 x10^3/uL (1.8-7.7) Lymphocytes # (Auto) 0.4 x10^3/uL (1.0-4.8) Monocytes # (Auto) 0.4 x10^3/uL (0.0-1.1) Eosinophils # (Auto) 0.0 x10^3/uL (0.0-0.7) Basophils # (Auto) 0.0 x10^3/uL (0.0-0.2) Activated Partial Thromboplast Time 58 SEC (24-38) Fibrinogen 257 mg/dL (200-440) D-Dimer (Linda) 12.98 ug/mlFEU (0.00-0.50) Test 11/05/21 00:41 11/05/21 03:05 11/05/21 05:50 11/05/21 05:52 Glucose (Fingerstick) 205 mg/dL (70-99) 232 mg/dL (70-99) Activated Partial Thromboplast Time 83 SEC (24-38) White Blood Count 16.1 x10^3/uL (4.0-11.0) Red Blood Count 2.67 x10^6/uL (3.50-5.40) Hemoglobin 8.3 g/dL (12.0-15.5) Hematocrit 26.4 % (36.0-47.0) Mean Corpuscular Volume 99 fL (79-100) Mean Corpuscular Hemoglobin 31 pg (25-35) Mean Corpuscular Hemoglobin Concent 32 g/dL (31-37) Red Cell Distribution Width 20.2 % (11.5-14.5) Platelet Count 41 x10^3/uL (140-400) Neutrophils (%) (Auto) 91 % (31-73) Lymphocytes (%) (Auto) 4 % (24-48) Monocytes (%) (Auto) 3 % (0-9) Eosinophils (%) (Auto) 0 % (0-3) Basophils (%) (Auto) 2 % (0-3) Neutrophils # (Auto) 14.6 x10^3/uL (1.8-7.7) Lymphocytes # (Auto) 0.6 x10^3/uL (1.0-4.8) Monocytes # (Auto) 0.5 x10^3/uL (0.0-1.1) Eosinophils # (Auto) 0.0 x10^3/uL (0.0-0.7) Basophils # (Auto) 0.3 x10^3/uL (0.0-0.2) Segmented Neutrophils % 81 % (35-66) Band Neutrophils % 12 % (0-9) Lymphocytes % 5 % (24-48) Monocytes % 1 % (0-10) Eosinophils % 1 % (0-5) Nucleated Red Blood Cells 1 Platelet Estimate Decreased (ADEQUATE) Anisocytosis Slight Magnesium Level 2.5 mg/dL (1.8-2.4) Test 11/05/21 08:00 11/05/21 09:00 O2 Saturation 96 % (92-99) Arterial Blood pH 7.45 (7.35-7.45) Arterial Blood pCO2 at Patient Temp 29 mmHg (35-46) Arterial Blood pO2 at Patient Temp 93 mmHg (65-108) Arterial Blood HCO3 20 mmol/L (21-28) Arterial Blood Base Excess -4 mmol/L (-3-3) FiO2 60 Activated Partial Thromboplast Time 84 SEC (24-38) Sodium Level 141 mmol/L (136-145) Potassium Level 4.3 mmol/L (3.5-5.1) Chloride Level 106 mmol/L (98-107) Carbon Dioxide Level 19 mmol/L (21-32) Anion Gap 16 (6-14) Blood Urea Nitrogen 68 mg/dL (7-20) Creatinine 1.2 mg/dL (0.6-1.0) Estimated GFR (Cockcroft-Gault) 45.1 Glucose Level 232 mg/dL (70-99) Calcium Level 8.4 mg/dL (8.5-10.1) Phosphorus Level 4.0 mg/dL (2.6-4.7) Albumin 2.8 g/dL (3.4-5.0) Assessment and Plan Assessmemt and Plan Problems Medical Problems: (1) Elevated bilirubin Status: Acute (2) Hyperkalemia Status: Acute (3) Lactic acidosis Status: Acute (4) Leukocytosis Status: Acute (5) Perforated viscus Status: Acute (6) Renal insufficiency Status: Acute Comment Review of Relevant I have reviewed the following items tresa (where applicable) has been applied. Medications: Current Medications Medications (Trade) Dose Ordered Sig/Tiarra Route PRN Reason Start Time Stop Time Status Last Admin Dose Admin Sodium Phosphate 15 mmol/Sodium Chloride 105 ml @ 105 mls/hr 1X ONCE IV 11/04/21 14:00 11/04/21 14:59 DC 11/04/21 15:27 Sodium Chloride 60 meq/Sodium Phosphate 15 mmol/ Magnesium Sulfate 10 meq/ Multivitamins 10 ml/Zinc/Copper/ Manganese/ Selenium 1 ml/ Total Parenteral Nutrition/Amino Acids/Dextrose/ Fat Emulsion Intravenous 1,512 ml @ 63 mls/hr TPN CONT IV 11/04/21 22:00 11/05/21 21:59 11/04/21 22:15 Argatroban (Argatroban Per Pharmacy) 1 each PRN DAILY PRN MC SEE COMMENTS 11/04/21 19:15 11/04/21 19:23 Argatroban 50 mg/ Sodium Chloride 50 ml @ 1.611 mls/ hr CONT PRN IV PER PROTOCOL 11/04/21 19:15 11/04/21 20:57 Sodium Bicarbonate (Sodium Bicarb Adult 8.4% Syr) 50 meq 1X ONCE IV 11/05/21 09:30 11/05/21 09:31 DC 11/05/21 09:40 Furosemide (Lasix) 40 mg 1X ONCE IVP 11/05/21 10:00 11/05/21 10:01 DC 11/05/21 10:03 Justifications for Admission Other Justification CLARISSA HEMPHILL MD Nov 05, 2021 11:57
[2021-11-05] MEDS ORDERED: PIPERACILLIN/TAZOBACTAM 3.375 GM in IV NORMAL SALINE 50ML 50 ML IV SCH (12:00)
[2021-11-05] MEDS: HYDROmorphone 2 MG/ML INJ. IVP PRN ×2 (12:13→23:54)
[2021-11-05] MEDS: TPN PER PHARMACY MC PRN (12:36)
--- NOTE | 2021-11-05 12:38 | NUR ---
Pharmacy TPN Dosing Note S: SHELLY FIGUEROA is a 66 year old F Currently receiving Central Continuous TPN started 11/02/21 B:Pertinent PMH: bowel perforation Height: 5 feet, 1 inches Weight: 55.0 kg Current diet: NPO LABS: Sodium: 141 Potassium: 4.3 Chloride: 106 Calcium: 8.4 Corrected Calcium: 9.36 Magnesium: 2.5 CO2: 19 SCr: 1.2 Glucose: 232, 205 Albumin: 2.8 AST: 58 (11/02/21) ALT: 28 (11/02/21) TPN FORMULA: TPN TYPE: Central Continuous AMINO ACIDS: 60 gm DEXTROSE: 195 gm LIPIDS: 20 gm SODIUM ACETATE: 60 mEq SODIUM PHOSPHATE: 15 mmol MAGNESIUM: 5 mEq MULTIPLE VITAMIN: 10 ml TRACE ELEMENTS: 1 ml TPN PLAN: -Change NaCl to NaAC. -Reduce mag sulfate to 5 mEq/day. R: Continue TPN @ current rate and above formula. Will monitor electrolytes, glucose, and tolerance to TPN. FROYLAN PATEL [facility], 11/05/21 1358
--- NOTE | 2021-11-05 12:57 | PDOC2 ---
CONSULT Date of Consult Date of Consult DATE: 11/05/21 TIME: 12:47 Reason for Consult Reason for Consult: Thrombocytopenia Referring Physician Referring Physician: Dr. Amezquita Identification/Chief Complaint Chief Complaint Loss of consciousness and weakness Source Source: Chart review History of Present Illness Reason for Visit: Nancy bradshaw is a 66-year-old female who was admitted to [facility] after she was found down. She received further evaluation was found to have abdominal pain. Further imaging showed a bowel perforation and she was taken to the OR and found to have a gastric perforation walled off with eroded segment of the transverse mesocolon and widespread abdominal sepsis. The patient had a repair of the gastric ulcer done and drainage of the abdominal sepsis. Postoperatively, she has had progressive leukocytosis, acute blood loss anemia as well as thrombocytopenia. Hematology consultation has been requested for further evaluation of thrombocytopenia. HIT antibody testing was requested and results are expected by . She has no prior heparin exposure. Currently receiving Zosyn. On argatroban infusion at the time of consultation Past Medical History Cardiovascular: No pertinent hx Pulmonary: No pertinent hx GI: No pertinent hx Rheumatologic: No pertinent hx Past Surgical History Past Surgical History: No pertinent history Social History 1 pack per day Drugs: None Lives: Alone Current Problem List Problem List Problems Medical Problems: (1) Elevated bilirubin Status: Acute (2) Hyperkalemia Status: Acute (3) Lactic acidosis Status: Acute (4) Leukocytosis Status: Acute (5) Perforated viscus Status: Acute (6) Renal insufficiency Status: Acute Current Medications Current Medications Current Medications Sodium Chloride 1,000 ml @ 1,000 mls/hr 1X ONCE IV Last administered on 11/01/21at 15:30; Start 11/01/21 at 15:15; Stop 11/01/21 at 16:14; Status DC Calcium Gluconate (Calcium Gluconate) 1,000 mg 1X ONCE IVP Last administered on 11/01/21at 16:35; Start 11/01/21 at 16:00; Stop 11/01/21 at 16:01; Status DC Sodium Bicarbonate (Sodium Bicarb Adult 8.4% Syr) 50 meq 1X ONCE IV Last administered on 11/01/21at 16:35; Start 11/01/21 at 16:00; Stop 11/02/21 at 09:36; Status DC Dextrose (Dextrose 50%-Water Syringe) 25 gm 1X ONCE IV Last administered on 11/01/21at 16:50; Start 11/01/21 at 16:00; Stop 11/01/21 at 16:01; Status DC Insulin Human Regular (HumuLIN R VIAL) 10 unit 1X ONCE IV Last administered on 11/01/21at 16:40; Start 11/01/21 at 16:00; Stop 11/01/21 at 16:01; Status DC Sodium Chloride 1,000 ml @ 1,000 mls/hr Q1H IV Last administered on 11/01/21at 16:50; Start 11/01/21 at 16:00; Stop 11/01/21 at 16:59; Status DC Piperacillin Sod/ Tazobactam Sod 3.375 gm/Sodium Chloride 50 ml @ 100 mls/hr 1X ONCE IV ; Start 11/01/21 at 16:45; Stop 11/01/21 at 17:14; Status UNV Piperacillin Sod/ Tazobactam Sod 2.25 gm/Sodium Chloride 50 ml @ 100 mls/hr 1X ONCE IV Last administered on 11/01/21at 16:58; Start 11/01/21 at 17:00; Stop 11/01/21 at 17:29; Status DC Ondansetron HCl (Zofran) 4 mg PRN Q8HRS PRN IVP NAUSEA/VOMITING; Start 11/01/21 at 16:45; Stop 11/02/21 at 16:44; Status DC Morphine Sulfate (Morphine Sulfate) 2 mg PRN Q2HR PRN IVP PAIN; Start 11/01/21 at 16:45; Stop 11/02/21 at 03:15; Status DC Sodium Chloride 1,000 ml @ 1,000 mls/hr 1X ONCE IV Last administered on 11/01/21at 17:48; Start 11/01/21 at 17:45; Stop 11/01/21 at 18:44; Status DC Rocuronium Lorraine (Zemuron) 100 mg STK-MED ONCE .ROUTE ; Start 11/01/21 at 17:54; Stop 11/01/21 at 17:55; Status DC Fentanyl Citrate (Fentanyl 5ml Vial) 250 mcg STK-MED ONCE .ROUTE ; Start 11/01/21 at 17:55; Stop 11/01/21 at 17:55; Status DC Etomidate (Amidate) 20 mg STK-MED ONCE IV ; Start 11/01/21 at 17:55; Stop 11/01/21 at 17:56; Status DC Phenylephrine HCl (PHENYLEPHRINE in 0.9% NACL PF) 1 mg STK-MED ONCE IV ; Start 11/01/21 at 17:56; Stop 11/01/21 at 17:56; Status DC Fentanyl Citrate (Fentanyl 2ml Vial) 25 mcg PRN Q5MIN PRN IVP MILD PAIN 1-3; Start 11/01/21 at 18:00; Stop 11/02/21 at 03:15; Status DC Fentanyl Citrate (Fentanyl 2ml Vial) 50 mcg PRN Q5MIN PRN IVP MODERATE PAIN 4- 6; Start 11/01/21 at 18:00; Stop 11/02/21 at 03:15; Status DC Morphine Sulfate (Morphine Sulfate) 1 mg PRN Q10MIN PRN IVP SEVERE PAIN 7-10; Start 11/01/21 at 18:00; Stop 11/02/21 at 03:15; Status DC Ringer's Solution 1,000 ml @ 30 mls/hr Q24H IV ; Start 11/01/21 at 18:00; Stop 11/02/21 at 05:59; Status DC Hydromorphone HCl (Dilaudid) 0.5 mg PRN Q10MIN PRN IVP SEVERE PAIN 7-10, 2nd CHOICE; Start 11/01/21 at 18:00; Stop 11/02/21 at 03:15; Status DC Prochlorperazine Edisylate (Compazine) 5 mg PACU PRN PRN IVP NAUSEA, MRX1; Start 11/01/21 at 18:00; Stop 11/02/21 at 17:59; Status DC Fentanyl Citrate (Fentanyl 2ml Vial) 25 mcg PRN Q5MIN PRN IVP MILD PAIN 1-3; Start 11/01/21 at 18:00; Stop 11/02/21 at 17:59; Status UNV Fentanyl Citrate (Fentanyl 2ml Vial) 50 mcg PRN Q5MIN PRN IVP MODERATE PAIN 4- 6; Start 11/01/21 at 18:00; Stop 11/02/21 at 17:59; Status UNV Morphine Sulfate (Morphine Sulfate) 1 mg PRN Q10MIN PRN IVP SEVERE PAIN 7-10; Start 11/01/21 at 18:00; Stop 11/02/21 at 17:59; Status UNV Ringer's Solution 1,000 ml @ 30 mls/hr Q24H IV ; Start 11/01/21 at 18:00; Stop 11/02/21 at 05:59; Status UNV Hydromorphone HCl (Dilaudid) 0.5 mg PRN Q10MIN PRN IVP SEVERE PAIN 7-10, 2nd CHOICE; Start 11/01/21 at 18:00; Stop 11/02/21 at 17:59; Status UNV Prochlorperazine Edisylate (Compazine) 5 mg PACU PRN PRN IVP NAUSEA, MRX1; Start 11/01/21 at 18:00; Stop 11/02/21 at 17:59; Status UNV Insulin Human Lispro (HumaLOG) 0-5 UNITS TIDWMEALS SQ ; Start 11/02/21 at 08:00; Stop 11/02/21 at 21:44; Status DC Dextrose (Dextrose 50%-Water Syringe) 12.5 gm PRN Q15MIN PRN IV SEE COMMENTS; Start 11/01/21 at 18:00; Stop 11/03/21 at 14:24; Status DC Dextrose (Iv Dextrose 5%) 250 ml PRN Q15MIN PRN IV SEE COMMENTS; Start 11/01/21 at 18:00 Piperacillin Sod/ Tazobactam Sod (Zosyn Per Pharmacy) 1 each PRN DAILY PRN MC SEE COMMENTS; Start 11/01/21 at 18:15 Piperacillin Sod/ Tazobactam Sod 2.25 gm/Sodium Chloride 50 ml @ 100 mls/hr Q8HRS IV Last administered on 11/05/21at 05:54; Start 11/01/21 at 22:00; Stop 11/05/21 at 08:14; Status DC Albumin Human 500 ml @ As Directed STK-MED ONCE IV ; Start 11/01/21 at 18:20; Stop 11/01/21 at 18:21; Status DC Bupivacaine HCl/ Epinephrine Bitart (Sensorcain-Epi 0.5% Kit) 30 ml STK-MED ONCE .ROUTE ; Start 11/01/21 at 18:25; Stop 11/01/21 at 18:26; Status DC Albumin Human 500 ml @ As Directed STK-MED ONCE IV ; Start 11/01/21 at 18:30; Stop 11/01/21 at 18:31; Status DC Phenylephrine HCl (PHENYLEPHRINE in 0.9% NACL PF) 1 mg STK-MED ONCE IV ; Start 11/01/21 at 19:53; Stop 11/01/21 at 19:53; Status DC Sevoflurane (Ultane) 90 ml STK-MED ONCE IH ; Start 11/01/21 at 19:58; Stop 11/01/21 at 19:58; Status DC Albumin Human 500 ml @ As Directed STK-MED ONCE IV ; Start 11/01/21 at 20:00; Stop 11/01/21 at 20:00; Status DC Pantoprazole Sodium 80 mg/ Sodium Chloride 100 ml @ 10 mls/hr 1X ONCE IV Last administered on 11/01/21at 22:32; Start 11/01/21 at 20:30; Stop 11/02/21 at 06:29; Status DC Heparin Sodium (Porcine) (Heparin Sodium) 5,000 unit Q12HR SQ ; Start 11/01/21 at 21:00; Stop 11/01/21 at 20:40; Status DC Dextrose/Sodium Chloride 1,000 ml @ 100 mls/hr Q10H IV ; Start 11/01/21 at 20:30; Stop 11/02/21 at 05:51; Status DC Heparin Sodium (Porcine) (Heparin Sodium) 5,000 unit Q12HR SQ Last administered on 11/04/21at 08:29; Start 11/02/21 at 09:00; Stop 11/04/21 at 18:18; Status DC Ringer's Solution 1,000 ml @ 125 mls/hr Q8H IV Last administered on 11/02/21at 05:53; Start 11/01/21 at 21:15; Stop 11/02/21 at 10:57; Status DC Sodium Bicarbonate (Sodium Bicarb Adult 8.4% Syr) 50 meq 1X ONCE IV Last administered on 11/01/21at 22:18; Start 11/01/21 at 22:00; Stop 11/02/21 at 09:36; Status DC Sodium Bicarbonate (Sodium Bicarb Adult 8.4% Syr) 50 meq 1X ONCE IV Last administered on 11/01/21at 22:18; Start 11/01/21 at 22:00; Stop 11/02/21 at 09:36; Status DC Sodium Bicarbonate 150 meq/Dextrose 1,150 ml @ 50 mls/hr Q23H IV Last administered on 11/01/21at 22:19; Start 11/01/21 at 23:00; Stop 11/02/21 at 10:57; Status DC Fentanyl Citrate 30 ml @ 2.5 mls/hr CONT PRN IV SEE PROTOCOL Last administered on 11/03/21at 00:03; Start 11/02/21 at 03:00; Stop 11/05/21 at 00:10; Status DC Midazolam HCl 100 ml @ 1 mls/hr CONT PRN IV SEE PROTOCOL; Start 11/02/21 at 03:00 Propofol 100 ml @ 1.461 mls/ hr CONT PRN IV PER PROTOCOL; Start 11/02/21 at 03:00 Glycerin/ Hypromellose/ Polyethylene (Artificial Tears) 1 drop PRN Q1HR PRN OU DRY EYE; Start 11/02/21 at 03:00 Dexmedetomidine HCl 400 mcg/ Sodium Chloride 100 ml @ 2.435 mls/ hr CONT PRN IV PER PROTOCOL; Start 11/02/21 at 03:00 Sodium Chloride 500 ml @ 500 mls/hr 1X PRN PRN IV SEE COMMENTS; Start 11/02/21 at 03:00 Atropine Sulfate (ATROPINE 0.5mg SYRINGE) 0.5 mg PRN Q5MIN PRN IV SEE COMMENTS; Start 11/02/21 at 03:00 Norepinephrine Bitartrate 8 mg/ Dextrose 258 ml @ 9.423 mls/ hr CONT PRN IV PER PROTOCOL Last administered on 11/02/21at 21:35; Start 11/02/21 at 05:15 Ringer's Solution 500 ml @ 500 mls/hr 1X ONCE IV ; Start 11/02/21 at 09:00; Stop 11/02/21 at 09:21; Status DC Ringer's Solution 980 ml @ 980 mls/hr 1X ONCE IV Last administered on 11/02/21at 09:25; Start 11/02/21 at 09:30; Stop 11/02/21 at 10:29; Status DC Info (Tpn Per Pharmacy) 1 each CONT MC ; Start 11/02/21 at 09:30; Stop 11/02/21 at 09:45; Status DC Sodium Bicarbonate (Sodium Bicarb Adult 8.4% Syr) 150 meq 1X ONCE IV ; Start 11/02/21 at 10:00; Stop 11/02/21 at 10:01; Status Cancel Info (Tpn Per Pharmacy) 1 each PRN DAILY PRN MC SEE COMMENTS Last administered on 11/05/21at 12:36; Start 11/02/21 at 09:45 Sodium Bicarbonate 75 meq/Dextrose 1,075 ml @ 100 mls/hr [id number] IV Last administered on 11/02/21at 22:14; Start 11/02/21 at 11:00; Stop 11/03/21 at 09:35; Status DC Magnesium Sulfate 50 ml @ 25 mls/hr PRN DAILY PRN IV for Mag < 1.7 on am labs; Start 11/02/21 at 11:00 Hydrocortisone Sodium Succinate (Solu-CORTEF) 100 mg Q12HR IVP Last administered on 11/05/21at 09:08; Start 11/02/21 at 21:00; Stop 11/05/21 at 11:19; Status DC Hydrocortisone Sodium Succinate (Solu-CORTEF) 100 mg 1X ONCE IVP Last admi nistered on 11/02/21at 12:05; Start 11/02/21 at 12:00; Stop 11/02/21 at 12:01; Status DC Clopidogrel Bisulfate (Plavix) 75 mg [id number] PO Last administered on 11/04/21at 08:25; Start 11/02/21 at 13:00; Stop 11/04/21 at 18:51; Status DC Cyanocobalamin (Vitamin B-12 Inj) 1,000 mcg 1X ONCE IM Last administered on 11/02/21at 13:14; Start 11/02/21 at 13:00; Stop 11/02/21 at 13:01; Status DC Magnesium Sulfate/ Dextrose 100 ml @ 100 mls/hr 1X ONCE IV Last administered on 11/02/21at 13:14; Start 11/02/21 at 13:00; Stop 11/02/21 at 13:59; Status DC Potassium Acetate 40 meq/Magnesium Sulfate 10 meq/ Multivitamins 10 ml/Zinc/Copper/ Manganese/ Selenium 1 ml/ Total Parenteral Nutrition/Amino Acids/Dextrose/ Fat Emulsion Intravenous 1,512 ml @ 63 mls/hr TPN CONT IV Last administered on 11/02/21at 21:34; Start 11/02/21 at 22:00; Stop 11/03/21 at 21:59; Status DC Insulin Human Lispro (HumaLOG) 0-5 UNITS Q6HRS SQ Last administered on 11/03/21at 06:06; Start 11/03/21 at 00:00; Stop 11/03/21 at 12:07; Status DC Sodium Chloride 60 meq/Potassium Acetate 50 meq/ Potassium Phosphate 13.6 mmol/Magnesium Sulfate 15 meq/ Multivitamins 10 ml/Zinc/Copper/ Manganese/ Selenium 1 ml/ Total Parenteral Nutrition/Amino Acids/Dextrose/ Fat Emulsion Intravenous 1,512 ml @ 63 mls/hr TPN CONT IV Last administered on 11/03/21at 22:14; Start 11/03/21 at 22:00; Stop 11/04/21 at 21:59; Status DC Potassium Chloride/Water 100 ml @ 100 mls/hr Q1H IV Last administered on 11/03/21at 11:36; Start 11/03/21 at 10:00; Stop 11/03/21 at 11:59; Status DC Insulin Glargine (Lantus Syringe) 12 unit DAILY SQ Last administered on 11/05/21at 09:13; Start 11/03/21 at 12:15 Insulin Human Lispro (HumaLOG) 0-7 UNITS Q6HRS SQ Last administered on 11/05/21at 12:43; Start 11/03/21 at 18:00 Dextrose (Dextrose 50%-Water Syringe) 12.5 gm PRN Q15MIN PRN IV SEE COMMENTS; Start 11/03/21 at 12:15 Dextrose (Iv Dextrose 5%) 250 ml PRN Q15MIN PRN IV SEE COMMENTS; Start 11/03/21 at 12:15 Insulin Human Lispro (HumaLOG) 8 units 1X ONCE SQ Last administered on 11/03/21at 12:29; Start 11/03/21 at 12:15; Stop 11/03/21 at 12:16; Status DC Albumin Human 100 ml @ 100 mls/hr TID IV Last administered on 11/05/21at 09:08; Start 11/03/21 at 14:00; Stop 11/05/21 at 09:59; Status DC Potassium Chloride/Water 100 ml @ 50 mls/hr PRN Q6HRS PRN IV For K < 3.7; Start 11/03/21 at 12:45 Potassium Chloride/Water 100 ml @ 50 mls/hr PRN Q2HR PRN IV total of 40mEq for K < 3.5 Last administered on 11/04/21at 03:57; Start 11/03/21 at 12:45 Magnesium Sulfate/ Dextrose 100 ml @ 100 mls/hr 1X ONCE IV Last administered on 11/03/21at 13:25; Start 11/03/21 at 13:00; Stop 11/03/21 at 13:59; Status DC Sodium Chloride 1,000 ml @ 75 mls/hr [id number] IV Last administered on 11/04/21at 20:53; Start 11/03/21 at 13:15 Pantoprazole Sodium 80 mg/ Sodium Chloride 100 ml @ 10 mls/hr Q10H IV Last administered on 11/05/21at 07:32; Start 11/03/21 at 14:00; Stop 11/05/21 at 12:23; Status DC Fentanyl Citrate (Fentanyl 2ml Vial) 25 mcg PRN Q2HR PRN IVP MODERATE PAIN Last administered on 11/04/21at 23:09; Start 11/04/21 at 05:15 Sodium Phosphate 15 mmol/Sodium Chloride 105 ml @ 105 mls/hr 1X ONCE IV Last administered on 11/04/21at 15:27; Start 11/04/21 at 14:00; Stop 11/04/21 at 14:59; Status DC Sodium Chloride 60 meq/Sodium Phosphate 15 mmol/ Magnesium Sulfate 10 meq/ Multivitamins 10 ml/Zinc/Copper/ Manganese/ Selenium 1 ml/ Total Parenteral Nutrition/Amino Acids/Dextrose/ Fat Emulsion Intravenous 1,512 ml @ 63 mls/hr TPN CONT IV Last administered on 11/04/21at 22:15; Start 11/04/21 at 22:00; Stop 11/05/21 at 21:59 Argatroban (Argatroban Per Pharmacy) 1 each PRN DAILY PRN MC SEE COMMENTS Last administered on 11/04/21at 19:23; Start 11/04/21 at 19:15; Stop 11/05/21 at 12:07; Status DC Argatroban 50 mg/ Sodium Chloride 50 ml @ 1.611 mls/ hr CONT PRN IV PER [place] OTOCOL Last administered on 11/04/21at 20:57; Start 11/04/21 at 19:15; Stop 11/05/21 at 12:07; Status DC Piperacillin Sod/ Tazobactam Sod 3.375 gm/Sodium Chloride 50 ml @ 100 mls/hr Q6HRS IV Last administered on 11/05/21at 12:18; Start 11/05/21 at 12:00 Sodium Bicarbonate (Sodium Bicarb Adult 8.4% Syr) 50 meq 1X ONCE IV Last administered on 11/05/21at 09:40; Start 11/05/21 at 09:30; Stop 11/05/21 at 09:31; Status DC Furosemide (Lasix) 40 mg 1X ONCE IVP Last administered on 11/05/21at 10:03; Start 11/05/21 at 10:00; Stop 11/05/21 at 10:01; Status DC Hydromorphone HCl (Dilaudid) 1 mg Q4HRS PRN IVP SEVERE PAIN Last administered o n 11/05/21at 12:13; Start 11/05/21 at 12:00 Sodium Acetate 60 meq/Sodium Phosphate 15 mmol/ Magnesium Sulfate 5 meq/ Multivitamins 10 ml/Zinc/Copper/ Manganese/ Selenium 1 ml/ Total Parenteral Nutrition/Amino Acids/Dextrose/ Fat Emulsion Intravenous 1,512 ml @ 63 mls/hr TPN CONT IV ; Start 11/05/21 at 22:00; Stop 11/06/21 at 21:59 Pantoprazole Sodium (PROTONIX VIAL for IV PUSH) 40 mg BID IVP ; Start 11/05/21 at 21:00 Active Scripts Active Reported Spironolactone 25 Mg Tablet 0.5 Tab PO [id number] Metoprolol Succinate ( Xl ) (Metoprolol Succinate) 25 Mg Tab.er.24h 0.5 Tab PO DAILY Zoloft (Sertraline Hcl) 50 Mg Tablet 50 Mg PO DAILY Levothyroxine Sodium 125 Mcg Tablet 125 Mcg PO DAILYAC Prednisone 20 Mg Tablet 20 Mg PO DAILY Protonix (Pantoprazole Sodium) 20 Mg Tablet.dr 40 Mg PO DAILY Lasix (Furosemide) 40 Mg Tablet 40 Mg PO DAILY Clopidogrel (Clopidogrel Bisulfate) 75 Mg Tablet 75 Mg PO DAILY Tramadol Hcl 50 Mg Tablet 50 Mg PO Q6HRS PRN Fluconazole 100 Mg Tablet 100 Mg PO DAILY Klor-Con 10 (Potassium Chloride) 10 Meq Tablet.er 10 Meq PO DAILY Hydrocodone-Acetamin 7.5-325 (Hydrocodone/Acetaminophen) 1 Each Tablet 1 Each PO Q6HRS PRN Meloxicam 15 Mg Tablet 15 Mg PO DAILY Allergies Allergies: Coded Allergies: adhesive tape (Verified Allergy, Intermediate, 11/02/21) Vitals VITALS Vital Signs Date Time Temp Pulse Resp B/P (MAP) Pulse Ox O2 Delivery O2 Flow Rate FiO2 11/05/21 12:13 20 92 Nasal Cannula 6.0 11/05/21 04:00 96.9 78 110/66 (81) 96.9 Labs Labs Laboratory Tests Test 11/03/21 13:12 11/03/21 18:05 11/03/21 18:12 11/03/21 23:48 Glucose (Fingerstick) 354 mg/dL (70-99) 291 mg/dL (70-99) 238 mg/dL (70-99) Potassium Level 3.5 mmol/L (3.5-5.1) Test 11/04/21 01:00 11/04/21 05:50 11/04/21 06:00 11/04/21 06:09 Potassium Level 3.3 mmol/L (3.5-5.1) 5.4 mmol/L (3.5-5.1) Sodium Level 137 mmol/L (136-145) Chloride Level 106 mmol/L (98-107) Carbon Dioxide Level 22 mmol/L (21-32) Anion Gap 9 (6-14) Blood Urea Nitrogen 55 mg/dL (7-20) Creatinine 1.1 mg/dL (0.6-1.0) Estimated GFR (Cockcroft-Gault) 49.8 Glucose Level 216 mg/dL (70-99) Hemoglobin A1c 5.2 % (4.8-5.6) Calcium Level 8.3 mg/dL (8.5-10.1) Phosphorus Level 2.1 mg/dL (2.6-4.7) Albumin 2.2 g/dL (3.4-5.0) Magnesium Level 2.3 mg/dL (1.8-2.4) Glucose (Fingerstick) 212 mg/dL (70-99) Test 11/04/21 12:15 11/04/21 14:50 11/04/21 18:01 11/04/21 22:30 Glucose (Fingerstick) 220 mg/dL (70-99) 212 mg/dL (70-99) White Blood Count 12.0 x10^3/uL (4.0-11.0) Red Blood Count 2.78 x10^6/uL (3.50-5.40) Hemoglobin 8.6 g/dL (12.0-15.5) Hematocrit 26.9 % (36.0-47.0) Mean Corpuscular Volume 97 fL (79-100) Mean Corpuscular Hemoglobin 31 pg (25-35) Mean Corpuscular Hemoglobin Concent 32 g/dL (31-37) Red Cell Distribution Width 19.2 % (11.5-14.5) Platelet Count 15 x10^3/uL (140-400) Neutrophils (%) (Auto) 93 % (31-73) Lymphocytes (%) (Auto) 3 % (24-48) Monocytes (%) (Auto) 4 % (0-9) Eosinophils (%) (Auto) 0 % (0-3) Basophils (%) (Auto) 0 % (0-3) Neutrophils # (Auto) 11.2 x10^3/uL (1.8-7.7) Lymphocytes # (Auto) 0.4 x10^3/uL (1.0-4.8) Monocytes # (Auto) 0.4 x10^3/uL (0.0-1.1) Eosinophils # (Auto) 0.0 x10^3/uL (0.0-0.7) Basophils # (Auto) 0.0 x10^3/uL (0.0-0.2) Activated Partial Thromboplast Time 58 SEC (24-38) Fibrinogen 257 mg/dL (200-440) D-Dimer (Linda) 12.98 ug/mlFEU (0.00-0.50) Test 11/05/21 00:41 11/05/21 03:05 11/05/21 05:50 11/05/21 05:52 Glucose (Fingerstick) 205 mg/dL (70-99) 232 mg/dL (70-99) Activated Partial Thromboplast Time 83 SEC (24-38) White Blood Count 16.1 x10^3/uL (4.0-11.0) Red Blood Count 2.67 x10^6/uL (3.50-5.40) Hemoglobin 8.3 g/dL (12.0-15.5) Hematocrit 26.4 % (36.0-47.0) Mean Corpuscular Volume 99 fL (79-100) Mean Corpuscular Hemoglobin 31 pg (25-35) Mean Corpuscular Hemoglobin Concent 32 g/dL (31-37) Red Cell Distribution Width 20.2 % (11.5-14.5) Platelet Count 41 x10^3/uL (140-400) Neutrophils (%) (Auto) 91 % (31-73) Lymphocytes (%) (Auto) 4 % (24-48) Monocytes (%) (Auto) 3 % (0-9) Eosinophils (%) (Auto) 0 % (0-3) Basophils (%) (Auto) 2 % (0-3) Neutrophils # (Auto) 14.6 x10^3/uL (1.8-7.7) Lymphocytes # (Auto) 0.6 x10^3/uL (1.0-4.8) Monocytes # (Auto) 0.5 x10^3/uL (0.0-1.1) Eosinophils # (Auto) 0.0 x10^3/uL (0.0-0.7) Basophils # (Auto) 0.3 x10^3/uL (0.0-0.2) Segmented Neutrophils % 81 % (35-66) Band Neutrophils % 12 % (0-9) Lymphocytes % 5 % (24-48) Monocytes % 1 % (0-10) Eosinophils % 1 % (0-5) Nucleated Red Blood Cells 1 Platelet Estimate Decreased (ADEQUATE) Anisocytosis Slight Magnesium Level 2.5 mg/dL (1.8-2.4) Test 11/05/21 08:00 11/05/21 09:00 11/05/21 12:40 O2 Saturation 96 % (92-99) Arterial Blood pH 7.45 (7.35-7.45) Arterial Blood pCO2 at Patient Temp 29 mmHg (35-46) Arterial Blood pO2 at Patient Temp 93 mmHg (65-108) Arterial Blood HCO3 20 mmol/L (21-28) Arterial Blood Base Excess -4 mmol/L (-3-3) FiO2 60 Activated Partial Thromboplast Time 84 SEC (24-38) Sodium Level 141 mmol/L (136-145) Potassium Level 4.3 mmol/L (3.5-5.1) Chloride Level 106 mmol/L (98-107) Carbon Dioxide Level 19 mmol/L (21-32) Anion Gap 16 (6-14) Blood Urea Nitrogen 68 mg/dL (7-20) Creatinine 1.2 mg/dL (0.6-1.0) Estimated GFR (Cockcroft-Gault) 45.1 Glucose Level 232 mg/dL (70-99) Calcium Level 8.4 mg/dL (8.5-10.1) Phosphorus Level 4.0 mg/dL (2.6-4.7) Albumin 2.8 g/dL (3.4-5.0) Glucose (Fingerstick) 254 mg/dL (70-99) Laboratory Tests Test 11/04/21 14:50 11/04/21 18:01 11/04/21 22:30 11/05/21 00:41 White Blood Count 12.0 x10^3/uL (4.0-11.0) Red Blood Count 2.78 x10^6/uL (3.50-5.40) Hemoglobin 8.6 g/dL (12.0-15.5) Hematocrit 26.9 % (36.0-47.0) Mean Corpuscular Volume 97 fL (79-100) Mean Corpuscular Hemoglobin 31 pg (25-35) Mean Corpuscular Hemoglobin Concent 32 g/dL (31-37) Red Cell Distribution Width 19.2 % (11.5-14.5) Platelet Count 15 x10^3/uL (140-400) Neutrophils (%) (Auto) 93 % (31-73) Lymphocytes (%) (Auto) 3 % (24-48) Monocytes (%) (Auto) 4 % (0-9) Eosinophils (%) (Auto) 0 % (0-3) Basophils (%) (Auto) 0 % (0-3) Neutrophils # (Auto) 11.2 x10^3/uL (1.8-7.7) Lymphocytes # (Auto) 0.4 x10^3/uL (1.0-4.8) Monocytes # (Auto) 0.4 x10^3/uL (0.0-1.1) Eosinophils # (Auto) 0.0 x10^3/uL (0.0-0.7) Basophils # (Auto) 0.0 x10^3/uL (0.0-0.2) Glucose (Fingerstick) 212 mg/dL (70-99) 205 mg/dL (70-99) Activated Partial Thromboplast Time 58 SEC (24-38) Fibrinogen 257 mg/dL (200-440) D-Dimer (Linda) 12.98 ug/mlFEU (0.00-0.50) Test 11/05/21 03:05 11/05/21 05:50 11/05/21 05:52 11/05/21 08:00 Activated Partial Thromboplast Time 83 SEC (24-38) White Blood Count 16.1 x10^3/uL (4.0-11.0) Red Blood Count 2.67 x10^6/uL (3.50-5.40) Hemoglobin 8.3 g/dL (12.0-15.5) Hematocrit 26.4 % (36.0-47.0) Mean Corpuscular Volume 99 fL (79-100) Mean Corpuscular Hemoglobin 31 pg (25-35) Mean Corpuscular Hemoglobin Concent 32 g/dL (31-37) Red Cell Distribution Width 20.2 % (11.5-14.5) Platelet Count 41 x10^3/uL (140-400) Neutrophils (%) (Auto) 91 % (31-73) Lymphocytes (%) (Auto) 4 % (24-48) Monocytes (%) (Auto) 3 % (0-9) Eosinophils (%) (Auto) 0 % (0-3) Basophils (%) (Auto) 2 % (0-3) Neutrophils # (Auto) 14.6 x10^3/uL (1.8-7.7) Lymphocytes # (Auto) 0.6 x10^3/uL (1.0-4.8) Monocytes # (Auto) 0.5 x10^3/uL (0.0-1.1) Eosinophils # (Auto) 0.0 x10^3/uL (0.0-0.7) Basophils # (Auto) 0.3 x10^3/uL (0.0-0.2) Segmented Neutrophils % 81 % (35-66) Band Neutrophils % 12 % (0-9) Lymphocytes % 5 % (24-48) Monocytes % 1 % (0-10) Eosinophils % 1 % (0-5) Nucleated Red Blood Cells 1 Platelet Estimate Decreased (ADEQUATE) Anisocytosis Slight Magnesium Level 2.5 mg/dL (1.8-2.4) Glucose (Fingerstick) 232 mg/dL (70-99) O2 Saturation 96 % (92-99) Arterial Blood pH 7.45 (7.35-7.45) Arterial Blood pCO2 at Patient Temp 29 mmHg (35-46) Arterial Blood pO2 at Patient Temp 93 mmHg (65-108) Arterial Blood HCO3 20 mmol/L (21-28) Arterial Blood Base Excess -4 mmol/L (-3-3) FiO2 60 Test 11/05/21 09:00 11/05/21 12:40 Activated Partial Thromboplast Time 84 SEC (24-38) Sodium Level 141 mmol/L (136-145) Potassium Level 4.3 mmol/L (3.5-5.1) Chloride Level 106 mmol/L (98-107) Carbon Dioxide Level 19 mmol/L (21-32) Anion Gap 16 (6-14) Blood Urea Nitrogen 68 mg/dL (7-20) Creatinine 1.2 mg/dL (0.6-1.0) Estimated GFR (Cockcroft-Gault) 45.1 Glucose Level 232 mg/dL (70-99) Calcium Level 8.4 mg/dL (8.5-10.1) Phosphorus Level 4.0 mg/dL (2.6-4.7) Albumin 2.8 g/dL (3.4-5.0) Glucose (Fingerstick) 254 mg/dL (70-99) Assessment/Plan Assessment/Plan Assessment: Thrombocytopenia, likely secondary to sepsis Acute respiratory failure secondary Gastric ulcer with perforation status post exploratory laparotomy and repair of the posterior gastric ulcer Acute kidney injury. Improved Toe discoloration. No evidence of arterial or venous thrombosis on Doppler Plan -HIT antibody was requested today and is in process. Anticipate results or Thursday. We will follow up -Low suspicion for HIT based on 4 T score of 1. Would agree with cardiology regarding discontinuing argatroban drip given drop in hematocrit -Check CBC, INR daily -Check B12 level -Management of perforated ulcer per surgery service -Management of respiratory failure per pulmonology -Rest per Dr. Alirio Ellison MD Medical Oncology/Hematology Ph: [phone] JUNIOR ELLISON MD Nov 05, 2021 12:57
--- NOTE | 2021-11-05 13:04 | PDOC ---
SEN HERNANDEZ ESTIMATING ENGINEER 11/05/21 1304: CARDIO Progress Notes Date and Time Date of Service 11/05/2021 Time of Evaluation 1250 Subjective Subjective: No Chest Pain, No shortness of breath, No Palpitations, Other (abdominal pain) Vitals Vitals Vital Signs Date Time Temp Pulse Resp B/P (MAP) Pulse Ox O2 Delivery O2 Flow Rate FiO2 11/05/21 12:13 20 92 Nasal Cannula 6.0 11/05/21 04:00 96.9 78 110/66 (81) 96.9 Weight Weight [ ] Input and Output Intake and Output Intake and Output 11/05/21 07:00 Intake Total 5689 ml Output Total 439 ml Balance 5250 ml Intake IV Total 5589 ml Blood Product 100 ml Other 0 ml Output Urine Total 269 ml Gastric Drainage Total 100 ml Drainage Total 70 ml Laboratory Labs Laboratory Tests Test 11/04/21 14:50 11/04/21 18:01 11/04/21 22:30 11/05/21 00:41 White Blood Count 12.0 x10^3/uL (4.0-11.0) Red Blood Count 2.78 x10^6/uL (3.50-5.40) Hemoglobin 8.6 g/dL (12.0-15.5) Hematocrit 26.9 % (36.0-47.0) Mean Corpuscular Volume 97 fL (79-100) Mean Corpuscular Hemoglobin 31 pg (25-35) Mean Corpuscular Hemoglobin Concent 32 g/dL (31-37) Red Cell Distribution Width 19.2 % (11.5-14.5) Platelet Count 15 x10^3/uL (140-400) Neutrophils (%) (Auto) 93 % (31-73) Lymphocytes (%) (Auto) 3 % (24-48) Monocytes (%) (Auto) 4 % (0-9) Eosinophils (%) (Auto) 0 % (0-3) Basophils (%) (Auto) 0 % (0-3) Neutrophils # (Auto) 11.2 x10^3/uL (1.8-7.7) Lymphocytes # (Auto) 0.4 x10^3/uL (1.0-4.8) Monocytes # (Auto) 0.4 x10^3/uL (0.0-1.1) Eosinophils # (Auto) 0.0 x10^3/uL (0.0-0.7) Basophils # (Auto) 0.0 x10^3/uL (0.0-0.2) Glucose (Fingerstick) 212 mg/dL (70-99) 205 mg/dL (70-99) Activated Partial Thromboplast Time 58 SEC (24-38) Fibrinogen 257 mg/dL (200-440) D-Dimer (Linda) 12.98 ug/mlFEU (0.00-0.50) Test 11/05/21 03:05 11/05/21 05:50 11/05/21 05:52 11/05/21 08:00 Activated Partial Thromboplast Time 83 SEC (24-38) White Blood Count 16.1 x10^3/uL (4.0-11.0) Red Blood Count 2.67 x10^6/uL (3.50-5.40) Hemoglobin 8.3 g/dL (12.0-15.5) Hematocrit 26.4 % (36.0-47.0) Mean Corpuscular Volume 99 fL (79-100) Mean Corpuscular Hemoglobin 31 pg (25-35) Mean Corpuscular Hemoglobin Concent 32 g/dL (31-37) Red Cell Distribution Width 20.2 % (11.5-14.5) Platelet Count 41 x10^3/uL (140-400) Neutrophils (%) (Auto) 91 % (31-73) Lymphocytes (%) (Auto) 4 % (24-48) Monocytes (%) (Auto) 3 % (0-9) Eosinophils (%) (Auto) 0 % (0-3) Basophils (%) (Auto) 2 % (0-3) Neutrophils # (Auto) 14.6 x10^3/uL (1.8-7.7) Lymphocytes # (Auto) 0.6 x10^3/uL (1.0-4.8) Monocytes # (Auto) 0.5 x10^3/uL (0.0-1.1) Eosinophils # (Auto) 0.0 x10^3/uL (0.0-0.7) Basophils # (Auto) 0.3 x10^3/uL (0.0-0.2) Segmented Neutrophils % 81 % (35-66) Band Neutrophils % 12 % (0-9) Lymphocytes % 5 % (24-48) Monocytes % 1 % (0-10) Eosinophils % 1 % (0-5) Nucleated Red Blood Cells 1 Platelet Estimate Decreased (ADEQUATE) Anisocytosis Slight Magnesium Level 2.5 mg/dL (1.8-2.4) Glucose (Fingerstick) 232 mg/dL (70-99) O2 Saturation 96 % (92-99) Arterial Blood pH 7.45 (7.35-7.45) Arterial Blood pCO2 at Patient Temp 29 mmHg (35-46) Arterial Blood pO2 at Patient Temp 93 mmHg (65-108) Arterial Blood HCO3 20 mmol/L (21-28) Arterial Blood Base Excess -4 mmol/L (-3-3) FiO2 60 Test 11/05/21 09:00 11/05/21 12:40 Activated Partial Thromboplast Time 84 SEC (24-38) Sodium Level 141 mmol/L (136-145) Potassium Level 4.3 mmol/L (3.5-5.1) Chloride Level 106 mmol/L (98-107) Carbon Dioxide Level 19 mmol/L (21-32) Anion Gap 16 (6-14) Blood Urea Nitrogen 68 mg/dL (7-20) Creatinine 1.2 mg/dL (0.6-1.0) Estimated GFR (Cockcroft-Gault) 45.1 Glucose Level 232 mg/dL (70-99) Calcium Level 8.4 mg/dL (8.5-10.1) Phosphorus Level 4.0 mg/dL (2.6-4.7) Albumin 2.8 g/dL (3.4-5.0) Glucose (Fingerstick) 254 mg/dL (70-99) Microbiology Micro Microbiology 11/01/21 Gram Stain - Final, Resulted 11/01/21 Aerobic and Anaerobic Culture - Preliminary, Resulted Escherichia Coli Enterococcus Faecalis Eikenella Corrodens Prevotella Buccae 11/01/21 Urine Culture - Final, Complete Escherichia Coli Proteus Mirabilis 11/01/21 Blood Culture - Preliminary, Resulted NO GROWTH AFTER 3 DAYS Physical Exam HEENT: Neck Supple W Full Motion Chest: Symmetric LUNGS: Other (diminished bases) Heart: RRR (SR) Abdomen: Other (abdominal tenderness, dark red per NGT drain) Extremities: No Edema, Other (siffuse ecchymosis, bluish discoloration of the left first, fourth and fifth toes, bilateral LE warm to touch ) Neurology: alert, oriented, follow commands Assessment Assessment 1. Acute septic shock related to a perforated gastric ulcer; s/p repair and drainage of an abdominal abscess 11/01. improving. presently with abdominal pain 2. 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 appears compensatedf 3. Hx of severe MR and prior mitraclip placement 4. Hx of HTN; off pressor support. controlled 5. Acute respiratory failure due to above; s/p extubation 6. SEBAS, hyperkalemia; Cr improved. K is now normalized 7. PFO with left to right shunting. 8. Thrombocytopenia: hematology seeing pt. PLT now up to 41 9. PAD; left foot toes with ischemic changes. Arterial duplex without evidence of hemodynamically significant stenosis 10. Hx of RA 11. Anemia: Hgb at 8.3 Recommendations Discuss with hematology. DC argatroban with noted GI bleed, noted dark blood in NGT drain, GS is aware. Awaiting f/u H/H Ongoing support. DC zosyn, Discussed with RN and check for with PCP re alternative TTE pending Monitor PLTs Resume HF optimization therapy when able. Lasix PRN, dose given today already Supportive care Justicifation of Admission Dx: Justifications for Admission: Justification of Admission Dx: N/A LUIS GRISSOM MD 11/05/21 1739: CARDIO Progress Notes Plan Plan The patient was seen and interviewed as well as examined at the bedside. The chart was reviewed. The case was discussed. Agree with the plan of care. SEN HERNANDEZ APRN Nov 05, 2021 13:04 LUIS GRISSOM MD Nov 05, 2021 17:39
[2021-11-05] MEDS ORDERED: PANTOPRAZOLE IV PUSH 40 MG VIAL. IVP SCH (17:00)
[2021-11-05] MEDS ORDERED: CEFEPIME HCL IV Push 2 GM VIAL. IVP SCH (21:00)
[2021-11-05] MEDS: IV NORMAL SALINE 1000ML BAG 1,000 ML IV SCH (21:36)
[2021-11-05] MEDS: fentaNYL PF VIAL 100 MCG/2 ML VIAL IVP PRN (21:45)
[2021-11-05] MEDS ORDERED: DEXTROSE 70% IV SCH (22:00)
[2021-11-05] MEDS: STERILE WATER for RESP 2,000 ML BAG. INH PRN (22:00)
[2021-11-05] MEDS ORDERED: TOTAL PARENTERAL NUTRITION IV SCH (22:00)
[2021-11-05] MEDS ORDERED: [UNRECOGNIZED DRUG - OTHER] IV SCH (22:00)
[2021-11-05] MEDS ORDERED: AMINO ACID IV SCH (22:00)
[2021-11-06] VITALS (16 sets, daily range): BP systolic 42–114; BP diastolic 21–72
[2021-11-06] MEDS: INSULIN LISPRO 300 UNITS/3 ML VIAL. SQ SCH ×2 (00:53→05:56)
--- NOTE | 2021-11-06 01:42 | NUR ---
Dr. Waddell contacted and informed of patient continuous crying out for help. RN already administered prn pain medications (see emar), which did not appear to help. Orders given for 0.5mg of ativan q4 hours IV.
[2021-11-06] MEDS: STERILE WATER for RESP 2,000 ML BAG. INH PRN (02:55)
[2021-11-06] MEDS: fentaNYL PF VIAL 100 MCG/2 ML VIAL IVP PRN (04:25)
[2021-11-06 06:06] LABS: ALBUMIN 2.3 g/dL (3.4-5.0); ALBUMIN/GLOBULIN RATIO 1.4 (1.0-1.7); CALCIUM 8.3 mg/dL (8.5-10.1); CREATININE 1.5 mg/dL (0.6-1.0); GFR 34.9; MAGNESIUM 2.3 mg/dL (1.8-2.4); POTASSIUM 4.4 mmol/L (3.5-5.1); TOTAL BILIRUBIN 2.7 mg/dL (0.2-1.0); TOTAL PROTEIN 3.9 g/dL (6.4-8.2)
[2021-11-06 06:18] LABS: BASO % 0 % (0-3); EOS % 0 % (0-3); HEMATOCRIT 18.8 % (36.0-47.0); LYMPH # 0.6 x10^3/uL (1.0-4.8); LYMPH % 6 % (24-48); MEAN CORPUSCULAR HEMOGLOBIN 32 pg (25-35); MEAN CORPUSCULAR HGB CONC 32 g/dL (31-37); MEAN CORPUSCULAR VOLUME 100 fL (79-100); MONO # 0.1 x10^3/uL (0.0-1.1); MONO % 1 % (0-9); NEUT # 9.2 x10^3/uL (1.8-7.7); NEUT % 93 % (31-73); PLATELET COUNT 30 x10^3/uL (140-400); RED BLOOD COUNT 1.89 x10^6/uL (3.50-5.40); RED CELL DISTRIBUTION WIDTH 18.8 % (11.5-14.5); WHITE BLOOD COUNT 9.9 x10^3/uL (4.0-11.0)
--- NOTE | 2021-11-06 06:25 | RAD ---
EXAMINATION: XR CHEST 1V CLINICAL HISTORY: CHF/effusion TECHNIQUE: XR CHEST 1V COMPARISON: 11/05/2021 FINDINGS/ IMPRESSION: Decreased pulmonary expansion with otherwise improved aeration of the left lung. Persistent small lef t pleural effusion and moderate patchy airspace disease. Increased patchy airspace disease and possib le small pleural effusion on the right. Support devices remain in similar positions. Electronically signed by: Marco Antonio Mendosa DO (11/06/2021 6:23 AM) REHAN
[2021-11-06] MEDS: NOREPINEPHRINE VIAL 8 MG in IV DEXTROSE 5% 250 ML IV PRN (06:37)
--- NOTE | 2021-11-06 06:45 | NUR ---
Dr. Waddell contacted and alerted of patient critical hgb 6.0 as well as this RN needing to place patient on levophed again. Orders given for 1 unit PRBC.
--- NOTE | 2021-11-06 07:45 | PDOC ---
PROGRESS NOTES Date of Service DATE: 11/06/21 TIME: 07:44 Subjective Subjective pt appears ill, labored breathing Objective Objective Vital Signs Date Time Temp Pulse Resp B/P (MAP) Pulse Ox O2 Delivery O2 Flow Rate FiO2 11/06/21 06:00 94 46 80/50 (60) 100 vapotherm 35.0 11/06/21 04:00 97.9 97.9 Intake and Output 11/06/21 07:00 Intake Total 2109 ml Output Total 629 ml Balance 1480 ml Intake Oral 0 ml IV Total 2109 ml Output Urine Total 464 ml Drainage Total 165 ml Physical Exam Physical Exam NG bloody, abdomen soft, BRANDON bloody Assessment Assessment Problems Medical Problems: (1) Elevated bilirubin Status: Acute (2) Hyperkalemia Status: Acute (3) Lactic acidosis Status: Acute (4) Leukocytosis Status: Acute (5) Perforated viscus Status: Acute (6) Renal insufficiency Status: Acute Plan Plan of Care Hypotensive, drop in Hb, likely due to anticoagulants, also with thrombocytopenia; Heme/onc following, evaluation in progress; consider platelet transfusion since active bleeding with thrombocytopenia; prognosis poor Comment Review of Relevant I have reviewed the following items tresa (where applicable) has been applied. Labs Laboratory Tests Test 11/04/21 12:15 11/04/21 14:50 11/04/21 18:01 11/04/21 22:30 Glucose (Fingerstick) 220 mg/dL (70-99) 212 mg/dL (70-99) White Blood Count 12.0 x10^3/uL (4.0-11.0) Red Blood Count 2.78 x10^6/uL (3.50-5.40) Hemoglobin 8.6 g/dL (12.0-15.5) Hematocrit 26.9 % (36.0-47.0) Mean Corpuscular Volume 97 fL (79-100) Mean Corpuscular Hemoglobin 31 pg (25-35) Mean Corpuscular Hemoglobin Concent 32 g/dL (31-37) Red Cell Distribution Width 19.2 % (11.5-14.5) Platelet Count 15 x10^3/uL (140-400) Neutrophils (%) (Auto) 93 % (31-73) Lymphocytes (%) (Auto) 3 % (24-48) Monocytes (%) (Auto) 4 % (0-9) Eosinophils (%) (Auto) 0 % (0-3) Basophils (%) (Auto) 0 % (0-3) Neutrophils # (Auto) 11.2 x10^3/uL (1.8-7.7) Lymphocytes # (Auto) 0.4 x10^3/uL (1.0-4.8) Monocytes # (Auto) 0.4 x10^3/uL (0.0-1.1) Eosinophils # (Auto) 0.0 x10^3/uL (0.0-0.7) Basophils # (Auto) 0.0 x10^3/uL (0.0-0.2) Activated Partial Thromboplast Time 58 SEC (24-38) Fibrinogen 257 mg/dL (200-440) D-Dimer (Linda) 12.98 ug/mlFEU (0.00-0.50) Test 11/05/21 00:41 11/05/21 03:05 11/05/21 05:50 11/05/21 05:52 Glucose (Fingerstick) 205 mg/dL (70-99) 232 mg/dL (70-99) Activated Partial Thromboplast Time 83 SEC (24-38) White Blood Count 16.1 x10^3/uL (4.0-11.0) Red Blood Count 2.67 x10^6/uL (3.50-5.40) Hemoglobin 8.3 g/dL (12.0-15.5) Hematocrit 26.4 % (36.0-47.0) Mean Corpuscular Volume 99 fL (79-100) Mean Corpuscular Hemoglobin 31 pg (25-35) Mean Corpuscular Hemoglobin Concent 32 g/dL (31-37) Red Cell Distribution Width 20.2 % (11.5-14.5) Platelet Count 41 x10^3/uL (140-400) Neutrophils (%) (Auto) 91 % (31-73) Lymphocytes (%) (Auto) 4 % (24-48) Monocytes (%) (Auto) 3 % (0-9) Eosinophils (%) (Auto) 0 % (0-3) Basophils (%) (Auto) 2 % (0-3) Neutrophils # (Auto) 14.6 x10^3/uL (1.8-7.7) Lymphocytes # (Auto) 0.6 x10^3/uL (1.0-4.8) Monocytes # (Auto) 0.5 x10^3/uL (0.0-1.1) Eosinophils # (Auto) 0.0 x10^3/uL (0.0-0.7) Basophils # (Auto) 0.3 x10^3/uL (0.0-0.2) Segmented Neutrophils % 81 % (35-66) Band Neutrophils % 12 % (0-9) Lymphocytes % 5 % (24-48) Monocytes % 1 % (0-10) Eosinophils % 1 % (0-5) Nucleated Red Blood Cells 1 Platelet Estimate Decreased (ADEQUATE) Anisocytosis Slight Magnesium Level 2.5 mg/dL (1.8-2.4) Test 11/05/21 08:00 11/05/21 09:00 11/05/21 12:40 11/05/21 14:00 O2 Saturation 96 % (92-99) Arterial Blood pH 7.45 (7.35-7.45) Arterial Blood pCO2 at Patient Temp 29 mmHg (35-46) Arterial Blood pO2 at Patient Temp 93 mmHg (65-108) Arterial Blood HCO3 20 mmol/L (21-28) Arterial Blood Base Excess -4 mmol/L (-3-3) FiO2 60 Activated Partial Thromboplast Time 84 SEC (24-38) Sodium Level 141 mmol/L (136-145) Potassium Level 4.3 mmol/L (3.5-5.1) Chloride Level 106 mmol/L (98-107) Carbon Dioxide Level 19 mmol/L (21-32) Anion Gap 16 (6-14) Blood Urea Nitrogen 68 mg/dL (7-20) Creatinine 1.2 mg/dL (0.6-1.0) Estimated GFR (Cockcroft-Gault) 45.1 Glucose Level 232 mg/dL (70-99) Calcium Level 8.4 mg/dL (8.5-10.1) Phosphorus Level 4.0 mg/dL (2.6-4.7) Albumin 2.8 g/dL (3.4-5.0) Glucose (Fingerstick) 254 mg/dL (70-99) Iron Level 73 ug/dL (50-170) Total Iron Binding Capacity 48 ug/dL (250-450) Iron Saturation % (15-34) Ferritin 3162 ng/mL (8-252) Vitamin B12 Level > 2000 pg/mL (247-911) Test 11/05/21 18:11 11/06/21 00:50 11/06/21 05:35 11/06/21 05:42 Glucose (Fingerstick) 249 mg/dL (70-99) 226 mg/dL (70-99) 213 mg/dL (70-99) White Blood Count 9.9 x10^3/uL (4.0-11.0) Red Blood Count 1.89 x10^6/uL (3.50-5.40) Hemoglobin 6.0 g/dL (12.0-15.5) Hematocrit 18.8 % (36.0-47.0) Mean Corpuscular Volume 100 fL (79-100) Mean Corpuscular Hemoglobin 32 pg (25-35) Mean Corpuscular Hemoglobin Concent 32 g/dL (31-37) Red Cell Distribution Width 18.8 % (11.5-14.5) Platelet Count 30 x10^3/uL (140-400) Neutrophils (%) (Auto) 93 % (31-73) Lymphocytes (%) (Auto) 6 % (24-48) Monocytes (%) (Auto) 1 % (0-9) Eosinophils (%) (Auto) 0 % (0-3) Basophils (%) (Auto) 0 % (0-3) Neutrophils # (Auto) 9.2 x10^3/uL (1.8-7.7) Lymphocytes # (Auto) 0.6 x10^3/uL (1.0-4.8) Monocytes # (Auto) 0.1 x10^3/uL (0.0-1.1) Eosinophils # (Auto) 0.0 x10^3/uL (0.0-0.7) Basophils # (Auto) 0.0 x10^3/uL (0.0-0.2) Sodium Level 144 mmol/L (136-145) Potassium Level 4.4 mmol/L (3.5-5.1) Chloride Level 109 mmol/L (98-107) Carbon Dioxide Level 18 mmol/L (21-32) Anion Gap 17 (6-14) Blood Urea Nitrogen 87 mg/dL (7-20) Creatinine 1.5 mg/dL (0.6-1.0) Estimated GFR (Cockcroft-Gault) 34.9 BUN/Creatinine Ratio 58 (6-20) Glucose Level 225 mg/dL (70-99) Calcium Level 8.3 mg/dL (8.5-10.1) Phosphorus Level 5.0 mg/dL (2.6-4.7) Magnesium Level 2.3 mg/dL (1.8-2.4) Total Bilirubin 2.7 mg/dL (0.2-1.0) Aspartate Amino Transf (AST/SGOT) 873 U/L (15-37) Alanine Aminotransferase (ALT/SGPT) 370 U/L (14-59) Alkaline Phosphatase 89 U/L (46-116) Total Protein 3.9 g/dL (6.4-8.2) Albumin 2.3 g/dL (3.4-5.0) Albumin/Globulin Ratio 1.4 (1.0-1.7) Laboratory Tests Test 11/05/21 08:00 11/05/21 09:00 11/05/21 12:40 11/05/21 14:00 O2 Saturation 96 % (92-99) Arterial Blood pH 7.45 (7.35-7.45) Arterial Blood pCO2 at Patient Temp 29 mmHg (35-46) Arterial Blood pO2 at Patient Temp 93 mmHg (65-108) Arterial Blood HCO3 20 mmol/L (21-28) Arterial Blood Base Excess -4 mmol/L (-3-3) FiO2 60 Activated Partial Thromboplast Time 84 SEC (24-38) Sodium Level 141 mmol/L (136-145) Potassium Level 4.3 mmol/L (3.5-5.1) Chloride Level 106 mmol/L (98-107) Carbon Dioxide Level 19 mmol/L (21-32) Anion Gap 16 (6-14) Blood Urea Nitrogen 68 mg/dL (7-20) Creatinine 1.2 mg/dL (0.6-1.0) Estimated GFR (Cockcroft-Gault) 45.1 Glucose Level 232 mg/dL (70-99) Calcium Level 8.4 mg/dL (8.5-10.1) Phosphorus Level 4.0 mg/dL (2.6-4.7) Albumin 2.8 g/dL (3.4-5.0) Glucose (Fingerstick) 254 mg/dL (70-99) Iron Level 73 ug/dL (50-170) Total Iron Binding Capacity 48 ug/dL (250-450) Iron Saturation % (15-34) Ferritin 3162 ng/mL (8-252) Vitamin B12 Level > 2000 pg/mL (247-911) Test 11/05/21 18:11 11/06/21 00:50 11/06/21 05:35 11/06/21 05:42 Glucose (Fingerstick) 249 mg/dL (70-99) 226 mg/dL (70-99) 213 mg/dL (70-99) White Blood Count 9.9 x10^3/uL (4.0-11.0) Red Blood Count 1.89 x10^6/uL (3.50-5.40) Hemoglobin 6.0 g/dL (12.0-15.5) Hematocrit 18.8 % (36.0-47.0) Mean Corpuscular Volume 100 fL (79-100) Mean Corpuscular Hemoglobin 32 pg (25-35) Mean Corpuscular Hemoglobin Concent 32 g/dL (31-37) Red Cell Distribution Width 18.8 % (11.5-14.5) Platelet Count 30 x10^3/uL (140-400) Neutrophils (%) (Auto) 93 % (31-73) Lymphocytes (%) (Auto) 6 % (24-48) Monocytes (%) (Auto) 1 % (0-9) Eosinophils (%) (Auto) 0 % (0-3) Basophils (%) (Auto) 0 % (0-3) Neutrophils # (Auto) 9.2 x10^3/uL (1.8-7.7) Lymphocytes # (Auto) 0.6 x10^3/uL (1.0-4.8) Monocytes # (Auto) 0.1 x10^3/uL (0.0-1.1) Eosinophils # (Auto) 0.0 x10^3/uL (0.0-0.7) Basophils # (Auto) 0.0 x10^3/uL (0.0-0.2) Sodium Level 144 mmol/L (136-145) Potassium Level 4.4 mmol/L (3.5-5.1) Chloride Level 109 mmol/L (98-107) Carbon Dioxide Level 18 mmol/L (21-32) Anion Gap 17 (6-14) Blood Urea Nitrogen 87 mg/dL (7-20) Creatinine 1.5 mg/dL (0.6-1.0) Estimated GFR (Cockcroft-Gault) 34.9 BUN/Creatinine Ratio 58 (6-20) Glucose Level 225 mg/dL (70-99) Calcium Level 8.3 mg/dL (8.5-10.1) Phosphorus Level 5.0 mg/dL (2.6-4.7) Magnesium Level 2.3 mg/dL (1.8-2.4) Total Bilirubin 2.7 mg/dL (0.2-1.0) Aspartate Amino Transf (AST/SGOT) 873 U/L (15-37) Alanine Aminotransferase (ALT/SGPT) 370 U/L (14-59) Alkaline Phosphatase 89 U/L (46-116) Total Protein 3.9 g/dL (6.4-8.2) Albumin 2.3 g/dL (3.4-5.0) Albumin/Globulin Ratio 1.4 (1.0-1.7) Microbiology 11/01/21 Gram Stain - Final, Resulted 11/01/21 Aerobic and Anaerobic Culture - Preliminary, Resulted Escherichia Coli Enterococcus Faecalis Eikenella Corrodens Prevotella Buccae 11/01/21 Urine Culture - Final, Complete Escherichia Coli Proteus Mirabilis 11/01/21 Blood Culture - Preliminary, Resulted NO GROWTH AFTER 4 DAYS Medications Current Medications Sodium Chloride 1,000 ml @ 1,000 mls/hr 1X ONCE IV Last administered on 11/01/21at 15:30; Start 11/01/21 at 15:15; Stop 11/01/21 at 16:14; Status DC Calcium Gluconate (Calcium Gluconate) 1,000 mg 1X ONCE IVP Last administered on 11/01/21at 16:35; Start 11/01/21 at 16:00; Stop 11/01/21 at 16:01; Status DC Sodium Bicarbonate (Sodium Bicarb Adult 8.4% Syr) 50 meq 1X ONCE IV Last administered on 11/01/21at 16:35; Start 11/01/21 at 16:00; Stop 11/02/21 at 09:36; Status DC Dextrose (Dextrose 50%-Water Syringe) 25 gm 1X ONCE IV Last administered on 11/01/21at 16:50; Start 11/01/21 at 16:00; Stop 11/01/21 at 16:01; Status DC Insulin Human Regular (HumuLIN R VIAL) 10 unit 1X ONCE IV Last administered on 11/01/21at 16:40; Start 11/01/21 at 16:00; Stop 11/01/21 at 16:01; Status DC Sodium Chloride 1,000 ml @ 1,000 mls/hr Q1H IV Last administered on 11/01/21at 16:50; Start 11/01/21 at 16:00; Stop 11/01/21 at 16:59; Status DC Piperacillin Sod/ Tazobactam Sod 3.375 gm/Sodium Chloride 50 ml @ 100 mls/hr 1X ONCE IV ; Start 11/01/21 at 16:45; Stop 11/01/21 at 17:14; Status UNV Piperacillin Sod/ Tazobactam Sod 2.25 gm/Sodium Chloride 50 ml @ 100 mls/hr 1X ONCE IV Last administered on 11/01/21at 16:58; Start 11/01/21 at 17:00; Stop 11/01/21 at 17:29; Status DC Ondansetron HCl (Zofran) 4 mg PRN Q8HRS PRN IVP NAUSEA/VOMITING; Start 11/01/21 at 16:45; Stop 11/02/21 at 16:44; Status DC Morphine Sulfate (Morphine Sulfate) 2 mg PRN Q2HR PRN IVP PAIN; Start 11/01/21 at 16:45; Stop 11/02/21 at 03:15; Status DC Sodium Chloride 1,000 ml @ 1,000 mls/hr 1X ONCE IV Last administered on 11/01/21at 17:48; Start 11/01/21 at 17:45; Stop 11/01/21 at 18:44; Status DC Rocuronium [place] (Zemuron) 100 mg STK-MED ONCE .ROUTE ; Start 11/01/21 at 17:54; Stop 11/01/21 at 17:55; Status DC Fentanyl Citrate (Fentanyl 5ml Vial) 250 mcg STK-MED ONCE .ROUTE ; Start 11/01/21 at 17:55; Stop 11/01/21 at 17:55; Status DC Etomidate (Amidate) 20 mg STK-MED ONCE IV ; Start 11/01/21 at 17:55; Stop 11/01/21 at 17:56; Status DC Phenylephrine HCl (PHENYLEPHRINE in 0.9% NACL PF) 1 mg STK-MED ONCE IV ; Start 11/01/21 at 17:56; Stop 11/01/21 at 17:56; Status DC Fentanyl Citrate (Fentanyl 2ml Vial) 25 mcg PRN Q5MIN PRN IVP MILD PAIN 1-3; Start 11/01/21 at 18:00; Stop 11/02/21 at 03:15; Status DC Fentanyl Citrate (Fentanyl 2ml Vial) 50 mcg PRN Q5MIN PRN IVP MODERATE PAIN 4- 6; Start 11/01/21 at 18:00; Stop 11/02/21 at 03:15; Status DC Morphine Sulfate (Morphine Sulfate) 1 mg PRN Q10MIN PRN IVP SEVERE PAIN 7-10; Start 11/01/21 at 18:00; Stop 11/02/21 at 03:15; Status DC Ringer's Solution 1,000 ml @ 30 mls/hr Q24H IV ; Start 11/01/21 at 18:00; Stop 11/02/21 at 05:59; Status DC Hydromorphone HCl (Dilaudid) 0.5 mg PRN Q10MIN PRN IVP SEVERE PAIN 7-10, 2nd CHOICE; Start 11/01/21 at 18:00; Stop 11/02/21 at 03:15; Status DC Prochlorperazine Edisylate (Compazine) 5 mg PACU PRN PRN IVP NAUSEA, MRX1; St art 11/01/21 at 18:00; Stop 11/02/21 at 17:59; Status DC Fentanyl Citrate (Fentanyl 2ml Vial) 25 mcg PRN Q5MIN PRN IVP MILD PAIN 1-3; Start 11/01/21 at 18:00; Stop 11/02/21 at 17:59; Status UNV Fentanyl Citrate (Fentanyl 2ml Vial) 50 mcg PRN Q5MIN PRN IVP MODERATE PAIN 4- 6; Start 11/01/21 at 18:00; Stop 11/02/21 at 17:59; Status UNV Morphine Sulfate (Morphine Sulfate) 1 mg PRN Q10MIN PRN IVP SEVERE PAIN 7-10; Start 11/01/21 at 18:00; Stop 11/02/21 at 17:59; Status UNV Ringer's Solution 1,000 ml @ 30 mls/hr Q24H IV ; Start 11/01/21 at 18:00; Stop 11/02/21 at 05:59; Status UNV Hydromorphone HCl (Dilaudid) 0.5 mg PRN Q10MIN PRN IVP SEVERE PAIN 7-10, 2nd CHOICE; Start 11/01/21 at 18:00; Stop 11/02/21 at 17:59; Status UNV Prochlorperazine Edisylate (Compazine) 5 mg PACU PRN PRN IVP NAUSEA, MRX1; Start 11/01/21 at 18:00; Stop 11/02/21 at 17:59; Status UNV Insulin Human Lispro (HumaLOG) 0-5 UNITS TIDWMEALS SQ ; Start 11/02/21 at 08:00; Stop 11/02/21 at 21:44; Status DC Dextrose (Dextrose 50%-Water Syringe) 12.5 gm PRN Q15MIN PRN IV SEE COMMENTS; Start 11/01/21 at 18:00; Stop 11/03/21 at 14:24; Status DC Dextrose (Iv Dextrose 5%) 250 ml PRN Q15MIN PRN IV SEE COMMENTS; Start 11/01/21 at 18:00 Piperacillin Sod/ Tazobactam Sod (Zosyn Per Pharmacy) 1 each PRN DAILY PRN MC SEE COMMENTS; Start 11/01/21 at 18:15; Status Cancel Piperacillin Sod/ Tazobactam Sod 2.25 gm/Sodium Chloride 50 ml @ 100 mls/hr Q8HRS IV Last administered on 11/05/21at 05:54; Start 11/01/21 at 22:00; Stop 11/05/21 at 08:14; Status DC Albumin Human 500 ml @ As Directed STK-MED ONCE IV ; Start 11/01/21 at 18:20; Stop 11/01/21 at 18:21; Status DC Bupivacaine HCl/ Epinephrine Bitart (Sensorcain-Epi 0.5% Kit) 30 ml STK-MED ONCE .ROUTE ; Start 11/01/21 at 18:25; Stop 11/01/21 at 18:26; Status DC Albumin Human 500 ml @ As Directed STK-MED ONCE IV ; Start 11/01/21 at 18:30; Stop 11/01/21 at 18:31; Status DC Phenylephrine HCl (PHENYLEPHRINE in 0.9% NACL PF) 1 mg STK-MED ONCE IV ; Start 11/01/21 at 19:53; Stop 11/01/21 at 19:53; Status DC Sevoflurane (Ultane) 90 ml STK-MED ONCE IH ; Start 11/01/21 at 19:58; Stop 11/01/21 at 19:58; Status DC Albumin Human 500 ml @ As Directed STK-MED ONCE IV ; Start 11/01/21 at 20:00; Stop 11/01/21 at 20:00; Status DC Pantoprazole Sodium 80 mg/ Sodium Chloride 100 ml @ 10 mls/hr 1X ONCE IV Last administered on 11/01/21at 22:32; Start 11/01/21 at 20:30; Stop 11/02/21 at 06:29; Status DC Heparin Sodium (Porcine) (Heparin Sodium) 5,000 unit Q12HR SQ ; Start 11/01/21 at 21:00; Stop 11/01/21 at 20:40; Status DC Dextrose/Sodium Chloride 1,000 ml @ 100 mls/hr Q10H IV ; Start 11/01/21 at 20:30; Stop 11/02/21 at 05:51; Status DC Heparin Sodium (Porcine) (Heparin Sodium) 5,000 unit Q12HR SQ Last administered on 11/04/21at 08:29; Start 11/02/21 at 09:00; Stop 11/04/21 at 18:18; Status DC Ringer's Solution 1,000 ml @ 125 mls/hr Q8H IV Last administered on 11/02/21at 05:53; Start 11/01/21 at 21:15; Stop 11/02/21 at 10:57; Status DC Sodium Bicarbonate (Sodium Bicarb Adult 8.4% Syr) 50 meq 1X ONCE IV Last administered on 11/01/21at 22:18; Start 11/01/21 at 22:00; Stop 11/02/21 at 09:36; Status DC Sodium Bicarbonate (Sodium Bicarb Adult 8.4% Syr) 50 meq 1X ONCE IV Last administered on 11/01/21at 22:18; Start 11/01/21 at 22:00; Stop 11/02/21 at 09:36; Status DC Sodium Bicarbonate 150 meq/Dextrose 1,150 ml @ 50 mls/hr Q23H IV Last administered on 11/01/21at 22:19; Start 11/01/21 at 23:00; Stop 11/02/21 at 10:57; Status DC Fentanyl Citrate 30 ml @ 2.5 mls/hr CONT PRN IV SEE PROTOCOL Last administered on 11/03/21at 00:03; Start 11/02/21 at 03:00; Stop 11/05/21 at 00:10; Status DC Midazolam HCl 100 ml @ 1 mls/hr CONT PRN IV SEE PROTOCOL; Start 11/02/21 at 03:00 Propofol 100 ml @ 1.461 mls/ hr CONT PRN IV PER PROTOCOL; Start 11/02/21 at 03:00 Glycerin/ Hypromellose/ Polyethylene (Artificial Tears) 1 drop PRN Q1HR PRN OU DRY EYE; Start 11/02/21 at 03:00 Dexmedetomidine HCl 400 mcg/ Sodium Chloride 100 ml @ 2.435 mls/ hr CONT PRN IV PER PROTOCOL; Start 11/02/21 at 03:00 Sodium Chloride 500 ml @ 500 mls/hr 1X PRN PRN IV SEE COMMENTS; Start 11/02/21 at 03:00 Atropine Sulfate (ATROPINE 0.5mg SYRINGE) 0.5 mg PRN Q5MIN PRN IV SEE COMMENTS; Start 11/02/21 at 03:00 Norepinephrine Bitartrate 8 mg/ Dextrose 258 ml @ 9.423 mls/ hr CONT PRN IV PER PROTOCOL Last administered on 11/06/21at 06:37; Start 11/02/21 at 05:15 Ringer's Solution 500 ml @ 500 mls/hr 1X ONCE IV ; Start 11/02/21 at 09:00; Stop 11/02/21 at 09:21; Status DC Ringer's Solution 980 ml @ 980 mls/hr 1X ONCE IV Last administered on 11/02/21at 09:25; Start 11/02/21 at 09:30; Stop 11/02/21 at 10:29; Status DC Info (Tpn Per Pharmacy) 1 each CONT MC ; Start 11/02/21 at 09:30; Stop 11/02/21 at 09:45; Status DC Sodium Bicarbonate (Sodium Bicarb Adult 8.4% Syr) 150 meq 1X ONCE IV ; Start 11/02/21 at 10:00; Stop 11/02/21 at 10:01; Status Cancel Info (Tpn Per Pharmacy) 1 each PRN DAILY PRN MC SEE COMMENTS Last administered on 11/05/21at 12:36; Start 11/02/21 at 09:45 Sodium Bicarbonate 75 meq/Dextrose 1,075 ml @ 100 mls/hr [id number] IV Last administered on 11/02/21at 22:14; Start 11/02/21 at 11:00; Stop 11/03/21 at 09:35; Status DC Magnesium Sulfate 50 ml @ 25 mls/hr PRN DAILY PRN IV for Mag < 1.7 on am labs; Start 11/02/21 at 11:00 Hydrocortisone Sodium Succinate (Solu-CORTEF) 100 mg Q12HR IVP Last administer ed on 11/05/21at 09:08; Start 11/02/21 at 21:00; Stop 11/05/21 at 11:19; Status DC Hydrocortisone Sodium Succinate (Solu-CORTEF) 100 mg 1X ONCE IVP Last administered on 11/02/21at 12:05; Start 11/02/21 at 12:00; Stop 11/02/21 at 12:01; Status DC Clopidogrel Bisulfate (Plavix) 75 mg [id number] PO Last administered on 11/04/21at 08:25; Start 11/02/21 at 13:00; Stop 11/04/21 at 18:51; Status DC Cyanocobalamin (Vitamin B-12 Inj) 1,000 mcg 1X ONCE IM Last administered on 11/02/21at 13:14; Start 11/02/21 at 13:00; Stop 11/02/21 at 13:01; Status DC Magnesium Sulfate/ Dextrose 100 ml @ 100 mls/hr 1X ONCE IV Last administered on 11/02/21at 13:14; Start 11/02/21 at 13:00; Stop 11/02/21 at 13:59; Status DC Potassium Acetate 40 meq/Magnesium Sulfate 10 meq/ Multivitamins 10 ml/Zinc/Copper/ Manganese/ Selenium 1 ml/ Total Parenteral Nutrition/Amino Acids/Dextrose/ Fat Emulsion Intravenous 1,512 ml @ 63 mls/hr TPN CONT IV Last administered on 11/02/21at 21:34; Start 11/02/21 at 22:00; Stop 11/03/21 at 21:59; Status DC Insulin Human Lispro (HumaLOG) 0-5 UNITS Q6HRS SQ Last administered on 11/03/21at 06:06; Start 11/03/21 at 00:00; Stop 11/03/21 at 12:07; Status DC Sodium Chloride 60 meq/Potassium Acetate 50 meq/ Potassium Phosphate 13.6 mmol/Magnesium Sulfate 15 meq/ Multivitamins 10 ml/Zinc/Copper/ Manganese/ Selenium 1 ml/ Total Parenteral Nutrition/Amino Acids/Dextrose/ Fat Emulsion In travenous 1,512 ml @ 63 mls/hr TPN CONT IV Last administered on 11/03/21at 22:14; Start 11/03/21 at 22:00; Stop 11/04/21 at 21:59; Status DC Potassium Chloride/Water 100 ml @ 100 mls/hr Q1H IV Last administered on 11/03/21at 11:36; Start 11/03/21 at 10:00; Stop 11/03/21 at 11:59; Status DC Insulin Glargine (Lantus Syringe) 12 unit DAILY SQ Last administered on 11/05/21at 09:13; Start 11/03/21 at 12:15 Insulin Human Lispro (HumaLOG) 0-7 UNITS Q6HRS SQ Last administered on 11/05/21at 12:43; Start 11/03/21 at 18:00; Stop 11/05/21 at 15:03; Status DC Dextrose (Dextrose 50%-Water Syringe) 12.5 gm PRN Q15MIN PRN IV SEE COMMENTS; Start 11/03/21 at 12:15; Status Cancel Dextrose (Iv Dextrose 5%) 250 ml PRN Q15MIN PRN IV SEE COMMENTS; Start 11/03/21 at 12:15 Insulin Human Lispro (HumaLOG) 8 units 1X ONCE SQ Last administered on 11/03/21at 12:29; Start 11/03/21 at 12:15; Stop 11/03/21 at 12:16; Status DC Albumin Human 100 ml @ 100 mls/hr TID IV Last administered on 11/05/21at 09:08; Start 11/03/21 at 14:00; Stop 11/05/21 at 09:59; Status DC Potassium Chloride/Water 100 ml @ 50 mls/hr PRN Q6HRS PRN IV For K < 3.7; Start 11/03/21 at 12:45 Potassium Chloride/Water 100 ml @ 50 mls/hr PRN Q2HR PRN IV total of 40mEq for K < 3.5 Last administered on 11/04/21at 03:57; Start 11/03/21 at 12:45 Magnesium Sulfate/ Dextrose 100 ml @ 100 mls/hr 1X ONCE IV Last administered on 11/03/21at 13:25; Start 11/03/21 at 13:00; Stop 11/03/21 at 13:59; Status DC Sodium Chloride 1,000 ml @ 75 mls/hr [id number] IV Last administered on 11/05/21at 21:36; Start 11/03/21 at 13:15 Pantoprazole Sodium 80 mg/ Sodium Chloride 100 ml @ 10 mls/hr Q10H IV Last administered on 11/05/21at 07:32; Start 11/03/21 at 14:00; Stop 11/05/21 at 12:23; Status DC Fentanyl Citrate (Fentanyl 2ml Vial) 25 mcg PRN Q2HR PRN IVP MODERATE PAIN Last administered on 11/06/21at 04:25; Start 11/04/21 at 05:15 Sodium Phosphate 15 mmol/Sodium Chloride 105 ml @ 105 mls/hr 1X ONCE IV Last administered on 11/04/21at 15:27; Start 11/04/21 at 14:00; Stop 11/04/21 at 14 :59; Status DC Sodium Chloride 60 meq/Sodium Phosphate 15 mmol/ Magnesium Sulfate 10 meq/ Multivitamins 10 ml/Zinc/Copper/ Manganese/ Selenium 1 ml/ Total Parenteral Nutrition/Amino Acids/Dextrose/ Fat Emulsion Intravenous 1,512 ml @ 63 mls/hr TPN CONT IV Last administered on 11/04/21at 22:15; Start 11/04/21 at 22:00; Stop 11/05/21 at 21:59; Status DC Argatroban (Argatroban Per Pharmacy) 1 each PRN DAILY PRN MC SEE COMMENTS Last administered on 11/04/21at 19:23; Start 11/04/21 at 19:15; Stop 11/05/21 at 12:07; Status DC Argatroban 50 mg/ Sodium Chloride 50 ml @ 1.611 mls/ hr CONT PRN IV PER PROTOCOL Last administered on 11/04/21at 20:57; Start 11/04/21 at 19:15; Stop 11/05/21 at 12:07; Status DC Piperacillin Sod/ Tazobactam Sod 3.375 gm/Sodium Chloride 50 ml @ 100 mls/hr Q6HRS IV Last administered on 11/05/21at 12:18; Start 11/05/21 at 12:00; Stop 11/05/21 at 13:48; Status DC Sodium Bicarbonate (Sodium Bicarb Adult 8.4% Syr) 50 meq 1X ONCE IV Last administered on 11/05/21at 09:40; Start 11/05/21 at 09:30; Stop 11/05/21 at 09:31; Status DC Furosemide (Lasix) 40 mg 1X ONCE IVP Last administered on 11/05/21at 10:03; Start 11/05/21 at 10:00; Stop 11/05/21 at 10:01; Status DC Hydromorphone HCl (Dilaudid) 1 mg Q4HRS PRN IVP SEVERE PAIN Last administered on 11/05/21at 23:54; Start 11/05/21 at 12:00 Sodium Acetate 60 meq/Sodium Phosphate 15 mmol/ Magnesium Sulfate 5 meq/ Multivitamins 10 ml/Zinc/Copper/ Manganese/ Selenium 1 ml/ Total Parenteral Nutrition/Amino Acids/Dextrose/ Fat Emulsion Intravenous 1,512 ml @ 63 mls/hr TPN CONT IV Last administered on 11/05/21at 21:35; Start 11/05/21 at 22:00; Stop 11/06/21 at 21:59 Pantoprazole Sodium (PROTONIX VIAL for IV PUSH) 40 mg BID IVP Last administered on 11/05/21at 17:27; Start 11/05/21 at 17:00 Cefepime HCl (Maxipime) 2 gm Q12HR IVP Last administered on 11/05/21at 21:34; Start 11/05/21 at 21:00 Insulin Human Lispro (HumaLOG) 0-9 UNITS Q6HRS SQ Last administered on 11/06/21at 05:56; Start 11/05/21 at 18:00 Sterile Water (WATER for RESP) 2,000 ml CONT PRN INH VIA VAPOTHERM DEVICE Last administered on 11/06/21at 02:55; Start 11/05/21 at 21:15 Lorazepam (Ativan Inj) 0.5 mg PRN Q4HRS PRN IVP ANXIETY / AGITATION Last administered on 11/06/21at 01:50; Start 11/06/21 at 01:45 Active Scripts Active Reported Spironolactone 25 Mg Tablet 0.5 Tab PO [id number] Metoprolol Succinate ( Xl ) (Metoprolol Succinate) 25 Mg Tab.er.24h 0.5 Tab PO DAILY Zoloft (Sertraline Hcl) 50 Mg Tablet 50 Mg PO DAILY Levothyroxine Sodium 125 Mcg Tablet 125 Mcg PO DAILYAC Prednisone 20 Mg Tablet 20 Mg PO DAILY Protonix (Pantoprazole Sodium) 20 Mg Tablet.dr 40 Mg PO DAILY Lasix (Furosemide) 40 Mg Tablet 40 Mg PO DAILY Clopidogrel (Clopidogrel Bisulfate) 75 Mg Tablet 75 Mg PO DAILY Tramadol Hcl 50 Mg Tablet 50 Mg PO Q6HRS PRN Fluconazole 100 Mg Tablet 100 Mg PO DAILY Klor-Con 10 (Potassium Chloride) 10 Meq Tablet.er 10 Meq PO DAILY Hydrocodone-Acetamin 7.5-325 (Hydrocodone/Acetaminophen) 1 Each Tablet 1 Each PO Q6HRS PRN Meloxicam 15 Mg Tablet 15 Mg PO DAILY Vitals/I & O Vital Sign - Last 24 Hours 11/05/21 11/05/21 11/05/21 11/05/21 08:00 08:00 08:00 08:29 Temp 96.1 96.1 Pulse 72 Resp 23 B/P (MAP) 122/74 (90) Pulse Ox 100 100 O2 Delivery Venturi Mask BiPAP/CPAP BiPAP/CPAP O2 Flow Rate 15.0 11/05/21 11/05/21 11/05/21 11/05/21 11:47 12:00 12:00 12:13 Temp 96.7 96.7 Pulse 78 Resp 32 20 B/P (MAP) 108/64 (79) Pulse Ox 93 91 92 O2 Delivery Nasal Cannula High Flow Nasal Cannula Nasal Cannula O2 Flow Rate 6.0 6.0 6.0 11/05/21 11/05/21 11/05/21 11/05/21 12:43 15:00 16:00 16:00 Temp 96.7 96.7 Pulse 80 Resp 22 30 B/P (MAP) 100/64 (76) Pulse Ox 87 89 91 O2 Delivery Venturi Mask Venturi Mask High Flow Nasal Cannula O2 Flow Rate 15.0 6.0 11/05/21 11/05/21 11/05/21 11/05/21 20:00 20:00 20:00 21:00 Temp 97.9 97.9 Pulse 82 82 Resp 29 25 B/P (MAP) 106/68 (81) 102/68 (79) O2 Delivery Vapotherm vapotherm vapotherm O2 Flow Rate 35.0 35.0 11/05/21 11/05/21 11/05/21 11/05/21 21:45 22:00 22:00 23:00 Pulse 82 84 Resp 35 30 33 B/P (MAP) 102/68 (79) 102/68 (79) Pulse Ox 92 O2 Delivery vapotherm VAPOTHERM vapotherm O2 Flow Rate 35.0 35.0 35.0 11/05/21 11/06/21 11/06/21 11/06/21 23:54 00:00 00:00 00:00 Pulse 86 Resp 34 39 B/P (MAP) 108/72 (84) Pulse Ox 91 O2 Delivery vapotherm Vapotherm O2 Flow Rate 35.0 35.0 11/06/21 11/06/21 11/06/21 11/06/21 00:00 00:24 01:00 02:00 Pulse 90 90 Resp 35 38 43 B/P (MAP) 114/68 (83) 108/66 (80) Pulse Ox 92 92 96 O2 Delivery VAPOTHERM vapotherm vapotherm O2 Flow Rate 35.0 35.0 35.0 11/06/21 11/06/21 11/06/21 11/06/21 02:55 03:00 04:00 04:00 Pulse 94 Resp 42 B/P (MAP) 108/68 (81) Pulse Ox 98 98 O2 Delivery VAPOTHERM vapotherm Vapotherm O2 Flow Rate 35.0 35.0 35.0 11/06/21 11/06/21 11/06/21 11/06/21 04:00 04:25 04:55 05:00 Temp 97.9 97.9 Pulse 96 96 Resp 42 44 40 43 B/P (MAP) 100/64 (76) 84/56 (65) Pulse Ox 99 100 O2 Delivery vapotherm vapotherm O2 Flow Rate 35.0 35.0 11/06/21 11/06/21 05:30 06:00 Pulse 94 Resp 46 B/P (MAP) 80/50 (60) Pulse Ox 100 100 O2 Delivery VAPOTHERM vapotherm O2 Flow Rate 35.0 35.0 Intake and Output 11/05/21 11/05/21 11/06/21 15:00 23:00 07:00 Intake Total 0 ml 1241 ml 868 ml Output Total 120 ml 256 ml 253 ml Balance -120 ml 985 ml 615 ml Justifications for Admission Other Justification Nutrition Consultation Dietary Evaluation: Recommendations by RD: Dietary education by RD, PPN/TPN Comments: REC continue TPN for nutrition Expected Outcomes/Goals: to be determined Malnutrition Findings: Muscle Mass (Severe): Severe Depletion Food and Nutrition Intake (Sev: <50% est energy req 5days Weight Status: Underweight MATTHEW VICK MD Nov 06, 2021 07:45
[2021-11-06] MEDS ORDERED: EPINEPHrine SYRINGE 1 MG/10 ML SYRINGE. ONE ×2 (07:59→08:00)
[2021-11-06] MEDS ORDERED: CALCIUM CHLORIDE 1,000 MG/10 ML DISP.SYRIN ONE (08:00)
[2021-11-06] MEDS ORDERED: EPINEPHrine VIAL 5 MG in IV NORMAL SALINE 250ML 250 ML IV PRN (08:00)
[2021-11-06] MEDS ORDERED: SODIUM BICARB ADULT 8.4% 50 MEQ/50 ML DISP.SYRIN. ONE (08:00)
[2021-11-06] MEDS ORDERED: DEXTROSE 50% 25 GM / 50ML DISP.SYRIN. IV ONE (08:00)
[2021-11-06] MEDS ORDERED: VASOPRESSIN - VASOSTRICT 20 UNIT in IV NORMAL SALINE 100ML 100 ML IV PRN (08:00)
[2021-11-06] MEDS: IV NORMAL SALINE 1000ML BAG 1,000 ML IV SCH (08:01)
--- NOTE | 2021-11-06 08:41 | NUR ---
vasopressin and epi both scanned after code blue event but started prior to code event
[2021-11-06] MEDS ORDERED: EPINEPHrine SYRINGE 1 MG/10 ML SYRINGE. IV ONE (08:45)
--- NOTE | 2021-11-06 08:46 | PHYS DOC ---
CODE REPORT CODE REPORT I was called to this patient's room for a CODE BLUE in the ICU. On arrival, the patient is being bagged by respiratory therapy. She is on IV pressor support. She is moribund in appearance, unresponsive. She had been admitted to the ICU for sepsis, heparin-induced thrombocytopenia, necrotizing pancreatitis, and had recently undergone bowel resection. The hospital service was at the bedside shortly after DILLON IVY was called. I secured an airway, intubation, please see associated note for this. ACLS protocol was continued, CPR was continued. The patient had already received IV epinephrine. Per the nurses report, the patient became bradycardic and then experienced PEA arrest. The patient has fixed, dilated, unreactive pupils, no heart tones auscultated, no spontaneous respirations are noted. She is incredibly ill-appearing, covered in multiple contusions, she is frail and cachectic appearing. Pale appearing. Please see nursing notes for timeline of medications administered. I did order IV calcium and the patient had already received IV bicarbonate. Dr. Gee was at bedside, and he and I agreed that the patient appeared to demonstrate no signs of life, DILLON IVY was called, for time of see nursing notes. The patient's family had been contacted by the nursing staff, they agreed with ceasing resuscitation efforts, they had been notified of the patient's passing. Indication: Respiratory failure Consent: Unable to give consent due to emergent nature. Medications Used: see nursing note Procedure: The patient was placed in the appropriate position. The patient was intubated using direct laryngoscopy, using 3-0 Amisha blade. A 7.0 endotracheal tube was passed through the cords, using direct visualization. Copious bloody secretions were suctioned prior to and after intubation. Bilateral breath sounds are noted. Breath sounds are very coarse. [ET SECURE]. Initial confirmation of placement included bilateral breath sounds, tube fogging, adequate chest rise, positive color change on end-tidal CO2. The patient tolerated the procedure well. Complications: none. FROYLAN BUSH DO Nov 06, 2021 08:46
--- NOTE | 2021-11-06 08:52 | NUR ---
Time of was [address] Gee at the bedside. During Code Blue, Dr. Gee spoke with patient's son who then decided to stop resuscitation measures. Pt had no belongings with her, family took them prior to surgery. MTN notified of , pt is not a candidate for anything. The body is ready to be sent to the [facility], home chosen is [facility] in [place]. ~0730: Pt on 0.16 mcg/kg/min of levophed. ~0750: Pt on 0.5 mcg/kg/min of levophed, rapid titration needed. At this point, vasopressin was ordered as well as epinephrine. ~0800: Pt coded, resuscitation measures initiated (refer to Code Blue sheet). ~0815: Dr. Gee receives order from family to stop resuscitation measures. 0816: Time of , asystole.
--- NOTE | 2021-11-06 09:00 | NUR ---
0740: Pt's SBP remains in the 70's levo rapidly titrated up to 1 mcg/kg/min with no improvement in BP. Saline infusing wide open. 0750 Vasopressin started. 0751 Epi gtt started at 0.7mcg/kg/min still with no improvement in bp. heart rate noted to be slowing susan the 60's as BP continue to drop. 0805 1 mg epi given with no improvements. 0808 Code Blue called
--- NOTE | 2021-11-06 09:10 | PDOC ---
DATE OF SERVICE DATE: 11/06/21 TIME: 09:10 SUBJECTIVE ROS Patient extubated 11/03/2021. Developed hypoxia and tachypnea overnight and requiring BiPAP. OBJECTIVE Vital Signs Vital Signs Date Time Temp Pulse Resp B/P (MAP) Pulse Ox O2 Delivery O2 Flow Rate FiO2 11/06/21 07:00 98 44 74/49 (57) 100 vapotherm 35.0 11/06/21 04:00 97.9 97.9 I & 0 Intake and Output 11/06/21 07:00 Intake Total 2109 ml Output Total 629 ml Balance 1480 ml Intake Oral 0 ml IV Total 2109 ml Output Urine Total 464 ml Drainage Total 165 ml PHYSICAL EXAM Physical Exam GEN: Awake, Oriented x [], In [] distress EYES: Vision Unchanged, Conjunctiva Normal EN: No EN Drainage, Mucous Membranes [] NECK: [] JVD, [] JVP, Supple, [] Thyromegaly CVS: S1S2, [] Murmur, No Gallop, No Rub,[] Edema RESP: [] Rales, [] Rhonchi,[] Acc. Muscle Use GI: BS + ve, NO Bruit, Non Tender, Non Distended : [] CVA tenderness, [] Suprapubic Tenderness DIAGNOSIS/ASSESSMENT Assessment & Plan ESRD/ARF: Current fluid and E-lyte status does not necessitate emergent need for dialysis. Will re-evaluate for dialysis in the am and continue on [] schedule. ANEMIA; [] Aranap as ordered, [] Transfuse [] with next HD as needed HTN: Current BP meds as reviewed. See orders for changes. BONE & MINERAL: [] Discussed Plan of Care with family [] at bedside [] over the phone COMMENT/RELEVANT DATA Meds Current Medications Medications (Trade) Dose Ordered Sig/Tiarra Start Time Stop Time Status Last Admin Dose Admin Albumin Human 100 ml @ 100 mls/hr TID 11/03/21 14:00 11/05/21 09:59 DC 11/05/21 09:08 100 MLS/HR Argatroban (Argatroban Per Pharmacy) 1 each PRN DAILY PRN 11/04/21 19:15 11/05/21 12:07 DC 11/04/21 19:23 1 EACH Argatroban 50 mg/ Sodium Chloride 50 ml @ 1.611 mls/ hr CONT PRN 11/04/21 19:15 11/05/21 12:07 DC 11/04/21 20:57 1.611 MLS/HR Atropine Sulfate (ATROPINE 0.5mg SYRINGE) 0.5 mg PRN Q5MIN PRN 11/02/21 03:00 Bupivacaine HCl/ Epinephrine Bitart (Sensorcain-Epi 0.5% Kit) 30 ml STK-MED ONCE 11/01/21 18:25 11/01/21 18:26 DC Calcium Gluconate (Calcium Gluconate) 1,000 mg 1X ONCE 11/01/21 16:00 11/01/21 16:01 DC 11/01/21 16:35 1,000 MG Cefepime HCl (Maxipime) 2 gm Q12HR 11/05/21 21:00 11/05/21 21:34 2 GM Clopidogrel Bisulfate (Plavix) 75 mg [id number] 11/02/21 13:00 11/04/21 18:51 DC 11/04/21 08:25 75 MG Cyanocobalamin (Vitamin B-12 Inj) 1,000 mcg 1X ONCE 11/02/21 13:00 11/02/21 13:01 DC 11/02/21 13:14 1,000 MCG Dexmedetomidine HCl 400 mcg/ Sodium Chloride 100 ml @ 2.435 mls/ hr CONT PRN 11/02/21 03:00 Dextrose (Dextrose 50%-Water Syringe) 12.5 gm PRN Q15MIN PRN 11/03/21 12:15 Cancel Dextrose (Iv Dextrose 5%) 250 ml PRN Q15MIN PRN 11/03/21 12:15 Dextrose/Sodium Chloride 1,000 ml @ 100 mls/hr Q10H 11/01/21 20:30 11/02/21 05:51 DC Epinephrine HCl (EPINEPHrine SYRINGE) 1 mg 1X ONCE 11/06/21 08:45 11/06/21 08:46 DC Epinephrine HCl 5 mg/Sodium Chloride 255 ml @ 16.952 mls/ hr CONT PRN 11/06/21 08:00 11/06/21 08:40 118.667 MLS/HR Etomidate (Amidate) 20 mg STK-MED ONCE 11/01/21 17:55 11/01/21 17:56 DC Fentanyl Citrate (Fentanyl 2ml Vial) 25 mcg PRN Q2HR PRN 11/04/21 05:15 11/06/21 04:25 25 MCG Fentanyl Citrate (Fentanyl 5ml Vial) 250 mcg STK-MED ONCE 11/01/21 17:55 11/01/21 17:55 DC Furosemide (Lasix) 40 mg 1X ONCE 11/05/21 10:00 11/05/21 10:01 DC 11/05/21 10:03 40 MG Glycerin/ Hypromellose/ Polyethylene (Artificial Tears) 1 drop PRN Q1HR PRN 11/02/21 03:00 Heparin Sodium (Porcine) (Heparin Sodium) 5,000 unit Q12HR 11/02/21 09:00 11/04/21 18:18 DC 11/04/21 08:29 5,000 UNIT Hydrocortisone Sodium Succinate (Solu-CORTEF) 100 mg 1X ONCE 11/02/21 12:00 11/02/21 12:01 DC 11/02/21 12:05 100 MG Hydromorphone HCl (Dilaudid) 1 mg Q4HRS PRN 11/05/21 12:00 11/05/21 23:54 1 MG Info (Tpn Per Pharmacy) 1 each PRN DAILY PRN 11/02/21 09:45 11/05/21 12:36 1 EACH Insulin Glargine (Lantus Syringe) 12 unit DAILY 11/03/21 12:15 11/05/21 09:13 12 UNIT Insulin Human Lispro (HumaLOG) 0-9 UNITS Q6HRS 11/05/21 18:00 11/06/21 05:56 5 UNITS Insulin Human Regular (HumuLIN R VIAL) 10 unit 1X ONCE 11/01/21 16:00 11/01/21 16:01 DC 11/01/21 16:40 10 UNIT Lorazepam (Ativan Inj) 0.5 mg PRN Q4HRS PRN 11/06/21 01:45 11/06/21 01:50 0.5 MG Magnesium Sulfate 50 ml @ 25 mls/hr PRN DAILY PRN 11/02/21 11:00 Magnesium Sulfate/ Dextrose 100 ml @ 100 mls/hr 1X ONCE 11/03/21 13:00 11/03/21 13:59 DC 11/03/21 13:25 100 MLS/HR Midazolam HCl 100 ml @ 1 mls/hr CONT PRN 11/02/21 03:00 Morphine Sulfate (Morphine Sulfate) 1 mg PRN Q10MIN PRN 11/01/21 18:00 11/02/21 17:59 UNV Norepinephrine Bitartrate 8 mg/ Dextrose 258 ml @ 9.423 mls/ hr CONT PRN 11/02/21 05:15 11/06/21 06:37 9.423 MLS/HR Ondansetron HCl (Zofran) 4 mg PRN Q8HRS PRN 11/01/21 16:45 11/02/21 16:44 DC Pantoprazole Sodium (PROTONIX VIAL for IV PUSH) 40 mg BID 11/05/21 17:00 11/05/21 17:27 40 MG Pantoprazole Sodium 80 mg/ Sodium Chloride 100 ml @ 10 mls/hr Q10H 11/03/21 14:00 11/05/21 12:23 DC 11/05/21 07:32 10 MLS/HR Phenylephrine HCl (PHENYLEPHRINE in 0.9% NACL PF) 1 mg STK-MED ONCE 11/01/21 19:53 11/01/21 19:53 DC Piperacillin Sod/ Tazobactam Sod (Zosyn Per Pharmacy) 1 each PRN DAILY PRN 11/01/21 18:15 Cancel Piperacillin Sod/ Tazobactam Sod 2.25 gm/Sodium Chloride 50 ml @ 100 mls/hr Q8HRS 11/01/21 22:00 11/05/21 08:14 DC 11/05/21 05:54 100 MLS/HR Piperacillin Sod/ Tazobactam Sod 3.375 gm/Sodium Chloride 50 ml @ 100 mls/hr Q6HRS 11/05/21 12:00 11/05/21 13:48 DC 11/05/21 12:18 100 MLS/HR Potassium Chloride/Water 100 ml @ 50 mls/hr PRN Q2HR PRN 11/03/21 12:45 11/04/21 03:57 50 MLS/HR Potassium Acetate 40 meq/Magnesium Sulfate 10 meq/ Multivitamins 10 ml/Zinc/Copper/ Manganese/ Selenium 1 ml/ Total Parenteral Nutrition/Amino Acids/Dextrose/ Fat Emulsion Intravenous 1,512 ml @ 63 mls/hr TPN CONT 11/02/21 22:00 11/03/21 21:59 DC 11/02/21 21:34 63 MLS/HR Prochlorperazine Edisylate (Compazine) 5 mg PACU PRN PRN 11/01/21 18:00 11/02/21 17:59 UNV Propofol 100 ml @ 1.461 mls/ hr CONT PRN 11/02/21 03:00 Ringer's Solution 980 ml @ 980 mls/hr 1X ONCE 11/02/21 09:30 11/02/21 10:29 DC 11/02/21 09:25 980 MLS/HR Rocuronium Edson (Zemuron) 100 mg STK-MED ONCE 11/01/21 17:54 11/01/21 17:55 DC Sevoflurane (Ultane) 90 ml STK-MED ONCE 11/01/21 19:58 11/01/21 19:58 DC Sodium Bicarbonate 150 meq/Dextrose 1,150 ml @ 50 mls/hr Q23H 11/01/21 23:00 11/02/21 10:57 DC 11/01/21 22:19 100 MLS/HR Sodium Bicarbonate 75 meq/Dextrose 1,075 ml @ 100 mls/hr [id number] 11/02/21 11:00 11/03/21 09:35 DC 11/02/21 22:14 100 MLS/HR Sodium Acetate 60 meq/Sodium Phosphate 15 mmol/ Magnesium Sulfate 5 meq/ Multivitamins 10 ml/Zinc/Copper/ Manganese/ Selenium 1 ml/ Total Parenteral Nutrition/Amino Acids/Dextrose/ Fat Emulsion Intravenous 1,512 ml @ 63 mls/hr TPN CONT 11/05/21 22:00 11/06/21 21:59 11/05/21 21:35 63 MLS/HR Sodium Bicarbonate (Sodium Bicarb Adult 8.4% Syr) 50 meq 1X ONCE 11/05/21 09:30 11/05/21 09:31 DC 11/05/21 09:40 50 MEQ Sodium Chloride 60 meq/Potassium Acetate 50 meq/ Potassium Phosphate 13.6 mmol/Magnesium Sulfate 15 meq/ Multivitamins 10 ml/Zinc/Copper/ Manganese/ Selenium 1 ml/ Total Parenteral Nutrition/Amino Acids/Dextrose/ Fat Emulsion Intravenous 1,512 ml @ 63 mls/hr TPN CONT 11/03/21 22:00 11/04/21 21:59 DC 11/03/21 22:14 63 MLS/HR Sodium Chloride 60 meq/Sodium Phosphate 15 mmol/ Magnesium Sulfate 10 meq/ Multivitamins 10 ml/Zinc/Copper/ Manganese/ Selenium 1 ml/ Total Parenteral Nutrition/Amino Acids/Dextrose/ Fat Emulsion Intravenous 1,512 ml @ 63 mls/hr TPN CONT 11/04/21 22:00 11/05/21 21:59 DC 11/04/21 22:15 63 MLS/HR Sodium Phosphate 15 mmol/Sodium Chloride 105 ml @ 105 mls/hr 1X ONCE 11/04/21 14:00 11/04/21 14:59 DC 11/04/21 15:27 105 MLS/HR Sterile Water (WATER for RESP) 2,000 ml CONT PRN 11/05/21 21:15 11/06/21 02:55 2,000 ML Vasopressin 20 unit/Sodium Chloride 101 ml @ 12 mls/hr CONT PRN 11/06/21 08:00 11/06/21 08:39 12 MLS/HR Lab Laboratory Tests Test 11/05/21 12:40 11/05/21 14:00 11/05/21 18:11 11/06/21 00:50 Glucose (Fingerstick) 254 mg/dL (70-99) 249 mg/dL (70-99) 226 mg/dL (70-99) Iron Level 73 ug/dL (50-170) Total Iron Binding Capacity 48 ug/dL (250-450) Iron Saturation % (15-34) Ferritin 3162 ng/mL (8-252) Vitamin B12 Level > 2000 pg/mL (247-911) Test 11/06/21 05:35 11/06/21 05:42 White Blood Count 9.9 x10^3/uL (4.0-11.0) Red Blood Count 1.89 x10^6/uL (3.50-5.40) Hemoglobin 6.0 g/dL (12.0-15.5) Hematocrit 18.8 % (36.0-47.0) Mean Corpuscular Volume 100 fL (79-100) Mean Corpuscular Hemoglobin 32 pg (25-35) Mean Corpuscular Hemoglobin Concent 32 g/dL (31-37) Red Cell Distribution Width 18.8 % (11.5-14.5) Platelet Count 30 x10^3/uL (140-400) Neutrophils (%) (Auto) 93 % (31-73) Lymphocytes (%) (Auto) 6 % (24-48) Monocytes (%) (Auto) 1 % (0-9) Eosinophils (%) (Auto) 0 % (0-3) Basophils (%) (Auto) 0 % (0-3) Neutrophils # (Auto) 9.2 x10^3/uL (1.8-7.7) Lymphocytes # (Auto) 0.6 x10^3/uL (1.0-4.8) Monocytes # (Auto) 0.1 x10^3/uL (0.0-1.1) Eosinophils # (Auto) 0.0 x10^3/uL (0.0-0.7) Basophils # (Auto) 0.0 x10^3/uL (0.0-0.2) Sodium Level 144 mmol/L (136-145) Potassium Level 4.4 mmol/L (3.5-5.1) Chloride Level 109 mmol/L (98-107) Carbon Dioxide Level 18 mmol/L (21-32) Anion Gap 17 (6-14) Blood Urea Nitrogen 87 mg/dL (7-20) Creatinine 1.5 mg/dL (0.6-1.0) Estimated GFR (Cockcroft-Gault) 34.9 BUN/Creatinine Ratio 58 (6-20) Glucose Level 225 mg/dL (70-99) Calcium Level 8.3 mg/dL (8.5-10.1) Phosphorus Level 5.0 mg/dL (2.6-4.7) Magnesium Level 2.3 mg/dL (1.8-2.4) Total Bilirubin 2.7 mg/dL (0.2-1.0) Aspartate Amino Transf (AST/SGOT) 873 U/L (15-37) Alanine Aminotransferase (ALT/SGPT) 370 U/L (14-59) Alkaline Phosphatase 89 U/L (46-116) Total Protein 3.9 g/dL (6.4-8.2) Albumin 2.3 g/dL (3.4-5.0) Albumin/Globulin Ratio 1.4 (1.0-1.7) Glucose (Fingerstick) 213 mg/dL (70-99) Results All relevant outside records, renal labs, imaging studies, telemetry/EKG's were reviewed. Justicifation of Admission Dx: Justifications for Admission: Justification of Admission Dx: N/A MILAGROS AKBAR MD Nov 06, 2021 09:10
--- NOTE | 2021-11-06 09:54 | PDOC3 ---
Discharge Summary Visit Information Date of Admission: Nov 02, 2021 Date of Discharge: Nov 06, 2021 Final Diagnosis Problems Medical Problems: (1) Elevated bilirubin Status: Acute (2) Hyperkalemia Status: Acute (3) Lactic acidosis Status: Acute (4) Leukocytosis Status: Acute (5) Perforated viscus Status: Acute (6) Renal insufficiency Status: Acute Brief Hospital Course Allergies Allergies Coded Allergies Type Severity Reaction Last Updated Verified adhesive tape Allergy Intermediate 11/02/21 Yes Vital Signs Vital Signs Date Time Temp Pulse Resp B/P (MAP) Pulse Ox O2 Delivery O2 Flow Rate FiO2 11/06/21 07:00 98 44 74/49 (57) 100 vapotherm 35.0 11/06/21 04:00 97.9 97.9 Lab Results Laboratory Tests Test 11/04/21 12:15 11/04/21 14:50 11/04/21 18:01 11/04/21 22:30 Glucose (Fingerstick) 220 mg/dL (70-99) 212 mg/dL (70-99) White Blood Count 12.0 x10^3/uL (4.0-11.0) Red Blood Count 2.78 x10^6/uL (3.50-5.40) Hemoglobin 8.6 g/dL (12.0-15.5) Hematocrit 26.9 % (36.0-47.0) Mean Corpuscular Volume 97 fL (79-100) Mean Corpuscular Hemoglobin 31 pg (25-35) Mean Corpuscular Hemoglobin Concent 32 g/dL (31-37) Red Cell Distribution Width 19.2 % (11.5-14.5) Platelet Count 15 x10^3/uL (140-400) Neutrophils (%) (Auto) 93 % (31-73) Lymphocytes (%) (Auto) 3 % (24-48) Monocytes (%) (Auto) 4 % (0-9) Eosinophils (%) (Auto) 0 % (0-3) Basophils (%) (Auto) 0 % (0-3) Neutrophils # (Auto) 11.2 x10^3/uL (1.8-7.7) Lymphocytes # (Auto) 0.4 x10^3/uL (1.0-4.8) Monocytes # (Auto) 0.4 x10^3/uL (0.0-1.1) Eosinophils # (Auto) 0.0 x10^3/uL (0.0-0.7) Basophils # (Auto) 0.0 x10^3/uL (0.0-0.2) Activated Partial Thromboplast Time 58 SEC (24-38) Fibrinogen 257 mg/dL (200-440) D-Dimer (Linda) 12.98 ug/mlFEU (0.00-0.50) Test 11/05/21 00:41 11/05/21 03:05 11/05/21 05:50 11/05/21 05:52 Glucose (Fingerstick) 205 mg/dL (70-99) 232 mg/dL (70-99) Activated Partial Thromboplast Time 83 SEC (24-38) White Blood Count 16.1 x10^3/uL (4.0-11.0) Red Blood Count 2.67 x10^6/uL (3.50-5.40) Hemoglobin 8.3 g/dL (12.0-15.5) Hematocrit 26.4 % (36.0-47.0) Mean Corpuscular Volume 99 fL (79-100) Mean Corpuscular Hemoglobin 31 pg (25-35) Mean Corpuscular Hemoglobin Concent 32 g/dL (31-37) Red Cell Distribution Width 20.2 % (11.5-14.5) Platelet Count 41 x10^3/uL (140-400) Neutrophils (%) (Auto) 91 % (31-73) Lymphocytes (%) (Auto) 4 % (24-48) Monocytes (%) (Auto) 3 % (0-9) Eosinophils (%) (Auto) 0 % (0-3) Basophils (%) (Auto) 2 % (0-3) Neutrophils # (Auto) 14.6 x10^3/uL (1.8-7.7) Lymphocytes # (Auto) 0.6 x10^3/uL (1.0-4.8) Monocytes # (Auto) 0.5 x10^3/uL (0.0-1.1) Eosinophils # (Auto) 0.0 x10^3/uL (0.0-0.7) Basophils # (Auto) 0.3 x10^3/uL (0.0-0.2) Segmented Neutrophils % 81 % (35-66) Band Neutrophils % 12 % (0-9) Lymphocytes % 5 % (24-48) Monocytes % 1 % (0-10) Eosinophils % 1 % (0-5) Nucleated Red Blood Cells 1 Platelet Estimate Decreased (ADEQUATE) Anisocytosis Slight Magnesium Level 2.5 mg/dL (1.8-2.4) Test 11/05/21 08:00 11/05/21 09:00 11/05/21 12:40 11/05/21 14:00 O2 Saturation 96 % (92-99) Arterial Blood pH 7.45 (7.35-7.45) Arterial Blood pCO2 at Patient Temp 29 mmHg (35-46) Arterial Blood pO2 at Patient Temp 93 mmHg (65-108) Arterial Blood HCO3 20 mmol/L (21-28) Arterial Blood Base Excess -4 mmol/L (-3-3) FiO2 60 Activated Partial Thromboplast Time 84 SEC (24-38) Sodium Level 141 mmol/L (136-145) Potassium Level 4.3 mmol/L (3.5-5.1) Chloride Level 106 mmol/L (98-107) Carbon Dioxide Level 19 mmol/L (21-32) Anion Gap 16 (6-14) Blood Urea Nitrogen 68 mg/dL (7-20) Creatinine 1.2 mg/dL (0.6-1.0) Estimated GFR (Cockcroft-Gault) 45.1 Glucose Level 232 mg/dL (70-99) Calcium Level 8.4 mg/dL (8.5-10.1) Phosphorus Level 4.0 mg/dL (2.6-4.7) Albumin 2.8 g/dL (3.4-5.0) Glucose (Fingerstick) 254 mg/dL (70-99) Iron Level 73 ug/dL (50-170) Total Iron Binding Capacity 48 ug/dL (250-450) Iron Saturation % (15-34) Ferritin 3162 ng/mL (8-252) Vitamin B12 Level > 2000 pg/mL (247-911) Test 11/05/21 18:11 11/06/21 00:50 11/06/21 05:35 11/06/21 05:42 Glucose (Fingerstick) 249 mg/dL (70-99) 226 mg/dL (70-99) 213 mg/dL (70-99) White Blood Count 9.9 x10^3/uL (4.0-11.0) Red Blood Count 1.89 x10^6/uL (3.50-5.40) Hemoglobin 6.0 g/dL (12.0-15.5) Hematocrit 18.8 % (36.0-47.0) Mean Corpuscular Volume 100 fL (79-100) Mean Corpuscular Hemoglobin 32 pg (25-35) Mean Corpuscular Hemoglobin Concent 32 g/dL (31-37) Red Cell Distribution Width 18.8 % (11.5-14.5) Platelet Count 30 x10^3/uL (140-400) Neutrophils (%) (Auto) 93 % (31-73) Lymphocytes (%) (Auto) 6 % (24-48) Monocytes (%) (Auto) 1 % (0-9) Eosinophils (%) (Auto) 0 % (0-3) Basophils (%) (Auto) 0 % (0-3) Neutrophils # (Auto) 9.2 x10^3/uL (1.8-7.7) Lymphocytes # (Auto) 0.6 x10^3/uL (1.0-4.8) Monocytes # (Auto) 0.1 x10^3/uL (0.0-1.1) Eosinophils # (Auto) 0.0 x10^3/uL (0.0-0.7) Basophils # (Auto) 0.0 x10^3/uL (0.0-0.2) Sodium Level 144 mmol/L (136-145) Potassium Level 4.4 mmol/L (3.5-5.1) Chloride Level 109 mmol/L (98-107) Carbon Dioxide Level 18 mmol/L (21-32) Anion Gap 17 (6-14) Blood Urea Nitrogen 87 mg/dL (7-20) Creatinine 1.5 mg/dL (0.6-1.0) Estimated GFR (Cockcroft-Gault) 34.9 BUN/Creatinine Ratio 58 (6-20) Glucose Level 225 mg/dL (70-99) Calcium Level 8.3 mg/dL (8.5-10.1) Phosphorus Level 5.0 mg/dL (2.6-4.7) Magnesium Level 2.3 mg/dL (1.8-2.4) Total Bilirubin 2.7 mg/dL (0.2-1.0) Aspartate Amino Transf (AST/SGOT) 873 U/L (15-37) Alanine Aminotransferase (ALT/SGPT) 370 U/L (14-59) Alkaline Phosphatase 89 U/L (46-116) Total Protein 3.9 g/dL (6.4-8.2) Albumin 2.3 g/dL (3.4-5.0) Albumin/Globulin Ratio 1.4 (1.0-1.7) Laboratory Tests Test 11/05/21 12:40 11/05/21 14:00 11/05/21 18:11 11/06/21 00:50 Glucose (Fingerstick) 254 mg/dL (70-99) 249 mg/dL (70-99) 226 mg/dL (70-99) Iron Level 73 ug/dL (50-170) Total Iron Binding Capacity 48 ug/dL (250-450) Iron Saturation % (15-34) Ferritin 3162 ng/mL (8-252) Vitamin B12 Level > 2000 pg/mL (247-911) Test 11/06/21 05:35 11/06/21 05:42 White Blood Count 9.9 x10^3/uL (4.0-11.0) Red Blood Count 1.89 x10^6/uL (3.50-5.40) Hemoglobin 6.0 g/dL (12.0-15.5) Hematocrit 18.8 % (36.0-47.0) Mean Corpuscular Volume 100 fL (79-100) Mean Corpuscular Hemoglobin 32 pg (25-35) Mean Corpuscular Hemoglobin Concent 32 g/dL (31-37) Red Cell Distribution Width 18.8 % (11.5-14.5) Platelet Count 30 x10^3/uL (140-400) Neutrophils (%) (Auto) 93 % (31-73) Lymphocytes (%) (Auto) 6 % (24-48) Monocytes (%) (Auto) 1 % (0-9) Eosinophils (%) (Auto) 0 % (0-3) Basophils (%) (Auto) 0 % (0-3) Neutrophils # (Auto) 9.2 x10^3/uL (1.8-7.7) Lymphocytes # (Auto) 0.6 x10^3/uL (1.0-4.8) Monocytes # (Auto) 0.1 x10^3/uL (0.0-1.1) Eosinophils # (Auto) 0.0 x10^3/uL (0.0-0.7) Basophils # (Auto) 0.0 x10^3/uL (0.0-0.2) Sodium Level 144 mmol/L (136-145) Potassium Level 4.4 mmol/L (3.5-5.1) Chloride Level 109 mmol/L (98-107) Carbon Dioxide Level 18 mmol/L (21-32) Anion Gap 17 (6-14) Blood Urea Nitrogen 87 mg/dL (7-20) Creatinine 1.5 mg/dL (0.6-1.0) Estimated GFR (Cockcroft-Gault) 34.9 BUN/Creatinine Ratio 58 (6-20) Glucose Level 225 mg/dL (70-99) Calcium Level 8.3 mg/dL (8.5-10.1) Phosphorus Level 5.0 mg/dL (2.6-4.7) Magnesium Level 2.3 mg/dL (1.8-2.4) Total Bilirubin 2.7 mg/dL (0.2-1.0) Aspartate Amino Transf (AST/SGOT) 873 U/L (15-37) Alanine Aminotransferase (ALT/SGPT) 370 U/L (14-59) Alkaline Phosphatase 89 U/L (46-116) Total Protein 3.9 g/dL (6.4-8.2) Albumin 2.3 g/dL (3.4-5.0) Albumin/Globulin Ratio 1.4 (1.0-1.7) Glucose (Fingerstick) 213 mg/dL (70-99) Brief Hospital Course Ms. Alvarado is a 66 old female who presented with: Perforated gastric ulcers, s/p exploratory laparotomy and repair, respiratory failure, bacteremia, thrombocytopenia. Consults were placed to general surgery, ID, cardiology, nephrology, and pulmonology. She was treated with IV Zosyn, which was later changed to IV cefepime and metronidazole due to worsening thrombocytopenia. During hospital course she was placed on IV pressors, but unfortunately began to develop ischemic changes to her toes. Consult placed to vascular surgery. Unfortunately patient did slowly began to deteriorate. On the morning of 11/06/2021 she had a PEA event and CODE BLUE was called. She was coded appropriately by the ER attending but unfortunately she did not survive. Discharge Information Condition at Discharge: / Disposition/Orders: Scheduled Clopidogrel Bisulfate (Clopidogrel) 75 Mg Tablet, 75 MG PO DAILY for TO PREVENT BLOOD CLOTS, #30 Ref 0 (Reported) Entered as Reported by: NABOR LOVE RN on 11/02/211399 Last Taken: UNKNOWN on Unknown Date & Time Last Action: Reviewed on 11/02/211755 by LUDY MCKEON RN Fluconazole (Fluconazole) 100 Mg Tablet, 100 MG PO DAILY for yeast, (Reported) Entered as Reported by: NABOR LOVE RN on 11/02/211399 Last Taken: UNKNOWN on Unknown Date & Time Last Action: Reviewed on 11/02/211755 by LUDY MCKEON RN Furosemide (Lasix) 40 Mg Tablet, 40 MG PO DAILY for unknown, (Reported) Entered as Reported by: NABOR LOVE RN on 11/02/211399 Last Taken: UNKNOWN on Unknown Date & Time Last Action: Reviewed on 11/02/211755 by LUDY MCKEON RN Levothyroxine Sodium (Levothyroxine Sodium) 125 Mcg Tablet, 125 MCG PO DAILYAC for THYROID SUPPLEMENT, #30 Ref 0 (Reported) Entered as Reported by: NABOR LOVE RN on 11/02/211399 Last Taken: UNKNOWN on Unknown Date & Time Last Action: Reviewed on 11/02/211755 by LUDY MCKEON RN Meloxicam (Meloxicam) 15 Mg Tablet, 15 MG PO DAILY for unknown, (Reported) Entered as Reported by: NABOR LOVE RN on 11/02/211399 Last Taken: UNKNOWN on Unknown Date & Time Last Action: Reviewed on 11/02/211755 by LUDY MCKEON RN Metoprolol Succinate (Metoprolol Succinate ( Xl )) 25 Mg Tab.er.24h, 0.5 TAB PO DAILY for unknown, #30 Ref 5 (Reported) Entered as Reported by: NABOR LOVE RN on 11/02/211399 Last Taken: UNKNOWN on Unknown Date & Time Last Action: Reviewed on 11/02/211755 by LUDY MCKEON RN Pantoprazole Sodium (Protonix) 20 Mg Tablet.dr, 40 MG PO DAILY for unknown, (Reported) Entered as Reported by: NABOR LOVE RN on 11/02/211399 Last Taken: UNKNOWN on Unknown Date & Time Last Action: Reviewed on 11/02/211755 by LUDY MCKEON RN Potassium Chloride (Klor-Con 10) 10 Meq Tablet.er, 10 MEQ PO DAILY for low potassium, #2 (Reported) Entered as Reported by: NABOR LOVE RN on 11/02/211399 Last Taken: UNKNOWN on Unknown Date & Time Last Action: Reviewed on 11/02/211755 by LUDY MCKEON RN Prednisone (Prednisone) 20 Mg Tablet, 20 MG PO DAILY for unknown, (Reported) Entered as Reported by: NABOR LOVE RN on 11/02/211399 Last Taken: UNKNOWN on Unknown Date & Time Last Action: Reviewed on 11/02/211755 by LUDY MCKEON RN Sertraline Hcl (Zoloft) 50 Mg Tablet, 50 MG PO DAILY for ANTI-DEPRESSANT, Ref 0 (Reported) Entered as Reported by: NABOR LOVE RN on 11/02/211399 Last Taken: UNKNOWN on Unknown Date & Time Last Action: Reviewed on 11/02/211755 by LUDY MCKEON RN Spironolactone (Spironolactone) 25 Mg Tablet, 0.5 TAB PO DAILYWBKFT for unknown, #30 Ref 5 (Reported) Entered as Reported by: NABOR LOVE RN on 11/02/211399 Last Taken: UNKNOWN on Unknown Date & Time Last Action: Reviewed on 11/02/211755 by LUDY MCKEON RN Scheduled PRN Hydrocodone/Acetaminophen (Hydrocodone-Acetamin 7.5-325) 1 Each Tablet, 1 EACH PO Q6HRS PRN for PAIN, (Reported) Entered as Reported by: NABOR LOEV RN on 11/02/211399 Last Taken: UNKNOWN on Unknown Date & Time Last Action: Reviewed on 11/02/211755 by LUDY MCKEON RN Tramadol Hcl (Tramadol Hcl) 50 Mg Tablet, 50 MG PO Q6HRS PRN for PAIN, (Reported) Entered as Reported by: NABOR LOVE RN on 11/02/21 1400 Last Taken: UNKNOWN on Unknown Date & Time Last Action: Reviewed on 11/02/211755 by LUDY MCKEON RN Justicifation of Admission Dx: Justifications for Admission: Justification of Admission Dx: N/A CLARISSA HEMPHILL MD Nov 06, 2021 09:54
== END 2021-11-06 08:16 | DRG 853 ==
LOC: ER 14:48 → 1 WEST ICU 16:37
PROVIDERS: ADMIT Internal Medicine; ATTEND Internal Medicine
PROC: 0DJ64ZZ Inspection of Stomach, Percutaneous Endoscopic Approach (ICD-10-PCS; 2021-11-01)
PROC: 0W9F40Z Drainage of Abdominal Wall with Drainage Device, Percutaneous Endoscopic Approach (ICD-10-PCS; 2021-11-01)
PROC: 5A1945Z Respiratory Ventilation, 24-96 Consecutive Hours (ICD-10-PCS; 2021-11-01)
PROC: 0BH17EZ Insertion of Endotracheal Airway into Trachea, Via Natural or Artificial Opening (ICD-10-PCS; 2021-11-01)
PROC: 0DQ60ZZ Repair Stomach, Open Approach (ICD-10-PCS; principal; 2021-11-01 17:35)
PROC: 3E0336Z Introduction of Nutritional Substance into Peripheral Vein, Percutaneous Approach (ICD-10-PCS; 2021-11-03)
PROC: 30233R1 Transfusion of Nonautologous Platelets into Peripheral Vein, Percutaneous Approach (ICD-10-PCS; 2021-11-04)
PROC: 5A0935A Assistance with Respiratory Ventilation, Less than 24 Consecutive Hours, High Flow/Velocity Cannula (ICD-10-PCS; 2021-11-04)
PROC: 5A0935A Assistance with Respiratory Ventilation, Less than 24 Consecutive Hours, High Flow/Velocity Cannula (ICD-10-PCS; 2021-11-05)
PROC: 5A09357 Assistance with Respiratory Ventilation, Less than 24 Consecutive Hours, Continuous Positive Airway Pressure (ICD-10-PCS; 2021-11-05)
PROC: 5A12012 Performance of Cardiac Output, Single, Manual (ICD-10-PCS; 2021-11-06)
PROC: 0BH17EZ Insertion of Endotracheal Airway into Trachea, Via Natural or Artificial Opening (ICD-10-PCS; 2021-11-06)
DX: A41.9 Sepsis, unspecified organism (principal); G93.41 Metabolic encephalopathy; E43 Unspecified severe protein-calorie malnutrition; J96.01 Acute respiratory failure with hypoxia; K25.6 Chronic or unspecified gastric ulcer with both hemorrhage and perforation; K63.1 Perforation of intestine (nontraumatic); K65.1 Peritoneal abscess; N17.0 Acute kidney failure with tubular necrosis; R65.21 Severe sepsis with septic shock; J81.1 Chronic pulmonary edema; J90 Pleural effusion, not elsewhere classified; J98.11 Atelectasis; R17 Unspecified jaundice; R64 Cachexia; D62 Acute posthemorrhagic anemia; E87.2 Acidosis; E87.0 Hyperosmolality and hypernatremia; M84.48XA Pathological fracture, other site, initial encounter for fracture; Z20.822 Contact with and (suspected) exposure to COVID-19; D64.9 Anemia, unspecified; E03.9 Hypothyroidism, unspecified; E78.5 Hyperlipidemia, unspecified; E87.5 Hyperkalemia; F17.210 Nicotine dependence, cigarettes, uncomplicated; F41.9 Anxiety disorder, unspecified; I08.1 Rheumatic disorders of both mitral and tricuspid valves; I10 Essential (primary) hypertension; I25.10 Atherosclerotic heart disease of native coronary artery without angina pectoris; I25.2 Old myocardial infarction; I25.5 Ischemic cardiomyopathy; I48.91 Unspecified atrial fibrillation; K21.9 Gastro-esophageal reflux disease without esophagitis; M06.9 Rheumatoid arthritis, unspecified; W18.30XA Fall on same level, unspecified, initial encounter; E83.42 Hypomagnesemia; D75.82 Heparin induced thrombocytopenia (HIT); T45.515A Adverse effect of anticoagulants, initial encounter; I46.9 Cardiac arrest, cause unspecified; I73.9 Peripheral vascular disease, unspecified; B96.20 Unspecified Escherichia coli [E. coli] as the cause of diseases classified elsewhere; B96.4 Proteus (mirabilis) (morganii) as the cause of diseases classified elsewhere; B95.2 Enterococcus as the cause of diseases classified elsewhere; L89.159 Pressure ulcer of sacral region, unspecified stage; Y93.89 Activity, other specified; Y99.8 Other external cause status; Y92.009 Unspecified place in unspecified non-institutional (private) residence as the place of occurrence of the external cause; Z79.02 Long term (current) use of antithrombotics/antiplatelets; Z79.899 Other long term (current) drug therapy; Z95.5 Presence of coronary angioplasty implant and graft; Z95.818 Presence of other cardiac implants and grafts; Z53.31 Laparoscopic surgical procedure converted to open procedure; Z68.23 Body mass index [BMI] 23.0-23.9, adult
CPT/HCPCS: 36415; 36430; 36600; 70450; 71045; 71250; 72125; 74018; 74176; 80048; 80053; 80069; 80307; 80329; 81001; 82040; 82140; 82525; 82542; 82550; 82607; 82728; 82805; 82962; 83036; 83540; 83550; 83605; 83690; 83735; 83880; 84100; 84132; 84443; 84478; 84484; 85007; 85018; 85025; 85379; 85384; 85610; 85730; 86850; 86900; 86901; 87040; 87075; 87077; 87086; 87186; 87428; 93320; 93923; 94002; 94003; 94660; 94760; 96361; 96365; 96375; A4314; A4322; A4364; A4452; A4930; A6402; C9113; G0480; J0171; J0610; J0692; J0883; J1170; J1644; J1720; J1815; J1940; J2060; J2370; J2543; J3010; J3420; J3475; J3480; J3490; J7030; J7050; J7060; J7120; P9035; P9045; P9046; U0003; 99285-25; G0378